=== PATIENT | male | born 1970 | race Caucasian/White ===

== ENCOUNTER → 2020-05-10 09:11 | Outpatient (BNVA) | payer OTHER, SELFPAY | PROVIDERS: PCP Physician Assistant; Visit Provider Nurse Practitioner Psychiatric/Mental Health | DX: F11.20 Opioid dependence, uncomplicated (principal); F10.20 Alcohol dependence, uncomplicated | CPT/HCPCS: 99213 ==

== ENCOUNTER → 2020-05-17 10:11 | Outpatient (BNVA) | payer OTHER, SELFPAY | PROVIDERS: PCP Physician Assistant; Visit Provider Nurse Practitioner Psychiatric/Mental Health | DX: F10.20 Alcohol dependence, uncomplicated (principal); F11.99 Opioid use, unspecified with unspecified opioid-induced disorder | CPT/HCPCS: 80305; 99213 ==

== ENCOUNTER 2020-05-18 10:49 | Emergency (ER) | payer OTHER, SELFPAY ==
--- NOTE | 2020-05-18 | ECG_ITS ---
Test Reason : CHEST WALL PAIN Blood Pressure : / mmHG Vent. Rate : 060 BPM Atrial Rate : 060 BPM P-R Int : 160 ms QRS Dur : 110 ms QT Int : 400 ms P-R-T Axes : 071 049 017 degrees QTc Int : 400 ms Normal sinus rhythm Minimal voltage criteria for LVH, may be normal variant Borderline ECG When compared with ECG of 11-OCT-2019 23:59, No significant change was found Referred By: Bhavya Contreras Electronically Signed By:FELICITY HANSON MD
[2020-05-18 10:59] VITALS: BP 221/123; PULSE 67; RESP 18; TEMP 36.7; O2SAT 97; BMI 27.8
[2020-05-18] MEDS: Omeprazole 40 MG CAPSULE.DR PO (12:01)
[2020-05-18] MEDS: Magnesium Hydrox/Alum Hydrox 30 ML ORAL.SUSP PO (12:01)
[2020-05-18] MEDS: Lidocaine HCl Viscous 2 % 15 ML SOLUTION MUCOUS MEM (12:01)
[2020-05-18] MEDS: 0.9 % Sodium Chloride 1,000 ML 999 ML IVCONT (12:02)
[2020-05-18] MEDS: ondansetron HCL 4 MG/2 ML VIAL IVPUSH (12:02)
[2020-05-18 12:08] LABS: MANUAL DIFF FLAG NO
[2020-05-18 12:09] LABS: Basophils Absolute Auto 0.1 X10*3/uL (0.0-0.2); Basophils Percent Auto 0.9 % (0-2); Eosinophils Absolute Auto 0.2 X10*3/uL (0.0-0.4); Eosinophils Percent Auto 3.4 % (0-4); Hematocrit 41.8 % (42-52); Hemoglobin 13.6 g/dl (14.0-18.0); Imm Gran Abs Auto 0.01 X10*3/uL (0.00-0.03); Imm Gran Pct Auto 0.2 % (0.0-0.4); Lymphocytes Absolute Auto 1.5 X10*3/uL (1.2-4.9); Lymphocytes Percent Auto 26.8 % (20-40); Mean Corpuscular HGB Conc 32.5 g/dl (31.0-36.0); Mean Corpuscular Hemoglobin 30.7 pg (27.0-33.0); Mean Corpuscular Volume 94.4 fL (80-98); Mean Platelet Volume 10.4 fL (9.4-12.4); Monocytes Absolute Auto 0.6 X10*3/uL (0.1-1.2); Monocytes Percent Auto 10.9 % (2-11); Neutrophils Absolute Auto 3.3 X10*3/uL (2.0-8.3); Neutrophils Percent Auto 57.8 % (45-73); Platelet Count 171 X10*3/uL (160-400); Red Blood Count 4.43 X10*6/uL (4.60-5.80); Red Cell Distribution Width 13.6 % (11.0-16.0); White Blood Count 5.7 X10*3/uL (4.8-10.8)
--- NOTE | 2020-05-18 12:09 | ED_ITS ---
HPI - Chest Pain General Chief Complaint: Chest Pain Stated Complaint: abd pain vomiting Time Seen by Provider: 05/18/20 11:05 Source: patient Mode of arrival: ambulatory Limitations: language barrier History of Present Illness HPI narrative: 49 y/o male with history of chronic ETOH abuse, heroin abuse on Suboxone, HTN presenting with daily vomiting, mild epigastric abdominal pain for the last 4-6 weeks. He reports drinking at least one 5th of alcohol every day. When he doesn't drink he is tremulous and sweaty and feels awful. He vomits in the morning, non-blood, non-bilious and then has his alcohol in order to go on with his day. He wants to be admitted for alcohol detox. he states alcohol is ruining his family and his life. He also reports chest heaviness and difficulty controlling his blood pressure. He did not take his BP meds today, unsure what he is on. Of note patient was seen here 1 month ago for abd pain - had negative CT scan and scrotal US. MD complaint: other (vomiting ) Onset (ago): week(s) (2) Onset: after eating Pain location: substernal Pain radiation: none Severity: mild Quality: heaviness Relieving factors: nothing Exacerbating factors: stress and other (alcohol withdrawal ) Associated symptoms: nausea, vomiting and diaphoresis Treatment prior to arrival: none Risk Factors Coronary artery disease risk factors: none Thoracic aortic dissection risk factors: none Related Data Home Medications Medication Instructions Recorded Confirmed albuterol sulfate 90 mcg/actuation 2 puff INHALATION Q6H PRN 05/05/20 05/17/20 aerosol inhaler amlodipine 2.5 mg tablet 2.5 mg PO DAILY 05/05/20 05/10/20 multivitamin 1 tab PO DAILY 05/05/20 05/10/20 nicotine 14 mg/24 hr daily 1 patch TRANSDERMAL Q24H 05/05/20 05/10/20 transdermal patch Previous Rx's Medication Instructions Recorded buprenorphine 8 mg-naloxone 2 mg 1 film SUBLINGUAL BID #14 ea 05/17/20 sublingual film ondansetron HCl [Zofran] 4 mg PO Q8H PRN #14 tab 05/18/20 pantoprazole [Protonix] 40 mg PO DAILY #30 tab 05/18/20 Allergies Allergy/AdvReac Type Severity Reaction Status Date / Time seafood Allergy Anaphylaxis Verified 05/17/20 10:42 Review of Systems Review of Systems: Constitutional: No Fever, No Chills ENT/Mouth: No sore throat, No Rhinorrhea, No Swallowing Difficulty Eyes: No Eye Pain, No Swelling, No Redness Cardiovascular: positive Chest Pain, no SOB, No Orthopnea Respiratory: No Cough, No Sputum, No Wheezing Gastrointestinal: positive Nausea, positive Vomiting, No Diarrhea, positive epigastric abdominal Pain, No Hematochezia, No Melena Genitourinary: No Dysuria, No Urinary Frequency, No Hematuria Musculoskeletal: No joint pain, No Myalgias Skin: No Skin Lesions, No rash Neuro: No Weakness, No Numbness, No Dizziness, No Headache Psych: No Anxiety/Panic, No Depression Heme/Lymph: No Bruising, No Lymphadenopathy Endocrine: No Polyuria, No Polydipsia All other 10 point ROS are negative. [facility] Past Medical History Attestation statement: The following information was validated with the patient. Medical History Depression Hypertension Social History Social History Alcohol intake: current Alcohol intake frequency: 3 or more drinks per day Alcohol type: beer and hard liquor Smoking Status: Current every day smoker Smoked in Last 30 Days: Yes Use of substances other than those prescribed or required for medical reasons: Yes Advance Directives: No Advance Directives Information Provided: No Physical Exam Vital Signs and I&O and Narrative: Vital Signs and I&O: Vital Signs Temp 98.1 F 05/18/20 10:59 Pulse 59 05/18/20 12:38 Resp 18 05/18/20 12:38 BP 138/82 05/18/20 12:38 Pulse Ox 98 05/18/20 12:38 Intake & Output 05/17/20 05/18/20 05/18/20 18:59 06:59 18:59 Intake Total 1000 / 1000 Balance 1000 / 1000 Weight 78.29 kg Intake: Intake, IV Amoun t 1000 / 1000 0.9 % Sodium C hloride 1,000 ml 1000 / 1000 @ 999 mls/hr I VCONT .Q1H1M [facility] Rx#:[id number] Body Mass Index 27.8 Course Course Course Narrative: patient would like to be admitted for alcohol detox. He admits to drinking this morning. He does not appear to be withdrawing at this time. We discussed inpatient vs outpatient detox. CARE team consulted. Labs show ETOH level 192 and mild transaminitis similar to prior, likely due to mild alcoholic hepatitis. Reevaluation(s) Reevaluation #1: BP initially elevated 221/120 - he did not take his antihypertesnives this morning. His home Norvasc was ordered as well as IV l abetalol, however on recheck BP drastically improved to 138/92. IV labetalol cancelled for now. Time: 12:49 Reevaluation #2: Seen by CARE Team for referral to outpatient detox centers - patient does not want to wait to hear back about spot availability. Importance of detox was expressed and patient understands. Instructed to come to the ER if he develops s/sxs of withdrawal at home. Stable for d/c. Time: 13:49 MDM - Chest Pain Medical Records Data Attestation: I reviewed the patient's medical records. Lab Data Attestation: I reviewed the patient's lab results. Result diagrams: 05/18/20 11:58 05/18/20 11:58 Labs: Lab Results 05/18/20 05/18/20 05/18/20 Range/Units 11:58 11:58 11:58 WBC 5.7 (4.8-10.8) X10*3/uL RBC 4.43 L (4.60-5.80) X10*6/uL Hgb 13.6 L (14.0-18.0) g/dl Hct 41.8 L (42-52) % MCV 94.4 (80-98) fL MCH 30.7 (27.0-33.0) pg MCHC 32.5 (31.0-36.0) g/dl RDW 13.6 (11.0-16.0) % Plt Count 171 (160-400) X10*3/uL MPV 10.4 (9.4-12.4) fL Immature Gran % (Auto) 0.2 (0.0-0.4) % Neut % (Auto) 57.8 (45-73) % Lymph % (Auto) 26.8 (20-40) % Ward % (Auto) 10.9 (2-11) % Eos % (Auto) 3.4 (0-4) % Baso % (Auto) 0.9 (0-2) % Lymph # (Auto) 1.5 (1.2-4.9) X10*3/uL Ward # (Auto) 0.6 (0.1-1.2) X10*3/uL Eos # (Auto) 0.2 (0.0-0.4) X10*3/uL Baso # (Auto) 0.1 (0.0-0.2) X10*3/uL Abs Immat Gran (auto) 0.01 (0.00-0.03) X10*3/uL Absolute Neuts (auto) 3.3 (2.0-8.3) X10*3/uL Absolute Nucleated RBC 0.000 (0.0-0.012) X10*3/uL Nucleated RBC % (auto) 0.0 (0.0-0.2) /100WBC Sodium 138 (135-145) mmol/L Potassium 4.3 (3.3-5.1) mmol/l Chloride 101 (96-108) mmol/L Carbon Dioxide 29 (22-29) mmol/L Anion Gap 12 (12-20) BUN 9 (9-16) mg/dL Creatinine 0.63 (0.5-1.4) mg/dL Estim Creat Clear Calc 141.1 Estimated GFR > 60 Random Glucose 108 (60-115) mg/dL Calcium 9.1 (8.4-10.2) mg/dL Total Bilirubin 0.5 (0.0-1.0) mg/dL Direct Bilirubin 0.3 (0.0-0.5) mg/dL AST 87 H (5-37) U/L ALT 93 H (0-40) U/L Alkaline Phosphatase 49 (39-117) U/L Troponin I High Sens (<3.5-35.0) ng/L Total Protein 7.0 (6.5-8.0) g/dL Albumin 4.4 (3.5-5.0) g/dL Lipase 20 (8-78) U/L Urine Opiates Screen Not Detected (Not Detect) Ur Barbiturates Screen Not Detected (Not Detect) Ur Phencyclidine Scrn Not Detected (Not Detect) Ur Amphetamines Screen Not Detected (Not Detect) U Benzodiazepines Scrn Not Detected (Not Detect) Urine Cocaine Screen Not Detected (Not Detect) U Marijuana (THC) Screen Not Detected (Not Detect) Ethyl Alcohol mg/dL 05/18/20 05/18/20 Range/Units 11:58 11:58 WBC (4.8-10.8) X10*3/uL RBC (4.60-5.80) X10*6/uL Hgb (14.0-18.0) g/dl Hct (42-52) % MCV (80-98) fL MCH (27.0-33.0) pg MCHC (31.0-36.0) g/dl RDW (11.0-16.0) % Plt Count (160-400) X10*3/uL MPV (9.4-12.4) fL Immature Gran % (Auto) (0.0-0.4) % Neut % (Auto) (45-73) % Lymph % (Auto) (20-40) % Ward % (Auto) (2-11) % Eos % (Auto) (0-4) % Baso % (Auto) (0-2) % Lymph # (Auto) (1.2-4.9) X10*3/uL Ward # (Auto) (0.1-1.2) X10*3/uL Eos # (Auto) (0.0-0.4) X10*3/uL Baso # (Auto) (0.0-0.2) X10*3/uL Abs Immat Gran (auto) (0.00-0.03) X10*3/uL Absolute Neuts (auto) (2.0-8.3) X10*3/uL Absolute Nucleated RBC (0.0-0.012) X10*3/uL Nucleated RBC % (auto) (0.0-0.2) /100WBC Sodium (135-145) mmol/L Potassium (3.3-5.1) mmol/l Chloride (96-108) mmol/L Carbon Dioxide (22-29) mmol/L Anion Gap (12-20) BUN (9-16) mg/dL Creatinine (0.5-1.4) mg/dL Estim Creat Clear Calc Estimated GFR Random Glucose (60-115) mg/dL Calcium (8.4-10.2) mg/dL Total Bilirubin (0.0-1.0) mg/dL Direct Bilirubin (0.0-0.5) mg/dL AST (5-37) U/L ALT (0-40) U/L Alkaline Phosphatase (39-117) U/L Troponin I High Sens 7.2 (<3.5-35.0) ng/L Total Protein (6.5-8.0) g/dL Albumin (3.5-5.0) g/dL Lipase (8-78) U/L Urine Opiates Screen (Not Detect) Ur Barbiturates Screen (Not Detect) Ur Phencyclidine Scrn (Not Detect) Ur Amphetamines Screen (Not Detect) U Benzodiazepines Scrn (Not Detect) Urine Cocaine Screen (Not Detect) U Marijuana (THC) Screen (Not Detect) Ethyl Alcohol 192 mg/dL ECG Data ECG #1: Attestation: I personally reviewed and interpreted this ECG as follows: ECG interpretation date: 05/18/20 Interpretation: normal sinus rhythm HR 60 bpm, normal VA interval, increased QRS voltage consistent with possible LVH Discharge Plan Discharge Clinical Impression: Alcohol use disorder, severe, dependence, Opioid use disorder, Transaminitis Gastritis Qualifiers: Gastritis type: alcoholic Chronicity: chronic Gastritis bleeding: without bleeding Qualified Code(s): K29.20 - Alcoholic gastritis without bleeding Patient Disposition: Home, Self-Care Instructions: Gastritis (ED), Alcohol Dependence (ED) Additional Instructions: Call the detox centers to get yourself a bed for alcohol detox. If you are experiencing withdrawal symptoms at home, including shakiness, vomiting, seizures, sweating come back to the ER or call 911. Prescriptions: New pantoprazole [Protonix] 40 mg tablet,delayed release (DR/EC) 40 mg PO DAILY Qty: 30 RF: 0 ondansetron HCl [Zofran] 4 mg tablet 4 mg PO Q8H PRN (Reason: nausea and vomiting) Qty: 14 RF: 0 Continued amlodipine 2.5 mg tablet 2.5 mg PO DAILY RF: 0 albuterol sulfate [ProAir HFA] 90 mcg/actuation HFA aerosol inhaler 2 puff inhalation Q6H PRNRF: 0 nicotine 14 mg/24 hr patch 24 hour 1 patch transdermal Q24H RF: 0 multivitamin Tablet 1 tab PO DAILY RF: 0 buprenorphine-naloxone [Suboxone] 8-2 mg film 1 film sublingual BID Qty: 14 RF: 0 Interventions: ED Discharge Assessment Last Done: 05/18/20 14:43 Discharge Date/Time: 05/18/20 14:15
[2020-05-18] MEDS: Nicotine 21 MG PATCH.TD24 TRANSDERMA (12:14)
[2020-05-18 12:31] VITALS: BP 138/83; PULSE 62
[2020-05-18 12:31] LABS: Ethanol 192 mg/dL
[2020-05-18] MEDS: amLODIPine Besylate 2.5 MG TABLET PO (12:31)
[2020-05-18 12:32] LABS: Alanine Aminotransferase 93 U/L (0-40); Albumin Level 4.4 g/dL (3.5-5.0); Alkaline Phosphatase 49 U/L (39-117); Anion Gap 12 (12-20); Aspartate Amino Transferase 87 U/L (5-37); Bilirubin Direct 0.3 mg/dL (0.0-0.5); Bilirubin Total 0.5 mg/dL (0.0-1.0); Blood Urea Nitrogen 9 mg/dL (9-16); Calcium 9.1 mg/dL (8.4-10.2); Carbon Dioxide 29 mmol/L (22-29); Chloride 101 mmol/L (96-108); Creatinine Clr Calc Pharmacy 141.1; Estimated Glomerular Filt Rate > 60; Glucose Random 108 mg/dL (60-115); Lipase 20 U/L (8-78); Potassium 4.3 mmol/l (3.3-5.1); Sodium 138 mmol/L (135-145)
[2020-05-18 12:35] VITALS: BP 138/83; PULSE 59
[2020-05-18 12:35] LABS: Troponin-I High Sensitivity 7.2 ng/L (<3.5-35.0)
[2020-05-18 12:38] VITALS: BP 138/82; PULSE 59; RESP 18; O2SAT 98
[2020-05-18 12:52] LABS: Amphetamine Screen Urine Not Detected (Not Detect); Barbiturates, Urine Not Detected (Not Detect); Benzodiazepines Screen Urine Not Detected (Not Detect); Cannabinoid Screen Urine Not Detected (Not Detect); Cocaine Screen Urine Not Detected (Not Detect); Opiate Screen Urine Not Detected (Not Detect); Phencyclidine Screen Urine Not Detected (Not Detect)
--- NOTE | 2020-05-18 14:02 | MHC.CARE ---
CARE Team consult RE: etoh abuse CARE Team and [facility] fire protection inspector met with the 49 year old [place] speaking male in bed 18 of the main ED to discuss alcohol use. Patient reports that he has made efforts to cut back on his drinking but they have been unsuccessful. Patient reports he is interested in detox however he was hoping that he could remain in the hospital for detox. Patient reports concerns related to COVID and states he feels safe here. This underwriter mortgage loan explained that [facility] [place] detox but that we could refer him to detox programs. Patient acknowledged but reports that he will not be able to get a bed until tomorrow. This underwriter mortgage loan acknowledged but informed patient that he could be placed on the wait list and could follow up with the facilities and they will call him when a bed becomes available. Patient consented to being placed on wait lists. Patient reports he is seeking medication to help with the vomiting he experiences in the morning. This underwriter mortgage loan discussed case with patient's ED provider. Patient's information and number faxed to [facility]. CARE Team available as needed.
--- NOTE | 2020-05-18 14:42 | PC.NURSE ---
PATIENT STARTED TO WALK AROUND ROOM SAYING THAT HE COULD NOT STAY AND NEEDED TO LEAVE IMMEDIATELY. PATIENT GIVEN D/C INSTRUCTIONS AND NEW RX.
== END 2020-05-18 14:15 | disposition home or self-care (01) ==
PROVIDERS: Physician Assistant; Emergency Provider Internal Medicine; PCP Nurse Practitioner Psychiatric/Mental Health
DX: K29.20 Alcoholic gastritis without bleeding (principal); F10.20 Alcohol dependence, uncomplicated; Y90.6 Blood alcohol level of 120-199 mg/100 ml; F11.90 Opioid use, unspecified, uncomplicated; Z71.41 Alcohol abuse counseling and surveillance of alcoholic; Z79.899 Other long term (current) drug therapy
CPT/HCPCS: 36415; 80048; 80076; 80307; 80320; 83690; 84484; 85025; 93005; 96361; 96374; 96375; 99285; J2405

== ENCOUNTER → 2020-05-24 09:14 | Outpatient (BNVA) | payer OTHER, SELFPAY | PROVIDERS: Visit Provider Nurse Practitioner Psychiatric/Mental Health | DX: F11.99 Opioid use, unspecified with unspecified opioid-induced disorder (principal); F10.20 Alcohol dependence, uncomplicated | CPT/HCPCS: 80305; 99214 ==

== ENCOUNTER → 2020-05-31 09:08 | Outpatient (BNVA) | payer OTHER, SELFPAY | PROVIDERS: Visit Provider Nurse Practitioner Psychiatric/Mental Health | DX: F11.99 Opioid use, unspecified with unspecified opioid-induced disorder (principal) | CPT/HCPCS: 80305; 99213 ==

== ENCOUNTER 2020-06-04 03:31 | Emergency (ER) | payer OTHER, SELFPAY ==
[2020-06-04 03:38] VITALS: PULSE 77; RESP 10; TEMP 36.5; O2SAT 97; BMI 23.3
--- NOTE | 2020-06-04 03:49 | CT_ITS ---
EXAMINATION: NONCONTRAST HEAD CT NONCONTRAST CERVICAL SPINE CT INDICATION INFORMATION: Trauma COMPARISON: 10/11/2019 TECHNIQUE: Separate noncontrast CT examinations of the head and cervical spine were performed. Coronal head CT images and coronal and sagittal cervical spine images were created at the technologist workstation. DLP: 1184 mGy-cm DOSE LOWERING TECHNIQUES: This CT examination was performed using dose optimization techniques as appropriate, variously including the following: - Automated exposure control - Adjustment of mA and/or kV according to patient size (this includes techniques or standardized protocols for targeted exams were dose is matched to indication/reason for exam; i.e. extremities or head) - Use of iterative reconstruction technique FINDINGS: Head: There is no evidence of acute intracranial hemorrhage or territorial infarction. No abnormal mass-effect or midline shift is seen. Guardado to white matter differentiation is well preserved. No extra-axial fluid collections are identified. The ventricles are normal in size. There is mild periventricular and patchy subcortical white matter hypoattenuation consistent with chronic small vessel ischemic disease. The osseous structures and soft tissues are normal. There is opacification of the right mastoid tip air cells. The visualized portions of the paranasal sinuses are well-aerated. Cervical spine: There is anatomic alignment of the vertebral bodies and posterior elements. Vertebral body heights are maintained. Intervertebral disc spaces are preserved. There are mild endplate osteophytes in the lower cervical spine. No evidence of acute fracture. No prevertebral soft tissue swelling. Visualized portions of the lung apices are unremarkable. The thyroid gland is unremarkable. CT/CT cervical spine wo con IMPRESSION: No acute intracranial findings. No acute findings identified in the cervical spine.
--- NOTE | 2020-06-04 03:52 | ECG_ITS ---
Test Reason : SEIZURE Blood Pressure : / mmHG Vent. Rate : 067 BPM Atrial Rate : 067 BPM P-R Int : 162 ms QRS Dur : 086 ms QT Int : 414 ms P-R-T Axes : 037 028 021 degrees QTc Int : 437 ms Normal sinus rhythm RSR' or QR pattern in V1 suggests right ventricular conduction delay Otherwise normal ECG When compared with ECG of 18-MAY-2020 11:33, No significant change was found Referred By: Mariam Duenas Electronically Signed By:FELICITY HANSON MD
--- NOTE | 2020-06-04 04:04 | ED_ITS ---
HPI - Seizure General Chief Complaint: Seizure Stated Complaint: SZ W/HEAD STRIKE,POST ICTAL,+ C COLLAR Time Seen by Provider: 06/04/20 03:49 History of Present Illness HPI Narrative: Patient has a history of alcohol abuse. No history of seizures in the past. History of hypertension. Denies any recreational drug use family noted patient had a tonic-clonic seizure. Followed by a fall. There is no prodrome. Patient denies drinking alcohol today. No fever no chills. No coughing or congestion or upper respiratory symptoms. No abdominal pain. No history of the same. Patient became postictal after approximately 1 minute of tonic-clonic seizure. Subsequently patient became more awake alert sent in by EMS for further evaluation. The seizure was generalized over the entire body. He was noted to be foaming at the mouth Seizure History: Yes (when he was younger) Place: Home Related Data Home Medications Medication Instructions Recorded Confirmed albuterol sulfate 90 mcg/actuation 2 puff INHALATION Q6H PRN 05/05/20 05/24/20 aerosol inhaler amlodipine 2.5 mg tablet 2.5 mg PO DAILY 05/05/20 05/24/20 multivitamin 1 tab PO DAILY 05/05/20 05/10/20 nicotine 14 mg/24 hr daily 1 patch TRANSDERMAL Q24H 05/05/20 05/24/20 transdermal patch Previous Rx's Medication Instructions Recorded ondansetron HCl [Zofran] 4 mg PO Q8H PRN #14 tab 05/18/20 pantoprazole [Protonix] 40 mg PO DAILY #30 tab 05/18/20 buprenorphine 8 mg-naloxone 2 mg 1 film SUBLINGUAL BID #14 ea 05/31/20 sublingual film lorazepam [Ativan] 1 mg PO TID PRN #10 tab 06/04/20 ondansetron 4 mg PO TID PRN 5 Days #10 tab 06/04/20 Allergies Allergy/AdvReac Type Severity Reaction Status Date / Time seafood Allergy Anaphylaxis Verified 05/31/20 09:26 Review of Systems Review of Systems: Constitutional: No Weight loss, No Fever, No Chills, No Night Sweats, No Fatigue, No Malaise ENT/Mouth: No Hearing loss, No Ear Pain, No Nasal Congestion, No Sinus Pain, No Hoarseness, No sore throat, No Rhinorrhea, No Swallowing Difficulty Eyes: No Eye Pain, No Swelling, No Redness, No Foreign Body, No Discharge, No Vision Changes Cardiovascular: No Chest Pain, No SOB, No Dyspnea on Exertion, No Orthopnea, No Edema, No Palpitations Respiratory: No Cough, No Sputum, No Wheezing, No Smoke Exposure, No Dyspnea Gastrointestinal: No Nausea, No Vomiting, No Diarrhea, No Constipation, No abdominal Pain, No Hematochezia, No Melena Genitourinary: no irregular bleeding, No Dysuria, No Urinary Frequency, No Hematuria, No Urinary Incontinence, No Urgency, No Flank Pain, No Urinary Flow Changes, No Hesitancy Musculoskeletal: No joint pain, No Myalgias, No Joint Swelling Skin: No Skin Lesions, No rash Neuro: No Weakness, No Numbness, No Paresthesias, No Loss of Consciousness, No Dizziness, No Headache Psych: No Anxiety/Panic, No Depression, No SI/HI/AH/VH, No Social Issues, Heme/Lymph: No Bruising, No Bleeding,No Lymphadenopathy Endocrine: No Polyuria, No Polydipsia, No Temperature Intolerance [facility] Past Medical History Medical History Depression Hypertension Social History Social History Alcohol intake: current Alcohol intake frequency: 3 or more drinks per day Alcohol type: beer Smoking Status: Current every day smoker Use of substances other than those prescribed or required for medical reasons: No Advance Directives: No Advance Directives Information Provided: Yes Physical Exam Vital Signs: Vital Signs: Vital Signs Temp Pulse Resp Pulse Ox 06/04/20 03:38 97.7 F 77 10 L 97 Body Mass Index 23.3 Appearance: Alert. Oriented X3. No acute distress. Eyes: Pupils equal, round and reactive to light. ENT: Pharynx normal. Neck: Normal inspection. C-spine immobilized secondary to distracting injuryNo lymph nodes noted. No crepitus CVS: Normal heart rate and rhythm. Pulses normal. Normal S1 and S2 Respiratory: No respiratory distress. Breath sounds normal. No Wheezing. No rales Abdomen: Soft and nontender. No rigidity. No distention. good BS x4 Skin: Skin warm and dry. Normal skin color. Normal skin turgor. Extremities: No lower extremity edema. Neurovascular intact to all extremities. No Lacerations. No Rash Neuro: Oriented X 3. No motor deficit. No sensory deficit. Moving all extermities. No slurred speech MDM - Seizure MDM Narrative Medical decision making narrative: Question of patient had a seizure episode. On arrival patient is no longer postictal. CT scan of the head was negative. CT scan of the C-spine was negative for any acute evidence of bleeding. Alcohol level is negative. Patient's electrolytes are fairly unremarkable. Discussed with patient the need to go to detox for his alcohol problem. Will give benzos to treat possible withdrawal. Will have patient go to detox. Patient needs to follow seizure precautions. Follow up with neurology on an outpatient basis. No driving no activities that put him in danger. Patient states understanding. Will discharge patient Differential Diagnosis Differential diagnosis: Likely generalized seizure and new onset seizure Lab Data Result diagrams: 06/04/20 03:59 06/04/20 03:59 Labs: Lab Results 06/04/20 06/04/20 06/04/20 Range/Units 03:59 03:59 03:59 WBC 6.4 (4.8-10.8) X10*3/uL RBC 4.74 (4.60-5.80) X10*6/uL Hgb 14.5 (14.0-18.0) g/dl Hct 44.1 (42-52) % MCV 93.0 (80-98) fL MCH 30.6 (27.0-33.0) pg MCHC 32.9 (31.0-36.0) g/dl RDW 12.9 (11.0-16.0) % Plt Count 274 D (160-400) X10*3/uL MPV 10.2 (9.4-12.4) fL Immature Gran % (Auto) 0.3 (0.0-0.4) % Neut % (Auto) 55.6 (45-73) % Lymph % (Auto) 32.3 (20-40) % Mckinley % (Auto) 6.5 (2-11) % Eos % (Auto) 4.2 H (0-4) % Baso % (Auto) 1.1 (0-2) % Lymph # (Auto) 2.1 (1.2-4.9) X10*3/uL Mckinley # (Auto) 0.4 (0.1-1.2) X10*3/uL Eos # (Auto) 0.3 (0.0-0.4) X10*3/uL Baso # (Auto) 0.1 (0.0-0.2) X10*3/uL Abs Immat Gran (auto) 0.02 (0.00-0.03) X10*3/uL Absolute Neuts (auto) 3.6 (2.0-8.3) X10*3/uL Absolute Nucleated RBC 0.000 (0.0-0.012) X10*3/uL Nucleated RBC % (auto) 0.0 (0.0-0.2) /100WBC Sodium 138 (135-145) mmol/L Potassium 4.1 (3.3-5.1) mmol/l Chloride 97 (96-108) mmol/L Carbon Dioxide 27 (22-29) mmol/L Anion Gap 18 (12-20) BUN 15 D (9-16) mg/dL Creatinine 0.73 (0.5-1.4) mg/dL Estim Creat Clear Calc 135.8 Estimated GFR > 60 POC Glucose (60-115) mg/dL Random Glucose 131 H (60-115) mg/dL Calcium 9.3 (8.4-10.2) mg/dL Magnesium 1.7 (1.6-2.6) mg/dL Ethyl Alcohol < 10 mg/dL 06/04/20 Range/Units 04:19 WBC (4.8-10.8) X10*3/uL RBC (4.60-5.80) X10*6/uL Hgb (14.0-18.0) g/dl Hct (42-52) % MCV (80-98) fL MCH (27.0-33.0) pg MCHC (31.0-36.0) g/dl RDW (11.0-16.0) % Plt Count (160-400) X10*3/uL MPV (9.4-12.4) fL Immature Gran % (Auto) (0.0-0.4) % Neut % (Auto) (45-73) % Lymph % (Auto) (20-40) % Mckinley % (Auto) (2-11) % Eos % (Auto) (0-4) % Baso % (Auto) (0-2) % Lymph # (Auto) (1.2-4.9) X10*3/uL Mckinley # (Auto) (0.1-1.2) X10*3/uL Eos # (Auto) (0.0-0.4) X10*3/uL Baso # (Auto) (0.0-0.2) X10*3/uL Abs Immat Gran (auto) (0.00-0.03) X10*3/uL Absolute Neuts (auto) (2.0-8.3) X10*3/uL Absolute Nucleated RBC (0.0-0.012) X10*3/uL Nucleated RBC % (auto) (0.0-0.2) /100WBC Sodium (135-145) mmol/L Potassium (3.3-5.1) mmol/l Chloride (96-108) mmol/L Carbon Dioxide (22-29) mmol/L Anion Gap (12-20) BUN (9-16) mg/dL Creatinine (0.5-1.4) mg/dL Estim Creat Clear Calc Estimated GFR POC Glucose 117 H (60-115) mg/dL Random Glucose (60-115) mg/dL Calcium (8.4-10.2) mg/dL Magnesium (1.6-2.6) mg/dL Ethyl Alcohol mg/dL ECG Data Attestation: I personally reviewed and interpreted this ECG as follows: ECG interpretation date: 06/04/20 ECG interpretation time: 04:21 Interpretation: sinus heart rate is 70 MA QRS QT within normal limits is no acute ST segment elevation noted. Discharge Plan Discharge Clinical Impression: Alcohol use disorder, severe, dependence, Epileptic seizure, Alcohol withdrawal seizure Patient Disposition: Home, Self-Care Instructions: Epilepsy (ED), Alcohol Withdrawal (ED) Additional Instructions: no driving. No swimming. No activities that would put you in danger if he have seizures at that time. Follow-up with neurology. Please take Ativan as needed for withdrawal symptoms. 1 mg every 6 hours as needed. Please go to de tox. Please closely follow-up with your Neurology. Prescriptions: New lorazepam [Ativan] 1 mg tablet 1 mg PO TID PRN (Reason: alcohol withdrawal) Qty: 10 RF: 0 ondansetron 4 mg tablet,disintegrating 4 mg PO TID PRN (Reason: nausea and vomiting) 5 Days Qty: 10 RF: 0 No Action pantoprazole [Protonix] 40 mg tablet,delayed release (DR/EC) 40 mg PO DAILY Qty: 30 RF: 0 ondansetron HCl [Zofran] 4 mg tablet 4 mg PO Q8H PRN (Reason: nausea and vomiting) Qty: 14 RF: 0 buprenorphine-naloxone [Suboxone] 8-2 mg film 1 film sublingual BID Qty: 14 RF: 0 amlodipine 2.5 mg tablet 2.5 mg PO DAILY RF: 0 albuterol sulfate [ProAir HFA] 90 mcg/actuation HFA aerosol inhaler 2 puff inhalation Q6H PRNRF: 0 nicotine 14 mg/24 hr patch 24 hour 1 patch transdermal Q24H RF: 0 multivitamin Tablet 1 tab PO DAILY RF: 0 Referrals: Chadwick Bond MD [Physician] - 2 days Print Language: Urdu
[2020-06-04 04:08] LABS: MANUAL DIFF FLAG NO
[2020-06-04 04:11] LABS: Basophils Absolute Auto 0.1 X10*3/uL (0.0-0.2); Basophils Percent Auto 1.1 % (0-2); Eosinophils Absolute Auto 0.3 X10*3/uL (0.0-0.4); Eosinophils Percent Auto 4.2 % (0-4); Hematocrit 44.1 % (42-52); Hemoglobin 14.5 g/dl (14.0-18.0); Imm Gran Abs Auto 0.02 X10*3/uL (0.00-0.03); Imm Gran Pct Auto 0.3 % (0.0-0.4); Lymphocytes Absolute Auto 2.1 X10*3/uL (1.2-4.9); Lymphocytes Percent Auto 32.3 % (20-40); Mean Corpuscular HGB Conc 32.9 g/dl (31.0-36.0); Mean Corpuscular Hemoglobin 30.6 pg (27.0-33.0); Mean Platelet Volume 10.2 fL (9.4-12.4); Monocytes Absolute Auto 0.4 X10*3/uL (0.1-1.2); Monocytes Percent Auto 6.5 % (2-11); Neutrophils Absolute Auto 3.6 X10*3/uL (2.0-8.3); Neutrophils Percent Auto 55.6 % (45-73); Platelet Count 274 X10*3/uL (160-400); Red Blood Count 4.74 X10*6/uL (4.60-5.80); Red Cell Distribution Width 12.9 % (11.0-16.0); White Blood Count 6.4 X10*3/uL (4.8-10.8)
[2020-06-04 04:23] LABS: Glucose, Whole Blood 117 mg/dL (60-115)
[2020-06-04 04:29] LABS: Ethanol < 10 mg/dL
[2020-06-04 04:32] LABS: Anion Gap 18 (12-20); Blood Urea Nitrogen 15 mg/dL (9-16); Carbon Dioxide 27 mmol/L (22-29); Chloride 97 mmol/L (96-108); Creatinine Clr Calc Pharmacy 135.8; Estimated Glomerular Filt Rate > 60; Glucose Random 131 mg/dL (60-115); Magnesium 1.7 mg/dL (1.6-2.6); Potassium 4.1 mmol/l (3.3-5.1); Sodium 138 mmol/L (135-145)
[2020-06-04 04:35] LABS: Calcium 9.3 mg/dL (8.4-10.2)
--- NOTE | 2020-06-04 04:36 | PC.NURSE ---
patient currently in CAT SCAN.
== END 2020-06-04 05:53 | disposition home or self-care (01) ==
PROVIDERS: Emergency Provider Emergency Medicine Emergency Medical Services
DX: R56.9 Unspecified convulsions (principal); F10.239 Alcohol dependence with withdrawal, unspecified; Y90.0 Blood alcohol level of less than 20 mg/100 ml; F17.200 Nicotine dependence, unspecified, uncomplicated; Z71.6 Tobacco abuse counseling; Z79.899 Other long term (current) drug therapy
CPT/HCPCS: 36415; 70450; 72125; 80048; 80320; 82947; 83735; 85025; 93005; 99284

== ENCOUNTER → 2020-06-07 09:13 | Outpatient (BNVA) | payer OTHER, SELFPAY | PROVIDERS: Visit Provider Nurse Practitioner Psychiatric/Mental Health | DX: F11.99 Opioid use, unspecified with unspecified opioid-induced disorder (principal); F10.20 Alcohol dependence, uncomplicated; F32.9 Major depressive disorder, single episode, unspecified; I10 Essential (primary) hypertension; F17.200 Nicotine dependence, unspecified, uncomplicated; Z91.013 Allergy to seafood | CPT/HCPCS: 80305; 99212 ==

== ENCOUNTER → 2020-06-14 08:50 | Outpatient (BNVA) | payer OTHER, SELFPAY | PROVIDERS: Visit Provider Nurse Practitioner Psychiatric/Mental Health | DX: F11.20 Opioid dependence, uncomplicated (principal); F10.20 Alcohol dependence, uncomplicated | CPT/HCPCS: 80305; 99212 ==

== ENCOUNTER → 2020-06-21 09:06 | Outpatient (BNVA) | payer OTHER, SELFPAY | PROVIDERS: Visit Provider Nurse Practitioner Psychiatric/Mental Health | DX: F11.20 Opioid dependence, uncomplicated (principal); F10.20 Alcohol dependence, uncomplicated | CPT/HCPCS: 80305; 99212 ==

== ENCOUNTER 2020-07-03 10:41 | Emergency (ER) | payer MEDICAID, SELFPAY ==
[2020-07-03 11:06] VITALS: BP 186/93; PULSE 65; RESP 16; TEMP 37.1; O2SAT 100; BMI 27.4
[2020-07-03 11:49] VITALS: BP 216/102; PULSE 64; RESP 16
--- NOTE | 2020-07-03 11:56 | ED.ABDPAIN ---
HPI - Abdominal Pain General Chief Complaint: Abdominal Pain Stated Complaint: STOMACH PAIN Time Seen by Provider: 07/03/20 11:56 Source: patient Mode of arrival: ambulatory Limitations: language barrier History of Present Illness HPI narrative: 49 y/o male with history of alcohol abuse and dependence, chronic abdominal pain, hx recent ETOH seizure in May, anxiety presents with left sided flank pain that radiates down to his left groin. He was seen here in April for similar complaints - had normal CT scan and testicular U/S. He reports some nausea and vomiting associated with the pain. He states he gets bad pain, tremor and anxiety if he does not drink alcohol daily. Last drink was this morning. Denies fever, chills, diarrhea, constipation, penile discharge, urinary symptoms. Related Data Home Medications Medication Instructions Recorded Confirmed amlodipine 2.5 mg tablet 2.5 mg PO DAILY 05/05/20 05/24/20 multivitamin 1 tab PO DAILY 05/05/20 05/10/20 nicotine 14 mg/24 hr daily 1 patch TRANSDERMAL Q24H 05/05/20 05/24/20 transdermal patch Previous Rx's Medication Instructions Recorded ondansetron HCl [Zofran] 4 mg PO Q8H PRN #14 tab 05/18/20 pantoprazole [Protonix] 40 mg PO DAILY #30 tab 05/18/20 lorazepam [Ativan] 1 mg PO TID PRN #10 tab 06/04/20 ondansetron 4 mg PO TID PRN 5 Days #10 tab 06/04/20 albuterol sulfate 90 mcg/actuation 2 puff INHALATION Q6H PRN #8.5 g 06/21/20 aerosol inhaler buprenorphine 8 mg-naloxone 2 mg 1 film SUBLINGUAL BID #14 ea 06/21/20 sublingual film Allergies Allergy/AdvReac Type Severity Reaction Status Date / Time seafood Allergy Anaphylaxis Verified 05/31/20 09:26 Review of Systems Review of Systems Constitutional: No Fever, No Chills ENT/Mouth: No sore throat, No Rhinorrhea, No Swallowing Difficulty Eyes: No Eye Pain, No Swelling, No Redness Cardiovascular: No Chest Pain, No SOB, No Orthopnea, No Edema Respiratory: No Cough, No Sputum, No Wheezing, No dyspnea Gastrointestinal: + Nausea, + Vomiting, No Diarrhea, + abdominal Pain Genitourinary: No Dysuria, No Urinary Frequency, No Hematuria Musculoskeletal: No joint pain, No Myalgias Skin: No Skin Lesions, No rash Neuro: No Weakness, No Numbness, No Dizziness, + Headache Psych: + Anxiety/Panic, No Depression Heme/Lymph: No Bruising, No Lymphadenopathy Endocrine: No Polyuria, No Polydipsia Physical Exam Vital Signs: Vital Signs: Last Vital Signs Temp 98.7 F 07/03/20 11:06 Pulse 64 07/03/20 11:49 Resp 16 07/03/20 11:49 BP 216/102 H 07/03/20 11:49 Pulse Ox 100 07/03/20 11:06 Body Mass Index 27.4 Appearance: Alert. Oriented X3. No acute distress. Eyes: Pupils equal, round and reactive to light. MIld ENT: Pharynx normal. Neck: Normal inspection. Neck supple. CVS: Normal heart rate and rhythm. Pulses normal. Respiratory: No respiratory distress. Breath sounds normal. Abdomen: Soft and nontender. +BS x4 Skin: Skin warm and dry. Normal skin color. Normal skin turgor. No rashes. Extremities: No lower extremity edema. Neuro: Oriented X 3. No motor deficit. No sensory deficit. Course Course Course Narrative: 49 y/o male with history of ETOH and opiate abuse presenting left lower abdominal pain that radiates into his groin. He has been seen here 2 months ago for the same - CT and U/S negative. He continues to have intermittent pain. CT scan again today was negative. Labs showing mild transaminitis which is chronic and mild hypomagnesemia. He appears well and is tolerating PO. No N/V/D. He continues to report pain, unclear etiology. Will refer to GI for further management and workup. will avoid opiates given his history. ETOH abuse discussed. He is stable for discharge. MDM - Abdominal Pain Lab Data Result diagrams: 07/03/20 12:19 07/03/20 12:19 Labs: Lab Results 07/03/20 07/03/20 07/03/20 Range/Units 12:19 12:19 12:19 WBC 5.6 (4.8-10.8) X10*3/uL RBC 4.36 L (4.60-5.80) X10*6/uL Hgb 13.4 L (14.0-18.0) g/dl Hct 40.5 L (42-52) % MCV 92.9 (80-98) fL MCH 30.7 (27.0-33.0) pg MCHC 33.1 (31.0-36.0) g/dl RDW 13.5 (11.0-16.0) % Plt Count 161 D (160-400) X10*3/uL MPV 10.1 (9.4-12.4) fL Immature Gran % (Auto) 0.2 (0.0-0.4) % Neut % (Auto) 66.7 (45-73) % Lymph % (Auto) 22.5 (20-40) % [place] % (Auto) 8.4 (2-11) % Eos % (Auto) 1.1 (0-4) % Baso % (Auto) 1.1 (0-2) % Lymph # (Auto) 1.3 (1.2-4.9) X10*3/uL [place] # (Auto) 0.5 (0.1-1.2) X10*3/uL Eos # (Auto) 0.1 (0.0-0.4) X10*3/uL Baso # (Auto) 0.1 (0.0-0.2) X10*3/uL Abs Immat Gran (auto) 0.01 (0.00-0.03) X10*3/uL Absolute Neuts (auto) 3.8 (2.0-8.3) X10*3/uL Absolute Nucleated RBC 0.000 (0.0-0.012) X10*3/uL Nucleated RBC % (auto) 0.0 (0.0-0.2) /100WBC Sodium 135 (135-145) mmol/L Potassium 4.4 (3.3-5.1) mmol/l Chloride 98 (96-108) mmol/L Carbon Dioxide 29 (22-29) mmol/L Anion Gap 12 (12-20) BUN 7 L D (9-16) mg/dL Creatinine 0.59 (0.5-1.4) mg/dL Estim Creat Clear Calc 149.7 Estimated GFR > 60 Random Glucose 97 (60-115) mg/dL Calcium 9.1 (8.4-10.2) mg/dL Magnesium 1.5 L (1.6-2.6) mg/dL Total Bilirubin 0.8 (0.0-1.0) mg/dL Direct Bilirubin 0.4 (0.0-0.5) mg/dL AST 66 H (5-37) U/L ALT 61 H (0-40) U/L Alkaline Phosphatase 54 (39-117) U/L Total Protein 6.9 (6.5-8.0) g/dL Albumin 4.2 (3.5-5.0) g/dL Lipase 10 (8-78) U/L Urine Color Urine Appearance Urine pH (5.0-8.0) Ur Specific [place] (1.005-1.025) Urine Protein (NEG-TRACE) MG/DL Urine Glucose (UA) (NEG) MG/DL Urine Ketones (NEG) MG/DL Urine Blood (NEG) Urine Nitrite (NEG) Ur Leukocyte Esterase (NEG) Urine RBC (0) /HPF Urine WBC (0-4) /HPF Ur Squamous Epith Cells /LPF Urine Bacteria /LPF Urine Opiates Screen (Not Detect) Ur Barbiturates Screen (Not Detect) Ur Phencyclidine Scrn (Not Detect) Ur Amphetamines Screen (Not Detect) U Benzodiazepines Scrn (Not Detect) Urine Cocaine Screen (Not Detect) U Marijuana (THC) Screen (Not Detect) Ethyl Alcohol 19 mg/dL 07/03/20 07/03/20 Range/Units 13:51 13:51 WBC (4.8-10.8) X10*3/uL RBC (4.60-5.80) X10*6/uL Hgb (14.0-18.0) g/dl Hct (42-52) % MCV (80-98) fL MCH (27.0-33.0) pg MCHC (31.0-36.0) g/dl RDW (11.0-16.0) % Plt Count (160-400) X10*3/uL MPV (9.4-12.4) fL Immature Gran % (Auto) (0.0-0.4) % Neut % (Auto) (45-73) % Lymph % (Auto) (20-40) % [place] % (Auto) (2-11) % Eos % (Auto) (0-4) % Baso % (Auto) (0-2) % Lymph # (Auto) (1.2-4.9) X10*3/uL [place] # (Auto) (0.1-1.2) X10*3/uL Eos # (Auto) (0.0-0.4) X10*3/uL Baso # (Auto) (0.0-0.2) X10*3/uL Abs Immat Gran (auto) (0.00-0.03) X10*3/uL Absolute Neuts (auto) (2.0-8.3) X10*3/uL Absolute Nucleated RBC (0.0-0.012) X10*3/uL Nucleated RBC % (auto) (0.0-0.2) /100WBC Sodium (135-145) mmol/L Potassium (3.3-5.1) mmol/l Chloride (96-108) mmol/L Carbon Dioxide (22-29) mmol/L Anion Gap (12-20) BUN (9-16) mg/dL Creatinine (0.5-1.4) mg/dL Estim Creat Clear Calc Estimated GFR Random Glucose (60-115) mg/dL Calcium (8.4-10.2) mg/dL Magnesium (1.6-2.6) mg/dL Total Bilirubin (0.0-1.0) mg/dL Direct Bilirubin (0.0-0.5) mg/dL AST (5-37) U/L ALT (0-40) U/L Alkaline Phosphatase (39-117) U/L Total Protein (6.5-8.0) g/dL Albumin (3.5-5.0) g/dL Lipase (8-78) U/L Urine Color YELLOW Urine Appearance CLEAR Urine pH 8.0 (5.0-8.0) Ur Specific [place] 1.025 (1.005-1.025) Urine Protein 2+ H (NEG-TRACE) MG/DL Urine Glucose (UA) NEG (NEG) MG/DL Urine Ketones NEG (NEG) MG/DL Urine Blood NEG (NEG) Urine Nitrite NEG (NEG) Ur Leukocyte Esterase NEG (NEG) Urine RBC 0-2 (0) /HPF Urine WBC 0-2 (0-4) /HPF Ur Squamous Epith Cells NONE /LPF Urine Bacteria NONE /LPF Urine Opiates Screen POSITIVE H (Not Detect) Ur Barbiturates Screen Not Detected (Not Detect) Ur Phencyclidine Scrn Not Detected (Not Detect) Ur Amphetamines Screen Not Detected (Not Detect) U Benzodiazepines Scrn Not Detected (Not Detect) Urine Cocaine Screen Not Detected (Not Detect) U Marijuana (THC) Screen Not Detected (Not Detect) Ethyl Alcohol mg/dL Discharge Plan Discharge Clinical Impression: Abdominal pain in male, Asymptomatic proteinuria, Transaminitis Patient Disposition: Home, Self-Care Instructions: Chronic Abdominal Pain (ED) Additional Instructions: Your CT scan today was unremarkable. You labs show a chronic elevation in your liver enzymes, which is likely due to your alcohol dependence. This needs to be followed up and re-checked by your doctor. You also have protein in your urine that needs to be addressed and monitored as an outpatient. It is advised that you seek help to quit drinking. Recommend following up with GI doctor for further workup. Follow up with your doctor in 1 week. Come back to the ER if your pain worsens or if you develop any concerning symptoms. Prescriptions: Continued pantoprazole [Protonix] 40 mg tablet,delayed release (DR/EC) 40 mg PO DAILY Qty: 30 RF: 0 ondansetron HCl [Zofran] 4 mg tablet 4 mg PO Q8H PRN (Reason: nausea and vomiting) Qty: 14 RF: 0 lorazepam [Ativan] 1 mg tablet 1 mg PO TID PRN (Reason: alcohol withdrawal) Qty: 10 RF: 0 ondansetron 4 mg tablet,disintegrating 4 mg PO TID PRN (Reason: nausea and vomiting) 5 Days Qty: 10 RF: 0 buprenorphine-naloxone [Suboxone] 8-2 mg film 1 film sublingual BID Qty: 14 RF: 0 albuterol sulfate [ProAir HFA] 90 mcg/actuation HFA aerosol inhaler 2 puff inhalation Q6H PRN (Reason: shortness of breath or wheezing) Qty: 8.5 RF: 0 amlodipine 2.5 mg tablet 2.5 mg PO DAILY RF: 0 nicotine 14 mg/24 hr patch 24 hour 1 patch transdermal Q24H RF: 0 multivitamin Tablet 1 tab PO DAILY RF: 0 Referrals: Rebeka Wheatley MD [Physician] - 2 days Interventions: ED Discharge Assessment Last Done: 07/03/20 15:48 Discharge Date/Time: 07/03/20 15:49 PMFSH Past Medical History Attestation statement: The following information was validated with the patient. Medical History Depression Hypertension Social History Social History Alcohol intake: current Alcohol intake frequency: does not drink Alcohol type: beer Smoking Status: Never smoker Use of substances other than those prescribed or required for medical reasons: No Advance Directives: No Advance Directives Information Provided: Yes
[2020-07-03] MEDS: Ketorolac Tromethamine 30 MG/ML VIAL IVPUSH (12:20)
[2020-07-03] MEDS: ondansetron HCL 4 MG/2 ML VIAL IVPUSH (12:20)
[2020-07-03] MEDS: 0.9 % Sodium Chloride 1,000 ML 999 ML IVCONT (12:20)
[2020-07-03 12:25] LABS: Basophils Absolute Auto 0.1 X10*3/uL (0.0-0.2); Basophils Percent Auto 1.1 % (0-2); Eosinophils Absolute Auto 0.1 X10*3/uL (0.0-0.4); Eosinophils Percent Auto 1.1 % (0-4); Hematocrit 40.5 % (42-52); Hemoglobin 13.4 g/dl (14.0-18.0); Imm Gran Abs Auto 0.01 X10*3/uL (0.00-0.03); Imm Gran Pct Auto 0.2 % (0.0-0.4); Lymphocytes Absolute Auto 1.3 X10*3/uL (1.2-4.9); Lymphocytes Percent Auto 22.5 % (20-40); MANUAL DIFF FLAG NO; Mean Corpuscular HGB Conc 33.1 g/dl (31.0-36.0); Mean Corpuscular Hemoglobin 30.7 pg (27.0-33.0); Mean Corpuscular Volume 92.9 fL (80-98); Mean Platelet Volume 10.1 fL (9.4-12.4); Monocytes Absolute Auto 0.5 X10*3/uL (0.1-1.2); Monocytes Percent Auto 8.4 % (2-11); Neutrophils Absolute Auto 3.8 X10*3/uL (2.0-8.3); Neutrophils Percent Auto 66.7 % (45-73); Platelet Count 161 X10*3/uL (160-400); Red Blood Count 4.36 X10*6/uL (4.60-5.80); Red Cell Distribution Width 13.5 % (11.0-16.0); White Blood Count 5.6 X10*3/uL (4.8-10.8)
[2020-07-03 12:53] LABS: Ethanol 19 mg/dL
[2020-07-03 12:58] LABS: Alanine Aminotransferase 61 U/L (0-40); Albumin Level 4.2 g/dL (3.5-5.0); Alkaline Phosphatase 54 U/L (39-117); Anion Gap 12 (12-20); Aspartate Amino Transferase 66 U/L (5-37); Bilirubin Direct 0.4 mg/dL (0.0-0.5); Bilirubin Total 0.8 mg/dL (0.0-1.0); Blood Urea Nitrogen 7 mg/dL (9-16); Calcium 9.1 mg/dL (8.4-10.2); Carbon Dioxide 29 mmol/L (22-29); Chloride 98 mmol/L (96-108); Creatinine Clr Calc Pharmacy 149.7; Estimated Glomerular Filt Rate > 60; Glucose Random 97 mg/dL (60-115); Lipase 10 U/L (8-78); Magnesium 1.5 mg/dL (1.6-2.6); Potassium 4.4 mmol/l (3.3-5.1); Sodium 135 mmol/L (135-145); Total Protein 6.9 g/dL (6.5-8.0)
--- NOTE | 2020-07-03 13:10 | PC.NURSE ---
VS AT [id number] - [phone]. AWARE
--- NOTE | 2020-07-03 13:12 | CT_ITS ---
EXAMINATION: CT ABDOMEN AND PELVIS WITHOUT CONTRAST CLINICAL INFORMATION: Left flank pain, left groin pain, nausea and vomiting. COMPARISON: CT abdomen and pelvis without contrast 04/17/2020. TECHNIQUE: Multidetector volumetric imaging was performed from the superior aspect of the liver through the pubic symphysis. Sagittal and coronal reformatted images were obtained on the technologist's workstation. This CT examination was performed using dose optimization techniques as appropriate, variously including the following: *Automated exposure control *Adjustment of mA and/or kV according to patient size (this includes techniques or standardized protocols for targeted exams where dose is matched to indication/reason for exam; i.e. extremities or head) *Use of iterative reconstruction technique DLP: 507 mGy-cm FINDINGS: LUNG BASES: There is bibasilar dependent atelectasis. The heart size is normal. LIVER, GALLBLADDER, AND BILIARY TREE: The liver is normal in size, shape, and diffuse hypo-attenuation. No focal hepatic lesion or biliary ductal dilatation is present. The gallbladder is unremarkable with no evidence of radiopaque gallstones, gallbladder wall thickening, or obvious pericholecystic inflammatory changes. PANCREAS: Unremarkable. SPLEEN: Unremarkable. A small accessory spleen is seen at the hilum ADRENAL GLANDS: The adrenal glands unremarkable. KIDNEYS AND URETERS: The kidneys are normal in size, shape, and attenuation. No hydronephrosis, hydroureter, or calculi seen. No perinephric stranding. There is a 3.4 x 4.6 x 5.0 cm exophytic cyst midpole left kidney. BLADDER: Unremarkable. GASTROINTESTINAL TRACT: There is scattered stool and gas seen throughout the colon without distention. The small bowel loops are normal caliber. Appendix is normal caliber. No inflammatory process or free air or free fluid seen. ABDOMINAL WALL: No evidence of hernia. Small shotty lymph nodes seen in bilateral groin, nonspecific. LYMPH NODES: Normal. VASCULAR: Unremarkable. PELVIC VISCERA: The prostate gland is mildly enlarged. The periprostatic fat planes are preserved. No free fluid or free air seen. OSSEOUS STRUCTURES: There is bilateral bridging osteophytes along the SI joints from sacroiliitis. No fracture, lytic or sclerotic process seen. CT/CT abdomen pelvis wo con IMPRESSION: No acute intra-abdominal process seen. Especially there is no evidence of hernia or mass in the left groin There is bilateral bridging osteophytes along the anterior SI joints likely sacroiliitis.
[2020-07-03 14:07] LABS: Glucose Urine UA NEG (NEG); Leukocyte Esterase Urine NEG (NEG); Nitrite Urine NEG (NEG); Specific Gravity - Urine 1.025 (1.005-1.025); Urine Blood NEG (NEG); Urine Ketones NEG (NEG); Urine Protein 2+ MG/DL (NEG-TRACE)
[2020-07-03 14:08] LABS: Appearance Urine CLEAR; Color Urine YELLOW
[2020-07-03 14:19] LABS: RBC Urine 0-2 /HPF (0); WBC Urine 0-2 /HPF (0-4)
[2020-07-03 14:29] LABS: Amphetamine Screen Urine Not Detected (Not Detect); Barbiturates, Urine Not Detected (Not Detect); Benzodiazepines Screen Urine Not Detected (Not Detect); Cannabinoid Screen Urine Not Detected (Not Detect); Cocaine Screen Urine Not Detected (Not Detect); Opiate Screen Urine POSITIVE (Not Detect); Phencyclidine Screen Urine Not Detected (Not Detect)
[2020-07-03] MEDS: Magnesium Oxide 400 MG TABLET 800 MG PO (15:20)
== END 2020-07-03 15:49 | disposition home or self-care (01) ==
PROVIDERS: Physician Assistant; Emergency Provider Emergency Medicine Emergency Medical Services
DX: R10.9 Unspecified abdominal pain (principal); R80.9 Proteinuria, unspecified; R74.01 Elevation of levels of liver transaminase levels; F41.9 Anxiety disorder, unspecified; F10.10 Alcohol abuse, uncomplicated; Z79.899 Other long term (current) drug therapy; Y90.9 Presence of alcohol in blood, level not specified
CPT/HCPCS: 36415; 74176; 80048; 80076; 80307; 80320; 81001; 81003; 83690; 83735; 85025; 96361; 96374; 96375; 99284; J1885; J2405

== ENCOUNTER 2020-08-24 14:27 | Emergency (ER) | payer OTHER, SELFPAY | END 2020-08-24 18:01 | disposition left against medical advice (07) | PROVIDERS: Emergency Provider Emergency Medicine | DX: R10.9 Unspecified abdominal pain (principal); I10 Essential (primary) hypertension | CPT/HCPCS: 99281 ==

== ENCOUNTER 2020-10-08 12:26 | Inpatient (IN) | payer MEDICAID, SELFPAY ==
[2020-10-08] VITALS (11 sets, daily range): BP systolic 108–140; BP diastolic 69–87; PULSE 70–83; RESP 12–18; TEMP 37.1–37.8; O2SAT 83–98; BMI 32.4
--- NOTE | ~2020-10-08 | CT_ITS ---
EXAMINATION: CT CHEST WITHOUT CONTRAST CLINICAL INFORMATION: Hypoxia. COMPARISON: CTA chest 10/30/[address] chest 06/06/2019. TECHNIQUE: Multidetector volumetric CT imaging of the chest was done. Axial MIP volume rendering provided. Sagittal and coronal reformatted images were obtained. This CT examination was performed using dose optimization techniques as appropriate, variously including the following: *Automated exposure control. *Adjustment of mA and/or kV according to patient size (this includes techniques or standardized protocols for targeted exams where dose is matched to indication/reason for exam; i.e. extremities or head). *Use of iterative reconstruction technique. DLP: 222 mGy-cm FINDINGS: LUNGS: There is evidence of underlying COPD with some bullous formation. Scattered areas of atelectasis are seen along with some [id number]-type changes. More focal infiltrates are seen at the lung bases, right greater than left (see saved doyle images). When comparison is made to the prior studies, on the 06/06/2019 study, many more areas of involvement with similar changes were present, most marked in the lower lobes (see prior 4:334). On the study from 10/30/2018, the findings were not present. 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 No mediastinal or hilar lymphadenopathy is seen. The heart size is normal. PLEURA: There is no pleural effusion. No pleural mass or thickening. AXILLA: No lymphadenopathy. UPPER ABDOMEN: Marked hepatic steatosis is present OSSEOUS STRUCTURES: Unremarkable. CT/CT chest wo con IMPRESSION: 1. Some mild inflammatory changes are present with tree-in-bud formation. 2. Small areas of infiltrate present at the lung bases. However, appearances are significantly improved when comparison is made to the prior study. There is underlying COPD. 3. Incidental redemonstration of marked hepatic steatosis.
--- NOTE | 2020-10-08 17:20 | ED_ITS ---
HPI - URI/Sore Throat General Chief Complaint: Upper Respiratory Symptoms Stated Complaint: BODY ACHES Source: patient Mode of arrival: wheelchair Limitations: language barrier History of Present Illness HPI Narrative: 49-year-old male with past medical history of IV drug use, EtOH abuse, depression and hypertension presents with 4 days of upper respiratory symptoms, fevers, chills, shortness of breath, cough, runny nose and fatigue. Patient is falling asleep mid sentence, denies IV drug use however does have t rack saravia on his arms. He does not report any chest pain or pressure, palpitations, abdominal pain, abdominal distention, dysuria, hematuria, or withdrawal symptoms. MD elicited complaint: fever, cough, sore throat and nasal congestion Onset (ago): day(s) (4) Consistency: constant Severity: severe Description of mucous: clear and watery Able to tolerate fluids by mouth: Yes Exacerbating factors: exertion Relieving factors: nothing Associated symptoms: fever, chills, myalgias, headache, rhinorrhea, nasal congestion, sore throat and cough Related Data Home Medications Medication Instructions Recorded Confirmed amlodipine 2.5 mg tablet 2.5 mg PO DAILY 05/05/20 10/08/20 multivitamin 1 tab PO DAILY 05/05/20 10/08/20 acamprosate 333 mg PO BID 10/08/20 10/08/20 folic acid 1 tab PO DAILY 10/08/20 10/08/20 metoprolol succinate 1 tab PO DAILY 10/08/20 10/08/20 nicotine 1 patch TOPICAL DAILY 10/08/20 10/08/20 thiamine HCl (vitamin B1) 1 tab PO DAILY 10/08/20 10/08/20 Previous Rx's Medication Instructions Recorded pantoprazole [Protonix] 40 mg PO DAILY #30 tab 05/18/20 albuterol sulfate 90 mcg/actuation 2 puff INHALATION Q6H PRN #8.5 g 06/21/20 aerosol inhaler buprenorphine 8 mg-naloxone 2 mg 1 film SUBLINGUAL BID #14 ea 06/21/20 sublingual film Allergies Allergy/AdvReac Type Severity Reaction Status Date / Time seafood Allergy Anaphylaxis Verified 10/08/20 13:40 Review of Systems Review of Systems: Constitutional: positive Fever, positive Chills, positive fatigue, positive Malaise ENT/Mouth: No sore throat, no runny nose Eyes: No Discharge Cardiovascular: No Chest Pain, No SOB Respiratory: Positive Cough, No Sputum, No Wheezing, positive Smoke Exposure, No Dyspnea Gastrointestinal: Positive Nausea, No Vomiting, No Diarrhea Genitourinary: no irregular bleeding, No Dysuria, No Urinary Frequency, No Hematuria, No Urinary Incontinence, No Urgency, No Flank Pain, Musculoskeletal: positive Myalgia Skin: No rash Neuro: Positive Headache Yes all other systems are reviewed and are negative [facility] Past Medical History Attestation statement: The following information was validated with the patient. Source: old records reviewed Medical History Depression ETOH abuse Hypertension Social History Social History Alcohol intake: current Alcohol intake frequency: 3 or more drinks per day Alcohol type: beer Smoking Status: Current every day smoker Use of substances other than those prescribed or required for medical reasons: Yes Substance Use Type: IV Drugs Advance Directives: No Advance Directives Information Provided: No Physical Exam Vital Signs: Vital Signs: Last Vital Signs Temp 99.3 F 10/08/20 20:25 Pulse 76 10/08/20 23:14 Resp 18 10/08/20 23:14 BP 112/69 10/08/20 23:14 Pulse Ox 97 10/08/20 23:14 Body Mass Index 32.4 Appearance: Alert. Oriented X3. Moderate distress. Falls asleep Head: Normal external exam. Normocephalic. Atraumatic. No Valles signs noted. No raccoon eyes noted Eyes: PERRLA. EOMI. Conjunctiva and sclera normal. Eyelids normal. ENT: TM's Normal. Pharynx normal. Uvula midline. Moist mucous membranes. No trismus noted. No drooling noted. No muffled voice noted. Neck: Normal inspection. Neck supple. No adenopathy. Thyroid Normal. No meningeal signs. No neck mass noted. CVS: Normal heart rate and rhythm. Heart sound normal. No murmurs noted. Pulses equal to all extremities. Respiratory: No respiratory distress. Painless inspiration. Breath sounds normal. No wheezes/rales/rhonchi noted. Chest nontender. No accessory muscle usage noted or decreased air movement noted. Abdomen: Soft and nontender. Bowel sounds normal in all 4 quadrants. No distention noted. No organomegaly noted. No visible injury noted. Back: No CVA tenderness. Full range of motion noted. Skin: Skin warm and dry. Normal skin color. Normal skin turgor. No rashes/lesions/lacerations noted. Extremities: No lower extremity edema. Extremities exhibit normal range of motion. Extremities nontender. Neuro: cranial nerves 2-12 intact, no focal neural deficits, strength 5/5 to all extremities, No motor deficit. No sensory deficit. Reflexes normal. Course Course Course Narrative: 49-year-old male with past medical history of IV drug use, EtOH abuse, depression and hypertension presents with 4 days of upper respiratory symptoms, fevers, chills, shortness of breath, cough, runny nose and fatigue. He is sitting in a wheelchair, falling asleep mid sentence, hypoxic at 83% on room air. Patient is Kinyarwanda speaking but does understand Tajik, while I suspect drug use during the time of my initial assessment, patient states that he only drinks 2 beers today. Patient was moved to a room, placed on O2 which immediately improved his O2 sat to 96 -97 % on 2 L. At 7:[address] scan of the chest shows bilateral lower lobe infiltrates and tree-in-bud, will treat with azithromycin, ceftriaxone. Patient is COVID positive. Fluid resuscitation will be kept at a minimum as this is a viral infection with suspected IVDA with ETOH 152. 9:50 p.m. ambulatory pulse ox 88% room air. Discussion with hospitalist, plan is to admit for COVID-19 hypoxia, pneumonia viral, and ETOH withdrawal. MDM - URI/Sore Throat Differential Diagnosis Differential diagnosis: Likely upper respiratory infection, sinusitis, viral infection and influenza Medical Records Attestation: I reviewed the patient's medical records. Lab Data Attestation: I reviewed the patient's lab results. Result diagrams: 10/08/20 17:39 10/08/20 17:39 Labs: Lab Results 10/08/20 10/08/20 10/08/20 Range/Units 17:39 17:39 17:39 WBC 4.6 L (4.8-10.8) X10*3/uL RBC 4.90 (4.60-5.80) X10*6/uL Hgb 14.6 (14.0-18.0) g/dl Hct 44.7 (42-52) % MCV 91.2 (80-98) fL MCH 29.8 (27.0-33.0) pg MCHC 32.7 (31.0-36.0) g/dl RDW 13.5 (11.0-16.0) % Plt Count 163 (160-400) X10*3/uL MPV 10.3 (9.4-12.4) fL Immature Gran % (Auto) 0.4 (0.0-0.4) % Neut % (Auto) 46.2 (45-73) % Lymph % (Auto) 41.8 H (20-40) % [place] % (Auto) 10.1 (2-11) % Eos % (Auto) 1.1 (0-4) % Baso % (Auto) 0.4 (0-2) % Lymph # (Auto) 1.9 (1.2-4.9) X10*3/uL [place] # (Auto) 0.5 (0.1-1.2) X10*3/uL Eos # (Auto) 0.1 (0.0-0.4) X10*3/uL Baso # (Auto) 0.0 (0.0-0.2) X10*3/uL Abs Immat Gran (auto) 0.02 (0.00-0.03) X10*3/uL Absolute Neuts (auto) 2.1 (2.0-8.3) X10*3/uL Absolute Nucleated RBC 0.000 (0.0-0.012) X10*3/uL Nucleated RBC % (auto) 0.0 (0.0-0.2) /100WBC PT 11.4 (10.8-13.0) SEC INR 1.0 (0.9-1.1) APTT 31.4 (24.1-38.0) SEC D-Dimer 311 NG/ML Sodium 139 (135-145) mmol/L Potassium 4.0 (3.3-5.1) mmol/L Chloride 97 (96-108) mmol/L Carbon Dioxide 28 (22-29) mmol/L Anion Gap 18 (12-20) BUN 16 D (9-16) mg/dL Creatinine 0.70 (0.5-1.4) mg/dL Estim Creat Clear Calc 131.9 Estimated GFR > 60 Random Glucose 100 (60-115) mg/dL Lactic Acid (0.5-2.0) mmol/L Calcium 8.8 (8.4-10.2) mg/dL Total Bilirubin 0.4 (0.0-1.0) mg/dL Direct Bilirubin < 0.2 (0.0-0.5) mg/dL AST 68 H (5-37) U/L ALT 47 H (0-40) U/L Alkaline Phosphatase 67 D (39-117) U/L Troponin I High Sens (<3.5-35.0) ng/L Total Protein 7.6 (6.5-8.0) g/dL Albumin 4.5 (3.5-5.0) g/dL Lipase 25 (8-78) U/L Urine Color Urine Appearance Urine pH (5.0-8.0) Ur Specific Leonidas (1.005-1.025) Urine Protein (NEG-TRACE) MG/DL Urine Glucose (UA) (NEG) MG/DL Urine Ketones (NEG) MG/DL Urine Blood (NEG) Urine Nitrite (NEG) Ur Leukocyte Esterase (NEG) Urine RBC (0) /HPF Urine WBC (0-4) /HPF Ur Squamous Epith Cells /LPF Urine Bacteria /LPF Urine Opiates Screen (Not Detect) Ur Barbiturates Screen (Not Detect) Ur Phencyclidine Scrn (Not Detect) Ur Amphetamines Screen (Not Detect) U Benzodiazepines Scrn (Not Detect) Urine Cocaine Screen (Not Detect) U Marijuana (THC) Screen (Not Detect) Ethyl Alcohol mg/dL Coronavirus (PCR) COVID-19 (BRENDA) (Negative) COVID-19 Clin Com Influenza Type A (PCR) Influenza Type B (PCR) RSV RNA Qual (PCR) 10/08/20 10/08/20 10/08/20 Range/Units 17:39 17:39 17:39 WBC (4.8-10.8) X10*3/uL RBC (4.60-5.80) X10*6/uL Hgb (14.0-18.0) g/dl Hct (42-52) % MCV (80-98) fL MCH (27.0-33.0) pg MCHC (31.0-36.0) g/dl RDW (11.0-16.0) % Plt Count (160-400) X10*3/uL MPV (9.4-12.4) fL Immature Gran % (Auto) (0.0-0.4) % Neut % (Auto) (45-73) % Lymph % (Auto) (20-40) % [place] % (Auto) (2-11) % Eos % (Auto) (0-4) % Baso % (Auto) (0-2) % Lymph # (Auto) (1.2-4.9) X10*3/uL [place] # (Auto) (0.1-1.2) X10*3/uL Eos # (Auto) (0.0-0.4) X10*3/uL Baso # (Auto) (0.0-0.2) X10*3/uL Abs Immat Gran (auto) (0.00-0.03) X10*3/uL Absolute Neuts (auto) (2.0-8.3) X10*3/uL Absolute Nucleated RBC (0.0-0.012) X10*3/uL Nucleated RBC % (auto) (0.0-0.2) /100WBC PT (10.8-13.0) SEC INR (0.9-1.1) APTT (24.1-38.0) SEC D-Dimer NG/ML Sodium (135-145) mmol/L Potassium (3.3-5.1) mmol/L Chloride (96-108) mmol/L Carbon Dioxide (22-29) mmol/L Anion Gap (12-20) BUN (9-16) mg/dL Creatinine (0.5-1.4) mg/dL Estim Creat Clear Calc Estimated GFR Random Glucose (60-115) mg/dL Lactic Acid (0.5-2.0) mmol/L Calcium (8.4-10.2) mg/dL Total Bilirubin (0.0-1.0) mg/dL Direct Bilirubin (0.0-0.5) mg/dL AST (5-37) U/L ALT (0-40) U/L Alkaline Phosphatase (39-117) U/L Troponin I High Sens 5.7 (<3.5-35.0) ng/L Total Protein (6.5-8.0) g/dL Albumin (3.5-5.0) g/dL Lipase (8-78) U/L Urine Color Urine Appearance Urine pH (5.0-8.0) Ur Specific Leonidas (1.005-1.025) Urine Protein (NEG-TRACE) MG/DL Urine Glucose (UA) (NEG) MG/DL Urine Ketones (NEG) MG/DL Urine Blood (NEG) Urine Nitrite (NEG) Ur Leukocyte Esterase (NEG) Urine RBC (0) /HPF Urine WBC (0-4) /HPF Ur Squamous Epith Cells /LPF Urine Bacteria /LPF Urine Opiates Screen (Not Detect) Ur Barbiturates Screen (Not Detect) Ur Phencyclidine Scrn (Not Detect) Ur Amphetamines Screen (Not Detect) U Benzodiazepines Scrn (Not Detect) Urine Cocaine Screen (Not Detect) U Marijuana (THC) Screen (Not Detect) Ethyl Alcohol 152 mg/dL Coronavirus (PCR) Cancelled COVID-19 (BRENDA) (Negative) COVID-19 Clin Com Influenza Type A (PCR) Cancelled Influenza Type B (PCR) Cancelled RSV RNA Qual (PCR) Cancelled 10/08/20 10/08/20 10/08/20 Range/Units 17:39 19:03 19:03 WBC (4.8-10.8) X10*3/uL RBC (4.60-5.80) X10*6/uL Hgb (14.0-18.0) g/dl Hct (42-52) % MCV (80-98) fL MCH (27.0-33.0) pg MCHC (31.0-36.0) g/dl RDW (11.0-16.0) % Plt Count (160-400) X10*3/uL MPV (9.4-12.4) fL Immature Gran % (Auto) (0.0-0.4) % Neut % (Auto) (45-73) % Lymph % (Auto) (20-40) % [place] % (Auto) (2-11) % Eos % (Auto) (0-4) % Baso % (Auto) (0-2) % Lymph # (Auto) (1.2-4.9) X10*3/uL [place] # (Auto) (0.1-1.2) X10*3/uL Eos # (Auto) (0.0-0.4) X10*3/uL Baso # (Auto) (0.0-0.2) X10*3/uL Abs Immat Gran (auto) (0.00-0.03) X10*3/uL Absolute Neuts (auto) (2.0-8.3) X10*3/uL Absolute Nucleated RBC (0.0-0.012) X10*3/uL Nucleated RBC % (auto) (0.0-0.2) /100WBC PT (10.8-13.0) SEC INR (0.9-1.1) APTT (24.1-38.0) SEC D-Dimer NG/ML Sodium (135-145) mmol/L Potassium (3.3-5.1) mmol/L Chloride (96-108) mmol/L Carbon Dioxide (22-29) mmol/L Anion Gap (12-20) BUN (9-16) mg/dL Creatinine (0.5-1.4) mg/dL Estim Creat Clear Calc Estimated GFR Random Glucose (60-115) mg/dL Lactic Acid (0.5-2.0) mmol/L Calcium (8.4-10.2) mg/dL Total Bilirubin (0.0-1.0) mg/dL Direct Bilirubin (0.0-0.5) mg/dL AST (5-37) U/L ALT (0-40) U/L Alkaline Phosphatase (39-117) U/L Troponin I High Sens (<3.5-35.0) ng/L Total Protein (6.5-8.0) g/dL Albumin (3.5-5.0) g/dL Lipase (8-78) U/L Urine Color YELLOW Urine Appearance CLEAR Urine pH 6.0 (5.0-8.0) Ur Specific Leonidas >= 1.030 H (1.005-1.025) Urine Protein 2+ H (NEG-TRACE) MG/DL Urine Glucose (UA) NEG (NEG) MG/DL Urine Ketones NEG (NEG) MG/DL Urine Blood TRACE (NEG) Urine Nitrite NEG (NEG) Ur Leukocyte Esterase NEG (NEG) Urine RBC 1-4 (0) /HPF Urine WBC 0 (0-4) /HPF Ur Squamous Epith Cells NONE /LPF Urine Bacteria NONE /LPF Urine Opiates Screen Not Detected (Not Detect) Ur Barbiturates Screen Not Detected (Not Detect) Ur Phencyclidine Scrn Not Detected (Not Detect) Ur Amphetamines Screen Not Detected (Not Detect) U Benzodiazepines Scrn Not Detected (Not Detect) Urine Cocaine Screen Not Detected (Not Detect) U Marijuana (THC) Screen Not Detected (Not Detect) Ethyl Alcohol mg/dL Coronavirus (PCR) COVID-19 (BRENDA) Positive A (Negative) COVID-19 Clin Com See Note Influenza Type A (PCR) Influenza Type B (PCR) RSV RNA Qual (PCR) 10/08/20 10/08/20 Range/Units 19:19 20:45 WBC (4.8-10.8) X10*3/uL RBC (4.60-5.80) X10*6/uL Hgb (14.0-18.0) g/dl Hct (42-52) % MCV (80-98) fL MCH (27.0-33.0) pg MCHC (31.0-36.0) g/dl RDW (11.0-16.0) % Plt Count (160-400) X10*3/uL MPV (9.4-12.4) fL Immature Gran % (Auto) (0.0-0.4) % Neut % (Auto) (45-73) % Lymph % (Auto) (20-40) % [place] % (Auto) (2-11) % Eos % (Auto) (0-4) % Baso % (Auto) (0-2) % Lymph # (Auto) (1.2-4.9) X10*3/uL [place] # (Auto) (0.1-1.2) X10*3/uL Eos # (Auto) (0.0-0.4) X10*3/uL Baso # (Auto) (0.0-0.2) X10*3/uL Abs Immat Gran (auto) (0.00-0.03) X10*3/uL Absolute Neuts (auto) (2.0-8.3) X10*3/uL Absolute Nucleated RBC (0.0-0.012) X10*3/uL Nucleated RBC % (auto) (0.0-0.2) /100WBC PT (10.8-13.0) SEC INR (0.9-1.1) APTT (24.1-38.0) SEC D-Dimer NG/ML Sodium (135-145) mmol/L Potassium (3.3-5.1) mmol/L Chloride (96-108) mmol/L Carbon Dioxide (22-29) mmol/L Anion Gap (12-20) BUN (9-16) mg/dL Creatinine (0.5-1.4) mg/dL Estim Creat Clear Calc Estimated GFR Random Glucose (60-115) mg/dL Lactic Acid 1.7 (0.5-2.0) mmol/L Calcium (8.4-10.2) mg/dL Total Bilirubin (0.0-1.0) mg/dL Direct Bilirubin (0.0-0.5) mg/dL AST (5-37) U/L ALT (0-40) U/L Alkaline Phosphatase (39-117) U/L Troponin I High Sens 7.4 (<3.5-35.0) ng/L Total Protein (6.5-8.0) g/dL Albumin (3.5-5.0) g/dL Lipase (8-78) U/L Urine Color Urine Appearance Urine pH (5.0-8.0) Ur Specific Leonidas (1.005-1.025) Urine Protein (NEG-TRACE) MG/DL Urine Glucose (UA) (NEG) MG/DL Urine Ketones (NEG) MG/DL Urine Blood (NEG) Urine Nitrite (NEG) Ur Leukocyte Esterase (NEG) Urine RBC (0) /HPF Urine WBC (0-4) /HPF Ur Squamous Epith Cells /LPF Urine Bacteria /LPF Urine Opiates Screen (Not Detect) Ur Barbiturates Screen (Not Detect) Ur Phencyclidine Scrn (Not Detect) Ur Amphetamines Screen (Not Detect) U Benzodiazepines Scrn (Not Detect) Urine Cocaine Screen (Not Detect) U Marijuana (THC) Screen (Not Detect) Ethyl Alcohol mg/dL Coronavirus (PCR) COVID-19 (BRENDA) (Negative) COVID-19 Clin Com Influenza Type A (PCR) Influenza Type B (PCR) RSV RNA Qual (PCR) Imaging Data CT scan - chest: Attestation: I personally reviewed and interpreted this imaging study as follows: Radiologist's impression: EXAMINATION: CT CHEST WITHOUT CONTRAST CLINICAL INFORMATION: Hypoxia. COMPARISON: CTA chest 10/30/[address] chest 06/06/2019. TECHNIQUE: Multidetector volumetric CT imaging of the chest was done. Axial MIP volume rendering provided. Sagittal and coronal reformatted images were obtained. This CT examination was performed using dose optimization techniques as appropriate, variously including the following: *Automated exposure control. *Adjustment of mA and/or kV according to patient size (this includes techniques or standardized protocols for targeted exams where dose is matched to indication/reason for exam; i.e. extremities or head). *Use of iterative reconstruction technique. DLP: 222 mGy-cm FINDINGS: LUNGS: There is evidence of underlying COPD with some bullous formation. Scattered areas of atelectasis are seen along with some [id number]-type changes. More focal infiltrates are seen at the lung bases, right greater than left (see saved doyle images). When comparison is made to the prior studies, on the 06/06/2019 study, many more areas of involvement with similar changes were present, most marked in the lower lobes (see prior 4:334). On the study from 10/30/2018, the findings were not present. 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 No mediastinal or hilar lymphadenopathy is seen. The heart size is normal. PLEURA: There is no pleural effusion. No pleural mass or thickening. AXILLA: No lymphadenopathy. UPPER ABDOMEN: Marked hepatic steatosis is present OSSEOUS STRUCTURES: Unremarkable. CT/CT chest wo con IMPRESSION: 1. Some mild inflammatory changes are present with tree-in-bud formation. 2. Small areas of infiltrate present at the lung bases. However, appearances are significantly improved when comparison is made to the prior study. There is underlying COPD. 3. Incidental redemonstration of marked hepatic steatosis. ECG Data Attestation: I personally reviewed and interpreted this ECG as follows: ECG interpretation date: 10/08/20 ECG interpretation time: 18:48 Prior ECG tracings: available for review Interpretation: Vent. rate 77 BPM MO interval 156 ms QRS duration 86 ms QT/QTc 366/414 ms P-R-T axes 79 75 31 Normal sinus rhythm Possible Left atrial enlargement Borderline ECG When compared with ECG of 04-JUN-2020 04:10, T wave amplitude has decreased in Anterolateral leads Critical Care Time Critical Care Time Critical Care Time: Yes Total Critical Care Time: 45 Attestation: I have personally provided critical care time exclusive of time spent on separately billable procedures. Time includes review of laboratory data, radiology results, discussion with consultants, and monitoring for potential decompensation. Interventions were performed as documented. Discharge Plan Discharge Clinical Impression: Alcohol use disorder, severe, dependence, COVID-19, Hypoxia Patient Disposition: Admitted As Inpatient Interventions: Admission Worksheet (ED) Last Done: 10/08/20 23:39
--- NOTE | 2020-10-08 17:20 | ECG_ITS ---
Test Reason : SOB Blood Pressure : / mmHG Vent. Rate : 077 BPM Atrial Rate : 077 BPM P-R Int : 156 ms QRS Dur : 086 ms QT Int : 366 ms P-R-T Axes : 079 075 031 degrees QTc Int : 414 ms Normal sinus rhythm Possible Left atrial enlargement Borderline ECG When compared with ECG of 04-JUN-2020 04:10, No significant changes seen Referred By: Mary Anne Guerrero Electronically Signed By:PATT FUCHS
[2020-10-08 17:46] LABS: MANUAL DIFF FLAG NO
[2020-10-08 17:52] LABS: Basophils Percent Auto 0.4 % (0-2); Eosinophils Absolute Auto 0.1 X10*3/uL (0.0-0.4); Eosinophils Percent Auto 1.1 % (0-4); Hematocrit 44.7 % (42-52); Hemoglobin 14.6 g/dl (14.0-18.0); Imm Gran Abs Auto 0.02 X10*3/uL (0.00-0.03); Imm Gran Pct Auto 0.4 % (0.0-0.4); Lymphocytes Absolute Auto 1.9 X10*3/uL (1.2-4.9); Lymphocytes Percent Auto 41.8 % (20-40); Mean Corpuscular HGB Conc 32.7 g/dl (31.0-36.0); Mean Corpuscular Hemoglobin 29.8 pg (27.0-33.0); Mean Corpuscular Volume 91.2 fL (80-98); Mean Platelet Volume 10.3 fL (9.4-12.4); Monocytes Absolute Auto 0.5 X10*3/uL (0.1-1.2); Monocytes Percent Auto 10.1 % (2-11); Neutrophils Absolute Auto 2.1 X10*3/uL (2.0-8.3); Neutrophils Percent Auto 46.2 % (45-73); Platelet Count 163 X10*3/uL (160-400); Red Cell Distribution Width 13.5 % (11.0-16.0); White Blood Count 4.6 X10*3/uL (4.8-10.8)
[2020-10-08 17:59] LABS: Prothrombin Time 11.4 SEC (10.8-13.0)
[2020-10-08 18:02] LABS: Partial Thromboplastin Time 31.4 SEC (24.1-38.0)
[2020-10-08 18:15] LABS: Ethanol 152 mg/dL
[2020-10-08 18:17] LABS: IDNOW Serial# 9DD0AD1C
[2020-10-08 18:18] LABS: COVID-19 Test Positive (Negative)
--- NOTE | 2020-10-08 18:19 | PC.NURSE ---
pt arrives from waiting room, matias placed patient on pulse ox which was 89%. Pt then moved to room 3 at this time placed on machinist apprentice wood and 02. improved to 97%. pt temp at this time 100 orally. labbed and lined.
[2020-10-08 18:20] LABS: Alanine Aminotransferase 47 U/L (0-40); Albumin Level 4.5 g/dL (3.5-5.0); Alkaline Phosphatase 67 U/L (39-117); Anion Gap 18 (12-20); Aspartate Amino Transferase 68 U/L (5-37); Bilirubin Direct < 0.2 mg/dL (0.0-0.5); Bilirubin Total 0.4 mg/dL (0.0-1.0); Blood Urea Nitrogen 16 mg/dL (9-16); Calcium 8.8 mg/dL (8.4-10.2); Carbon Dioxide 28 mmol/L (22-29); Chloride 97 mmol/L (96-108); Creatinine Clr Calc Pharmacy 131.9; Estimated Glomerular Filt Rate > 60; Glucose Random 100 mg/dL (60-115); Lipase 25 U/L (8-78); Sodium 139 mmol/L (135-145); Total Protein 7.6 g/dL (6.5-8.0)
[2020-10-08] MEDS: Acetaminophen 325 MG TABLET 650 MG PO (18:38)
[2020-10-08 18:48] LABS: Troponin-I High Sensitivity 5.7 ng/L (<3.5-35.0)
[2020-10-08 19:16] LABS: Glucose Urine UA NEG (NEG); Leukocyte Esterase Urine NEG (NEG); Nitrite Urine NEG (NEG); Specific Gravity - Urine >= 1.030 (1.005-1.025); Urine Blood TRACE (NEG); Urine Ketones NEG (NEG); Urine Protein 2+ MG/DL (NEG-TRACE)
[2020-10-08 19:18] LABS: Appearance Urine CLEAR; Color Urine YELLOW
[2020-10-08 19:33] LABS: Amphetamine Screen Urine Not Detected (Not Detect); Barbiturates, Urine Not Detected (Not Detect); Benzodiazepines Screen Urine Not Detected (Not Detect); Cannabinoid Screen Urine Not Detected (Not Detect); Cocaine Screen Urine Not Detected (Not Detect); Opiate Screen Urine Not Detected (Not Detect); Phencyclidine Screen Urine Not Detected (Not Detect)
[2020-10-08] MEDS: cefTRIAXone sodium 1 GM in 0.9 % Sodium Chloride 50 ML IV (19:34)
[2020-10-08 19:35] LABS: WBC Urine 0 /HPF (0-4)
[2020-10-08 19:53] LABS: Lactic Acid 1.7 mmol/L (0.5-2.0)
[2020-10-08] MEDS: Azithromycin 500 MG in 0.9 % Sodium Chloride 250 ML 125 MG IV (20:35)
[2020-10-08 21:30] LABS: Troponin-I High Sensitivity 7.4 ng/L (<3.5-35.0)
--- NOTE | 2020-10-08 21:51 | PC.NURSE ---
pt remains sleeping at this time. 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 pt also states he is on suboxone in AM. Previous drug use hx with evidence of track saravia. pt remains on 2 l nc.
[2020-10-08] MEDS: dexAMETHasone sod phosphate 4 MG/ML VIAL 6 MG IVPUSH (22:08)
--- NOTE | 2020-10-08 22:20 | PC.NURSE ---
pt ambulation trial 88% on RA. 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
[2020-10-08 23:00] LABS: D Dimer 311 NG/ML
--- NOTE | 2020-10-08 23:08 | P.HPHOSP_ITS ---
History of Present Illness Date of Service: 10/08/20 Chief Complaint: Cough [age] old male With a past history hypertension, alcohol abuse, anxiety, depression, polysubstance abuse presented to the hospital with a chief complaint of fever chills, body aches, dry cough and shortness of breath past 3-4 days. As symptoms were not improving decided to come to the ER for further evaluation. Also mentions that he drinks alcohol. And used cocaine about 3 days ago. Denies any numbness tingling. Denies any chest pain palpitations lightheadedness or dizziness. Denies any GI or symptoms. Review of all other systems is negative except mentioned above ER course: Per ER team patient was desaturating to 83% on room air subsequently placed on 2 L supplemental oxygen via nasal cannula with improvement in oxygen to 96%. Patient was not in respiratory distress. CT scan showed bilateral pulmonary opacities. COVID-19 positive. Given antibiotics. Admitted to the hospital for further management. [facility] Medical History Depression ETOH abuse Hypertension Social History Household Members: Other Housing: Homeless Do you presently have visiting nurse or other home services: No Alcohol intake: current Alcohol intake frequency: 3 or more drinks per day Alcohol type: beer Smoking Status: Current every day smoker Tobacco Type: Cigarette Packs Per Day: 1 Cigarettes Per Day: 20.0 Smoked in Last 30 Days: Yes Patient Interested in Nicotine Replacement: Yes Use of substances other than those prescribed or required for medical reasons: No Substance Use Type: IV Drugs Currently Displaying Signs/Symptoms of Drug Intoxication Withdrawal: No Have you been hit, kicked, punched, or otherwise hurt by someone within the past year? If so, by whom?: No Do you feel safe in your current relationship?: No Current Relationship Is there a partner from a previous relationship who is making you feel unsafe now?: No Are you made to feel afraid or neglected: No Advance Directives: No Advance Directives Information Provided: No Do you have thoughts of harming others: None Do you have a plan to hurt others: No Plan Recently lost weight without trying: No service: No Current occupational status: unemployed Meds Allergies Allergy/AdvReac Type Severity Reaction Status Date / Time seafood Allergy Anaphylaxis Verified 10/08/20 13:40 Active Medications: Current Medications Generic Name Dose Route Start Last Admin Trade Name Freq PRN Reason Stop Dose Admin Acetaminophen 650 mg 10/08/20 22:33 Acetaminophen 325 Mg Tablet PO Q6H PRN Pain, Mild (Pain Scale 1-3) Albuterol Sulfate 2 puff 10/08/20 22:36 Albuterol Sulfate 90 Mcg 8 Gm Inhaler INHALE Q6H PRN shortness of breath or wheezing Amlodipine Besylate 2.5 mg 10/09/20 09:00 Amlodipine Besylate 2.5 Mg Tablet PO DAILY [facility] Protocol Azithromycin 500 mg 10/09/20 19:00 Azithromycin 500 Mg Tablet PO Q24H [facility] Dexamethasone 6 mg 10/09/20 09:00 Dexamethasone 6 Mg Tablet PO DAILY [facility] Enoxaparin Sodium 40 mg 10/08/20 22:00 Enoxaparin Sodium 40 Mg/0.4 Ml Syringe SUBCUT Q24H [facility] Folic Acid 1 mg 10/09/20 09:00 Folic Acid 1 Mg Tablet PO 10/12/20 08:59 DAILY [facility] Ceftriaxone Sodium 1 gm/ 50 mls @ 100 mls/hr 10/09/20 19:00 Sodium Chloride IV Q24H [facility] Lorazepam 1 mg 10/08/20 22:33 Lorazepam 1 Mg Tablet PO 10/12/20 22:32 Q4H PRN Breakthrough alcohol withdrawa Metoprolol Succinate 50 mg 10/09/20 09:00 Metoprolol Succinate Er 50 Mg Tab.Er.24h PO DAILY [facility] Protocol Multivitamins 1 tab 10/09/20 09:00 B-Complex With Vitamin C Tablet PO DAILY [facility] Multivitamins/Vitamin C 1 tab 10/09/20 09:00 Multivitamin Tablet PO DAILY [facility] Pantoprazole Sodium 40 mg 10/09/20 06:30 Pantoprazole Sodium 40 Mg/10 Ml Vial IVPUSH DAILY@0630 [facility] Pharmacy Consult 1 each 10/08/20 19:08 Consult Rx Perform Med Rec MISCELLANE ONCE PRN Consult order Senna 17.2 mg 10/08/20 22:33 Sennosides 8.6 Mg Tablet PO BEDTIME PRN Constipation Sodium Chloride 3 ml 10/09/20 00:00 0.9 % Sodium Chloride Flush 3 Ml Syringe IVFLUSH QSHIFT [facility] Thiamine HCl 100 mg 10/09/20 09:00 Thiamine Hcl 100 Mg Tablet PO 10/12/20 08:59 DAILY [facility] Zolpidem Tartrate 5 mg 10/08/20 22:33 Zolpidem Tartrate 5 Mg Tablet PO BEDTIME PRN Insomnia Home Medications Medication Instructions Recorded Confirmed Last Taken Type multivitamin 1 tab PO DAILY 05/05/20 10/08/20 Unknown History Physical Exam Vital Signs and Narrative: Vital Signs: Last Vital Signs Temp 99.3 F 10/08/20 20:25 Pulse 83 10/08/20 22:08 Resp 14 10/08/20 22:08 BP 112/69 10/08/20 22:08 Pulse Ox 88 L 10/08/20 22:19 Body Mass Index 32.4 Gen: Appears be in no acute distress HEENT: NCAT, Moist mucosa. Pulmonary: Course breath sounds, fair air entry CVS: Normal S1-S2 Abdomen: BS+, Soft, Nontender Extremities: Warm well perfused Neuro: Alert and awake. Results Labs CBC and Chem 7: 10/09/20 05:49 10/09/20 05:49 Labs: Laboratory Results - last 24 hr 10/08/20 10/08/20 10/08/20 17:39 17:39 17:39 MCV 91.2 MCH 29.8 MCHC 32.7 RDW 13.5 Plt Count 163 MPV 10.3 Immature Gran % (Auto) 0.4 Neut % (Auto) 46.2 Lymph % (Auto) 41.8 H [place] % (Auto) 10.1 Eos % (Auto) 1.1 Baso % (Auto) 0.4 Lymph # (Auto) 1.9 [place] # (Auto) 0.5 Eos # (Auto) 0.1 Baso # (Auto) 0.0 Abs Immat Gran (auto) 0.02 Absolute Neuts (auto) 2.1 Absolute Nucleated RBC 0.000 Nucleated RBC % (auto) 0.0 PT 11.4 INR 1.0 APTT 31.4 Anion Gap 18 Estim Creat Clear Calc 131.9 Estimated GFR > 60 Random Glucose 100 Lactic Acid Calcium 8.8 Total Bilirubin 0.4 Direct Bilirubin < 0.2 AST 68 H ALT 47 H Alkaline Phosphatase 67 D Troponin I High Sens Total Protein 7.6 Albumin 4.5 Lipase 25 Urine Color Urine Appearance Urine pH Ur Specific [place] Urine Protein Urine Glucose (UA) Urine Ketones Urine Blood Urine Nitrite Ur Leukocyte Esterase Urine RBC Urine WBC Ur Squamous Epith Cells Urine Bacteria Urine Opiates Screen Ur Barbiturates Screen Ur Phencyclidine Scrn Ur Amphetamines Screen U Benzodiazepines Scrn Urine Cocaine Screen U Marijuana (THC) Screen Ethyl Alcohol COVID-19 (BRENDA) COVID-19 [employer] 10/08/20 10/08/20 10/08/20 17:39 17:39 17:39 MCV MCH MCHC RDW Plt Count MPV Immature Gran % (Auto) Neut % (Auto) Lymph % (Auto) [place] % (Auto) Eos % (Auto) Baso % (Auto) Lymph # (Auto) [place] # (Auto) Eos # (Auto) Baso # (Auto) Abs Immat Gran (auto) Absolute Neuts (auto) Absolute Nucleated RBC Nucleated RBC % (auto) PT INR APTT Anion Gap Estim Creat Clear Calc Estimated GFR Random Glucose Lactic Acid Calcium Total Bilirubin Direct Bilirubin AST ALT Alkaline Phosphatase Troponin I High Sens 5.7 Total Protein Albumin Lipase Urine Color Urine Appearance Urine pH Ur Specific [place] Urine Protein Urine Glucose (UA) Urine Ketones Urine Blood Urine Nitrite Ur Leukocyte Esterase Urine RBC Urine WBC Ur Squamous Epith Cells Urine Bacteria Urine Opiates Screen Ur Barbiturates Screen Ur Phencyclidine Scrn Ur Amphetamines Screen U Benzodiazepines Scrn Urine Cocaine Screen U Marijuana (THC) Screen Ethyl Alcohol 152 COVID-19 (BRENDA) Positive A COVID-19 [employer] See Note 10/08/20 10/08/20 10/08/20 19:03 19:03 19:19 MCV MCH MCHC RDW Plt Count MPV Immature Gran % (Auto) Neut % (Auto) Lymph % (Auto) [place] % (Auto) Eos % (Auto) Baso % (Auto) Lymph # (Auto) [place] # (Auto) Eos # (Auto) Baso # (Auto) Abs Immat Gran (auto) Absolute Neuts (auto) Absolute Nucleated RBC Nucleated RBC % (auto) PT INR APTT Anion Gap Estim Creat Clear Calc Estimated GFR Random Glucose Lactic Acid 1.7 Calcium Total Bilirubin Direct Bilirubin AST ALT Alkaline Phosphatase Troponin I High Sens Total Protein Albumin Lipase Urine Color YELLOW Urine Appearance CLEAR Urine pH 6.0 Ur Specific [place] >= 1.030 H Urine Protein 2+ H Urine Glucose (UA) NEG Urine Ketones NEG Urine Blood TRACE Urine Nitrite NEG Ur Leukocyte Esterase NEG Urine RBC 1-4 Urine WBC 0 Ur Squamous Epith Cells NONE Urine Bacteria NONE Urine Opiates Screen Not Detected Ur Barbiturates Screen Not Detected Ur Phencyclidine Scrn Not Detected Ur Amphetamines Screen Not Detected U Benzodiazepines Scrn Not Detected Urine Cocaine Screen Not Detected U Marijuana (THC) Screen Not Detected Ethyl Alcohol COVID-19 (BRENDA) COVID-19 Clin Com 10/08/20 20:45 MCV MCH MCHC RDW Plt Count MPV Immature Gran % (Auto) Neut % (Auto) Lymph % (Auto) [place] % (Auto) Eos % (Auto) Baso % (Auto) Lymph # (Auto) [place] # (Auto) Eos # (Auto) Baso # (Auto) Abs Immat Gran (auto) Absolute Neuts (auto) Absolute Nucleated RBC Nucleated RBC % (auto) PT INR APTT Anion Gap Estim Creat Clear Calc Estimated GFR Random Glucose Lactic Acid Calcium Total Bilirubin Direct Bilirubin AST ALT Alkaline Phosphatase Troponin I High Sens 7.4 Total Protein Albumin Lipase Urine Color Urine Appearance Urine pH Ur Specific [place] Urine Protein Urine Glucose (UA) Urine Ketones Urine Blood Urine Nitrite Ur Leukocyte Esterase Urine RBC Urine WBC Ur Squamous Epith Cells Urine Bacteria Urine Opiates Screen Ur Barbiturates Screen Ur Phencyclidine Scrn Ur Amphetamines Screen U Benzodiazepines Scrn Urine Cocaine Screen U Marijuana (THC) Screen Ethyl Alcohol COVID-19 (BRENDA) COVID-19 Clin Com Imaging Radiologist's Impressions: Impressions Chest CT 10/08/20 17:20 IMPRESSION: 1. Some mild inflammatory changes are present with tree-in-bud formation. 2. Small areas of infiltrate present at the lung bases. However, appearances are significantly improved when comparison is made to the prior study. There is underlying COPD. 3. Incidental redemonstration of marked hepatic steatosis. Assessment and Plan (1) COVID-19: Problem details: He is not taking oxygen now He feels well and wishes to leave Status: Acute 49-year-old male with a past medical history of hypertension, anxiety, depression, alcohol abuse, substance abuse, presented to the hospital with a chief complaint of fever chills body aches, shortness of breath, dry cough noted to have COVID-19 pneumonia. Admitted to the hospital for further management Acute hypoxic respiratory failure: In the setting of COVID-19 pneumonia. Patient is currently not in distress. Continue supplemental oxygen via nasal cannula. COVID-19 pneumonia: Continue ceftriaxone, azithromycin, dexamethasone 6 mg daily. ID consult for further recommendations. Hypertension: Continue home medications Alcohol abuse: Monitor on CIWA protocol with Ativan. Thiamine, folate, multivitamins. Opiate dependence: Patient on Suboxone. Will defer to the a.m. team to confirm the Suboxone and resume accordingly. DVT prophylaxis: Lovenox Full code
[2020-10-08] MEDS: Enoxaparin Sodium 40 MG/0.4 ML SYRINGE SUBCUT (23:09)
--- NOTE | 2020-10-08 23:25 | PC.NURSE ---
called to give report. rn unavailable.
[2020-10-09] VITALS (8 sets, daily range): BP systolic 135–178; BP diastolic 85–110; PULSE 71–95; RESP 18–20; TEMP 36.3–36.9; O2SAT 92–98; BMI 32.4
[2020-10-09] MEDS: 0.9 % Sodium Chloride Flush 3 ML SYRINGE IVFLUSH ×3 (00:19→16:08)
[2020-10-09 06:16] LABS: MANUAL DIFF FLAG NO
[2020-10-09] MEDS: Pantoprazole Sodium 40 MG/10 ML VIAL IVPUSH (06:21)
[2020-10-09 06:23] LABS: Basophils Percent Auto 0.4 % (0-2); Eosinophils Percent Auto 0.6 % (0-4); Hematocrit 40.7 % (42-52); Hemoglobin 13.4 g/dl (14.0-18.0); Imm Gran Abs Auto 0.01 X10*3/uL (0.00-0.03); Imm Gran Pct Auto 0.2 % (0.0-0.4); Lymphocytes Absolute Auto 1.8 X10*3/uL (1.2-4.9); Lymphocytes Percent Auto 37.6 % (20-40); Mean Corpuscular HGB Conc 32.9 g/dl (31.0-36.0); Mean Corpuscular Volume 91.3 fL (80-98); Mean Platelet Volume 10.8 fL (9.4-12.4); Monocytes Absolute Auto 0.5 X10*3/uL (0.1-1.2); Monocytes Percent Auto 10.3 % (2-11); Neutrophils Absolute Auto 2.4 X10*3/uL (2.0-8.3); Neutrophils Percent Auto 50.9 % (45-73); Platelet Count 148 X10*3/uL (160-400); Red Blood Count 4.46 X10*6/uL (4.60-5.80); Red Cell Distribution Width 13.5 % (11.0-16.0); White Blood Count 4.7 X10*3/uL (4.8-10.8)
[2020-10-09 06:43] LABS: Anion Gap 12 (12-20); Blood Urea Nitrogen 14 mg/dL (9-16); Calcium 8.6 mg/dL (8.4-10.2); Carbon Dioxide 32 mmol/L (22-29); Chloride 100 mmol/L (96-108); Creatinine Clr Calc Pharmacy 151.4; Estimated Glomerular Filt Rate > 60; Glucose Random 100 mg/dL (60-115); Potassium 4.7 mmol/L (3.3-5.1); Sodium 139 mmol/L (135-145)
[2020-10-09] MEDS: LORazepam 1 MG TABLET PO ×3 (07:35→21:41)
[2020-10-09] MEDS: Multivitamin TABLET 1 TAB PO (08:24)
[2020-10-09] MEDS: Thiamine HCL 100 MG TABLET PO (08:24)
[2020-10-09] MEDS: dexAMETHasone 6 MG TABLET PO (08:24)
[2020-10-09] MEDS: amLODIPine Besylate 2.5 MG TABLET PO (08:24)
[2020-10-09] MEDS: Folic Acid 1 MG TABLET PO (08:25)
[2020-10-09] MEDS: Metoprolol Succinate ER 50 MG TAB.ER.24H PO (08:25)
--- NOTE | 2020-10-09 09:18 | P.PNIM_ITS ---
Subjective Subjective Date of Service: 10/09/20 Interval History: Seen in f/u covid w/ hypoxia. Better Review of Systems Gen: no fever Resp: no sob, no cough CV: no chest, no SHANNON, no leg edema GI: No n/v, no abd pain Neuro: No confusion Physical Exam Vital Signs: Vital Signs: Last Vital Signs Temp 98.2 F 10/09/20 07:09 Pulse 75 10/09/20 07:09 Resp 20 10/09/20 07:09 BP 170/95 H 10/09/20 07:09 Pulse Ox 95 10/09/20 07:09 Body Mass Index 32.4 General: AO X 3, no acute distress Resp: CTA bilateral CVS: S1,S2,RRR GI: +BS, NT, no distention Skin: No rash Neuro: motor grossly intact Psych: appropriate affect Objective Data Current Medications Generic Name Dose Route Start Last Admin Trade Name Freq PRN Reason Stop Dose Admin Acetaminophen 650 mg 10/08/20 22:33 Acetaminophen 325 Mg Tablet PO Q6H PRN Pain, Mild (Pain Scale 1-3) Albuterol Sulfate 2 puff 10/08/20 22:36 Albuterol Sulfate 90 Mcg 8 Gm Inhaler INHALE Q6H PRN shortness of breath or wheezing Amlodipine Besylate 2.5 mg 10/09/20 09:00 10/09/20 08:24 Amlodipine Besylate 2.5 Mg Tablet PO 2.5 mg DAILY [facility] Administration Protocol Azithromycin 500 mg 10/09/20 19:00 Azithromycin 500 Mg Tablet PO Q24H [facility] Dexamethasone 6 mg 10/09/20 09:00 10/09/20 08:24 Dexamethasone 6 Mg Tablet PO 6 mg DAILY [facility] Administration Enoxaparin Sodium 40 mg 10/08/20 22:00 10/08/20 23:09 Enoxaparin Sodium 40 Mg/0.4 Ml Syringe SUBCUT 40 mg Q24H [facility] Administration Folic Acid 1 mg 10/09/20 09:00 10/09/20 08:25 Folic Acid 1 Mg Tablet PO 10/12/20 08:59 1 mg DAILY [facility] Administration Ceftriaxone Sodium 1 gm/ 50 mls @ 100 mls/hr 10/09/20 19:00 Sodium Chloride IV Q24H [facility] Lorazepam 1 mg 10/08/20 22:33 10/09/20 07:35 Lorazepam 1 Mg Tablet PO 10/12/20 22:32 1 mg Q4H PRN Administration Breakthrough alcohol withdrawa Metoprolol Succinate 50 mg 10/09/20 09:00 10/09/20 08:25 Metoprolol Succinate Er 50 Mg Tab.Er.24h PO 50 mg DAILY [facility] Administration Protocol Multivitamins 1 tab 10/09/20 09:00 10/09/20 08:24 B-Complex With Vitamin C Tablet PO 1 tab DAILY [facility] Administration Multivitamins/Vitamin C 1 tab 10/09/20 09:00 10/09/20 08:24 Multivitamin Tablet PO 1 tab DAILY [facility] Administration Pantoprazole Sodium 40 mg 10/09/20 06:30 10/09/20 06:21 Pantoprazole Sodium 40 Mg/10 Ml Vial IVPUSH 40 mg DAILY@0630 [facility] Administration Pharmacy Consult 1 each 10/08/20 19:08 Consult Rx Perform Med Rec MISCELLANE ONCE PRN Consult order Senna 17.2 mg 10/08/20 22:33 Sennosides 8.6 Mg Tablet PO BEDTIME PRN Constipation Sodium Chloride 3 ml 10/09/20 00:00 10/09/20 07:35 0.9 % Sodium Chloride Flush 3 Ml Syringe IVFLUSH 3 ml QSHIFT [facility] Administration Thiamine HCl 100 mg 10/09/20 09:00 10/09/20 08:24 Thiamine Hcl 100 Mg Tablet PO 10/12/20 08:59 100 mg DAILY [facility] Administration Zolpidem Tartrate 5 mg 10/08/20 22:33 Zolpidem Tartrate 5 Mg Tablet PO BEDTIME PRN Insomnia Labs CBC & Chem 7: 10/09/20 05:49 10/09/20 05:49 Assessment and Plan (1) COVID-19: Status: Acute Assessment and Plan: 49-year-old male with hypertension, anxiety, depression, alcohol abuse, substance abuse, presented to the hospital with fever chills body aches, shortness of breath, dry cough noted to have COVID-19 pneumonia associated with hypoxia. Admitted for Oxygen support, Abx and cosideration for Remdesevir. Acute hypoxic respiratory failure d/t covid-19 COVID-19 pneumonia: on ceftriaxone, azithromycin--I don't think there is a clear indication? will discuss with ID -Dexamethasone 6 mg daily. -ID consult for further recommendations. Hypertension: Continue home medications Alcohol abuse: Monitor on CIWA protocol with Ativan. Thiamine, folate, multivitamins. Opiate dependence: Patient on Suboxone. Continue DVT prophylaxis: Lovenox Full code
[2020-10-09] MEDS: Buprenorphine/Naloxone 8/2 mg FILM 1 FILM SUBLINGUAL ×2 (11:30→20:38)
[2020-10-09] MEDS: Nicotine 14 MG PATCH.TD24 TRANSDERMA (11:30)
--- NOTE | 2020-10-09 15:27 | P.CNID_ITS ---
History of Present Illness Data of Consult Service Date: 10/09/20 Requesting physician: Sudhir Logan Primary Care Provider: Unknown Physician HPI Reason for consult: COVID He presents with shortness of breath for two to three days He was 88% on room air and then walking to bathroom off oxygen and doing well He has positive COVID Review of Systems Review of Systems: Yes all other systems are reviewed and are negative [facility] Past Medical History Medical History Depression ETOH abuse Hypertension Family History Family history: reviewed and not pertinent Social History Social History Household Members: Other Housing: Homeless Do you presently have visiting nurse or other home services: No Alcohol intake: current Alcohol intake frequency: 3 or more drinks per day Alcohol type: beer Smoking Status: Current every day smoker Tobacco Type: Cigarette Packs Per Day: 1 Cigarettes Per Day: 20.0 Smoked in Last 30 Days: Yes Patient Interested in Nicotine Replacement: Yes Use of substances other than those prescribed or required for medical reasons: No Substance Use Type: IV Drugs Currently Displaying Signs/Symptoms of Drug Intoxication Withdrawal: No Have you been hit, kicked, punched, or otherwise hurt by someone within the past year? If so, by whom?: No Do you feel safe in your current relationship?: No Current Relationship Is there a partner from a previous relationship who is making you feel unsafe now?: No Are you made to feel afraid or neglected: No Advance Directives: No Advance Directives Information Provided: No Do you have thoughts of harming others: None Do you have a plan to hurt others: No Plan Recently lost weight without trying: No service: No Current occupational status: unemployed Meds Allergies Allergy/AdvReac Type Severity Reaction Status Date / Time seafood Allergy Anaphylaxis Verified 10/08/20 13:40 Active Medications: Current Medications Generic Name Dose Route Start Last Admin Trade Name Freq PRN Reason Stop Dose Admin Acetaminophen 650 mg 10/08/20 22:33 Acetaminophen 325 Mg Tablet PO Q6H PRN Pain, Mild (Pain Scale 1-3) Albuterol Sulfate 2 puff 10/08/20 22:36 Albuterol Sulfate 90 Mcg 8 Gm Inhaler INHALE Q6H PRN shortness of breath or wheezing Amlodipine Besylate 2.5 mg 10/09/20 09:00 10/09/20 08:24 Amlodipine Besylate 2.5 Mg Tablet PO 2.5 mg DAILY [facility] Administration Protocol Buprenorphine/Naloxone 1 film 10/09/20 11:00 10/09/20 11:30 Buprenorphine/Naloxone 8/2 Mg Film SUBLINGUAL 1 film BID [facility] Administration Dexamethasone 6 mg 10/09/20 09:00 10/09/20 08:24 Dexamethasone 6 Mg Tablet PO 6 mg DAILY [facility] Administration Enoxaparin Sodium 40 mg 10/08/20 22:00 10/08/20 23:09 Enoxaparin Sodium 40 Mg/0.4 Ml Syringe SUBCUT 40 mg Q24H [facility] Administration Folic Acid 1 mg 10/10/20 09:00 Folic Acid 1 Mg Tablet PO DAILY [facility] Lorazepam 1 mg 10/08/20 22:33 10/09/20 07:35 Lorazepam 1 Mg Tablet PO 10/12/20 22:32 1 mg Q4H PRN Administration Breakthrough alcohol withdrawa Metoprolol Succinate 50 mg 10/09/20 09:00 10/09/20 08:25 Metoprolol Succinate Er 50 Mg Tab.Er.24h PO 50 mg DAILY [facility] Administration Protocol Multivitamins 1 tab 10/09/20 09:00 10/09/20 08:24 B-Complex With Vitamin C Tablet PO 1 tab DAILY [facility] Administration Multivitamins/Vitamin C 1 tab 10/09/20 09:00 10/09/20 08:24 Multivitamin Tablet PO 1 tab DAILY [facility] Administration Nicotine 14 mg 10/09/20 11:00 10/09/20 11:30 Nicotine 14 Mg Patch.Td24 TRANSDERMA 14 mg DAILY [facility] Administration Non-Formulary Medication 333 mg 10/09/20 11:00 Acamprosate PO BID [facility] Omeprazole 20 mg 10/10/20 06:30 Omeprazole 20 Mg Capsule. PO DAILY@0630 [facility] Pharmacy Consult 1 each 10/08/20 19:08 Consult Rx Perform Med Rec MISCELLANE ONCE PRN Consult order Senna 17.2 mg 10/08/20 22:33 Sennosides 8.6 Mg Tablet PO BEDTIME PRN Constipation Sodium Chloride 3 ml 10/09/20 00:00 10/09/20 07:35 0.9 % Sodium Chloride Flush 3 Ml Syringe IVFLUSH 3 ml QSHIFT [facility] Administration Thiamine HCl 100 mg 10/10/20 09:00 Thiamine Hcl 100 Mg Tablet PO DAILY [facility] Zolpidem Tartrate 5 mg 10/08/20 22:33 Zolpidem Tartrate 5 Mg Tablet PO BEDTIME PRN Insomnia Home Medications Medication Instructions Recorded Confirmed Last Taken Type amlodipine 2.5 mg tablet 2.5 mg PO DAILY 05/05/20 10/08/20 Unknown History multivitamin 1 tab PO DAILY 05/05/20 10/08/20 Unknown History acamprosate 333 mg PO BID 10/08/20 10/08/20 Unknown History folic acid 1 tab PO DAILY 10/08/20 10/08/20 Unknown History metoprolol succinate 1 tab PO DAILY 10/08/20 10/08/20 Unknown History nicotine 1 patch TOPICAL DAILY 10/08/20 10/08/20 Unknown History thiamine HCl (vitamin B1) 1 tab PO DAILY 10/08/20 10/08/20 Unknown History Physical Exam Vital Signs: Vital Signs: Last Vital Signs Temp 98 F 10/09/20 15:23 Pulse 93 10/09/20 15:23 Resp 18 10/09/20 15:23 BP 178/110 H 10/09/20 15:23 Pulse Ox 93 10/09/20 15:23 Body Mass Index 32.4 Const: General: cooperative Orientation/consciousness: patient oriented x3 HENMT: Head: Yes normal to inspection Mouth: Normal oral and palatal mucosa present Eyes: General: appearance normal, both eyes and all related structures Resp: Effort & Inspection: normal respiratory effort Cardio: Rate: regular rate Rhythm: regular rhythm GI: Palpation (GI): Soft to palpation and nontender : General: Yes no CVA tenderness Back/Spine/Pelvis: Back: no CVA tenderness Skin: General skin exam: no rashes or lesions noted Neuro: General: patient oriented x3 Extrem: General: Yes normal to inspection and Yes full ROM Results Labs CBC & Chem 7: 10/09/20 05:49 10/09/20 05:49 Labs: Short CBC 10/08/20 10/09/20 Range/Units 17:39 05:49 WBC 4.6 L 4.7 L (4.8-10.8) X10*3/uL Hgb 14.6 13.4 L (14.0-18.0) g/dl Hct 44.7 40.7 L (42-52) % Plt Count 163 148 L (160-400) X10*3/uL BMP 10/08/20 10/09/20 17:39 05:49 Sodium 139 139 Potassium 4.0 4.7 Chloride 97 100 Carbon Dioxide 28 32 H BUN 16 D 14 Creatinine 0.70 0.61 Calcium 8.8 8.6 Liver Function 10/08/20 Range/Units 17:39 Total Bilirubin 0.4 (0.0-1.0) mg/dL Direct Bilirubin < 0.2 (0.0-0.5) mg/dL AST 68 H (5-37) U/L ALT 47 H (0-40) U/L Alkaline Phosphatase 67 D (39-117) U/L Albumin 4.5 (3.5-5.0) g/dL Urine 10/08/20 Range/Units 19:03 Urine Color YELLOW Urine Appearance CLEAR Urine pH 6.0 (5.0-8.0) Ur Specific [place] >= 1.030 H (1.005-1.025) Urine Protein 2+ H (NEG-TRACE) MG/DL Urine Glucose (UA) NEG (NEG) MG/DL Assessment and Plan (1) Opioid use disorder: Problem details: Status: Acute (2) COVID-19: Problem details: He is not taking oxygen now He feels well and wishes to leave Status: Acute Stop antibiotics,no bacterial infection found Dexamethasone for 10d ,po on discharge No Remdesivir,no oxygen need at this time (3) Alcohol use disorder, severe, dependence: Status: Acute
[2020-10-09] MEDS: Enoxaparin Sodium 40 MG/0.4 ML SYRINGE SUBCUT (21:41)
[2020-10-09] MEDS: Zolpidem Tartrate 5 MG TABLET PO (22:20)
[2020-10-10] MEDS: 0.9 % Sodium Chloride Flush 3 ML SYRINGE IVFLUSH (00:58)
[2020-10-10 03:39] VITALS: BP 177/99; PULSE 85; RESP 18; TEMP 36.7; O2SAT 95
[2020-10-10] MEDS: Omeprazole 20 MG CAPSULE.DR PO (06:19)
[2020-10-10 07:47] VITALS: BP 145/108; PULSE 97; RESP 16; TEMP 36.8; O2SAT 95
--- NOTE | 2020-10-10 08:00 | MHC.CM.PN ---
Addendum entered by Tami Green 10/10/20 08:16: PCP [facility] Original Note: CM late charting. Pt is a Male 49 DX covid+[facility] Homeless long term. He is independent all functional mobility. DP STR vs COVID+ long term. Transport via BLS vs C shuttle. CM will follow.
[2020-10-10] MEDS: Metoprolol Succinate ER 50 MG TAB.ER.24H PO (08:11)
[2020-10-10] MEDS: LORazepam 1 MG TABLET PO (08:11)
[2020-10-10] MEDS: Multivitamin TABLET 1 TAB PO (08:11)
[2020-10-10] MEDS: dexAMETHasone 6 MG TABLET PO (08:12)
[2020-10-10] MEDS: Thiamine HCL 100 MG TABLET PO (08:12)
[2020-10-10] MEDS: Nicotine 14 MG PATCH.TD24 TRANSDERMA (08:12)
[2020-10-10] MEDS: Folic Acid 1 MG TABLET PO (08:12)
[2020-10-10] MEDS: Buprenorphine/Naloxone 8/2 mg FILM 1 FILM SUBLINGUAL (08:12)
[2020-10-10] MEDS: amLODIPine Besylate 2.5 MG TABLET PO (08:12)
--- NOTE | 2020-10-10 09:34 | P.DS_ITS ---
DS: Providers Provider Date of Service: 10/10/20 Date of admission: 10/08/20 22:33 Primary care physician: Unknown Physician Consults: 10/08/20 22:33 Consult to Infectious Diseases Routine Consulting Provider: Chelly Casper Reason for consultation: COVID pna DS: Diagnosis Discharge Diagnosis (1) Opioid use disorder: Status: Acute Problem details: (2) COVID-19: Status: Acute Problem details: He is not taking oxygen now He feels well and wishes to leave (3) Alcohol use disorder, severe, dependence: Status: Acute DS: Medications Discharge Medications Home Medications: Home Medications Medication Instructions Recorded Confirmed amlodipine 2.5 mg tablet 2.5 mg PO DAILY 05/05/20 10/08/20 multivitamin 1 tab PO DAILY 05/05/20 10/08/20 acamprosate 333 mg PO BID 10/08/20 10/08/20 folic acid 1 tab PO DAILY 10/08/20 10/08/20 metoprolol succinate 1 tab PO DAILY 10/08/20 10/08/20 nicotine 1 patch TOPICAL DAILY 10/08/20 10/08/20 thiamine HCl (vitamin B1) 1 tab PO DAILY 10/08/20 10/08/20 Previous Rx's Medication Instructions Recorded pantoprazole [Protonix] 40 mg PO DAILY #30 tab 05/18/20 albuterol sulfate 90 mcg/actuation 2 puff INHALATION Q6H PRN #8.5 g 06/21/20 aerosol inhaler buprenorphine 8 mg-naloxone 2 mg 1 film SUBLINGUAL BID #14 ea 06/21/20 sublingual film DS: Summary Hospital Course Hospital Course: HPI[age] old male With a past history hypertension, alcohol abuse, anxiety, depression, polysubstance abuse presented to the hospital with a chief complaint of fever chills, body aches, dry cough and shortness of breath past 3- 4 days. As symptoms were not improving decided to come to the ER for further evaluation. Also mentions that he drinks alcohol. And used cocaine about 3 days ago. Denies any numbness tingling. Denies any chest pain palpitations lightheadedness or dizziness. Denies any GI or symptoms. HOspital course: He was admitted for management of covid 19 with assocoated hypoxia of 88 and his treatement consisted of Dexamethasone and for remainder of hospitalization his oxgen saturation has been normal without oxygen. He has no fever. He was started on empiric antibiotics but at this time there is no indication so ID doesn't recommend this. He will be discharge home with Oral Dexamethasone for total of 10 days and advised to observe self isolation, social distancing for at least 10 from time of positive test. His exam is normal at this time. He feels very comfortable going home Time Spent with Patient Time attestation: Total time spent providing and/or coordinating discharge services: Discharge coordination time: Greater than 30 minutes Physical Exam Vital Signs: Vital Signs: Last Vital Signs Temp 98.3 F 10/10/20 07:47 Pulse 97 10/10/20 07:47 Resp 16 10/10/20 07:47 BP 145/108 H 10/10/20 07:47 Pulse Ox 95 10/10/20 07:47 Body Mass Index 32.4 Constitutional Awake and Alert, No apparent distress Neck Supple, No lymphadenopathy Cardiovascular RRR, No M/R/G, S1 S2, No S3 S4, No pedal edema Respiratory Lungs clear, No respiratory distress Gastrointestinal Non tender, Non-distended Skin No rash Neurological Alert & oriented x3 Psychological Appropriate affect DS: Data Data Completed and Pending Labs on day of discharge: Preliminary micro results at discharge 10/08/20 19:27 Blood Culture - Preliminary Blood - Venous No growth after 24 hours. 10/08/20 19:19 Blood Culture - Preliminary Blood - Venous No growth after 24 hours. Discharge Plan Discharge Anticipated Discharge Date/Time: 10/10/20 09:29 Patient Disposition: Home, Self-Care Referrals: Physician,Unknown [Primary Care Provider] - Discharge Medications: New dexamethasone [Decadron] 6 mg tablet 6 mg PO DAILY Qty: 8 RF: 0 Continued metoprolol succinate 50 mg tablet extended release 24 hr 1 tab PO DAILY RF: 0 thiamine HCl (vitamin B1) 100 mg tablet 1 tab PO DAILY RF: 0 nicotine 21 mg/24 hr patch 24 hour 1 patch topical DAILY RF: 0 folic acid 1 mg tablet 1 tab PO DAILY RF: 0 acamprosate 333 mg tablet,delayed release (DR/EC) 333 mg PO BID RF: 0 pantoprazole [Protonix] 40 mg tablet,delayed release (DR/EC) 40 mg PO DAILY Qty: 30 RF: 0 buprenorphine-naloxone [Suboxone] 8-2 mg film 1 film sublingual BID Qty: 14 RF: 0 albuterol sulfate [ProAir HFA] 90 mcg/actuation HFA aerosol inhaler 2 puff inhalation Q6H PRN (Reason: shortness of breath or wheezing) Qty: 8.5 RF: 0 amlodipine 2.5 mg tablet 2.5 mg PO DAILY RF: 0 multivitamin Tablet 1 tab PO DAILY RF: 0 Discharge Orders: Discharge Order (Routine); Ordered 10/10/20 Ordered By: Sudhir Logan Diet: advance to usual diet Activity on Discharge: As tolerated Stand Alone Forms: Patient Portal Discharge page Care Plan Goals: Full recovery from covid 19 Health Concerns: covid 19, opioid dependence and alcohol use Plan of Treatment: For covid take Dexametasone as directed and follow up with your Doctor in a week, avoid alcohol, and drugs Follow Self Isolation guidelines You can be with others after At least 10 days since symptoms first appeared and At least 24 hours with no fever without fever-reducing medication and Other symptoms of COVID-19 are improving Loss of taste and smell may persist for weeks or months after recovery and need not delay the end of isolation?
[2020-10-10 12:26] VITALS: BP 176/103; PULSE 87
--- NOTE | 2020-10-10 12:27 | PC.NURSE ---
BP OF 176/[address] PARRY. PT ALSO REFUSES TO GO THROUGH PROPER CHANNELS WITH THE HELP OF WILL FROM CASE MANAGEMENT, TO OBTAIN A PLACE IN [place] FOR QUARANTINE. PT WAS GIVEN DISCHARGE PAPER WORK.
--- NOTE | 2020-10-10 12:43 | MHC.CM.PN ---
CM met with patient to discuss discharge plan with a managing director atlas. Patient states he was going to go back to the homeless half-way in [facility], instructed patient cannot return there r/t +COVID. Patient agreeable to referral to [facility] for half-way who accepts +COVID. VINAYAK spoke with Jess at [facility] and made referral. Jess did call patient and spoke with him about the program which is a Motel in [place] and [facility] dept would provide transport. Jess states patient was willing to go but did not want to wait for transport. He told Jess he was going to [facility] to get his meds. Jess states she left 2 different phone numbers in case he changed his mind and they will send transport. VINAYAK called [facility] in [facility], spoke with nurse Bagley and reported patient is COVID+.
== END 2020-10-10 12:48 | disposition home or self-care (01) | DRG 137 ==
LOC: HO.ED 22:44 → HO.IMC 23:09
PROVIDERS: Nurse Practitioner Family; Admitting Provider Hospitalist; Emergency Provider Emergency Medicine; Visit Provider Internal Medicine
DX: U07.1 COVID-19 (principal); J96.01 Acute respiratory failure with hypoxia; J12.82 Pneumonia due to coronavirus disease 2019; F10.10 Alcohol abuse, uncomplicated; F17.210 Nicotine dependence, cigarettes, uncomplicated; Z71.6 Tobacco abuse counseling; I10 Essential (primary) hypertension; F11.20 Opioid dependence, uncomplicated; Z79.899 Other long term (current) drug therapy
CPT/HCPCS: 0241U; 36415; 71250; 80048; 80076; 80307; 80320; 81001; 83605; 83690; 84484; 85025; 85379; 85610; 85730; 87040; 87635; 93005; 96365; 96366; 96368; 96375; 99285; J0456; J0696; J1100; J1650; J8540

== ENCOUNTER 2021-01-30 10:10 | Emergency (ER) | payer MEDICAID, SELFPAY ==
[2021-01-30 10:23] VITALS: BP 215/115; PULSE 70; RESP 18; TEMP 36.6; O2SAT 96; BMI 29.0
--- NOTE | 2021-01-30 11:26 | ED.GENADULT ---
HPI - General Adult General Chief complaint: Headache Stated complaint: hbp, vomiting, chills Time Seen by Provider: 01/30/21 11:26 Source: patient Mode of arrival: ambulatory Limitations: language barrier History of Present Illness HPI narrative: Patient states his blood pressure is running high for a few weeks. Patient states that he comes today because his headache and sweating was worse. Onset (ago): week(s) Location: head Severity: mild Pain Consistency: intermittent Related Data Home Medications Medication Instructions Recorded Confirmed multivitamin 1 tab PO DAILY 05/05/20 10/08/20 Previous Rx's Medication Instructions Recorded buprenorphine 8 mg-naloxone 2 mg 1 film SUBLINGUAL BID #14 ea 06/21/20 sublingual film acamprosate 333 mg PO BID #60 tab 10/10/20 albuterol sulfate [ProAir HFA] 2 puff INHALATION Q6H PRN #1 kit 10/10/20 amlodipine [Norvasc] 5 mg PO DAILY #30 tab 10/10/20 dexamethasone [Decadron] 6 mg PO DAILY #8 tab 10/10/20 folic acid 1 tab PO DAILY #30 tab 10/10/20 metoprolol succinate 1 tab PO DAILY #30 tab 10/10/20 nicotine 1 patch TOPICAL DAILY #21 ea 10/10/20 pantoprazole [Protonix] 40 mg PO DAILY #30 tab 10/10/20 thiamine HCl (vitamin B1) 1 tab PO DAILY #30 tab 10/10/20 Allergies Allergy/AdvReac Type Severity Reaction Status Date / Time seafood Allergy Anaphylaxis Verified 10/08/20 13:40 Review of Systems Constitutional: Constitutional: Reports no additional constitutional complaints Eyes: Eyes: Reports no additional eye complaints ENT: Denies dizziness Cardiovascular: Cardiovascular: Reports no additional cardiovascular complaints Respiratory: Respiratory: Reports as per HPI Gastrointestinal: Gastrointestinal: Reports no additional gastrointestinal complaints Musculoskeletal: Musculoskeletal: Reports no additional musculoskeletal complaints Integumentary/Breasts: Skin/Breast: Denies rash Neurologic: Reports system reviewed and no additional complaints, except as documented, Denies dizziness and Denies Sensory deficit (Neuro) Psychiatric: Psychiatric: Denies anxiety PMFSH Past Medical History Medical History Depression ETOH abuse Hypertension Social History Social History Household Members: Other Housing: Homeless Do you presently have visiting nurse or other home services: No Alcohol intake: current Alcohol intake frequency: a few times a week Alcohol type: beer Patient Tobacco Use Status: Current someday Tobacco user Cigarette Packs Per Day: 1 Cigarettes Per Day: 20.0 Use of substances other than those prescribed or required for medical reasons: No Substance Use Type: IV Drugs Advance Directives: No Advance Directives Information Provided: No service: No Current occupational status: unemployed Physical Exam Vital Signs: Vital Signs: Last Vital Signs Temp 98 F 01/30/21 10:23 Pulse 60 01/30/21 12:55 Resp 13 01/30/21 12:55 BP 167/105 H 01/30/21 12:55 Pulse Ox 97 01/30/21 12:55 Body Mass Index 29.0 Const: General: healthy appearing Nutritional Appearance: average body habitus Orientation/consciousness: oriented to person and patient oriented x3 Limitations: no limitations HENMT: Head: Yes normal to inspection Ears: external ears normal General nose exam: Normal external nose present Mouth: Normal oral and palatal mucosa present and oropharynx normal Throat: Yes posterior oropharynx normal Eyes: General: appearance normal, both eyes and all related structures Neck: Other: supple Neck: Yes normal visual inspection Chest: Chest palpation & inspection: normal inspection of the chest Resp: Other: slight wheeze Cardio: Jugular venous distension: no JVD Rate: regular rate Rhythm: regular rhythm Heart sounds: S1 normal heart sound present and S2 normal heart sound present GI: Inspection: Yes normal to inspection Palpation (GI): Soft to palpation, nontender and No hepatosplenomegaly present Auscultation: normal bowel sounds : General: Yes no CVA tenderness Back/Spine/Pelvis: Back: no CVA tenderness Skin: General skin exam: no rashes or lesions noted Neuro: General: oriented to person and patient oriented x3 Cranial nerves: Yes CN's II-XII intact bilaterally Motor exam (neuro): 5/5 motor strength present throughout Sensory Exam: No Sensory deficit (Neuro) Extrem: General: Yes normal to inspection Psych: Appearance: grossly normal Course Reevaluation(s) Reevaluation #1: systolic blood pressure down to 160's, no evidence of end organ damage will have patient follow up with his doctor Time: 13:38 Medical Decision Making Lab Data Result diagrams: 01/30/21 11:42 01/30/21 12:25 Labs: Lab Results 01/30/21 01/30/21 01/30/21 Range/Units 11:42 11:42 12:25 WBC 5.2 (4.8-10.8) X10*3/uL RBC 4.72 (4.60-5.80) X10*6/uL Hgb 14.8 (14.0-18.0) g/dl Hct 44.1 (42-52) % MCV 93.4 (80-98) fL MCH 31.4 (27.0-33.0) pg MCHC 33.6 (31.0-36.0) g/dl RDW 12.6 (11.0-16.0) % Plt Count 150 L (160-400) X10*3/uL MPV 10.8 (9.4-12.4) fL Immature Gran % (Auto) 0.4 (0.0-0.4) % Neut % (Auto) 69.0 (45-73) % Lymph % (Auto) 18.7 L (20-40) % [place] % (Auto) 9.8 (2-11) % Eos % (Auto) 1.1 (0-4) % Baso % (Auto) 1.0 (0-2) % Lymph # (Auto) 1.0 L (1.2-4.9) X10*3/uL [place] # (Auto) 0.5 (0.1-1.2) X10*3/uL Eos # (Auto) 0.1 (0.0-0.4) X10*3/uL Baso # (Auto) 0.1 (0.0-0.2) X10*3/uL Abs Immat Gran (auto) 0.02 (0.00-0.03) X10*3/uL Absolute Neuts (auto) 3.6 (2.0-8.3) X10*3/uL Absolute Nucleated RBC 0.000 (0.0-0.012) X10*3/uL Nucleated RBC % (auto) 0.0 (0.0-0.2) /100WBC Sodium 138 (135-145) mmol/L Potassium 5.0 (3.3-5.1) mmol/L Chloride 97 (96-108) mmol/L Carbon Dioxide 29 (22-29) mmol/L Anion Gap 17 (12-20) BUN 8 L (9-16) mg/dL Creatinine 0.62 (0.5-1.4) mg/dL Estim Creat Clear Calc 144.6 Estimated GFR > 60 Random Glucose 93 (60-115) mg/dL Calcium 9.8 D (8.4-10.2) mg/dL Troponin I High Sens 6.4 (<3.5-35.0) ng/L ECG Data Attestation: I personally reviewed and interpreted this ECG as follows: Interpretation: sinus rate of 60, no st or twave changes Discharge Plan Discharge Clinical Impression: Hypertension Qualifiers: Hypertension type: essential hypertension Qualified Code(s): I10 - Essential (primary) hypertension Headache Qualifiers: Headache type: unspecified Headache chronicity pattern: unspecified pattern Intractability: not intractable Qualified Code(s): R51.9 - Headache, unspecified Patient Disposition: Home, Self-Care Instructions: Hypertension (ED) Prescriptions: No Action dexamethasone [Decadron] 6 mg tablet 6 mg PO DAILY Qty: 8 RF: 0 amlodipine [Norvasc] 5 mg tablet 5 mg PO DAILY Qty: 30 RF: 0 metoprolol succinate 50 mg tablet extended release 24 hr 1 tab PO DAILY Qty: 30 RF: 0 thiamine HCl (vitamin B1) 100 mg tablet 1 tab PO DAILY Qty: 30 RF: 0 pantoprazole [Protonix] 40 mg tablet,delayed release (DR/EC) 40 mg PO DAILY Qty: 30 RF: 0 nicotine 21 mg/24 hr patch 24 hour 1 patch topical DAILY Qty: 21 RF: 0 folic acid 1 mg tablet 1 tab PO DAILY Qty: 30 RF: 0 albuterol sulfate [ProAir HFA] 90 mcg/actuation HFA aerosol inhaler 2 puff inhalation Q6H PRN (Reason: shortness of breath or wheezing) Qty: 1 RF: 0 acamprosate 333 mg tablet,delayed release (DR/EC) 333 mg PO BID Qty: 60 RF: 0 buprenorphine-naloxone [Suboxone] 8-2 mg film 1 film sublingual BID Qty: 14 RF: 0 multivitamin Tablet 1 tab PO DAILY RF: 0 Referrals: [facility] [Primary Care Provider] - 5 days
--- NOTE | 2021-01-30 11:28 | ECG_ITS ---
Test Reason : HEADACHE Blood Pressure : / mmHG Vent. Rate : 063 BPM Atrial Rate : 063 BPM P-R Int : 162 ms QRS Dur : 094 ms QT Int : 434 ms P-R-T Axes : 043 011 003 degrees QTc Int : 444 ms Normal sinus rhythm Minimal voltage criteria for LVH, may be normal variant Borderline ECG When compared with ECG of 08-OCT-2020 18:48, Questionable change in QRS axis Inverted T waves have replaced nonspecific T wave abnormality in Inferior leads T wave amplitude has increased in Lateral leads Referred By: Kapil Phipps Electronically Signed By:Mauricio Wilson
[2021-01-30 11:41] VITALS: BP 156/108; PULSE 63; RESP 15; O2SAT 97
[2021-01-30 11:59] VITALS: BP 166/98; PULSE 62
[2021-01-30 11:59] LABS: MANUAL DIFF FLAG NO
[2021-01-30] MEDS: amLODIPine Besylate 10 MG TABLET PO (11:59)
[2021-01-30] MEDS: Metoprolol Succinate ER 50 MG TAB.ER.24H PO (11:59)
[2021-01-30 12:00] VITALS: BP 166/98; PULSE 63; RESP 14; O2SAT 97
[2021-01-30 12:05] LABS: Basophils Absolute Auto 0.1 X10*3/uL (0.0-0.2); Eosinophils Absolute Auto 0.1 X10*3/uL (0.0-0.4); Eosinophils Percent Auto 1.1 % (0-4); Hematocrit 44.1 % (42-52); Hemoglobin 14.8 g/dl (14.0-18.0); Imm Gran Abs Auto 0.02 X10*3/uL (0.00-0.03); Imm Gran Pct Auto 0.4 % (0.0-0.4); Lymphocytes Percent Auto 18.7 % (20-40); Mean Corpuscular HGB Conc 33.6 g/dl (31.0-36.0); Mean Corpuscular Hemoglobin 31.4 pg (27.0-33.0); Mean Corpuscular Volume 93.4 fL (80-98); Mean Platelet Volume 10.8 fL (9.4-12.4); Monocytes Absolute Auto 0.5 X10*3/uL (0.1-1.2); Monocytes Percent Auto 9.8 % (2-11); Neutrophils Absolute Auto 3.6 X10*3/uL (2.0-8.3); Platelet Count 150 X10*3/uL (160-400); Red Blood Count 4.72 X10*6/uL (4.60-5.80); Red Cell Distribution Width 12.6 % (11.0-16.0); White Blood Count 5.2 X10*3/uL (4.8-10.8)
[2021-01-30 12:28] LABS: Troponin-I High Sensitivity 6.4 ng/L (<3.5-35.0)
[2021-01-30 12:55] VITALS: BP 167/105; PULSE 60; RESP 13; O2SAT 97
[2021-01-30 13:05] LABS: Anion Gap 17 (12-20); Blood Urea Nitrogen 8 mg/dL (9-16); Calcium 9.8 mg/dL (8.4-10.2); Carbon Dioxide 29 mmol/L (22-29); Chloride 97 mmol/L (96-108); Creatinine Clr Calc Pharmacy 144.6; Estimated Glomerular Filt Rate > 60; Glucose Random 93 mg/dL (60-115); Sodium 138 mmol/L (135-145)
--- NOTE | 2021-01-30 13:46 | PC.NURSE ---
Pt states he feels better and headache is a 5/10
== END 2021-01-30 13:48 | disposition home or self-care (01) ==
PROVIDERS: Emergency Provider Emergency Medicine
DX: R51.9 Headache, unspecified (principal); I10 Essential (primary) hypertension
CPT/HCPCS: 36415; 80048; 84484; 85025; 93005; 99283; 99285

== ENCOUNTER 2021-07-15 10:36 | Emergency (ER) | payer MEDICAID, SELFPAY ==
[2021-07-15 11:32] VITALS: BP 143/80; PULSE 68; RESP 18; TEMP 36.7; O2SAT 98; BMI 29.0
--- NOTE | 2021-07-15 13:19 | ED_ITS ---
HPI - Skin/Abscess/Foreign Bdy General Chief complaint: Skin/Abscess/Foreign Body Stated complaint: foot pain Time Seen by Provider: 07/15/21 13:19 Source: patient Mode of arrival: ambulatory Limitations: no limitations History of Present Illness HPI narrative: Patient cut his thumb with a knife yesterday. This is the first time he is being seen. In addition he has a wart to his left 5th toe that is hurting him MD complaint: laceration Onset (ago): day(s) Location: L hand Severity: mild Related Data Home Medications Medication Instructions Recorded Confirmed multivitamin 1 tab PO DAILY 05/05/20 10/08/20 Previous Rx's Medication Instructions Recorded buprenorphine 8 mg-naloxone 2 mg 1 film SUBLINGUAL BID #14 ea 06/21/20 sublingual film (Suboxone) acamprosate 333 mg tablet,delayed 333 mg PO BID #60 tab 10/10/20 release albuterol sulfate 90 mcg/actuation 2 puff INHALATION Q6H PRN #1 kit 10/10/20 aerosol inhaler (ProAir HFA) amlodipine 5 mg tablet (Norvasc) 5 mg PO DAILY #30 tab 10/10/20 dexamethasone 6 mg tablet 6 mg PO DAILY #8 tab 10/10/20 (Decadron) folic acid 1 mg tablet 1 tab PO DAILY #30 tab 10/10/20 metoprolol succinate 50 mg 1 tab PO DAILY #30 tab 10/10/20 tablet,extended release 24 hr nicotine 21 mg/24 hr daily 1 patch TOPICAL DAILY #21 ea 10/10/20 transdermal patch pantoprazole 40 mg tablet,delayed 40 mg PO DAILY #30 tab 10/10/20 release (Protonix) thiamine HCl (vitamin B1) 100 mg 1 tab PO DAILY #30 tab 10/10/20 tablet cephalexin 500 mg capsule 500 mg PO Q6H #20 cap 07/15/21 salicylic acid 26 % topical liquid 1 appl TOPICAL DAILY #10 ml 07/15/21 Allergies Allergy/AdvReac Type Severity Reaction Status Date / Time seafood Allergy Anaphylaxis Verified 07/15/21 11:32 Review of Systems Constitutional: Constitutional: Reports no additional constitutional complaints Eyes: Eyes: Reports no additional eye complaints ENT: Denies dizziness Cardiovascular: Cardiovascular: Reports no additional cardiovascular complaints Respiratory: Respiratory: Reports as per HPI Gastrointestinal: Gastrointestinal: Reports no additional gastrointestinal complaints Musculoskeletal: Musculoskeletal: Reports no additional musculoskeletal complaints Integumentary/Breasts: Skin/Breast: Denies rash Neurologic: Reports system reviewed and no additional complaints, except as documented, Denies dizziness and Denies Sensory deficit (Neuro) Psychiatric: Psychiatric: Denies anxiety [facility] Past Medical History Medical History Depression ETOH abuse Hypertension Social History Social History Household Members: Other Housing: Homeless Do you presently have visiting nurse or other home services: No Alcohol intake: current Alcohol intake frequency: a few times a week Alcohol type: beer Patient Tobacco Use Status: Current someday Tobacco user Cigarette Packs Per Day: 1 Cigarettes Per Day: 20.0 Substance Use Type: IV Drugs Advance Directives: No Advance Directives Information Provided: No service: No Current occupational status: unemployed Physical Exam Vital Signs: Vital Signs: Last Vital Signs Temp 98.1 F 07/15/21 11:32 Pulse 68 07/15/21 11:32 Resp 18 07/15/21 11:32 BP 143/80 H 07/15/21 11:32 Pulse Ox 98 07/15/21 11:32 BMI result Body Mass Index 29.0 Const: General: healthy appearing Nutritional Appearance: average body habitus Orientation/consciousness: oriented to person and patient oriented x3 Limitations: no limitations HENMT: Head: Yes normal to inspection Ears: external ears normal General nose exam: Normal external nose present Mouth: Normal oral and palatal mucosa present and oropharynx normal Throat: Yes posterior oropharynx normal Eyes: General: appearance normal, both eyes and all related structures Neck: Other: supple Neck: Yes normal visual inspection Chest: Chest palpation & inspection: normal inspection of the chest Resp: Auscultation: clear to auscultation bilaterally Cardio: Jugular venous distension: no JVD Rate: regular rate Rhythm: regular rhythm Heart sounds: S1 normal heart sound present and S2 normal heart sound present GI: Inspection: Yes normal to inspection Palpation (GI): Soft to palpation, nontender and No hepatosplenomegaly present Auscultation: normal bowel sounds : General: Yes no CVA tenderness Back/Spine/Pelvis: Back: no CVA tenderness Skin: Other: left thumb dorsal surface with 3 cm laceration that appears old. Left 5th toes with a wart, no erythema or induration. Neuro: General: oriented to person and patient oriented x3 Cranial nerves: Yes CN's II-XII intact bilaterally Motor exam (neuro): 5/5 motor strength present throughout Sensory Exam: No Sensory deficit (Neuro) Extrem: General: Yes normal to inspection Psych: Appearance: grossly normal Course Reevaluation(s) Reevaluation #1: wound on them too old for suturing, will start po abx and give tetanous. Will give patient salicylic acid to wart for removal. Time: 13:25 Discharge Plan Discharge Clinical Impression: Wart viral Qualifiers: Viral wart type: plantar Qualified Code(s): B07.0 - Plantar wart Wound disruption Qualifiers: Encounter type: initial encounter Qualified Code(s): T81.30XA - Disruption of wound, unspecified, initial encounter Patient Disposition: Home, Self-Care Instructions: Common Wart (ED) Prescriptions: New cephalexin 500 mg capsule 500 mg PO Q6H Qty: 20 RF: 0 salicylic acid 26 % liquid 1 appl topical DAILY Qty: 10 RF: 0 No Action dexamethasone [Decadron] 6 mg tablet 6 mg PO DAILY Qty: 8 RF: 0 amlodipine [Norvasc] 5 mg tablet 5 mg PO DAILY Qty: 30 RF: 0 metoprolol succinate 50 mg tablet extended release 24 hr 1 tab PO DAILY Qty: 30 RF: 0 thiamine HCl (vitamin B1) 100 mg tablet 1 tab PO DAILY Qty: 30 RF: 0 pantoprazole [Protonix] 40 mg tablet,delayed release (DR/EC) 40 mg PO DAILY Qty: 30 RF: 0 nicotine 21 mg/24 hr patch 24 hour 1 patch topical DAILY Qty: 21 RF: 0 folic acid 1 mg tablet 1 tab PO DAILY Qty: 30 RF: 0 albuterol sulfate [ProAir HFA] 90 mcg/actuation HFA aerosol inhaler 2 puff inhalation Q6H PRN (Reason: shortness of breath or wheezing) Qty: 1 RF: 0 acamprosate 333 mg tablet,delayed release (DR/EC) 333 mg PO BID Qty: 60 RF: 0 buprenorphine-naloxone [Suboxone] 8-2 mg film 1 film sublingual BID Qty: 14 RF: 0 multivitamin Tablet 1 tab PO DAILY RF: 0
[2021-07-15] MEDS: Diphth,Pertus(ACell),Tet Adult 0.5 ML SYRINGE IM (13:47)
[2021-07-15] MEDS: cephALEXin 500 MG CAPSULE PO (13:47)
== END 2021-07-15 14:10 | disposition home or self-care (01) ==
PROVIDERS: Emergency Provider Emergency Medicine
DX: B07.0 Plantar wart (principal); T81.30XA Disruption of wound, unspecified, initial encounter; I10 Essential (primary) hypertension; F11.99 Opioid use, unspecified with unspecified opioid-induced disorder; F10.20 Alcohol dependence, uncomplicated; F17.200 Nicotine dependence, unspecified, uncomplicated
CPT/HCPCS: 90471; 90715; 99284

== ENCOUNTER 2021-07-29 17:53 | Emergency (ER) | payer MEDICAID, SELFPAY | END 2021-07-29 23:58 | disposition left against medical advice (07) | LOC: HO.ED 23:58 | PROVIDERS: Emergency Provider Emergency Medicine | DX: R07.9 Chest pain, unspecified (principal) ==

== ENCOUNTER 2021-10-18 08:32 | Inpatient (IN) | payer MEDICAID, SELFPAY ==
[2021-10-18] VITALS (10 sets, daily range): BP systolic 140–198; BP diastolic 76–118; PULSE 47–73; RESP 9–20; TEMP 36.7–37.6; O2SAT 87–99; BMI 27.3
--- NOTE | ~2021-10-18 | CT_ITS ---
EXAMINATION: CT ABDOMEN AND PELVIS WITHOUT CONTRAST CLINICAL INFORMATION: Left-sided abdominal pain COMPARISON: Previous CT of the abdomen and pelvis most recent June 2020 TECHNIQUE: Multidetector volumetric imaging was performed from the superior aspect of the liver through the pubic symphysis. Sagittal and coronal reformatted images were obtained on the technologist's workstation. This CT examination was performed using dose optimization techniques as appropriate, variously including the following: *Automated exposure control *Adjustment of mA and/or kV according to patient size (this includes techniques or standardized protocols for targeted exams where dose is matched to indication/reason for exam; i.e. extremities or head) *Use of iterative reconstruction technique DLP: 4-7 mGy-cm FINDINGS: LUNG BASES: The visualized lung bases are unremarkable. LIVER, GALLBLADDER, AND BILIARY TREE: The liver is low in attenuation suggestive of fatty infiltration. No focal hepatic lesion or biliary ductal dilatation is present. The gallbladder is unremarkable with no evidence of radiopaque gallstones, gallbladder wall thickening, or obvious pericholecystic inflammatory changes. PANCREAS: Unremarkable. SPLEEN: Unremarkable. ADRENAL GLANDS: Unremarkable. KIDNEYS AND URETERS: The kidneys are normal in size, shape, and attenuation. No hydronephrosis, hydroureter, or calculi seen. There is a 4 x 5 cm low-attenuation lesion in the left kidney that is stable and probably represents a cyst. No imaging follow-up needed. BLADDER: Unremarkable. GASTROINTESTINAL TRACT: The small and large bowel are unremarkable. The appendix is unremarkable. ABDOMINAL WALL: No significant hernia is appreciated. LYMPH NODES: Normal. VASCULAR: Unremarkable. PELVIC VISCERA: Unremarkable. OSSEOUS STRUCTURES: Unremarkable. CT/CT abdomen pelvis wo con IMPRESSION: Fatty liver otherwise unremarkable exam. Fleischner guidelines were followed.
[2021-10-18 08:46] LABS: Glucose, Whole Blood 86 mg/dL (60-115)
--- NOTE | 2021-10-18 09:16 | ED_ITS ---
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 Left abdominal pain started a month ago as intermittent colicky pain that radiates to the left lower back area, pain is severe 7/10, associated with vomiting, but no fever chills, normal bowel movement with no blood or diarrhea, no dysuria, no hematuria no urinary frequency. Never had this pain in the past. Never had surgical history. Related Data Home Medications Medication Instructions Recorded Confirmed multivitamin 1 tab PO DAILY 05/05/20 10/08/20 amlodipine 2.5 mg tablet 1 tab PO DAILY 10/18/21 losartan 100 1 tab PO DAILY 10/18/21 mg-hydrochlorothiazide 12.5 mg tablet Previous Rx's Medication Instructions Recorded buprenorphine 8 mg-naloxone 2 mg 1 film SUBLINGUAL BID #14 ea 06/21/20 sublingual film (Suboxone) acamprosate 333 mg tablet,delayed 333 mg PO BID #60 tab 10/10/20 release albuterol sulfate 90 mcg/actuation 2 puff INHALATION Q6H PRN #1 kit 10/10/20 aerosol inhaler (ProAir HFA) folic acid 1 mg tablet 1 tab PO DAILY #30 tab 10/10/20 metoprolol succinate 50 mg 1 tab PO DAILY #30 tab 10/10/20 tablet,extended release 24 hr thiamine HCl (vitamin B1) 100 mg 1 tab PO DAILY #30 tab 10/10/20 tablet Allergies Allergy/AdvReac Type Severity Reaction Status Date / Time seafood Allergy Anaphylaxis Verified 07/15/21 11:32 Review of Systems Review of Systems All other systems are reviewed and are negative Constitutional: Reports as per HPI and Reports no additional constitutional complaints Eyes: Reports as per HPI and Reports no additional eye complaints Reports system reviewed and no additional complaints, except as documented Cardiovascular: Reports as per HPI and Reports no additional cardiovascular complaints Respiratory: Reports as per HPI and Reports no additional respiratory complaints Gastrointestinal: Reports as per HPI and Reports no additional gastrointestinal complaints Genitourinary: Reports no additional female genitourinary complaints Musculoskeletal: Reports no additional musculoskeletal complaints Skin/Breast: Reports system reviewed and no additional complaints, except as docu Psychiatric: Reports no additional psychiatric complaints Endocrine: Reports no additional endocrine complaints Hematologic/Lymphatic: Reports no additional hematologic/lymphatic complaints Allergic/Immunologic: Reports no additional allergic/immunologic complaints Reports system reviewed and no additional complaints, except as documented and Reports Abnormal speech present [facility] Past Medical History Medical History Depression ETOH abuse Hypertension Social History Social History Household Members: Other Housing: Homeless Do you presently have visiting nurse or other home services: No Alcohol intake: never Patient Tobacco Use Status: Current everyday Tobacco user Cigarette Packs Per Day: 1 Cigarettes Per Day: 20.0 Use of substances other than those prescribed or required for medical reasons: No Substance Use Type: IV Drugs Advance Directives: No Advance Directives Information Provided: No service: No Current occupational status: unemployed Physical Exam ED Vital Signs: Vital Signs - 24 hr 10/18/21 08:41 10/18/21 08:45 10/18/21 11:40 Temperature 98.4 F 98.4 F Pulse Rate 73 68 70 Respiratory Rate 18 16 18 Blood Pressure 175/99 H 175/99 H 184/91 H Pulse Oximetry 87 L 89 L 95 10/18/21 12:00 10/18/21 14:46 Temperature 98.2 F 98.0 F Pulse Rate 66 52 Respiratory Rate 12 15 Blood Pressure 167/81 H 147/83 H Pulse Oximetry 95 97 BMI result Body Mass Index 27.3 Vital signs have been reviewed as appeared to be correct. Blood pressure normal. Heart rate normal. Respiration rate normal. Temperature normal. Oxygen saturation normal. Appearance: Alert. Oriented X3. No acute distress. Head: Normal external exam. Normocephalic. Atraumatic. No Valles signs noted. No raccoon eyes noted Eyes: PERRLA. EOMI. Conjunctiva and sclera normal. Eyelids normal. ENT: TM's Normal. Pharynx normal. Uvula midline. Moist mucous membranes. No tr ismus noted. No drooling noted. No muffled voice noted. Neck: Normal inspection. Neck supple. FROM. No adenopathy. Thyroid Normal. No meningeal signs. No neck mass noted. CVS: Normal heart rate and rhythm. Heart sound normal. No murmurs noted. Pulses normal throughout. Respiratory: No respiratory distress. Painless inspiration. Breath sounds normal. No wheezes/rales/rhonchi noted. Chest nontender. No accessory muscle usage noted or decreased air movement noted. Abdomen: Soft and nontender. Bowel sounds normal in all 4 quadrants. No distention noted. No organomegaly noted. No visible injury noted. Back: Left CVA tenderness. Full range of motion noted. Skin: Skin warm and dry. Normal skin color. Normal skin turgor. No rashes/lesions/lacerations noted. Extremities: No lower extremity edema. Extremities exhibit normal range of motion. Extremities nontender. Neuro: Oriented X 3. Cranial nerve exam: II-XII are grossly intact No motor deficit. No sensory deficit. Reflexes normal. Course Course Course Narrative: Assessment and plan. 50-year-old male came in for left flank pain. Pain now is under better control with morphine, labs revealed acute renal insufficiency with hyperkalemia EKG changes concerns, patient received IV hydration and repeat labs still revealing acute renal insufficiency with hyperkalemia, patient had a CT of the abdomen and pelvis which showed no obstructive uropathy. Treat the patient with calcium gluconate/sodium bicarb/insulin with glucos e/Kayexalate. Admit the patient for further nephrology evaluation. MDM - Abdominal Pain Medical Records Attestation: I reviewed the patient's medical records. Lab Data Attestation: I reviewed the patient's lab results. Result diagrams: 10/18/21 09:23 10/18/21 13:46 Labs: Lab Results 10/18/21 10/18/21 10/18/21 Range/Units 08:43 09:23 09:42 WBC 7.2 (4.8-10.8) X10*3/uL RBC 4.25 L (4.60-5.80) X10*6/uL Hgb 13.0 L (14.0-18.0) g/dl Hct 39.8 L (42.0-52.0) % MCV 93.6 (80.0-98.0) fL MCH 30.6 (27.0-33.0) pg MCHC 32.7 (31.0-36.0) g/dl RDW 14.3 (11.0-16.0) % Plt Count 203 (160-400) X10*3/uL MPV 10.4 (9.4-12.4) fL Immature Gran % (Auto) 0.3 (0.0-0.4) % Neut % (Auto) 71.8 (45-73) % Lymph % (Auto) 13.7 L (20-40) % [place]rie % (Auto) 11.3 H (2-11) % Eos % (Auto) 2.1 (0-4) % Baso % (Auto) 0.8 (0-2) % Lymph # (Auto) 1.0 L (1.2-4.9) X10*3/uL [place]rie # (Auto) 0.8 (0.1-1.2) X10*3/uL Eos # (Auto) 0.2 (0.0-0.4) X10*3/uL Baso # (Auto) 0.1 (0.0-0.2) X10*3/uL Abs Immat Gran (auto) 0.02 (0.00-0.03) X10*3/uL Absolute Neuts (auto) 5.1 (2.0-8.3) x10*3/uL Absolute Nucleated RBC 0.000 (0.0-0.012) X10*3/uL Nucleated RBC % (auto) 0.0 (0.0-0.2) /100WBC Sodium (135-145) mmol/L Potassium (3.3-5.1) mmol/L Chloride (96-108) mmol/L Carbon Dioxide (22-29) mmol/L Anion Gap (12-20) BUN (9-16) mg/dL Creatinine (0.5-1.4) mg/dL Estim Creat Clear Calc Estimated GFR POC Glucose 86 (60-115) mg/dL Random Glucose (60-115) mg/dL Calcium (8.4-10.2) mg/dL Total Bilirubin (0.0-1.0) mg/dL Direct Bilirubin (0.0-0.5) mg/dL AST (5-37) U/L ALT (0-40) U/L Alkaline Phosphatase (39-117) U/L Total Protein (6.5-8.0) g/dL Albumin (3.5-5.0) g/dL Lipase (8-78) U/L Urine Color YELLOW Urine Appearance HAZY Urine pH 6.0 (5.0-8.0) Ur Specific [place] 1.020 (1.005-1.025) Urine Protein 3+ H (NEG-TRACE) MG/DL Urine Glucose (UA) NEG (NEG) MG/DL Urine Ketones 5 (NEG) MG/DL Urine Blood TRACE (NEG) Urine Nitrite NEG (NEG) Ur Leukocyte Esterase NEG (NEG) Urine RBC 1-4 (0) /HPF Urine WBC 1-4 (0-4) /HPF Ur Squamous Epith Cells 2+ /LPF Urine Bacteria 1+ /LPF Urine Mucus 1+ /LPF 10/18/21 10/18/21 Range/Units 10:15 13:46 WBC (4.8-10.8) X10*3/uL RBC (4.60-5.80) X10*6/uL Hgb (14.0-18.0) g/dl Hct (42.0-52.0) % MCV (80.0-98.0) fL MCH (27.0-33.0) pg MCHC (31.0-36.0) g/dl RDW (11.0-16.0) % Plt Count (160-400) X10*3/uL MPV (9.4-12.4) fL Immature Gran % (Auto) (0.0-0.4) % Neut % (Auto) (45-73) % Lymph % (Auto) (20-40) % [place]rie % (Auto) (2-11) % Eos % (Auto) (0-4) % Baso % (Auto) (0-2) % Lymph # (Auto) (1.2-4.9) X10*3/uL [place] # (Auto) (0.1-1.2) X10*3/uL Eos # (Auto) (0.0-0.4) X10*3/uL Baso # (Auto) (0.0-0.2) X10*3/uL Abs Immat Gran (auto) (0.00-0.03) X10*3/uL Absolute Neuts (auto) (2.0-8.3) x10*3/uL Absolute Nucleated RBC (0.0-0.012) X10*3/uL Nucleated RBC % (auto) (0.0-0.2) /100WBC Sodium 140 139 (135-145) mmol/L Potassium 5.4 H 6.1 H* (3.3-5.1) mmol/L Chloride 100 102 (96-108) mmol/L Carbon Dioxide 30 H 31 H (22-29) mmol/L Anion Gap 15 12 (12-20) BUN 29 H 30 H (9-16) mg/dL Creatinine 2.65 H 2.81 H (0.5-1.4) mg/dL Estim Creat Clear Calc 31.5 29.7 Estimated GFR 26 24 POC Glucose (60-115) mg/dL Random Glucose 97 103 (60-115) mg/dL Calcium 9.2 D 8.5 D (8.4-10.2) mg/dL Total Bilirubin 0.9 (0.0-1.0) mg/dL Direct Bilirubin 0.3 (0.0-0.5) mg/dL AST 48 H (5-37) U/L ALT 32 (0-40) U/L Alkaline Phosphatase 59 (39-117) U/L Total Protein 6.8 (6.5-8.0) g/dL Albumin 4.1 (3.5-5.0) g/dL Lipase 29 (8-78) U/L Urine Color Urine Appearance Urine pH (5.0-8.0) Ur Specific [place] (1.005-1.025) Urine Protein (NEG-TRACE) MG/DL Urine Glucose (UA) (NEG) MG/DL Urine Ketones (NEG) MG/DL Urine Blood (NEG) Urine Nitrite (NEG) Ur Leukocyte Esterase (NEG) Urine RBC (0) /HPF Urine WBC (0-4) /HPF Ur Squamous Epith Cells /LPF Urine Bacteria /LPF Urine Mucus /LPF Imaging Data CT abdomen and pelvis: Attestation: I personally reviewed and interpreted this imaging study as follows: Radiologist's impression: Fatty liver otherwise unremarkable exam. Fleischner guidelines were followed. ECG Data Attestation: I personally reviewed and interpreted this ECG as follows: Interpretation: Sinus bradycardia at 54 beats per minutes, normal intervals, concern of peak T- wave, a change from previous EKG. Critical Care Time Critical Care Time Critical Care Time: Yes Total Critical Care Time: 50 Attestation: I spent 50 minutes providing critical care service to the patient, this including time spent at the bedside to evaluate the patient, reassess the patient, monitoring vital signs, review labs, and radiographic studies, coun seling the patient/family, discussing the case with consultants, disposition the patient. Discharge Plan Discharge Clinical Impression: Acute renal failure, Acute hyperkalemia, Acute electrocardiogram changes Patient Disposition: Admitted As Inpatient
[2021-10-18 09:27] LABS: MANUAL DIFF FLAG NO
[2021-10-18 09:30] LABS: Basophils Absolute Auto 0.1 X10*3/uL (0.0-0.2); Basophils Percent Auto 0.8 % (0-2); Eosinophils Absolute Auto 0.2 X10*3/uL (0.0-0.4); Eosinophils Percent Auto 2.1 % (0-4); Hematocrit 39.8 % (42.0-52.0); Imm Gran Abs Auto 0.02 X10*3/uL (0.00-0.03); Imm Gran Pct Auto 0.3 % (0.0-0.4); Lymphocytes Percent Auto 13.7 % (20-40); Mean Corpuscular HGB Conc 32.7 g/dl (31.0-36.0); Mean Corpuscular Hemoglobin 30.6 pg (27.0-33.0); Mean Corpuscular Volume 93.6 fL (80.0-98.0); Mean Platelet Volume 10.4 fL (9.4-12.4); Monocytes Absolute Auto 0.8 X10*3/uL (0.1-1.2); Monocytes Percent Auto 11.3 % (2-11); Neutrophils Absolute Auto 5.1 x10*3/uL (2.0-8.3); Neutrophils Percent Auto 71.8 % (45-73); Platelet Count 203 X10*3/uL (160-400); Red Blood Count 4.25 X10*6/uL (4.60-5.80); Red Cell Distribution Width 14.3 % (11.0-16.0); White Blood Count 7.2 X10*3/uL (4.8-10.8)
[2021-10-18] MEDS: ondansetron HCL 4 MG/2 ML VIAL IVPUSH (09:49)
[2021-10-18] MEDS: 0.9 % Sodium Chloride 1,000 ML 999 ML IV ×2 (09:49→12:03)
[2021-10-18] MEDS: Morphine Sulfate 2 MG/ML CARTRIDGE 1 MG IVPUSH (09:50)
[2021-10-18] MEDS: Ketorolac Tromethamine 15 MG/ML VIAL IVPUSH (09:55)
[2021-10-18 10:17] LABS: Appearance Urine HAZY; Color Urine YELLOW; Glucose Urine UA NEG (NEG); Leukocyte Esterase Urine NEG (NEG); Nitrite Urine NEG (NEG); UACC Culture Trigger NO; Urine Blood TRACE (NEG); Urine Ketones 5 MG/DL (NEG); Urine Protein 3+ MG/DL (NEG-TRACE)
[2021-10-18 10:39] LABS: Alanine Aminotransferase 32 U/L (0-40); Albumin Level 4.1 g/dL (3.5-5.0); Alkaline Phosphatase 59 U/L (39-117); Anion Gap 15 (12-20); Aspartate Amino Transferase 48 U/L (5-37); Bilirubin Direct 0.3 mg/dL (0.0-0.5); Bilirubin Total 0.9 mg/dL (0.0-1.0); Blood Urea Nitrogen 29 mg/dL (9-16); Calcium 9.2 mg/dL (8.4-10.2); Carbon Dioxide 30 mmol/L (22-29); Chloride 100 mmol/L (96-108); Creatinine Clr Calc Pharmacy 31.5; Estimated Glomerular Filt Rate 26; Glucose Random 97 mg/dL (60-115); Lipase 29 U/L (8-78); Potassium 5.4 mmol/L (3.3-5.1); Sodium 140 mmol/L (135-145); Total Protein 6.8 g/dL (6.5-8.0)
--- NOTE | 2021-10-18 10:41 | ECG_ITS ---
Test Reason : ABDOMEN AND BACK PAIN Blood Pressure : / mmHG Vent. Rate : 054 BPM Atrial Rate : 054 BPM P-R Int : 160 ms QRS Dur : 084 ms QT Int : 422 ms P-R-T Axes : 044 027 035 degrees QTc Int : 400 ms Sinus bradycardia Otherwise normal ECG When compared with ECG of 30-JAN-2021 12:37, Nonspecific T wave abnormality has replaced inverted T waves in Inferior leads T wave amplitude has increased in Anterolateral leads Referred By: Anai Barajas Electronically Signed By:ANASTASIA SEVILLA MD
[2021-10-18 10:48] LABS: Bacteria Urine 1+ /LPF; Mucus Urine 1+ /LPF; Squamous Epithelial Cell Urine 2+ /LPF
[2021-10-18] MEDS: Sodium Polystyrene Sulfon/Sorb 15 GM/60 ML ORAL.SUSP 30 GM PO (12:03)
[2021-10-18 14:24] LABS: Anion Gap 12 (12-20); Blood Urea Nitrogen 30 mg/dL (9-16); Calcium 8.5 mg/dL (8.4-10.2); Carbon Dioxide 31 mmol/L (22-29); Chloride 102 mmol/L (96-108); Creatinine Clr Calc Pharmacy 29.7; Estimated Glomerular Filt Rate 24; Glucose Random 103 mg/dL (60-115); Potassium 6.1 mmol/L (3.3-5.1); Sodium 139 mmol/L (135-145)
--- NOTE | 2021-10-18 15:49 | PHA.MEDREC ---
Pharmacy Consult ? Medication Reconciliation Pharmacy has completed the medication reconciliation.
--- NOTE | 2021-10-18 16:15 | PC.NURSE ---
pT RESTING QUIETLY. NO COMPLAINTS AT THIS TIME. ABD SOFT NON TENDER. MOIST MM. SB ON MONITOR. Aware of plan of care.
[2021-10-18] MEDS: Insulin Regular, Human 100 UNIT/ML 3 ML VIAL 8 UNIT IVPUSH (16:19)
[2021-10-18] MEDS: Sodium Bicarbonate 8.4% 50 MEQ/50 ML SYRINGE IVPUSH (16:20)
[2021-10-18] MEDS: Calcium Gluconate/NaCl,Iso-Osm 2 GM/100 ML PLAST..BAG IV (16:25)
--- NOTE | 2021-10-18 16:37 | PC.NURSE ---
just after pushing potassium shift meds pt developed left sided CP and sao2 dropped to 84% on room air. CP resolved w/o intervention. skin remained PWD, denies SOB. no diaphoresis. remained SB on monitor, repeak ekg obtained. 2l NC applied. Pt denies CP at this time. MD Elias aware.
--- NOTE | 2021-10-18 17:05 | PM.IMHP ---
History of Present Illness Date of Service: 10/18/21 Attending physician on admission: Dannielle Elias Chief Complaint: Flank pain left side, hyperkalemia, ROSELINE. 50-year-old male with history of opioid use disorder, alcohol abuse, history of asthma and hypertension: He came to the hospital because having left flank pain for 1 week on and off-he said he was not taking any medication and was managing some how but today pain got worse and decided to come to the hospital. Patient also had nausea and vomiting x3 today. Denies any fall any trauma to the abdomen or any use of recreational drugs. Denies any history of renal stones. Patient has left flank pain, radiates to back, 04/19, denies any fevers, had some chills as per patient. He also had episode of chest tightness as per the staff when try to give him loklema resolved shows quickly Denies any new complaint of shortness of breath or fever Denies any cough Denies any weakness or numbness. Lab imaging reviewed, EKG reviewed Patient has BUN 30, creatinine 2.8 , potassium was initially 5.4 and then 6.1. EKG shows peaked T-waves CT abdomen unrevealing Troponin, repeat BMP, urine toxicology added Patient received 2 L IV normal saline, Kayexalate, calcium gluconate, glucose, insulin: Patient case was discussed by ED physician with Nephrology and recommended to admit patient for ROSELINE and hyperkalemia. Review of Systems Review of Systems: As above. Yes all other systems are reviewed and are negative [facility] Medical History Depression ETOH abuse Hypertension Pertinent family history: Family history of asthma and hypertension, denies any history of nephrolithiasis Social History Household Members: Other Housing: Homeless Do you presently have visiting nurse or other home services: No Alcohol intake: never Patient Tobacco Use Status: Current everyday Tobacco user Cigarette Packs Per Day: 1 Cigarettes Per Day: 20.0 Use of substances other than those prescribed or required for medical reasons: No Substance Use Type: IV Drugs Advance Directives: No Advance Directives Information Provided: No service: No Current occupational status: unemployed Meds Allergies Allergy/AdvReac Type Severity Reaction Status Date / Time seafood Allergy Anaphylaxis Verified 07/15/21 11:32 Active Medications: Current Medications Albuterol Sulfate (Albuterol Sulfate 90 Mcg 8 Gm Inhaler) 2 puff INHALE Q6H PRN PRN Reason: shortness of breath or wheezing Amlodipine Besylate (Amlodipine Besylate 2.5 Mg Tablet) 2.5 mg PO DAILY [facility]; Protocol Buprenorphine/Naloxone (Buprenorphine/Naloxone 8/2 Mg Film) 1 film SUBLINGUAL BID [facility] Enoxaparin Sodium (Enoxaparin Sodium 30 Mg/0.3 Ml Syringe) 30 mg SUBCUT Q24H [facility] Folic Acid (Folic Acid 1 Mg Tablet) 1 mg PO DAILY [facility] Sodium Chloride (Ns) 1,000 mls @ 100 mls/hr IVCONT .Q10H [facility] Medication (No Benzodiazepines) 1 each MISCELLANE DAILY [facility] Metoprolol Succinate (Metoprolol Succinate Er 50 Mg Tab.Er.24h) 50 mg PO DAILY [facility]; Protocol Multivitamins/Vitamin C (Multivitamin Tablet) 1 tab PO DAILY [facility] Omeprazole (Omeprazole 20 Mg Capsule.Dr) 20 mg PO DAILY@0630 [facility] Pharmacy Consult (Consult Rx Etoh Phenob Dosing) 1 each MISCELLANE ONCE PRN; Protocol PRN Reason: Consult order Phenobarbital (Phenobarbital 15 Mg Tablet) 45 mg PO BID [facility] Stop: 10/20/21 21:01 Phenobarbital (Phenobarbital 30 Mg Tablet) 30 mg PO BID [facility] Stop: 10/22/21 21:01 Phenobarbital (Phenobarbital 15 Mg Tablet) 15 mg PO DAILY [facility] Stop: 10/24/21 09:01 Phenobarbital Sodium (Phenobarbital Sodium 130 Mg/Ml Vial) 119 mg IM 0000,2100 [facility] Stop: 10/19/21 00:01 Sodium Chloride (0.9 % Sodium Chloride Flush 3 Ml Syringe) 3 ml IVFLUSH QSHIFT [facility] Thiamine HCl (Thiamine Hcl 100 Mg Tablet) 100 mg PO DAILY [facility] Home Medications Medication Instructions Recorded Confirmed Last Taken Type multivitamin 1 tab PO DAILY 05/05/20 10/18/21 Unknown History amlodipine 2.5 mg tablet 1 tab PO DAILY 10/18/21 10/18/21 Unknown History losartan 100 1 tab PO DAILY 10/18/21 10/18/21 Unknown History mg-hydrochlorothiazide 12.5 mg tablet Physical Exam Vital Signs and Narrative: Vital Signs: Last Vital Signs Temp 98.1 F 10/18/21 16:13 Pulse 47 L 10/18/21 16:13 Resp 18 10/18/21 16:13 BP 192/96 H 10/18/21 16:13 Pulse Ox 97 10/18/21 16:13 BMI result Body Mass Index 27.3 Physical exam: Appearance: Alert.? Oriented X3.? Seems generally weak. Eyes: Pupils equal, round and reactive to light.? Sclera nonicteric.? ENT: Pharynx normal.? Moist mucous membranes. cvs: rrr, [id number] . res: clear to auscultation ,no rhonchii or wheezing abd: no rebound or guarding , left flank pain seems to be improving, bs present. No CVA tenderness ext pulses present , no cyanosis. neuro: axo3 , nonfocal. Results Labs CBC and Chem 7: 10/18/21 09:23 10/18/21 13:46 Labs: Laboratory Results - last 24 hr 10/18/21 10/18/21 10/18/21 08:43 09:23 09:42 MCV 93.6 MCH 30.6 MCHC 32.7 RDW 14.3 Plt Count 203 MPV 10.4 Immature Gran % (Auto) 0.3 Neut % (Auto) 71.8 Lymph % (Auto) 13.7 L Ada % (Auto) 11.3 H Eos % (Auto) 2.1 Baso % (Auto) 0.8 Lymph # (Auto) 1.0 L [place] # (Auto) 0.8 Eos # (Auto) 0.2 Baso # (Auto) 0.1 Abs Immat Gran (auto) 0.02 Absolute Neuts (auto) 5.1 Absolute Nucleated RBC 0.000 Nucleated RBC % (auto) 0.0 Anion Gap Estim Creat Clear Calc Estimated GFR POC Glucose 86 Random Glucose Calcium Total Bilirubin Direct Bilirubin AST ALT Alkaline Phosphatase Total Protein Albumin Lipase Urine Color YELLOW Urine Appearance HAZY Urine pH 6.0 Ur Specific [place] 1.020 Urine Protein 3+ H Urine Glucose (UA) NEG Urine Ketones 5 Urine Blood TRACE Urine Nitrite NEG Ur Leukocyte Esterase NEG Urine RBC 1-4 Urine WBC 1-4 Ur Squamous Epith Cells 2+ Urine Bacteria 1+ Urine Mucus 1+ 10/18/21 10/18/21 10:15 13:46 MCV MCH MCHC RDW Plt Count MPV Immature Gran % (Auto) Neut % (Auto) Lymph % (Auto) Ada % (Auto) Eos % (Auto) Baso % (Auto) Lymph # (Auto) Ada # (Auto) Eos # (Auto) Baso # (Auto) Abs Immat Gran (auto) Absolute Neuts (auto) Absolute Nucleated RBC Nucleated RBC % (auto) Anion Gap 15 12 Estim Creat Clear Calc 31.5 29.7 Estimated GFR 26 24 POC Glucose Random Glucose 97 103 Calcium 9.2 D 8.5 D Total Bilirubin 0.9 Direct Bilirubin 0.3 AST 48 H ALT 32 Alkaline Phosphatase 59 Total Protein 6.8 Albumin 4.1 Lipase 29 Urine Color Urine Appearance Urine pH Ur Specific [place] Urine Protein Urine Glucose (UA) Urine Ketones Urine Blood Urine Nitrite Ur Leukocyte Esterase Urine RBC Urine WBC Ur Squamous Epith Cells Urine Bacteria Urine Mucus Imaging Radiologist's Impressions: Impressions Abdomen/Pelvis CT 10/18/21 09:32 IMPRESSION: Fatty liver otherwise unremarkable exam. Fleischner guidelines were followed. Assessment and Plan (1) Acute renal failure: Status: Acute (2) Acute hyperkalemia: Status: Acute (3) Acute electrocardiogram changes: Status: Acute Plan 50-year-old male came to the hospital because of ROSELINE, hyperkalemia, left flank pain. 1. ROSELINE/flank pain: CT abdomen negative Received 2 L of fluid already, also received cocktail for hyperkalemia, Kayexalate, loklema Please check BMP stat. Urine electrolytes Urine toxicology UA shows 3+ proteinuria Added CPK EKGs approved now-reviewed all, has peaked T-waves. Discussed with Nephrology: Recommended to start IV fluid, monitor renal function electrolytes. Avoid nephrotoxic substances. Bright, Nephrology evaluation, avoid nephrotoxic medications. Hold hydrochlorothiazide/losartan If consistently hyperkalemic may need to call nephrology back. 2. History of alcohol use: Patient drinks hard liquor and beers every day Will put to patient on CIWA scale, thiamine, folic acid Patient is high risk to go to will draw also will add phenobarb protocol 3. Opioid use Disorder: Continue Suboxone. 4. Hypertension: Uncontrolled Given dose of amlodipine Started his blood pressure medications. 5. Chest tightness: Seems atypical EKG? No ST changes except peaked T-waves which possibly related to hyperkalemia Monitor on telemetry Troponin ordered, may need repeat EKG and cardiac evaluation if have chest pain again. 6. Asthma: Seems stable continue home medication DVT prophylaxis: SubQ Lovenox . Above management discussed with patient in detail length he agrees with above management and understands the plan. Assessment and plan time spent 70 minute, patient is full code. Considering multiple medical issues: ROSELINE, hyperkalemia, EKG changes, patient may benefit from 2 midnight stays Quality Stroke Does the patient have a stroke diagnosis?: No VTE Prior VTE?: No VTE Risk Level:: Medical - moderate - high VTE Device Contraindication: N/A - Device Ordered VTE Drug Contraindication: N/A - Med Ordered
[2021-10-18 17:26] LABS: Anion Gap 14 (12-20); Blood Urea Nitrogen 32 mg/dL (9-16); Calcium 8.8 mg/dL (8.4-10.2); Carbon Dioxide 33 mmol/L (22-29); Chloride 100 mmol/L (96-108); Creatinine Clr Calc Pharmacy 27.3; Estimated Glomerular Filt Rate 22; Glucose Random 159 mg/dL (60-115); Potassium 4.6 mmol/L (3.3-5.1); Sodium 142 mmol/L (135-145)
[2021-10-18 17:29] LABS: Troponin-I High Sensitivity 13.6 ng/L (<3.5-35.0)
[2021-10-18] MEDS: PHENobarbitaL sodium 130 MG/ML VIAL 159 MG IM (17:41)
[2021-10-18] MEDS: Sodium Zirconium Cyclosilicate 10 GM POWD.PACK PO (17:42)
[2021-10-18] MEDS: amLODIPine Besylate 5 MG TABLET PO (19:13)
[2021-10-18] MEDS: 0.9 % Sodium Chloride 1,000 ML 100 ML IVCONT (19:13)
[2021-10-18] MEDS: Enoxaparin Sodium 30 MG/0.3 ML SYRINGE SUBCUT (19:15)
--- NOTE | 2021-10-18 19:26 | PC.NURSE ---
Pt refusing wheeler at this time. States he will alway urinate in urinal for measurements.
--- NOTE | 2021-10-18 19:28 | PC.NURSE ---
Rn to Rn with rene on IMC.
[2021-10-18 20:30] LABS: Osmolality Urine 335 mosm/kg (373-1093)
[2021-10-18 20:34] LABS: Amphetamine Screen Urine Not Detected (Not Detect); Barbiturates, Urine Not Detected (Not Detect); Benzodiazepines Screen Urine Not Detected (Not Detect); Cannabinoid Screen Urine Not Detected (Not Detect); Cocaine Screen Urine POSITIVE (Not Detect); Fentanyl, urine POSITIVE (Not Detect); Opiate Screen Urine POSITIVE (Not Detect); Phencyclidine Screen Urine Not Detected (Not Detect)
[2021-10-18 20:40] LABS: Potassium Urine Random 70.4 mmol/L
[2021-10-18] MEDS: PHENobarbitaL sodium 130 MG/ML VIAL 119 MG IM (21:02)
[2021-10-18] MEDS: Buprenorphine/Naloxone 8/2 mg FILM 1 FILM SUBLINGUAL (21:03)
[2021-10-18] MEDS: 0.9 % Sodium Chloride Flush 3 ML SYRINGE IVFLUSH (21:03)
[2021-10-19] MEDS: PHENobarbitaL sodium 130 MG/ML VIAL 119 MG IM (02:01)
[2021-10-19] MEDS: 0.9 % Sodium Chloride 1,000 ML 100 ML IVCONT ×2 (02:01→13:41)
[2021-10-19 02:23] VITALS: BMI 27.3
[2021-10-19 03:24] VITALS: BP 149/85; PULSE 53; RESP 16; TEMP 37.7; O2SAT 97
[2021-10-19] MEDS: Omeprazole 20 MG CAPSULE.DR PO (05:40)
[2021-10-19 07:29] VITALS: BP 157/92; PULSE 58; RESP 20; TEMP 37.1; O2SAT 95
--- NOTE | 2021-10-19 07:44 | P.PNIM_ITS ---
Subjective Subjective Date of Service: 10/19/21 Interval History: roseline , hyperkalemia ,cocaine use Review of Systems Patient says the flank pain is seems to be improving, denies any chest pain or abdominal pain or fever chills or cough or phlegm. He says that he used cocaine. Physical Exam Vital Signs: Vital Signs: Last Vital Signs Temp 98.8 F 10/19/21 07:29 Pulse 58 10/19/21 07:29 Resp 20 10/19/21 07:29 BP 157/92 H 10/19/21 07:29 Pulse Ox 95 10/19/21 07:29 BMI result Body Mass Index 27.3 Appearance: Alert.? Oriented X3.? Seems generally weak. Eyes: Pupils equal, round and reactive to light.? Sclera nonicteric.? ENT: Pharynx normal.? Moist mucous membranes. cvs: rrr, [id number] . res: clear to auscultation ,no rhonchii or wheezing abd: no rebound or guarding , left flank pain seems to be improving, bs present. No CVA tenderness ext pulses present , no cyanosis. neuro: axo3 , nonfocal. Objective Data Active Medications Albuterol Sulfate (Albuterol Sulfate 90 Mcg 8 Gm Inhaler) 2 puff INHALE Q6H PRN PRN Reason: shortness of breath or wheezing Amlodipine Besylate (Amlodipine Besylate 5 Mg Tablet) 5 mg PO DAILY [facility]; Protocol Buprenorphine/Naloxone (Buprenorphine/Naloxone 8/2 Mg Film) 1 film SUBLINGUAL BID [facility] Last Admin: 10/18/21 21:03 Dose: 1 film Documented by: HONORIO Enoxaparin Sodium (Enoxaparin Sodium 30 Mg/0.3 Ml Syringe) 30 mg SUBCUT Q24H SC H Last Admin: 10/18/21 19:15 Dose: 30 mg Documented by: SANJU Folic Acid (Folic Acid 1 Mg Tablet) 1 mg PO DAILY [facility] Sodium Chloride (Ns) 1,000 mls @ 100 mls/hr IVCONT .Q10H [facility] Last Admin: 10/19/21 02:01 Dose: 100 mls/hr Documented by: HONORIO Medication (No Benzodiazepines) 1 each MISCELLANE DAILY [facility] Metoprolol Succinate (Metoprolol Succinate Er 50 Mg Tab.Er.24h) 50 mg PO DAILY [facility]; Protocol Multivitamins/Vitamin C (Multivitamin Tablet) 1 tab PO DAILY [facility] Omeprazole (Omeprazole 20 Mg Capsule.Dr) 20 mg PO DAILY@0630 [facility] Last Admin: 10/19/21 05:40 Dose: 20 mg Documented by: HONORIO Pharmacy Consult (Consult Rx Etoh Phenob Dosing) 1 each MISCELLANE ONCE PRN; Protocol PRN Reason: Consult order Phenobarbital (Phenobarbital 15 Mg Tablet) 45 mg PO BID [facility] Stop: 10/20/21 21:01 Phenobarbital (Phenobarbital 30 Mg Tablet) 30 mg PO BID [facility] Stop: 10/22/21 21:01 Phenobarbital (Phenobarbital 15 Mg Tablet) 15 mg PO DAILY [facility] Stop: 10/24/21 09:01 Sodium Chloride (0.9 % Sodium Chloride Flush 3 Ml Syringe) 3 ml IVFLUSH QSHIFT [facility] Last Admin: 10/18/21 21:03 Dose: 3 ml Documented by: HONORIO Thiamine HCl (Thiamine Hcl 100 Mg Tablet) 100 mg PO DAILY [facility] Labs CBC & Chem 7: 10/18/21 09:23 10/19/21 11:04 Labs: Laboratory Results - last 24 hr 10/18/21 10/18/21 10/18/21 08:43 09:23 09:42 MCV 93.6 MCH 30.6 MCHC 32.7 RDW 14.3 Plt Count 203 MPV 10.4 Immature Gran % (Auto) 0.3 Neut % (Auto) 71.8 Lymph % (Auto) 13.7 L Mchenry % (Auto) 11.3 H Eos % (Auto) 2.1 Baso % (Auto) 0.8 Lymph # (Auto) 1.0 L Mchenry # (Auto) 0.8 Eos # (Auto) 0.2 Baso # (Auto) 0.1 Abs Immat Gran (auto) 0.02 Absolute Neuts (auto) 5.1 Absolute Nucleated RBC 0.000 Nucleated RBC % (auto) 0.0 Anion Gap Estim Creat Clear Calc Estimated GFR POC Glucose 86 Random Glucose Calcium Total Bilirubin Direct Bilirubin AST ALT Alkaline Phosphatase Total Creatine Kinase Total Protein Albumin Lipase Urine Color YELLOW Urine Appearance HAZY Urine pH 6.0 Ur Specific [place] 1.020 Urine Protein 3+ H Urine Glucose (UA) NEG Urine Ketones 5 Urine Blood TRACE Urine Nitrite NEG Ur Leukocyte Esterase NEG Urine RBC 1-4 Urine WBC 1-4 Ur Squamous Epith Cells 2+ Urine Bacteria 1+ Urine Mucus 1+ Urine Osmolality Ur Random Sodium Ur Random Potassium Ur Random Chloride Urine Opiates Screen Urine Fentanyl Screen Ur Barbiturates Screen Ur Phencyclidine Scrn Ur Amphetamines Screen U Benzodiazepines Scrn Urine Cocaine Screen U Marijuana (THC) Screen 10/18/21 10/18/21 10/18/21 10:15 13:46 16:50 MCV MCH MCHC RDW Plt Count MPV Immature Gran % (Auto) Neut % (Auto) Lymph % (Auto) Mchenry % (Auto) Eos % (Auto) Baso % (Auto) Lymph # (Auto) Mchenry # (Auto) Eos # (Auto) Baso # (Auto) Abs Immat Gran (auto) Absolute Neuts (auto) Absolute Nucleated RBC Nucleated RBC % (auto) Anion Gap 15 12 14 Estim Creat Clear Calc 31.5 29.7 27.3 Estimated GFR 26 24 22 POC Glucose Random Glucose 97 103 159 H D Calcium 9.2 D 8.5 D 8.8 Total Bilirubin 0.9 Direct Bilirubin 0.3 AST 48 H ALT 32 Alkaline Phosphatase 59 Total Creatine Kinase 204 H Total Protein 6.8 Albumin 4.1 Lipase 29 Urine Color Urine Appearance Urine pH Ur Specific [place] Urine Protein Urine Glucose (UA) Urine Ketones Urine Blood Urine Nitrite Ur Leukocyte Esterase Urine RBC Urine WBC Ur Squamous Epith Cells Urine Bacteria Urine Mucus Urine Osmolality Ur Random Sodium Ur Random Potassium Ur Random Chloride Urine Opiates Screen Urine Fentanyl Screen Ur Barbiturates Screen Ur Phencyclidine Scrn Ur Amphetamines Screen U Benzodiazepines Scrn Urine Cocaine Screen U Marijuana (THC) Screen 10/18/21 10/18/21 10/18/21 19:54 19:54 19:54 MCV MCH MCHC RDW Plt Count MPV Immature Gran % (Auto) Neut % (Auto) Lymph % (Auto) Mchen[place] % (Auto) Eos % (Auto) Baso % (Auto) Lymph # (Auto) Mchen[place] # (Auto) Eos # (Auto) Baso # (Auto) Abs Immat Gran (auto) Absolute Neuts (auto) Absolute Nucleated RBC Nucleated RBC % (auto) Anion Gap Estim Creat Clear Calc Estimated GFR POC Glucose Random Glucose Calcium Total Bilirubin Direct Bilirubin AST ALT Alkaline Phosphatase Total Creatine Kinase Total Protein Albumin Lipase Urine Color Urine Appearance Urine pH Ur Specific [place] Urine Protein Urine Glucose (UA) Urine Ketones Urine Blood Urine Nitrite Ur Leukocyte Esterase Urine RBC Urine WBC Ur Squamous Epith Cells Urine Bacteria Urine Mucus Urine Osmolality 335 L Ur Random Sodium 52.0 Ur Random Potassium 70.4 Ur Random Chloride 56.0 Urine Opiates Screen POSITIVE H Urine Fentanyl Screen POSITIVE H Ur Barbiturates Screen Not Detected Ur Phencyclidine Scrn Not Detected Ur Amphetamines Screen Not Detected U Benzodiazepines Scrn Not Detected Urine Cocaine Screen POSITIVE H U Marijuana (THC) Screen Not Detected Assessment and Plan (1) Acute renal failure: Status: Acute (2) Acute hyperkalemia: Status: Acute (3) Acute electrocardiogram changes: Status: Acute Plan 50-year-old male came to the hospital because of ROSELINE, hyperkalemia, left flank pain. 1. ROSELINE/flank pain: CT abdomen negative U tox positive for cocaine Also had proteinuria initial UA . Discussed with Nephrology:? Recommended to start IV fluid, monitor renal function electrolytes.? Avoid nephrotoxic substances. Novoa, avoid nephrotoxic medications.? Hold hydrochlorothiazide/losartan Nephro following 2. History of alcohol use: Patient drinks hard liquor and beers every day Will put to patient on CIWA scale, thiamine, folic acid Patient is high risk to go to will draw also will add phenobarb protocol 3. Opioid use Disorder: Continue Suboxone. 4. Hypertension:? Uncontrolled Given dose of amlodipine, metoprololdose adjusted. Started his blood pressure medications. 5. Chest tightness:? Seems atypical Troponin negative, EKG did not show ST changes. Monitor 6. Asthma:? Seems stable continue home medication DVT prophylaxis:? SubQ Lovenox . Patient needed inpatient hospital stay: Due to ROSELINE-is IV hydration , further nephrology workup for ROSELINE. Quality Stroke Does the patient have a stroke diagnosis?: No VTE Prior VTE?: No VTE Risk Level:: Medical - moderate - high VTE Device Contraindication: N/A - Device Ordered VTE Drug Contraindication: N/A - Med Ordered
[2021-10-19 08:00] VITALS: PULSE 73
[2021-10-19] MEDS: Folic Acid 1 MG TABLET PO (09:07)
[2021-10-19] MEDS: Thiamine HCL 100 MG TABLET PO (09:08)
[2021-10-19] MEDS: amLODIPine Besylate 5 MG TABLET PO (09:08)
[2021-10-19] MEDS: Metoprolol Succinate ER 50 MG TAB.ER.24H PO (09:08)
[2021-10-19] MEDS: Buprenorphine/Naloxone 8/2 mg FILM 1 FILM SUBLINGUAL ×2 (09:08→20:44)
[2021-10-19] MEDS: PHENobarbitaL 15 MG TABLET 45 MG PO ×2 (09:08→20:44)
[2021-10-19] MEDS: Multivitamin TABLET 1 TAB PO (09:08)
[2021-10-19 11:26] LABS: Prothrombin Time 11.2 SEC (9.9-13.0)
[2021-10-19 11:33] VITALS: BP 172/92; PULSE 58; RESP 20; TEMP 36.9; O2SAT 96
[2021-10-19 11:33] LABS: Anion Gap 13 (12-20); Blood Urea Nitrogen 34 mg/dL (9-16); Carbon Dioxide 31 mmol/L (22-29); Chloride 99 mmol/L (96-108); Creatinine Clr Calc Pharmacy 36.2; Estimated Glomerular Filt Rate 28; Potassium 4.1 mmol/L (3.3-5.1); Sodium 139 mmol/L (135-145)
[2021-10-19 15:15] VITALS: BP 162/97; PULSE 55; RESP 18; TEMP 37.1; O2SAT 98
[2021-10-19 20:28] VITALS: PULSE 68; RESP 20; TEMP 37.2; O2SAT 96
[2021-10-19] MEDS: Enoxaparin Sodium 30 MG/0.3 ML SYRINGE SUBCUT (20:44)
[2021-10-20] VITALS (8 sets, daily range): BP systolic 166–208; BP diastolic 91–100; PULSE 55–75; RESP 18–20; TEMP 36.9–37.6; O2SAT 95–98
--- NOTE | 2021-10-20 | ECG_ITS ---
Test Reason : cp Blood Pressure : / mmHG Vent. Rate : 062 BPM Atrial Rate : 062 BPM P-R Int : 158 ms QRS Dur : 086 ms QT Int : 432 ms P-R-T Axes : 064 017 011 degrees QTc Int : 438 ms Normal sinus rhythm Normal ECG When compared with ECG of 18-OCT-2021 10:56, T wave amplitude has decreased in Lateral leads Referred By: Samara Elias Electronically Signed By:PATT FUCHS
[2021-10-20] MEDS: 0.9 % Sodium Chloride 1,000 ML 100 ML IVCONT (01:15)
[2021-10-20] MEDS: Omeprazole 20 MG CAPSULE.DR PO (05:39)
[2021-10-20] MEDS: hydrALAZINE HCl 20 MG/ML VIAL 10 MG IVPUSH ×2 (05:39→20:52)
[2021-10-20 07:12] LABS: Anion Gap 13 (12-20); Blood Urea Nitrogen 30 mg/dL (9-16); Calcium 8.2 mg/dL (8.4-10.2); Carbon Dioxide 27 mmol/L (22-29); Chloride 101 mmol/L (96-108); Creatinine Clr Calc Pharmacy 65.8; Estimated Glomerular Filt Rate 55; Glucose Random 102 mg/dL (60-115); Potassium 4.4 mmol/L (3.3-5.1); Sodium 137 mmol/L (135-145)
--- NOTE | 2021-10-20 07:46 | P.PNIM_ITS ---
Subjective Subjective Date of Service: 10/20/21 Interval History: roseline , uncontrolled htn Review of Systems seems lightheaded,tramulous . Denies any chest pain or shortness of breath or fever chills or cough or phlegm Physical Exam Vital Signs: Vital Signs: Last Vital Signs Temp 98.4 F 10/20/21 07:30 Pulse 75 10/20/21 07:30 Resp 20 10/20/21 07:30 BP 199/97 H 10/20/21 07:30 Pulse Ox 95 10/20/21 07:30 BMI result Body Mass Index 27.3 Appearance: Alert.? Oriented X3.? Seems generally weak. Eyes: Pupils equal, round and reactive to light.? Sclera nonicteric.? ENT: Pharynx normal.? Moist mucous membranes. cvs: rrr, [id number] . res: clear to auscultation ,no rhonchii or wheezing abd: no rebound or guarding , left flank slowly improving, bs present. No CVA tenderness ext pulses present , no cyanosis. neuro: axo3 , nonfocal, tramulous , anxious Objective Data Active Medications Albuterol Sulfate (Albuterol Sulfate 90 Mcg 8 Gm Inhaler) 2 puff INHALE Q6H PRN PRN Reason: shortness of breath or wheezing Amlodipine Besylate (Amlodipine Besylate 5 Mg Tablet) 5 mg PO DAILY [facility]; Protocol Last Admin: 10/19/21 09:08 Dose: 5 mg Documented by: SHARIFA Buprenorphine/Naloxone (Buprenorphine/Naloxone 8/2 Mg Film) 1 film SUBLINGUAL BID [facility] Last Admin: 10/19/21 20:44 Dose: 1 film Documented by: HONORIO Enoxaparin Sodium (Enoxaparin Sodium 30 Mg/0.3 Ml Syringe) 30 mg SUBCUT Q24H [facility] Last Admin: 10/19/21 20:44 Dose: 30 mg Documented by: HONORIO Folic Acid (Folic Acid 1 Mg Tablet) 1 mg PO DAILY [facility] Last Admin: 10/19/21 09:07 Dose: 1 mg Documented by: SHARIFA Medication (No Benzodiazepines) 1 each MISCELLANE DAILY [facility] Metoprolol Succinate (Metoprolol Succinate Er 100 Mg Tab.Er.24h) 100 mg PO DAILY [facility]; Protocol Multivitamins/Vitamin C (Multivitamin Tablet) 1 tab PO DAILY [facility] Last Admin: 10/19/21 09:08 Dose: 1 tab Documented by: SHARIFA Omeprazole (Omeprazole 20 Mg Capsule.) 20 mg PO DAILY@0630 [facility] Last Admin: 10/20/21 05:39 Dose: 20 mg Documented by: HONORIO Pharmacy Consult (Consult Rx Etoh Phenob Dosing) 1 each MISCELLANE ONCE PRN; Protocol PRN Reason: Consult order Phenobarbital (Phenobarbital 15 Mg Tablet) 45 mg PO BID [facility] Stop: 10/20/21 21:01 Last Admin: 10/19/21 20:44 Dose: 45 mg Documented by: HONORIO Phenobarbital (Phenobarbital 30 Mg Tablet) 30 mg PO BID [facility] Stop: 10/22/21 21:01 Phenobarbital (Phenobarbital 15 Mg Tablet) 15 mg PO DAILY [facility] Stop: 10/24/21 09:01 Sodium Chloride (0.9 % Sodium Chloride Flush 3 Ml Syringe) 3 ml IVFLUSH QSHIFT [facility] Last Admin: 10/19/21 23:44 Dose: Not Given Documented by: HONORIO Non-Admin Reason: IV Running Thiamine HCl (Thiamine Hcl 100 Mg Tablet) 100 mg PO DAILY [facility] Last Admin: 10/19/21 09:08 Dose: 100 mg Documented by: SHARIFA Labs CBC & Chem 7: 10/18/21 09:23 10/20/21 06:41 Labs: Laboratory Results - last 24 hr 10/19/21 10/19/21 10/20/21 11:04 11:05 06:41 PT 11.2 INR 1.0 Anion Gap 13 13 Estim Creat Clear Calc 36.2 65.8 Estimated GFR 28 55 Random Glucose 102 D Calcium 8.2 L D Assessment and Plan (1) Alcohol withdrawal: Status: Acute (2) Uncontrolled hypertension: Status: Acute Plan 50-year-old male came to the hospital because of ROSELINE, hyperkalemia, left flank pain. 1. ROSELINE/flank pain: CT abdomen negative U tox positive for cocaine Also had proteinuria initial UA . Roseline improving,monitor renal function electrolytes.? Avoid nephrotoxic substances . avoid nephrotoxic medications.? Hold hydrochlorothiazide/losartan Nephro following 2. History of alcohol use: Patient drinks hard liquor and beers every day seems has alochol withdrawal -tremulous and anxious. Will put to patient on CIWA scale, thiamine, folic acid continue phenobarb protocol. 3. Opioid use Disorder: Continue Suboxone. 4. Hypertension:? Uncontrolled adjusted amlodipine, metoprolol ,iv hydralazine prn Started his blood pressure medications. 5. Chest tightness:? Seems atypical Troponin negative, EKG did not show ST changes. repeat ekg to see -resolution of hyperkalemia changes. Monitor 6. Asthma:? Seems stable continue home medication DVT prophylaxis:? SubQ Lovenox . Patient needed inpatient hospital stay:? alcohol withdrawal,uncontrolled htn , roseline( improving). Quality Stroke Does the patient have a stroke diagnosis?: No VTE Prior VTE?: No VTE Risk Level:: Medical - moderate - high VTE Device Contraindication: N/A - Device Ordered VTE Drug Contraindication: N/A - Med Ordered
[2021-10-20] MEDS: 0.9 % Sodium Chloride Flush 3 ML SYRINGE IVFLUSH ×3 (08:36→20:50)
[2021-10-20] MEDS: Buprenorphine/Naloxone 8/2 mg FILM 1 FILM SUBLINGUAL ×2 (08:37→20:47)
[2021-10-20] MEDS: Metoprolol Succinate ER 100 MG TAB.ER.24H PO (08:37)
[2021-10-20] MEDS: Thiamine HCL 100 MG TABLET PO (08:37)
[2021-10-20] MEDS: Multivitamin TABLET 1 TAB PO (08:37)
[2021-10-20] MEDS: PHENobarbitaL 15 MG TABLET 45 MG PO ×2 (08:37→20:47)
[2021-10-20] MEDS: Folic Acid 1 MG TABLET PO (08:37)
[2021-10-20] MEDS: amLODIPine Besylate 10 MG TABLET PO (08:40)
--- NOTE | 2021-10-20 09:48 | MHC.CM.PN ---
Patient resides in homeless detention, no equipment, no prior services. Rides bus or walks to where needs to go. Plan is to return to homeless detention [place]. CM to follow.
--- NOTE | 2021-10-20 12:07 | PC.NURSE ---
BP Md aware of BP of , suggest to give med and follow up, BP recheck to be done
--- NOTE | 2021-10-20 17:29 | PM.PNNEP ---
Subjective Subjective Date of Service: 10/20/21 Interval history: seen and examined, events noted feeling much better AKIresolving w decr SCr Physical Exam Vital Signs: Vital Signs: Last Vital Signs Temp 99.0 F 10/20/21 14:59 Pulse 55 10/20/21 14:59 Resp 20 10/20/21 14:59 BP 166/91 H 10/20/21 14:59 Pulse Ox 98 10/20/21 14:59 BMI result Body Mass Index 27.3 Objective Data Labs CBC & Chem 7: 10/18/21 09:23 10/20/21 06:41 Labs: Laboratory Results - last 24 hr 10/20/21 06:41 Sodium 137 Potassium 4.4 Chloride 101 Carbon Dioxide 27 Anion Gap 13 BUN 30 H Creatinine 1.37 Estim Creat Clear Calc 65.8 Estimated GFR 55 Random Glucose 102 D Calcium 8.2 L D Procedures Date of Service Date of Service: 10/20/21 Assessment & Plan Assessment and plan (1) Alcohol withdrawal: Status: Acute (2) Uncontrolled hypertension: Status: Acute Plan 50-year-old male came to the hospital because of ROSELINE, hyperkalemia, left flank pain. 1. ROSELINE: reoslving c/w renalperfusion problemthat hascorrecrted; cocaine itself can cause reversible vasc vasoonstriction 2. Polysubs abuse REC: cont IVF;avoid NToxins will follantoine cummings team Time Spent With Patient Time: Total time spent is greater than 50% in coordination of care (as documented) at patient's floor/unit and/or counseling patient: Progress Note: Quality Stroke Does the patient have a stroke diagnosis?: No
[2021-10-20] MEDS: Enoxaparin Sodium 30 MG/0.3 ML SYRINGE SUBCUT (20:47)
[2021-10-21 03:19] VITALS: BP 180/90; PULSE 78; RESP 18; TEMP 36.5; O2SAT 94
[2021-10-21] MEDS: hydrALAZINE HCl 20 MG/ML VIAL 10 MG IVPUSH (03:35)
[2021-10-21 04:35] LABS: HBS Num1 94.59 mIU/mL (0-7.99); HBc Num1 0.11 S/CO (0.00-0.79); Hepatitis B Core Antibody Nonreactive (Nonreactive); ~HepC Num1 9.71 S/CO (0.00-0.79); ~Hepatitis B Surface Antibody REACTIVE (Nonreactive); ~Hepatitis C Antibody Reactive (Nonreactive)
[2021-10-21 04:41] LABS: HBsAGNum1 0.54 S/CO (0.00-0.99); Hepatitis B Surface Antigen Negative (Negative)
[2021-10-21] MEDS: Omeprazole 20 MG CAPSULE.DR PO (06:12)
[2021-10-21 06:55] LABS: Anion Gap 11 (12-20); Blood Urea Nitrogen 20 mg/dL (9-16); Calcium 8.6 mg/dL (8.4-10.2); Carbon Dioxide 31 mmol/L (22-29); Chloride 101 mmol/L (96-108); Creatinine Clr Calc Pharmacy 104.9; Estimated Glomerular Filt Rate > 60; Glucose Random 100 mg/dL (60-115); Potassium 4.1 mmol/L (3.3-5.1); Sodium 139 mmol/L (135-145)
--- NOTE | 2021-10-21 07:46 | HO.PM.IMPN ---
Subjective Subjective Date of Service: 10/21/21 Interval History: Alcohol withdrawal, hypertension uncontrolled. Physical Exam Vital Signs: Vital Signs: Last Vital Signs Temp 97.7 F 10/21/21 03:19 Pulse 78 10/21/21 03:19 Resp 18 10/21/21 03:19 BP 180/90 H 10/21/21 03:19 Pulse Ox 94 10/21/21 03:19 BMI result Body Mass Index 27.3 Objective Data Active Medications Albuterol Sulfate (Albuterol Sulfate 90 Mcg 8 Gm Inhaler) 2 puff INHALE Q6H PRN PRN Reason: shortness of breath or wheezing Amlodipine Besylate (Amlodipine Besylate 10 Mg Tablet) 10 mg PO DAILY [facility]; Protocol Last Admin: 10/20/21 08:40 Dose: 10 mg Documented by: SHARIFA Buprenorphine/Naloxone (Buprenorphine/Naloxone 8/2 Mg Film) 1 film SUBLINGUAL BID [facility] Last Admin: 10/20/21 20:47 Dose: 1 film Documented by: ESTIVEN Enoxaparin Sodium (Enoxaparin Sodium 30 Mg/0.3 Ml Syringe) 30 mg SUBCUT Q24H [facility] Last Admin: 10/20/21 20:47 Dose: 30 mg Documented by: ESTIVEN Folic Acid (Folic Acid 1 Mg Tablet) 1 mg PO DAILY [facility] Last Admin: 10/20/21 08:37 Dose: 1 mg Documented by: SHARIFA Hydralazine HCl (Hydralazine Hcl 20 Mg/Ml Vial) 10 mg IVPUSH Q6H PRN; Protocol PRN Reason: htn Last Admin: 10/21/21 03:35 Dose: 10 mg Documented by: ESTIVEN Hydralazine HCl (Hydralazine Hcl 25 Mg Tablet) 25 mg PO TID [facility]; Protocol Medication (No Benzodiazepines) 1 each MISCELLANE DAILY [facility] Metoprolol Succinate (Metoprolol Succinate Er 50 Mg Tab.Er.24h) 50 mg PO DAILY [facility]; Protocol Multivitamins/Vitamin C (Multivitamin Tablet) 1 tab PO DAILY [facility] Last Admin: 10/20/21 08:37 Dose: 1 tab Documented by: SHARIFA Omeprazole (Omeprazole 20 Mg Capsule.Dr) 20 mg PO DAILY@0630 [facility] Last Admin: 10/21/21 06:12 Dose: 20 mg Documented by: ESTIVEN Pharmacy Consult (Consult Rx Etoh Phenob Dosing) 1 each MISCELLANE ONCE [facility]; Protocol PRN Reason: Consult order Phenobarbital (Phenobarbital 30 Mg Tablet) 30 mg PO BID [facility] Stop: 10/22/21 21:01 Phenobarbital (Phenobarbital 15 Mg Tablet) 15 mg PO DAILY [facility] Stop: 10/24/21 09:01 Sodium Chloride (0.9 % Sodium Chloride Flush 3 Ml Syringe) 3 ml IVFLUSH QSHIFT [facility] Last Admin: 10/20/21 20:50 Dose: 3 ml Documented by: ESTIVEN Thiamine HCl (Thiamine Hcl 100 Mg Tablet) 100 mg PO DAILY [facility] Last Admin: 10/20/21 08:37 Dose: 100 mg Documented by: SHARIFA Labs CBC & Chem 7: 10/18/21 09:23 10/21/21 06:27 Labs: Laboratory Results - last 24 hr 10/19/21 10/21/21 11:04 06:27 Anion Gap 11 L Estim Creat Clear Calc 104.9 Estimated GFR > 60 Random Glucose 100 Calcium 8.6 Hep Bs Antigen Negative Hep Bs Antibody REACTIVE Hep B Core Total Ab Nonreactive Hepatitis C Ab (EIA) Reactive H Assessment and Plan (1) Alcohol withdrawal: Status: Acute (2) Uncontrolled hypertension: Status: Acute Plan 50-year-old male came to the hospital because of ROSELINE, hyperkalemia, left flank pain. 1. ROSELINE/flank pain: CT abdomen negative U tox positive for cocaine Also had proteinuria initial UA . Roseline improving,monitor renal function electrolytes.? Avoid nephrotoxic substances. avoid nephrotoxic medications.? Hold hydrochlorothiazide/losartan Nephro following 2. History of alcohol use: Patient drinks hard liquor and beers every day seems has alochol withdrawal -tremulous and anxious. Will put to patient on CIWA scale, thiamine, folic acid continue phenobarb protocol. 3. Opioid use Disorder: Continue Suboxone. 4. Hypertension:? Uncontrolled adjusted amlodipine, metoprolol ,iv hydralazine prn Started his blood pressure medications. 5. Chest tightness:? Seems atypical Troponin negative, EKG did not show ST changes. repeat ekg to see -resolution of hyperkalemia changes. Monitor 6. Asthma:? Seems stable continue home medication DVT prophylaxis:? SubQ Lovenox . Patient needed inpatient hospital stay:? alcohol withdrawal,uncontrolled htn , roseline( improving). Quality Stroke Does the patient have a stroke diagnosis?: No VTE Prior VTE?: No VTE Risk Level:: Medical - moderate - high VTE Device Contraindication: N/A - Device Ordered VTE Drug Contraindication: N/A - Med Ordered
[2021-10-21 07:49] VITALS: BP 190/95; PULSE 73; RESP 20; TEMP 37.1; O2SAT 97
[2021-10-21] MEDS: Thiamine HCL 100 MG TABLET PO (09:02)
[2021-10-21] MEDS: Multivitamin TABLET 1 TAB PO (09:02)
[2021-10-21] MEDS: amLODIPine Besylate 10 MG TABLET PO (09:02)
[2021-10-21] MEDS: PHENobarbitaL 30 MG TABLET PO (09:02)
[2021-10-21] MEDS: Buprenorphine/Naloxone 8/2 mg FILM 1 FILM SUBLINGUAL (09:03)
[2021-10-21] MEDS: Folic Acid 1 MG TABLET PO (09:03)
[2021-10-21] MEDS: 0.9 % Sodium Chloride Flush 3 ML SYRINGE IVFLUSH (09:03)
[2021-10-21] MEDS: hydrALAZINE HCl 25 MG TABLET PO (09:03)
[2021-10-21] MEDS: Metoprolol Succinate ER 50 MG TAB.ER.24H PO (09:03)
--- NOTE | 2021-10-21 10:10 | CONS_ITS ---
DATE OF SERVICE: 10/19/2021 REASON FOR CONSULTATION: I was asked to see patient to assist in evaluation and management of patient's acute kidney injury as reflected by BUN and creatinine of 30 and 2.8 yesterday along with hyperkalemia, potassium of 6.1. We have a serum creatinine of 0.62 back in January 2021. HISTORY OF PRESENT ILLNESS: In summary, patient is a 50-year-old gentleman with polysubstance abuse including opioids, alcohol, and cocaine on backdrop of history of hypertension and asthma. He presented to the emergency room with complaining of left-sided flank pain and the ER was very impressed by far most likely was a kidney stone, given dose of Toradol and got a CAT scan. The CT scan did not show evidence of a kidney stone. Patient was given some IV fluids overnight and his renal function has not improved. The patient is a poor historian, but denies taking any NSAIDs. He tells me his abdominal pain has resolved. He got some Lokelma overnight and his potassium is coming down this morning. He denies any gross hematuria, dysuria, or problems urinating. He denies any history of kidney problems. He denies any myalgias, arthralgias, rash, or skin photosensitivity. No gross blood in the urine. He denies doing any cocaine. PAST MEDICAL HISTORY: Listed including hypertension, alcohol abuse, and depression. MEDICATIONS: His medications on admission are listed including multivitamin, Norvasc, and a combination of losartan HCTZ. His current medications are noted in the MAR include IV fluids overnight. ALLERGIES: HE HAS NO KNOWN DRUG ALLERGIES. SOCIAL HISTORY: He does have a history of polysubstance abuse as mentioned. PHYSICAL EXAMINATION: VITAL SIGNS: His blood pressure is 150/90 with a heart rate in the 60s. He is afebrile. HEENT: Head is atraumatic and normocephalic. NECK: Supple. Mucous membranes are moist. There is no JVD. LUNGS: Clear. CARDIAC: Regular rate and rhythm without rub. ABDOMEN: Soft, nontender with good bowel sounds. No CVA tenderness. EXTREMITIES: Show no edema. LABORATORY DATA: Labs from this morning are pending. Labs from 5 p.m. last night: Sodium 142, potassium 4.6, chloride 100, bicarb 33, BUN 32, creatinine 3.06. From yesterday at 1 p.m., his BUN and creatinine 30 and 2.8, potassium 6.1, as mentioned previously. Calcium 8.5. CPK of 204, hemoglobin 13, hematocrit 39.8, white blood cell count of 7.2, platelet count 203. Urine studies showed 3+ protein by dipstick, otherwise unremarkable. Urine sodium was 52. No urine creatinine or urine protein was done on the urine. His tox screen was positive for opioids, fentanyl, and cocaine. He had a CAT scan done without contrast, which showed the kidneys to be normal in size. No hydro, masses, or stones or was what appeared to be a cyst in the left kidney. IMPRESSION: 50-YEAR-OLD POLYSUBSTANCE ABUSING PATIENT, ADMITTED WITH ABDOMINAL AND LEFT-SIDED FLANK PAIN AND ACUTE KIDNEY INJURY. 1. Acute kidney injury. Remains unclear with the cause of his acute kidney injury is. Cocaine can be associated with acute kidney injury due to severe vasoconstriction of the vasculature as well as case reports of vasculitis in the kidneys due to levamisole, which can be mixed with the cocaine. Other possible cause of acute kidney injury need to be considered such as an acute interstitial nephritis as well as an acute glomerulonephritis. Obstruction has been ruled out by the CAT scan not showing hydro. 2. Abdominal and flank pain. This seems to have resolved. 3. Polysubstance abuse. 4. Hyperkalemia. We will need to repeat his potassium, make sure there is no rebound hyperkalemia after getting the treatment last night. SUGGESTIONS: At this time include he needs repeat labs this morning along with urine studies and in particular urine protein and creatinine ratio because a dipstick showed a lot of protein. We will do additional serologies including an ANCA given his cocaine history. Additional serologies will be ordered. If his acute kidney injury does not respond to IV fluids, then he may need a kidney biopsy in the next day or 2 to sort out the cause of his acute kidney injury. We will follow the patient closely with the team. MD ADOLFO Grimaldo/MERCEDES / [id number]
[2021-10-21 11:24] VITALS: BP 162/88; PULSE 66; RESP 20; TEMP 36.8; O2SAT 98
--- NOTE | 2021-10-21 12:38 | PM.DS ---
DS: Providers Provider Date of Service: 10/21/21 Date of admission: 10/18/21 16:22 Primary care physician: [facility] Consults: 10/18/21 16:28 Consult to Nephrology Routine Consulting Provider: Tyrone Cuba Reason for consultation: roseline,hyperkalemia , ekg rony Has provider been notified: No 10/21/21 12:33 Consult to Care Team Routine Comment: Reason for consultation: alchol and cacaine use DS: Diagnosis Discharge Diagnosis (1) Alcohol withdrawal: Status: Acute (2) Uncontrolled hypertension: Status: Acute DS: Summary Hospital Course Hospital Course: 50-year-old male with history of opioid use disorder, alcohol abuse, history of asthma and hypertension:? He came to the hospital because having left flank pain for 1 week on and off-he said he was not taking any medication and was managing some how but today pain got worse and decided to come to the hospital. Patient also had nausea and vomiting x3 today. Denies any fall any trauma to the abdomen or any use of recreational drugs. Denies any history of renal stones. Patient has left flank pain, radiates to back, 04/19, denies any fevers, had some chills as per patient. He also had episode of chest tightness as per the staff when try to give him loklema resolved shows quickly Denies any new complaint of shortness of breath? or fever Denies any cough Denies any weakness or numbness. Lab imaging reviewed, EKG reviewed Patient has BUN 30, creatinine 2.8 , potassium was initially 5.4 and then 6.1. EKG shows peaked T-waves CT abdomen unrevealing Troponin, repeat BMP, urine toxicology added Patient received 2 L IV normal saline, Kayexalate, calcium gluconate, glucose, insulin:? Patient case was discussed by ED physician with Nephrology and recommended to admit patient for ROSELINE and hyperkalemia. Hospital course: Patient admitted for alcohol withdrawal, ROSELINE, cocaine use: Patient was started on phenobarb protocol, IV hydration-seems to be improved. Hypertension:Patient blood pressure was running in the higher side 160range: improving, discussed with nephrology:Will start his losartan back and continue amlodipine and metoprolol. Follow-up outpatient with Nephrology and PCP. Above management discussed with the patient in detail length he understand and in agreement with the above plan, time spent 50 minutes and 50% time spent on counseling. Significant findings: As above. Procedures performed: None. Treatment and response: As above. Complications: None. Time Spent with Patient Time attestation: Total time spent providing and/or coordinating discharge services: Discharge coordination time: Greater than 30 minutes Quality: Stroke Does the patient have a stroke diagnosis?: No Physical Exam Vital Signs: Vital Signs: Last Vital Signs Temp 98.3 F 10/21/21 11:24 Pulse 66 10/21/21 11:24 Resp 20 10/21/21 11:24 BP 162/88 H 10/21/21 11:24 Pulse Ox 98 10/21/21 11:24 BMI result Body Mass Index 27.3 ? Appearance: Alert.? Oriented X3.? Seems generally weak. Eyes: Pupils equal, round and reactive to light.? Sclera nonicteric.? ENT: Pharynx normal.? Moist mucous membranes. cvs: rrr, [id number] . res: clear to auscultation ,no rhonchii or wheezing abd: no rebound or guarding , left flank slowly improving, bs present. No CVA tenderness ext pulses present , no cyanosis. neuro: axo3 , nonfocal DS: Data Data Completed and Pending Labs on day of discharge: Laboratory Results - last 24 hr 10/19/21 10/21/21 11:04 06:27 Sodium 139 Potassium 4.1 Chloride 101 Carbon Dioxide 31 H Anion Gap 11 L BUN 20 H Creatinine 0.86 Estim Creat Clear Calc 104.9 Estimated GFR > 60 Random Glucose 100 Calcium 8.6 Hep Bs Antigen Negative Hep Bs Antibody REACTIVE Hep B Core Total Ab Nonreactive Hepatitis C Ab (EIA) Reactive H Additional Comments Additional comments: ?CT/CT abdomen pelvis wo con IMPRESSION: Fatty liver otherwise unremarkable exam. Fleischner guidelines were followed. Discharge Plan Discharge Patient Disposition: Home, Self-Care Discharge Diagnosis: alcohol withdrawal Referrals: [facility] [Primary Care Provider[facility] - 1 Week Discharge Medications: New losartan 100 mg tablet 100 mg PO DAILY Qty: 30 0RF Continued metoprolol succinate 50 mg tablet extended release 24 hr 1 tab PO DAILY Qty: 30 0RF albuterol sulfate [ProAir HFA] 90 mcg/actuation HFA aerosol inhaler 2 puff inhalation Q6H PRN (Reason: shortness of breath or wheezing) Qty: 1 0RF acamprosate 333 mg tablet,delayed release (DR/EC) 333 mg PO BID Qty: 60 0RF amlodipine 2.5 mg tablet 1 tab PO DAILY 0RF buprenorphine-naloxone [Suboxone] 8-2 mg film 1 film sublingual BID Qty: 14 0RF multivitamin Tablet 1 tab PO DAILY 0RF Discontinued losartan-hydrochlorothiazide 100-12.5 mg tablet 1 tab PO DAILY 0RF Discharge Orders: Discharge Order (Routine); Ordered 10/21/21 Ordered By: Samara Elias Diet: advance to usual diet, low fat, low cholesterol and low salt diet Activity on Discharge: As tolerated Stand Alone Forms: Patient Portal Discharge page Other Ambulatory Orders: Basic Metabolic Panel (Routine) Timeframe: 1 Week Facility: [facility] - Location: Laboratory Ordered By: Samara Elias Care Plan Goals: Patient admitted for alcohol withdrawal, ROSELINE, cocaine use: Patient was started on phenobarb protocol, IV hydration-seems to be improved. Hypertension: Patient blood pressure was running in the higher side 160range: discussed with nephrology:Will start his losartan back and continue amlodipine and metoprolol. Follow-up outpatient with Nephrology and PCP. Health Concerns: As above. Plan of Treatment: As above. Assessment: As above.
--- NOTE | 2021-10-21 12:38 | PM.PNNEP ---
Subjective Subjective Date of Service: 10/21/21 Interval history: Events noted. All recent data reviewed. D/W Hospitalist Physical Exam Vital Signs: Vital Signs: Last Vital Signs Temp 98.3 F 10/21/21 11:24 Pulse 66 10/21/21 11:24 Resp 20 10/21/21 11:24 BP 162/88 H 10/21/21 11:24 Pulse Ox 98 10/21/21 11:24 BMI result Body Mass Index 27.3 Const: General: no acute distress Orientation/consciousness: patient oriented x3 Eyes: EOM: EOMs intact bilaterally Neck: Neck: Yes supple Resp: Auscultation: diminished lung sounds Cardio: Rate: regular rate GI: Palpation (GI): Soft to palpation Neuro: General: patient oriented x3 and moves all extremities Objective Data Labs CBC & Chem 7: 10/18/21 09:23 10/21/21 06:27 Labs: Laboratory Results - last 24 hr 10/19/21 10/21/21 11:04 06:27 Sodium 139 Potassium 4.1 Chloride 101 Carbon Dioxide 31 H Anion Gap 11 L BUN 20 H Creatinine 0.86 Estim Creat Clear Calc 104.9 Estimated GFR > 60 Random Glucose 100 Calcium 8.6 Hep Bs Antigen Negative Hep Bs Antibody REACTIVE Hep B Core Total Ab Nonreactive Hepatitis C Ab (EIA) Reactive H Procedures Date of Service Date of Service: 10/21/21 Assessment & Plan Assessment and plan (1) Uncontrolled hypertension: Status: Acute Assessment and Plan: 50-year-old male came to the hospital because of ROSELINE, hyperkalemia, left flank pain. ROSELINE resolved Hypertension Should avoid cocaine Could resume losartan home dose Shall arrange office F/U if D/John Time Spent With Patient Time: Total time spent is greater than 50% in coordination of care (as documented) at patient's floor/unit and/or counseling patient: Progress Note: Quality Stroke Does the patient have a stroke diagnosis?: No
[2021-10-21 12:41] LABS: Myeloperoxidase Antibody <1.0 AI; Proteinase 3 PR3 Antibodies <1.0 AI
--- NOTE | 2021-10-21 13:00 | MHC.CM.PN ---
Patient has been medically cleared for dc to home, self care.
--- NOTE | 2021-10-21 13:18 | MHC.RECOVRN ---
Pt to be seen by Tower Control OperatorAlexis.
--- NOTE | 2021-10-21 13:33 | MHC.RECOVSUP ---
met with pt. pt. 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 also is has a therapist at [facility] was able to give pt. information and resources.
[2021-10-21 13:46] LABS: Complement C3 60 mg/dL (82-185)
[2021-10-22 11:01] LABS: Anti Nuclear Antibody Screen NEGATIVE (NEGATIVE)
--- NOTE | 2021-12-18 12:38 | MHC.CM.PN ---
revisited with pt who reports that he lives alone will have transportaion home when dcd his pcp is ronaldo best and he will arrange his own ride home he was interested in doing another hcp as she says he has one
== END 2021-10-21 13:44 | disposition home or self-care (01) | DRG 425 ==
LOC: HO.ED 14:57 → HO.EDOVER 16:34 → HO.IMC 16:55
PROVIDERS: Internal Medicine Nephrology; Admitting Provider Internal Medicine; Emergency Provider Emergency Medicine; Visit Provider Internal Medicine
DX: E87.5 Hyperkalemia (principal); N17.9 Acute kidney failure, unspecified; F10.139 Alcohol abuse with withdrawal, unspecified; F11.20 Opioid dependence, uncomplicated; F17.210 Nicotine dependence, cigarettes, uncomplicated; J45.909 Unspecified asthma, uncomplicated; I10 Essential (primary) hypertension; Z91.14 Patient's other noncompliance with medication regimen; Z71.6 Tobacco abuse counseling; Z91.013 Allergy to seafood; Z79.899 Other long term (current) drug therapy
CPT/HCPCS: 36415; 74176; 80048; 80051; 80076; 80307; 81001; 82436; 82550; 82565; 82947; 83690; 83935; 84133; 84300; 84484; 84520; 85025; 85610; 86021; 86038; 86039; 86160; 86704; 86706; 86803; 87340; 93005; 99285; J0610; J1650; J1885; J2270; J2405; J2560

== ENCOUNTER 2021-12-16 09:43 | Inpatient (IN) | payer MEDICAID, SELFPAY ==
--- NOTE | 2021-12-16 | ECG_ITS ---
Test Reason : chest pain Blood Pressure : / mmHG Vent. Rate : 089 BPM Atrial Rate : 089 BPM P-R Int : 158 ms QRS Dur : 084 ms QT Int : 360 ms P-R-T Axes : 078 034 040 degrees QTc Int : 438 ms Normal sinus rhythm Normal ECG When compared with ECG of 20-OCT-2021 12:17, No significant change was found Referred By: Generic ED Physician Electronically Signed By:ANASTASIA SEVILLA MD
--- NOTE | ~2021-12-16 | NM_ITS ---
Lexiscan Myocardial perfusion study Indication: Chest pain, assess for coronary disease and ischemia Technique: The patient was brought in for a Lexiscan perfusion study on 12/19/2021 and was injected 0.4 mg of Lexiscan intravenously. Within a minute of this injection 22 mCi of sestamibi was given intravenously. Images were obtained using the SPECT gamma camera interlaced with the gating device. Images were obtained in supine position. Resting perfusion study was performed on 12/18/2021. Patient was administered 22 mCi of sestamibi intravenously at rest. Images were then obtained in supine position. Total DLP 84mGy-cm. Images were processed with the software and compared side to side in short axis, horizontal long axis and vertical long axis views. Findings: Raw acquisition was reviewed. The stress perfusion study showed slightly reduced tracer uptake in the mid to distal inferior septum. There is improvement with CT attenuation correction suggestive of attenuation artifact. The gated study shows low normal LV systolic function with calculated LVEF of 52%. LV cavity is normal in size. The gated study shows normal wall thickening and contraction of segments. Resting study shows no significant perfusion abnormality. Gating at rest reveals normal wall motion with ejection fraction at 56%. The findings are consistent with no definite reversible or fixed perfusion abnormality. NM/NM guillermo perf SPECT rest & str Impression: 1. Myocardial perfusion imaging study shows likely normal myocardial perfusion. 2. Gated LVEF is 52% during stress and 56% during rest. 3. Transient ischemic dilatation not present. EKG component of the test reported separately.
--- NOTE | ~2021-12-16 | XR_ITS ---
EXAMINATION: XR CHEST CLINICAL INFORMATION: Chest pain, hypoxia COMPARISON: Chest radiographs 10/11/2019, 06/06/2019 TECHNIQUE: Portable upright AP view of the chest was obtained. FINDINGS: There is questionable groundglass opacity right infrahilar region. There is no lobar or segmental airspace consolidation or effusion. The heart is normal in size. The vascularity is normal. There is no pneumothorax or pleural reaction. The hilar and mediastinal contours are normal. No visible acute bony abnormality. Again, there is mild dextrocurvature thoracic spine and degenerative arthropathy right shoulder. XR/XR chest 1V IMPRESSION: Subtle groundglass opacities suspected right infrahilar region. No effusion.
[2021-12-16 09:51] VITALS: BP 179/99; BP 190/112; PULSE 88; PULSE 96; RESP 18; TEMP 37.2; O2SAT 87; O2SAT 94; BMI 33.0
[2021-12-16 10:10] LABS: MANUAL DIFF FLAG NO
[2021-12-16 10:18] LABS: Basophils Percent Auto 0.5 % (0-2); Eosinophils Absolute Auto 0.2 X10*3/uL (0.0-0.4); Eosinophils Percent Auto 2.1 % (0-4); Hematocrit 34.9 % (42.0-52.0); Hemoglobin 11.3 g/dl (14.0-18.0); Imm Gran Abs Auto 0.03 X10*3/uL (0.00-0.03); Imm Gran Pct Auto 0.4 % (0.0-0.4); Lymphocytes Percent Auto 12.2 % (20-40); Mean Corpuscular HGB Conc 32.4 g/dl (31.0-36.0); Mean Corpuscular Volume 95.6 fL (80.0-98.0); Mean Platelet Volume 10.1 fL (9.4-12.4); Monocytes Absolute Auto 1.1 X10*3/uL (0.1-1.2); Monocytes Percent Auto 13.6 % (2-11); Neutrophils Absolute Auto 5.5 x10*3/uL (2.0-8.3); Neutrophils Percent Auto 71.2 % (45-73); Platelet Count 198 X10*3/uL (160-400); Red Blood Count 3.65 X10*6/uL (4.60-5.80); White Blood Count 7.8 X10*3/uL (4.8-10.8)
--- NOTE | 2021-12-16 10:20 | ED_ITS ---
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 Patient tells me he drinks alcohol daily. Describes quantity as alot . Drinks beer and hard liquor. Last drink yesterday afternoon. Has been using cocaine and heroin. Patient denies IV drug use. His last use of cocaine and heroin were yesterday. He is on Suboxone and took his dose this morning. He tells me for the last 2 days he has also had a cough. He denies any shortness of breath, diarrhea, fever. Patient received 324 mg of aspirin prior arrival and 2 sublingual nitroglycerin with no change in his symptoms. He tells me he has not been taking care of himself the last few days. He has not been eating or drinking much. Hasn't been taking his medication. Related Data Home Medications Medication Instructions Recorded Confirmed amlodipine 2.5 mg tablet 1 tab PO DAILY 10/18/21 12/16/21 losartan 100 1 tab PO DAILY 12/16/21 12/16/21 mg-hydrochlorothiazide 12.5 mg tablet Previous Rx's Medication Instructions Recorded buprenorphine 8 mg-naloxone 2 mg 1 film SUBLINGUAL BID #14 ea 06/21/20 sublingual film (Suboxone) albuterol sulfate 90 mcg/actuation 2 puff INHALATION Q6H PRN #1 kit 10/10/20 aerosol inhaler (ProAir HFA) metoprolol succinate 50 mg 1 tab PO DAILY #30 tab 10/10/20 tablet,extended release 24 hr Allergies Allergy/AdvReac Type Severity Reaction Status Date / Time seafood Allergy Anaphylaxis Verified 07/15/21 11:32 Review of Systems Review of Systems: Yes all other systems are reviewed and are negative Constitutional: Constitutional: Reports no additional constitutional complaints, Denies body ache(s), Reports chills, Denies fever(s), Reports headache(s) and Denies weakness Eyes: Eyes: Reports no additional eye complaints and Denies change in vision ENT: Reports system reviewed and no additional complaints, except as documented, Denies dizziness, Reports headache(s), Denies nasal congestion, Denies nasal discharge and Denies neck pain Cardiovascular: Cardiovascular: Reports no additional cardiovascular complaints, Reports chest pain, Denies leg edema and Denies dyspnea Respiratory: Respiratory: Reports no additional respiratory complaints, Reports cough and Denies dyspnea Gastrointestinal: Gastrointestinal: Reports no additional gastrointestinal complaints, Reports abdominal pain (upper ), Denies diarrhea, Reports nausea and Reports vomiting Genitourinary: Genitourinary: Denies urinary incontinence Musculoskeletal: Musculoskeletal: Reports no additional musculoskeletal complaints, Denies back pain, Denies arthralgias, Denies joint swelling, Denies neck pain, Denies numbness and Denies tingling Integumentary/Breasts: Skin/Breast: Reports system reviewed and no additional complaints, except as docu and Denies rash Neurologic: Reports system reviewed and no additional complaints, except as documented, Denies Abnormal speech present, Denies dizziness, Reports headache(s), Denies numbness, Denies tingling and Denies weakness PMFSH Past Medical History Attestation statement: The following information was validated with the patient. Source: old records reviewed and nursing notes reviewed Medical History Depression ETOH abuse Hypertension Social History Social History Household Members: Significant Other Housing: Homeless Do you presently have visiting nurse or other home services: No Alcohol intake: never Patient Tobacco Use Status: Current everyday Tobacco user Tobacco use type: Cigarette Cigarette Packs Per Day: 1 Cigarettes Per Day: 20.0 Substance Use Type: IV Drugs Advance Directives: No Advance Directives Information Provided: No service: No Current occupational status: unemployed Physical Exam Vital Signs: Vital Signs: Last Vital Signs Temp 99 F 12/16/21 12:43 Pulse 75 12/16/21 15:43 Resp 10 L 12/16/21 15:43 BP 186/107 H 12/16/21 15:43 Pulse Ox 98 12/16/21 15:43 BMI result Body Mass Index 33.0 Const: Other: diaphoretic, ill appearing General: alert Orientation/consciousness: patient oriented x3 Limitations: no limitations HEENT: Head: Yes normal to inspection Ears: hearing grossly normal bilaterally General nose exam: Normal external nose present Face and sinus: Yes normal facial exam Mouth: Normal oral and palatal mucosa present Throat: Yes posterior oropharynx normal, Yes tonsils normal and Yes uvula midline Eyes: General: appearance normal, both eyes and all related structures Pupils: Equal, round and reactive pupils present Neck: Neck: Yes normal visual inspection, Yes full ROM, Yes no lymphadenopathy and Yes no meningeal signs Chest: Chest palpation & inspection: normal inspection of the chest Resp: Effort & Inspection: normal respiratory effort Auscultation: clear to auscultation bilaterally Cardio: Rate: regular rate Rhythm: regular rhythm Peripheral pulses: Peripheral pulses 2+ throughout GI: Inspection: Yes normal to inspection Palpation (GI): Soft to palpation and nontender Auscultation: normal bowel sounds Back/Spine/Pelvis: Thoracic/Lumbar Spine: thoracic and lumbar spine normal to inspection Skin: General skin exam: no rashes or lesions noted Neuro: General: patient oriented x3, moves all extremities, no meningeal signs, no focal motor deficits and normal sensation to monofilament Cranial nerves: Yes Equal, round and reactive pupils present Cognition (Neuro): normal cognition Speech: No Abnormal speech present Gait exam (Neuro): Normal gait present Motor exam (neuro): 5/5 motor strength present throughout Extrem: General: Yes normal to inspection, Yes no pedal edema and Yes no calf tenderness Course Course Course Narrative: 51-year-old male with a history of substance abuse, alcohol abuse, high blood pressure here with reports of chest pain, upper abdominal pain, nausea, vomiting, headache, diaphoresis, back pain, cough. On arrival the patient is alert and oriented. He is diaphoretic. He is hypertensive and tachycardic. His lungs are clear. His oxygen saturation is 87% on room air. He has some mild tachypnea. His abdomen is soft nontender. Neurological exam is nonfocal. Will need labs including blood cultures and lactic acid, EKG, chest x-ray, COVID screen, flu screen, UA. At this time infection is considered. Antibiotics ordered. Will give fluids, antiemetics, Ativan. Reevaluation(s) Reevaluation #1: Chest x-ray is concerning for right upper lobe pneumonia. Consider aspiration in this patient who drinks alcohol daily. Patient also had a recent admission to the hospital so consider Hcap. Antibiotics ordered. Tachycardia, hypertension, diaphoresis have improved with a low-dose Ativan. Symptoms are likely secondary to alcohol withdrawal. His troponin was elevated but the patient tells me his chest pain has been resolved and his EKG shows no ischemic changes. Plan to trend troponin. If unchanged will discuss with medicine for admission. Time: 12:08 Reevaluation #2: Repeat troponin unchanged. Spoke to Dr. Hernandez who will admit the patient. Time: 13:30 Reevaluation #3: Spoke to Nona BULLARD from medicine. She asked me to speak to cardiology prior to admission d/t complaints of chest pain with elevated troponin. I did speak to Dr Pickering. Atypical for ACS. I also do no believe this is ACS. May be secondary to recent cocaine use, blood pressure related MDM - Chest Pain MDM Narrative Medical decision making narrative: pe, pna, acs, alcohol withdrawal Medical Records Data Attestation: I reviewed the patient's medical records. Lab Data Attestation: I reviewed the patient's lab results. Result diagrams: 12/16/21 10:05 12/16/21 10:05 Labs: Lab Results 12/16/21 12/16/21 12/16/21 Range/Units 10:05 10:05 10:05 WBC 7.8 (4.8-10.8) X10*3/uL RBC 3.65 L (4.60-5.80) X10*6/uL Hgb 11.3 L (14.0-18.0) g/dl Hct 34.9 L (42.0-52.0) % MCV 95.6 (80.0-98.0) fL MCH 31.0 (27.0-33.0) pg MCHC 32.4 (31.0-36.0) g/dl RDW 16.0 (11.0-16.0) % Plt Count 198 (160-400) X10*3/uL MPV 10.1 (9.4-12.4) fL Immature Gran % (Auto) 0.4 (0.0-0.4) % Neut % (Auto) 71.2 (45-73) % Lymph % (Auto) 12.2 L (20-40) % [place] % (Auto) 13.6 H (2-11) % Eos % (Auto) 2.1 (0-4) % Baso % (Auto) 0.5 (0-2) % Lymph # (Auto) 1.0 L (1.2-4.9) X10*3/uL [place] # (Auto) 1.1 (0.1-1.2) X10*3/uL Eos # (Auto) 0.2 (0.0-0.4) X10*3/uL Baso # (Auto) 0.0 (0.0-0.2) X10*3/uL Abs Immat Gran (auto) 0.03 (0.00-0.03) X10*3/uL Absolute Neuts (auto) 5.5 (2.0-8.3) x10*3/uL Absolute Nucleated RBC 0.000 (0.0-0.012) X10*3/uL Nucleated RBC % (auto) 0.0 (0.0-0.2) /100WBC PT (9.9-13.0) SEC INR (0.9-1.1) Sodium 137 (135-145) mmol/L Potassium 4.6 (3.3-5.1) mmol/L Chloride 94 L (96-108) mmol/L Carbon Dioxide 31 H (22-29) mmol/L Anion Gap 17 (12-20) BUN 22 H (9-16) mg/dL Creatinine 0.89 (0.5-1.4) mg/dL Estim Creat Clear Calc 92.0 Estimated GFR > 60 Random Glucose 92 (60-115) mg/dL Lactic Acid (0.5-2.0) mmol/L Calcium 9.4 D (8.4-10.2) mg/dL Magnesium (1.6-2.6) mg/dL Total Bilirubin 0.6 (0.0-1.0) mg/dL Direct Bilirubin (0.0-0.5) mg/dL AST 100 H (5-37) U/L ALT 94 H (0-40) U/L Alkaline Phosphatase 66 (39-117) U/L Total Creatine Kinase (38-174) U/L Troponin I High Sens 189.6 H* D (<3.5-35.0) ng/L B-Natriuretic Peptide (<100) pg/mL Total Protein 7.3 (6.5-8.0) g/dL Albumin 4.4 (3.5-5.0) g/dL Lipase (8-78) U/L Ethyl Alcohol mg/dL COVID-19 (BRENDA) (Negative) COVID-19 Clin Com Influenza Type A (TARA) (Negative) Influenza Type B (TARA) (Negative) Influenza A & B Note 12/16/21 12/16/21 12/16/21 Range/Units 10:05 10:51 10:51 WBC (4.8-10.8) X10*3/uL RBC (4.60-5.80) X10*6/uL Hgb (14.0-18.0) g/dl Hct (42.0-52.0) % MCV (80.0-98.0) fL MCH (27.0-33.0) pg MCHC (31.0-36.0) g/dl RDW (11.0-16.0) % Plt Count (160-400) X10*3/uL MPV (9.4-12.4) fL Immature Gran % (Auto) (0.0-0.4) % Neut % (Auto) (45-73) % Lymph % (Auto) (20-40) % [place] % (Auto) (2-11) % Eos % (Auto) (0-4) % Baso % (Auto) (0-2) % Lymph # (Auto) (1.2-4.9) X10*3/uL [place] # (Auto) (0.1-1.2) X10*3/uL Eos # (Auto) (0.0-0.4) X10*3/uL Baso # (Auto) (0.0-0.2) X10*3/uL Abs Immat Gran (auto) (0.00-0.03) X10*3/uL Absolute Neuts (auto) (2.0-8.3) x10*3/uL Absolute Nucleated RBC (0.0-0.012) X10*3/uL Nucleated RBC % (auto) (0.0-0.2) /100WBC PT 11.9 (9.9-13.0) SEC INR 1.0 (0.9-1.1) Sodium (135-145) mmol/L Potassium (3.3-5.1) mmol/L Chloride (96-108) mmol/L Carbon Dioxide (22-29) mmol/L Anion Gap (12-20) BUN (9-16) mg/dL Creatinine (0.5-1.4) mg/dL Estim Creat Clear Calc Estimated GFR Random Glucose (60-115) mg/dL Lactic Acid (0.5-2.0) mmol/L Calcium (8.4-10.2) mg/dL Magnesium 1.6 (1.6-2.6) mg/dL Total Bilirubin 0.6 (0.0-1.0) mg/dL Direct Bilirubin 0.2 (0.0-0.5) mg/dL AST 103 H (5-37) U/L ALT 94 H (0-40) U/L Alkaline Phosphatase 65 (39-117) U/L Total Creatine Kinase 144 (38-174) U/L Troponin I High Sens (<3.5-35.0) ng/L B-Natriuretic Peptide (<100) pg/mL Total Protein 7.5 (6.5-8.0) g/dL Albumin 4.4 (3.5-5.0) g/dL Lipase 45 (8-78) U/L Ethyl Alcohol mg/dL COVID-19 (BRENDA) Negative (Negative) COVID-19 Clin Com See Note Influenza Type A (TARA) (Negative) Influenza Type B (TARA) (Negative) Influenza A & B Note 12/16/21 12/16/21 12/16/21 Range/Units 10:51 10:51 10:51 WBC (4.8-10.8) X10*3/uL RBC (4.60-5.80) X10*6/uL Hgb (14.0-18.0) g/dl Hct (42.0-52.0) % MCV (80.0-98.0) fL MCH (27.0-33.0) pg MCHC (31.0-36.0) g/dl RDW (11.0-16.0) % Plt Count (160-400) X10*3/uL MPV (9.4-12.4) fL Immature Gran % (Auto) (0.0-0.4) % Neut % (Auto) (45-73) % Lymph % (Auto) (20-40) % [place] % (Auto) (2-11) % Eos % (Auto) (0-4) % Baso % (Auto) (0-2) % Lymph # (Auto) (1.2-4.9) X10*3/uL [place] # (Auto) (0.1-1.2) X10*3/uL Eos # (Auto) (0.0-0.4) X10*3/uL Baso # (Auto) (0.0-0.2) X10*3/uL Abs Immat Gran (auto) (0.00-0.03) X10*3/uL Absolute Neuts (auto) (2.0-8.3) x10*3/uL Absolute Nucleated RBC (0.0-0.012) X10*3/uL Nucleated RBC % (auto) (0.0-0.2) /100WBC PT (9.9-13.0) SEC INR (0.9-1.1) Sodium (135-145) mmol/L Potassium (3.3-5.1) mmol/L Chloride (96-108) mmol/L Carbon Dioxide (22-29) mmol/L Anion Gap (12-20) BUN (9-16) mg/dL Creatinine (0.5-1.4) mg/dL Estim Creat Clear Calc Estimated GFR Random Glucose (60-115) mg/dL Lactic Acid 1.5 (0.5-2.0) mmol/L Calcium (8.4-10.2) mg/dL Magnesium (1.6-2.6) mg/dL Total Bilirubin (0.0-1.0) mg/dL Direct Bilirubin (0.0-0.5) mg/dL AST (5-37) U/L ALT (0-40) U/L Alkaline Phosphatase (39-117) U/L Total Creatine Kinase (38-174) U/L Troponin I High Sens (<3.5-35.0) ng/L B-Natriuretic Peptide 319 H (<100) pg/mL Total Protein (6.5-8.0) g/dL Albumin (3.5-5.0) g/dL Lipase (8-78) U/L Ethyl Alcohol < 10 mg/dL COVID-19 (BRENDA) (Negative) COVID-19 Clin Com Influenza Type A (TARA) (Negative) Influenza Type B (TARA) (Negative) Influenza A & B Note 12/16/21 12/16/21 Range/Units 10:51 12:52 WBC (4.8-10.8) X10*3/uL RBC (4.60-5.80) X10*6/uL Hgb (14.0-18.0) g/dl Hct (42.0-52.0) % MCV (80.0-98.0) fL MCH (27.0-33.0) pg MCHC (31.0-36.0) g/dl RDW (11.0-16.0) % Plt Count (160-400) X10*3/uL MPV (9.4-12.4) fL Immature Gran % (Auto) (0.0-0.4) % Neut % (Auto) (45-73) % Lymph % (Auto) (20-40) % [place] % (Auto) (2-11) % Eos % (Auto) (0-4) % Baso % (Auto) (0-2) % Lymph # (Auto) (1.2-4.9) X10*3/uL [place] # (Auto) (0.1-1.2) X10*3/uL Eos # (Auto) (0.0-0.4) X10*3/uL Baso # (Auto) (0.0-0.2) X10*3/uL Abs Immat Gran (auto) (0.00-0.03) X10*3/uL Absolute Neuts (auto) (2.0-8.3) x10*3/uL Absolute Nucleated RBC (0.0-0.012) X10*3/uL Nucleated RBC % (auto) (0.0-0.2) /100WBC PT (9.9-13.0) SEC INR (0.9-1.1) Sodium (135-145) mmol/L Potassium (3.3-5.1) mmol/L Chloride (96-108) mmol/L Carbon Dioxide (22-29) mmol/L Anion Gap (12-20) BUN (9-16) mg/dL Creatinine (0.5-1.4) mg/dL Estim Creat Clear Calc Estimated GFR Random Glucose (60-115) mg/dL Lactic Acid (0.5-2.0) mmol/L Calcium (8.4-10.2) mg/dL Magnesium (1.6-2.6) mg/dL Total Bilirubin (0.0-1.0) mg/dL Direct Bilirubin (0.0-0.5) mg/dL AST (5-37) U/L ALT (0-40) U/L Alkaline Phosphatase (39-117) U/L Total Creatine Kinase (38-174) U/L Troponin I High Sens 178.8 H* (<3.5-35.0) ng/L B-Natriuretic Peptide (<100) pg/mL Total Protein (6.5-8.0) g/dL Albumin (3.5-5.0) g/dL Lipase (8-78) U/L Ethyl Alcohol mg/dL COVID-19 (BRENDA) (Negative) COVID-19 Clin Com Influenza Type A (TARA) Negative (Negative) Influenza Type B (TARA) Negative (Negative) Influenza A & B Note See Note Imaging Data Chest x-ray: Attestation: I personally reviewed and interpreted this imaging study as follows: Radiologist's impression: FINDINGS: There is questionable groundglass opacity right infrahilar region. There is no lobar or segmental airspace consolidation or effusion. The heart is normal in size. The vascularity is normal. There is no pneumothorax or pleural reaction. The hilar and mediastinal contours are normal. No visible acute bony abnormality. Again, there is mild dextrocurvature thoracic spine and degenerative arthropathy right shoulder. XR/XR chest 1V IMPRESSION: Subtle groundglass opacities suspected right infrahilar region. No effusion. ? ECG Data ECG #1: Attestation: I personally reviewed and interpreted this ECG as follows: ECG interpretation date: 12/16/21 ECG interpretation time: 09:50 Interpretation: Normal sinus rhythm with a rate 89, normal DE, normal QRS, normal QT Discharge Plan Discharge Clinical Impression: Alcohol withdrawal, Pneumonia, Hypoxia Patient Disposition: Admitted As Inpatient
[2021-12-16 10:25] LABS: COVID-19 Test Negative (Negative); IDNOW Serial# 16C4AD1C
[2021-12-16 10:26] LABS: Alanine Aminotransferase 94 U/L (0-40); Albumin Level 4.4 g/dL (3.5-5.0); Alkaline Phosphatase 66 U/L (39-117); Anion Gap 17 (12-20); Aspartate Amino Transferase 100 U/L (5-37); Bilirubin Total 0.6 mg/dL (0.0-1.0); Blood Urea Nitrogen 22 mg/dL (9-16); Calcium 9.4 mg/dL (8.4-10.2); Carbon Dioxide 31 mmol/L (22-29); Chloride 94 mmol/L (96-108); Estimated Glomerular Filt Rate > 60; Glucose Random 92 mg/dL (60-115); Potassium 4.6 mmol/L (3.3-5.1); Sodium 137 mmol/L (135-145); Total Protein 7.3 g/dL (6.5-8.0)
[2021-12-16 10:32] LABS: Troponin-I High Sensitivity 189.6 ng/L (<3.5-35.0)
[2021-12-16] MEDS: cefTRIAXone sodium 1 GM in 0.9 % Sodium Chloride 50 ML IV (11:07)
[2021-12-16] MEDS: LORazepam 2 MG/ML VIAL IVPUSH (11:07)
[2021-12-16] MEDS: ondansetron HCL 4 MG/2 ML VIAL IVPUSH (11:07)
[2021-12-16 11:08] VITALS: BP 188/104; PULSE 78; RESP 12; O2SAT 100
[2021-12-16 11:13] LABS: Ethanol < 10 mg/dL; Lactic Acid 1.5 mmol/L (0.5-2.0)
[2021-12-16] MEDS: 0.9 % Sodium Chloride 1,000 ML 999 ML IV (11:15)
[2021-12-16 11:16] LABS: Prothrombin Time 11.9 SEC (9.9-13.0)
[2021-12-16 11:20] LABS: Alanine Aminotransferase 94 U/L (0-40); Albumin Level 4.4 g/dL (3.5-5.0); Alkaline Phosphatase 65 U/L (39-117); Aspartate Amino Transferase 103 U/L (5-37); Bilirubin Direct 0.2 mg/dL (0.0-0.5); Bilirubin Total 0.6 mg/dL (0.0-1.0); Lipase 45 U/L (8-78); Magnesium 1.6 mg/dL (1.6-2.6); Total Protein 7.5 g/dL (6.5-8.0)
[2021-12-16 11:21] LABS: B Type Natriuretic Peptide 319 pg/mL (<100)
[2021-12-16 11:22] LABS: IDNOW Serial# 9DB6401D; Influenza A Negative (Negative); Influenza B2 Negative (Negative)
--- NOTE | 2021-12-16 12:25 | PHA.MEDREC ---
Pharmacy Consult ? Medication Reconciliation Pharmacy has completed the medication reconciliation. Patient would not wake up to discuss medications. Contact [facility] pharmacy and confirm medications. Urvashi Todd, ZoilaD
[2021-12-16 12:43] VITALS: BP 178/103; PULSE 83; RESP 13; TEMP 37.2; O2SAT 96
[2021-12-16] MEDS: Piperacillin Sodium/Tazobactam 4.5 GM in 0.9 % Sodium Chloride 100 ML IV (12:45)
[2021-12-16 13:27] LABS: Troponin-I High Sensitivity 178.8 ng/L (<3.5-35.0)
[2021-12-16 14:34] VITALS: BP 184/117; PULSE 89; RESP 12; O2SAT 98
--- NOTE | 2021-12-16 14:58 | PM.IMHP ---
History of Present Illness Date of Service: 12/16/21 <Nona Adair NP - Last Filed: 12/16/21 16:51> Attending physician on admission: Saman Hernandez <Nona Adair NP - Last Filed: 12/16/21 16:51> Chief Complaint: chest pain <Nona Adair NP - Last Filed: 12/16/21 16:51> 51-year-old man presenting to the ER with chest pain. It was hard to assess him as he was very groggy after having a dose of Ativan for withdrawal symptoms. Apparently he had presented with chest burning with epigastric pain, nausea, vomiting, diaphoresis and low back pain. He is a heavy drinker drinking every day according to the record. His last drink was yesterday afternoon. He also uses cocaine and heroin which was positive on the tox screen, he is on Suboxone and had taken a dose this morning. His troponin was noted to be elevated at 189.6 and 178.8, this was discussed with papier mache' molder who did not think that this was indicative of ACS, EKG did not show any significant ischemic changes. His blood pressure was noted to be significantly elevated with highest reading of 190/112. In the ER he was given IV fluids, Rocephin and Zosyn for healthcare associated pneumonias he was recently discharged from [facility] in October. He was also started on phenobarbital for alcohol withdrawal symptoms. He will be admitted for further management and treatment of chest pain and alcohol withdrawal. <Nona Adair NP - Last Filed: 12/16/21 16:51> Review of Systems Review of Systems: Denies any recent fever chills or decrease in appetite respiratory denies any shortness of breath coverage production cardiovascular is adjustment of any PND or edema gastrointestinal denies any dysphagia abdominal pain nausea vomiting or diarrhea genitourinary denies any dysuria frequency or hematuria musculoskeletal denies any joint pain or swelling neuropsych denies any weakness or seizures all other systems reviewed are negative <Nona Adair NP - Last Filed: 12/16/21 16:51> [facility] Medical History: Medical History Depression ETOH abuse Hypertension <Nona Adair NP - Last Filed: 12/16/21 16:51> Pertinent family history: unknown due to lethargy <Nona Adair NP - Last Filed: 12/16/21 16:51> Social History: Social History Household Members: None Housing: House Do you presently have visiting nurse or other home services: No Alcohol intake: never Patient Tobacco Use Status: Current everyday Tobacco user Tobacco use type: Cigarette Cigarette Packs Per Day: 1 Cigarettes Per Day: 20.0 Smoked in Last 30 Days: Yes Patient Interested in Nicotine Replacement: No Patient Given Instructions on How to Stop Smoking: Yes Date Education Initiated: 12/16/21 Use of substances other than those prescribed or required for medical reasons: No Substance Use Type: IV Drugs Currently Displaying Signs/Symptoms of Drug Intoxication Withdrawal: No Have you been hit, kicked, punched, or otherwise hurt by someone within the past year? If so, by whom?: No Do you feel safe in your current relationship?: No Current Relationship Is there a partner from a previous relationship who is making you feel unsafe now?: No Are you made to feel afraid or neglected: No Advance Directives: No Advance Directives Information Provided: No Do you have thoughts of harming others: None Do you have a plan to hurt others: No Plan Recently lost weight without trying: Unsure Nutrition Risks: No Nutritional Risk service: No Current occupational status: unemployed <Nona Adair NP - Last Filed: 12/16/21 16:51> Meds Allergies/Adverse reactions: Allergies Allergy/AdvReac Type Severity Reaction Status Date / Time seafood Allergy Anaphylaxis Verified 07/15/21 11:32 <Nona Adair NP - Last Filed: 12/16/21 16:51> Active Medications: Current Medications Pharmacy Consult (Consult Rx Perform Med Rec) 1 each MISCELLANE ONCE PRN PRN Reason: Consult order Pharmacy Consult (Consult Rx Etoh Phenob Po Dose) 1 each MISCELLANE ONCE PRN; Protocol PRN Reason: Consult order Phenobarbital 200 mg/ (Phenobarbital 15 mg) 215 mg PO ONCE ONE; Protocol Stop: 12/16/21 15:01 Phenobarbital 100 mg/ (Phenobarbital 60 mg) 160 mg PO Q3H AMARI; Protocol Stop: 12/16/21 21:01 Phenobarbital (Phenobarbital 15 Mg Tablet) 45 mg PO BID [facility]I; Protocol Stop: 12/18/21 21:01 Phenobarbital (Phenobarbital 15 Mg Tablet) 15 mg PO BID [facility]; Protocol Stop: 12/20/21 21:01 Phenobarbital (Phenobarbital 15 Mg Tablet) 15 mg PO DAILY [facility]; Protocol Stop: 12/22/21 09:01 <Nona Adair NP - Last Filed: 12/16/21 16:51> Home medications: Home Medications Medication Instructions Recorded Confirmed Last Taken Type amlodipine 2.5 mg tablet 1 tab PO DAILY 10/18/21 12/16/21 Unknown History losartan 100 1 tab PO DAILY 12/16/21 12/16/21 Unknown History mg-hydrochlorothiazide 12.5 mg tablet <Nona Adair NP - Last Filed: 12/16/21 16:51> Physical Exam Vital Signs and Narrative: Vital Signs: Last Vital Signs Temp 99 F 12/16/21 12:43 Pulse 89 12/16/21 14:34 Resp 12 12/16/21 14:34 BP 184/117 H 12/16/21 14:34 Pulse Ox 98 12/16/21 14:34 BMI result Body Mass Index 33.0 <Nona Adair NP - Last Filed: 12/16/21 16:51> Appearing in no acute distress head is normocephalic atraumatic eyes pupils are PERRLA sclera is anicteric mouth throat mucous membranes are intact and moist neck is supple no lymphadenopathy, no JVD noted lung sounds are clear to auscultation heart regular rate rhythm, clear S1, S2 positive bowel sounds, abdomen is soft, nontender neuro patient is alert x3, no focal deficits <Nona Adair NP - Last Filed: 12/16/21 16:51> Results Labs CBC and Chem 7: : 12/17/21 07:09 12/17/21 10:14 <Nona Adair NP - Last Filed: 12/16/21 16:51> Labs: Laboratory Results - last 24 hr 12/16/21 12/16/21 12/16/21 10:05 10:05 10:05 MCV 95.6 MCH 31.0 MCHC 32.4 RDW 16.0 Plt Count 198 MPV 10.1 Immature Gran % (Auto) 0.4 Neut % (Auto) 71.2 Lymph % (Auto) 12.2 L [place] % (Auto) 13.6 H Eos % (Auto) 2.1 Baso % (Auto) 0.5 Lymph # (Auto) 1.0 L [place] # (Auto) 1.1 Eos # (Auto) 0.2 Baso # (Auto) 0.0 Abs Immat Gran (auto) 0.03 Absolute Neuts (auto) 5.5 Absolute Nucleated RBC 0.000 Nucleated RBC % (auto) 0.0 PT INR Anion Gap 17 Estim Creat Clear Calc 92.0 Estimated GFR > 60 Random Glucose 92 Lactic Acid Calcium 9.4 D Magnesium Total Bilirubin 0.6 Direct Bilirubin AST 100 H ALT 94 H Alkaline Phosphatase 66 Total Creatine Kinase Troponin I High Sens 189.6 H* D B-Natriuretic Peptide Total Protein 7.3 Albumin 4.4 Lipase Ethyl Alcohol COVID-19 (BRENDA) COVID-19 Clin Com Influenza Type A (TARA) Influenza Type B (TARA) Influenza A & B Note 12/16/21 12/16/21 12/16/21 10:05 10:51 10:51 MCV MCH MCHC RDW Plt Count MPV Immature Gran % (Auto) Neut % (Auto) Lymph % (Auto) [place] % (Auto) Eos % (Auto) Baso % (Auto) Lymph # (Auto) [place] # (Auto) Eos # (Auto) Baso # (Auto) Abs Immat Gran (auto) Absolute Neuts (auto) Absolute Nucleated RBC Nucleated RBC % (auto) PT 11.9 INR 1.0 Anion Gap Estim Creat Clear Calc Estimated GFR Random Glucose Lactic Acid Calcium Magnesium 1.6 Total Bilirubin 0.6 Direct Bilirubin 0.2 AST 103 H ALT 94 H Alkaline Phosphatase 65 Total Creatine Kinase 144 Troponin I High Sens B-Natriuretic Peptide Total Protein 7.5 Albumin 4.4 Lipase 45 Ethyl Alcohol COVID-19 (BRENDA) Negative COVID-19 Clin Com See Note Influenza Type A (TARA) Influenza Type B (TARA) Influenza A & B Note 12/16/21 12/16/21 12/16/21 10:51 10:51 10:51 MCV MCH MCHC RDW Plt Count MPV Immature Gran % (Auto) Neut % (Auto) Lymph % (Auto) [place] % (Auto) Eos % (Auto) Baso % (Auto) Lymph # (Auto) [place] # (Auto) Eos # (Auto) Baso # (Auto) Abs Immat Gran (auto) Absolute Neuts (auto) Absolute Nucleated RBC Nucleated RBC % (auto) PT INR Anion Gap Estim Creat Clear Calc Estimated GFR Random Glucose Lactic Acid 1.5 Calcium Magnesium Total Bilirubin Direct Bilirubin AST ALT Alkaline Phosphatase Total Creatine Kinase Troponin I High Sens B-Natriuretic Peptide 319 H Total Protein Albumin Lipase Ethyl Alcohol < 10 COVID-19 (BRENDA) COVID-19 Clin Com Influenza Type A (TARA) Influenza Type B (TARA) Influenza A & B Note 12/16/21 12/16/21 10:51 12:52 MCV MCH MCHC RDW Plt Count MPV Immature Gran % (Auto) Neut % (Auto) Lymph % (Auto) [place] % (Auto) Eos % (Auto) Baso % (Auto) Lymph # (Auto) [place] # (Auto) Eos # (Auto) Baso # (Auto) Abs Immat Gran (auto) Absolute Neuts (auto) Absolute Nucleated RBC Nucleated RBC % (auto) PT INR Anion Gap Estim Creat Clear Calc Estimated GFR Random Glucose Lactic Acid Calcium Magnesium Total Bilirubin Direct Bilirubin AST ALT Alkaline Phosphatase Total Creatine Kinase Troponin I High Sens 178.8 H* B-Natriuretic Peptide Total Protein Albumin Lipase Ethyl Alcohol COVID-19 (BRENDA) COVID-19 Clin Com Influenza Type A (TARA) Negative Influenza Type B (TARA) Negative Influenza A & B Note See Note <Nona Adair NP - Last Filed: 12/16/21 16:51> Imaging Radiologist's Impressions: Impressions Chest X-Ray 12/16/21 10:47 IMPRESSION: Subtle groundglass opacities suspected right infrahilar region. No effusion. <Nona Adair NP - Last Filed: 12/16/21 16:51> Assessment and Plan (1) Pneumonia: Status: Acute <Nona Adair NP - Last Filed: 12/16/21 16:51> Plan 51 year old man admitted with chest pain and elevated troponins as well as early alcohol withdrawal Chest pain Elevated troponins, flat, cardiology where possibly secondary to hypertension versus cocaine No ischemic changes on EKG Recheck troponin morning Cardiology consultation Monitor on telemetry Healthcare associated pneumonia versus aspiration. Recent admission in October Treat with vanco and Zosyn Supplemental oxygen as needed Follow cultures Alcohol withdrawal. Drowsy after Ativan Started on phenobarbital Multivitamin, folic acid and thiamine Hypertension Worsened with withdrawal symptoms Continue losartan, hydrochlorothiazide, metoprolol and amlodipine Opiate abuse Continue Suboxone Clonidine and morphine p.r.n. Asthma No exacerbation Continue albuterol as needed Normocytic anemia Likely has some form of liver disease No bleeding Trend CBC Transaminitis. Chronic alcohol use Trend DVT prophylaxis with heparin Attending Dr. Hernandez Full code Patient likely requires 2 midnights in the hospital For treatment of healthcare associated pneumonia necessitating IV antibiotics, alcohol withdrawal symptoms requiring phenobarbital and close monitoring <Nona Adair NP - Last Filed: 12/16/21 16:51> Quality Stroke Does the patient have a stroke diagnosis?: No <Nona Adair NP - Last Filed: 12/16/21 16:51> VTE Prior VTE?: No <Nona Adair NP - Last Filed: 12/16/21 16:51> VTE Risk Level:: Medical - moderate - high <Nona Adair NP - Last Filed: 12/16/21 16:51> VTE Device Contraindication: Treatment Not Indicated <Nona Adair NP - Last Filed: 12/16/21 16:51> VTE Drug Contraindication: N/A - Med Ordered <Nona Adair NP - Last Filed: 12/16/21 16:51>
--- NOTE | 2021-12-16 15:23 | PC.NURSE ---
pt sleeping, 97% on 2lpm via nc
[2021-12-16] MEDS: PHENobarbitaL 200 MG, PHENobarbitaL 15 MG 215 MG PO (15:41)
[2021-12-16 15:43] VITALS: BP 186/107; PULSE 75; RESP 10; O2SAT 98
--- NOTE | 2021-12-16 17:32 | PHA.PROG ---
Admission Date/Time: December 16, 2021 16:16 Indication: Respiratory Weight in k.024 kg Adjusted body weight in Kg: Spearman body weight in K.6 Obesity Dosing Indication % IBW: 50% Serum Creatinine - Last 168 Hours 12/16/21 10:05 Creatinine 0.89 Estimated CrCl and GFR - Last 168 Hours 12/16/21 10:05 Estim Creat Clear Calc 92.0 Estimated GFR > 60 Vancomycin Loading Dose: 1500mg x 1 Current Vancomycin Dosing Regimen: 750mg Q12H Vancomycin Monitoring using AUC goal of 400 - 600 range with trough as surrogate marker: 429mg/L Date and Time for next Vancomycin Level to be drawn: 12/17/21 @1600 Pharmacist Comments on Vancomycin Plan: Using obese model, will continue to monitor renal function Vancomycin dosing will take advantage of [employer] as a clinical decision support tool that uses Bayesian modeling to calculate individual patient's pharmacokinetic parameters and forecast the patient's drug concentration time course with the target goal AUC 24 range of 400 - 600 mg/L/hr.
[2021-12-16] MEDS: PHENobarbitaL 100 MG, PHENobarbitaL 60 MG 160 MG PO ×2 (18:09→22:14)
[2021-12-16] MEDS: predniSONE 20 MG TABLET 40 MG PO (18:09)
[2021-12-16] MEDS: Enoxaparin Sodium 40 MG/0.4 ML SYRINGE SUBCUT (18:10)
[2021-12-16] MEDS: vancomycin HCL 1,500 MG in 0.9 % Sodium Chloride 500 ML 333.33 MG IV (18:10)
[2021-12-16 21:59] VITALS: BP 156/74; PULSE 77; RESP 18; TEMP 36.3; O2SAT 97
[2021-12-16] MEDS: Ampicillin Sodium/Sulbactam Na 1.5 GM in 0.9 % Sodium Chloride 100 ML IV (22:00)
[2021-12-16 22:04] VITALS: BMI 32.5
[2021-12-16] MEDS: Buprenorphine/Naloxone 8/2 mg FILM 1 FILM SUBLINGUAL (22:14)
[2021-12-16] MEDS: cloNIDine HCL 0.1 MG TABLET PO (22:15)
[2021-12-16] MEDS: 0.9 % Sodium Chloride Flush 3 ML SYRINGE IVFLUSH (22:15)
[2021-12-17] VITALS (8 sets, daily range): BP systolic 170–188; BP diastolic 81–105; PULSE 64–90; RESP 16–20; TEMP 36.4–37.4; O2SAT 92–100; BMI 32.8
[2021-12-17] MEDS: Ampicillin Sodium/Sulbactam Na 1.5 GM in 0.9 % Sodium Chloride 100 ML IV ×4 (01:00→18:20)
[2021-12-17 01:48] LABS: Appearance Urine CLEAR; Color Urine YELLOW; Glucose Urine UA NEG (NEG); Leukocyte Esterase Urine NEG (NEG); Nitrite Urine NEG (NEG); Specific Gravity - Urine >= 1.030 (1.005-1.025); UACC Culture Trigger NO; Urine Blood TRACE (NEG); Urine Ketones 15 MG/DL (NEG); Urine Protein 2+ MG/DL (NEG-TRACE)
[2021-12-17 01:56] LABS: Bacteria Urine 1+ /LPF; Squamous Epithelial Cell Urine 1+ /LPF
[2021-12-17 02:07] LABS: Amphetamine Screen Urine Not Detected (Not Detect); Barbiturates, Urine POSITIVE (Not Detect); Benzodiazepines Screen Urine Not Detected (Not Detect); Cannabinoid Screen Urine Not Detected (Not Detect); Cocaine Screen Urine POSITIVE (Not Detect); Fentanyl, urine POSITIVE (Not Detect); Opiate Screen Urine POSITIVE (Not Detect); Phencyclidine Screen Urine Not Detected (Not Detect)
[2021-12-17] MEDS: vancomycin HCL 750 MG in 0.9 % Sodium Chloride 250 ML 265 MG IV (05:05)
--- NOTE | 2021-12-17 05:09 | PC.NURSE ---
UA and tox screen collected at 0130. Sent down to lab who received urine, but also documented receiving all labs for 12/17 (BMP, CBC, Trop, Vanco trough) at 0130. Lab notified and unreceived all labs. All previously scheduled labs still ordered for today. Pt chart still shows pending results for BMP, CBC, etc. for 0130, but no actual labs were drawn at this time.
[2021-12-17 07:35] LABS: Basophils Percent Auto 0.3 % (0-2); Hematocrit 39.4 % (42.0-52.0); Imm Gran Abs Auto 0.01 X10*3/uL (0.00-0.03); Imm Gran Pct Auto 0.2 % (0.0-0.4); Lymphocytes Absolute Auto 0.9 X10*3/uL (1.2-4.9); Lymphocytes Percent Auto 14.3 % (20-40); Mean Corpuscular Hemoglobin 30.7 pg (27.0-33.0); Mean Corpuscular Volume 93.1 fL (80.0-98.0); Mean Platelet Volume 10.1 fL (9.4-12.4); Monocytes Absolute Auto 0.4 X10*3/uL (0.1-1.2); Monocytes Percent Auto 6.7 % (2-11); Neutrophils Absolute Auto 4.8 x10*3/uL (2.0-8.3); Neutrophils Percent Auto 78.5 % (45-73); Platelet Count 193 X10*3/uL (160-400); Red Blood Count 4.23 X10*6/uL (4.60-5.80); Red Cell Distribution Width 14.7 % (11.0-16.0); White Blood Count 6.1 X10*3/uL (4.8-10.8)
[2021-12-17 07:45] LABS: MANUAL DIFF FLAG NO
[2021-12-17 07:58] LABS: Troponin-I High Sensitivity 61.8 ng/L (<3.5-35.0)
[2021-12-17] MEDS: 0.9 % Sodium Chloride Flush 3 ML SYRINGE IVFLUSH ×3 (09:16→21:38)
[2021-12-17] MEDS: Multivitamin TABLET 1 TAB PO (09:17)
[2021-12-17] MEDS: Buprenorphine/Naloxone 8/2 mg FILM 1 FILM SUBLINGUAL ×2 (09:17→21:37)
[2021-12-17] MEDS: Folic Acid 1 MG TABLET PO (09:18)
[2021-12-17] MEDS: predniSONE 20 MG TABLET 40 MG PO (09:18)
[2021-12-17] MEDS: amLODIPine Besylate 2.5 MG TABLET PO ×2 (09:18→13:48)
[2021-12-17] MEDS: Losartan Potassium 50 MG TABLET 100 MG PO (09:18)
[2021-12-17] MEDS: PHENobarbitaL 15 MG TABLET 45 MG PO ×2 (09:18→21:38)
[2021-12-17] MEDS: Thiamine HCL 100 MG TABLET PO (09:19)
[2021-12-17] MEDS: Metoprolol Succinate ER 50 MG TAB.ER.24H PO (09:19)
[2021-12-17] MEDS: cloNIDine HCL 0.1 MG TABLET PO ×3 (09:19→21:37)
[2021-12-17] MEDS: hydroCHLOROthiazide 12.5 MG TABLET PO (09:19)
[2021-12-17] MEDS: Acetaminophen 325 MG TABLET 650 MG PO (09:23)
[2021-12-17 10:37] LABS: Anion Gap 11 (12-20); Blood Urea Nitrogen 19 mg/dL (9-16); Calcium 8.9 mg/dL (8.4-10.2); Carbon Dioxide 33 mmol/L (22-29); Chloride 94 mmol/L (96-108); Creatinine Clr Calc Pharmacy 110.2; Estimated Glomerular Filt Rate > 60; Glucose Random 158 mg/dL (60-115); Potassium 4.3 mmol/L (3.3-5.1); Sodium 134 mmol/L (135-145)
[2021-12-17 10:38] LABS: Alanine Aminotransferase 65 U/L (0-40); Albumin Level 3.8 g/dL (3.5-5.0); Alkaline Phosphatase 62 U/L (39-117); Aspartate Amino Transferase 53 U/L (5-37); Bilirubin Direct 0.4 mg/dL (0.0-0.5); Bilirubin Total 0.9 mg/dL (0.0-1.0); Magnesium 1.8 mg/dL (1.6-2.6); Total Protein 6.6 g/dL (6.5-8.0)
--- NOTE | 2021-12-17 10:58 | P.CONCA_ITS ---
History of Present Illness History of Present Illness Date of Service: 12/17/21 Requesting physician: Nona Adair Consult reason: troponin elevation Chief complaint: elevated troponin, alcohol withdrawal Narrative: I was consulted to see Kalin in cardiology consultation due to abnormal troponin on admission. Troponins have down trended. Patient reported history of chest pain but currently is sedated and groggy and does not provide any history. When I woke him up and asked him if he was having chest pain, he said he was not having any chest pain currently. His blood pressure remains elevated. Unfortunately has polysubstance abuse disorder with heavy alcohol use in is currently getting CIWA protocol and sedation. Appears drowsy but arousable. Unfortunately he has U tox is also positive for cocaine and heroin. He is on Suboxone program. He has prior history of acute kidney injury and hyperkalemia. Currently getting amlodipine 2.5, hydrochlorothiazide 12.5 and losartan 100 mg. Appropriately not getting any beta-blockers. Not able to obtain any history from him unfortunately. Three obtained from the chart Review of Systems Review of Systems: Yes Unobtainable due to mental status PMFSH Past Medical History Medical History Depression ETOH abuse Hypertension Social History Social History Household Members: None Housing: House Do you presently have visiting nurse or other home services: No Alcohol intake: never Patient Tobacco Use Status: Current everyday Tobacco user Tobacco use type: Cigarette Cigarette Packs Per Day: 1 Cigarettes Per Day: 20.0 Smoked in Last 30 Days: Yes Patient Interested in Nicotine Replacement: No Patient Given Instructions on How to Stop Smoking: Yes Date Education Initiated: 12/16/21 Use of substances other than those prescribed or required for medical reasons: No Substance Use Type: IV Drugs Currently Displaying Signs/Symptoms of Drug Intoxication Withdrawal: No Have you been hit, kicked, punched, or otherwise hurt by someone within the past year? If so, by whom?: No Do you feel safe in your current relationship?: No Current Relationship Is there a partner from a previous relationship who is making you feel unsafe now?: No Are you made to feel afraid or neglected: No Advance Directives: No Advance Directives Information Provided: No Do you have thoughts of harming others: None Do you have a plan to hurt others: No Plan Recently lost weight without trying: Unsure Nutrition Risks: No Nutritional Risk service: No Current occupational status: unemployed Meds Allergies Allergy/AdvReac Type Severity Reaction Status Date / Time seafood Allergy Anaphylaxis Verified 07/15/21 11:32 Active Medications: Current Medications Acetaminophen (Acetaminophen 325 Mg Tablet) 650 mg PO Q6H PRN PRN Reason: Pain, Mild (Pain Scale 1-3) Last Admin: 12/17/21 09:23 Dose: 650 mg Documented by: Albuterol Sulfate (Albuterol Sulfate 90 Mcg 8 Gm Inhaler) 2 puff INHALE Q6H PRN PRN Reason: shortness of breath or wheezing Amlodipine Besylate (Amlodipine Besylate 2.5 Mg Tablet) 2.5 mg PO DAILY [facility]; Protocol Last Admin: 12/17/21 09:18 Dose: 2.5 mg Documented by: Buprenorphine/Naloxone (Buprenorphine/Naloxone 8/2 Mg Film) 1 film SUBLINGUAL BID [facility] Last Admin: 12/17/21 09:17 Dose: 1 film Documented by: Clonidine HCl (Clonidine Hcl 0.1 Mg Tablet) 0.1 mg PO TID [facility]; Protocol Last Admin: 12/17/21 09:19 Dose: 0.1 mg Documented by: Enoxaparin Sodium (Enoxaparin Sodium 40 Mg/0.4 Ml Syringe) 40 mg SUBCUT Q24H [facility] Last Admin: 12/16/21 18:10 Dose: 40 mg Documented by: Folic Acid (Folic Acid 1 Mg Tablet) 1 mg PO DAILY [facility] Last Admin: 12/17/21 09:18 Dose: 1 mg Documented by: Hydrochlorothiazide (Hydrochlorothiazide 12.5 Mg Tablet) 12.5 mg PO DAILY [facility] Last Admin: 12/17/21 09:19 Dose: 12.5 mg Documented by: Ampicillin Sodium/Sulbactam (Sodium 1.5 gm/ Sodium Chloride) 100 mls @ 200 mls/hr IV Q6H [facility] Last Infusion: 12/17/21 06:40 Dose: Infused Documented by: Losartan Potassium (Losartan Potassium 50 Mg Tablet) 100 mg PO DAILY [facility] Last Admin: 12/17/21 09:18 Dose: 100 mg Documented by: Metoprolol Succinate (Metoprolol Succinate Er 50 Mg Tab.Er.24h) 50 mg PO DAILY [facility]; Protocol Last Admin: 12/17/21 09:19 Dose: 50 mg Documented by: Multivitamins/Vitamin C (Multivitamin Tablet) 1 tab PO DAILY [facility] Last Admin: 12/17/21 09:17 Dose: 1 tab Documented by: Ondansetron HCl (Ondansetron Hcl 4 Mg/2 Ml Vial) 4 mg IVPUSH Q8H PRN PRN Reason: Nausea and Vomiting Pharmacy Consult (Consult Rx Perform Med Rec) 1 each MISCELLANE ONCE PRN PRN Reason: Consult order Pharmacy Consult (Consult Rx Etoh Phenob Po Dose) 1 each MISCELLANE ONCE PRN; Protocol PRN Reason: Consult order Pharmacy Consult (Consult Rx Vancomycin Dosing) 1 each MISCELLANE DAILY PRN PRN Reason: Consult order Phenobarbital (Phenobarbital 15 Mg Tablet) 45 mg PO BID [facility]; Protocol Stop: 12/18/21 21:01 Last Admin: 12/17/21 09:18 Dose: 45 mg Documented by: Phenobarbital (Phenobarbital 15 Mg Tablet) 15 mg PO BID [facility]; Protocol Stop: 12/20/21 21:01 Phenobarbital (Phenobarbital 15 Mg Tablet) 15 mg PO DAILY [facility]; Protocol Stop: 12/22/21 09:01 Prednisone (Prednisone 20 Mg Tablet) 40 mg PO DAILY [facility] Last Admin: 12/17/21 09:18 Dose: 40 mg Documented by: Sodium Chloride (0.9 % Sodium Chloride Flush 3 Ml Syringe) 3 ml IVFLUSH QSHIFT [facility] Last Admin: 12/17/21 09:16 Dose: 3 ml Documented by: Thiamine HCl (Thiamine Hcl 100 Mg Tablet) 100 mg PO DAILY [facility] Last Admin: 12/17/21 09:19 Dose: 100 mg Documented by: Home Medications Medication Instructions Recorded Confirmed Last Taken Type amlodipine 2.5 mg tablet 1 tab PO DAILY 10/18/21 12/16/21 Unknown History losartan 100 1 tab PO DAILY 12/16/21 12/16/21 Unknown History mg-hydrochlorothiazide 12.5 mg tablet Physical Exam Vital Signs: Vital Signs: Last Vital Signs Temp 98.0 F 12/17/21 07:48 Pulse 79 12/17/21 07:48 Resp 18 12/17/21 07:48 BP 180/81 H 12/17/21 07:48 Pulse Ox 98 12/17/21 07:48 BMI result Body Mass Index 32.8 Const: General: no acute distress and lethargic (But arousable) Nutritional Appearance: average body habitus Orientation/consciousness: lethargic (But arousable) HEENT: Head: Yes normocephalic and Yes atraumatic Neck: Neck: Yes trachea midline, Yes supple and Yes no JVD Resp: Effort & Inspection: decreased respiratory effort Auscultation: wheezes and bronchovesicular breath sounds Cardio: Jugular venous distension: no JVD Palpation: normal PMI Rate: regular rate Rhythm: regular rhythm Heart sounds: S1 normal heart sound present, S2 normal heart sound present, no click, no gallops, no murmurs and no rubs GI: Auscultation: normal bowel sounds Skin: General skin exam: no rashes or lesions noted Neuro: General: no focal motor deficits Extrem: General: Yes no clubbing, cyanosis or edema Objective Labs and Meds Result diagrams: 12/17/21 07:09 12/17/21 10:14 Lab results: Laboratory Results - last 24 hr 12/16/21 12/16/21 12/16/21 10:51 10:51 10:51 WBC RBC Hgb Hct MCV MCH MCHC RDW Plt Count MPV Immature Gran % (Auto) Neut % (Auto) Lymph % (Auto) [place] % (Auto) Eos % (Auto) Baso % (Auto) Lymph # (Auto) [place] # (Auto) Eos # (Auto) Baso # (Auto) Abs Immat Gran (auto) Absolute Neuts (auto) Absolute Nucleated RBC Nucleated RBC % (auto) PT 11.9 INR 1.0 Sodium Potassium Chloride Carbon Dioxide Anion Gap BUN Creatinine Estim Creat Clear Calc Estimated GFR Random Glucose Lactic Acid 1.5 Calcium Magnesium 1.6 Total Bilirubin 0.6 Direct Bilirubin 0.2 AST 103 H ALT 94 H Alkaline Phosphatase 65 Total Creatine Kinase 144 Troponin I High Sens B-Natriuretic Peptide Total Protein 7.5 Albumin 4.4 Lipase 45 Urine Color Urine Appearance Urine pH Ur Specific [place] Urine Protein Urine Glucose (UA) Urine Ketones Urine Blood Urine Nitrite Ur Leukocyte Esterase Urine RBC Urine WBC Ur Squamous Epith Cells Urine Bacteria Urine Opiates Screen Urine Fentanyl Screen Ur Barbiturates Screen Ur Phencyclidine Scrn Ur Amphetamines Screen U Benzodiazepines Scrn Urine Cocaine Screen U Marijuana (THC) Screen Ethyl Alcohol Influenza Type A (TARA) Influenza Type B (TARA) Influenza A & B Note 12/16/21 12/16/2112/16/22 10:51 10:51 10:51 WBC RBC Hgb Hct MCV MCH MCHC RDW Plt Count MPV Immature Gran % (Auto) Neut % (Auto) Lymph % (Auto) [place] % (Auto) Eos % (Auto) Baso % (Auto) Lymph # (Auto) [place] # (Auto) Eos # (Auto) Baso # (Auto) Abs Immat Gran (auto) Absolute Neuts (auto) Absolute Nucleated RBC Nucleated RBC % (auto) PT INR Sodium Potassium Chloride Carbon Dioxide Anion Gap BUN Creatinine Estim Creat Clear Calc Estimated GFR Random Glucose Lactic Acid Calcium Magnesium Total Bilirubin Direct Bilirubin AST ALT Alkaline Phosphatase Total Creatine Kinase Troponin I High Sens B-Natriuretic Peptide 319 H Total Protein Albumin Lipase Urine Color Urine Appearance Urine pH Ur Specific [place] Urine Protein Urine Glucose (UA) Urine Ketones Urine Blood Urine Nitrite Ur Leukocyte Esterase Urine RBC Urine WBC Ur Squamous Epith Cells Urine Bacteria Urine Opiates Screen Urine Fentanyl Screen Ur Barbiturates Screen Ur Phencyclidine Scrn Ur Amphetamines Screen U Benzodiazepines Scrn Urine Cocaine Screen U Marijuana (THC) Screen Ethyl Alcohol < 10 Influenza Type A (TARA) Negative Influenza Type B (TARA) Negative Influenza A & B Note See Note 12/16/21 12/17/21 12/17/21 12:52 01:30 01:30 WBC RBC Hgb Hct MCV MCH MCHC RDW Plt Count MPV Immature Gran % (Auto) Neut % (Auto) Lymph % (Auto) [place] % (Auto) Eos % (Auto) Baso % (Auto) Lymph # (Auto) [place] # (Auto) Eos # (Auto) Baso # (Auto) Abs Immat Gran (auto) Absolute Neuts (auto) Absolute Nucleated RBC Nucleated RBC % (auto) PT INR Sodium Potassium Chloride Carbon Dioxide Anion Gap BUN Creatinine Estim Creat Clear Calc Estimated GFR Random Glucose Lactic Acid Calcium Magnesium Total Bilirubin Direct Bilirubin AST ALT Alkaline Phosphatase Total Creatine Kinase Troponin I High Sens 178.8 H* B-Natriuretic Peptide Total Protein Albumin Lipase Urine Color YELLOW Urine Appearance CLEAR Urine pH 6.0 Ur Specific [place] >= 1.030 H Urine Protein 2+ H Urine Glucose (UA) NEG Urine Ketones 15 Urine Blood TRACE Urine Nitrite NEG Ur Leukocyte Esterase NEG Urine RBC 1-4 Urine WBC 1-4 Ur Squamous Epith Cells 1+ Urine Bacteria 1+ Urine Opiates Screen POSITIVE H Urine Fentanyl Screen POSITIVE H Ur Barbiturates Screen POSITIVE H Ur Phencyclidine Scrn Not Detected Ur Amphetamines Screen Not Detected U Benzodiazepines Scrn Not Detected Urine Cocaine Screen POSITIVE H U Marijuana (THC) Screen Not Detected Ethyl Alcohol Influenza Type A (TARA) Influenza Type B (TARA) Influenza A & B Note 12/17/21 12/17/21 12/17/21 07:09 07:09 10:14 WBC 6.1 RBC 4.23 L Hgb 13.0 L Hct 39.4 L MCV 93.1 MCH 30.7 MCHC 33.0 RDW 14.7 Plt Count 193 MPV 10.1 Immature Gran % (Auto) 0.2 Neut % (Auto) 78.5 H Lymph % (Auto) 14.3 L [place] % (Auto) 6.7 Eos % (Auto) 0.0 Baso % (Auto) 0.3 Lymph # (Auto) 0.9 L [place] # (Auto) 0.4 Eos # (Auto) 0.0 Baso # (Auto) 0.0 Abs Immat Gran (auto) 0.01 Absolute Neuts (auto) 4.8 Absolute Nucleated RBC 0.000 Nucleated RBC % (auto) 0.0 PT INR Sodium Potassium Chloride Carbon Dioxide Anion Gap BUN Creatinine Estim Creat Clear Calc Estimated GFR Random Glucose Lactic Acid Calcium Magnesium 1.8 Total Bilirubin 0.9 Direct Bilirubin 0.4 AST 53 H ALT 65 H Alkaline Phosphatase 62 Total Creatine Kinase Troponin I High Sens 61.8 H D B-Natriuretic Peptide Total Protein 6.6 Albumin 3.8 Lipase Urine Color Urine Appearance Urine pH Ur Specific [place] Urine Protein Urine Glucose (UA) Urine Ketones Urine Blood Urine Nitrite Ur Leukocyte Esterase Urine RBC Urine WBC Ur Squamous Epith Cells Urine Bacteria Urine Opiates Screen Urine Fentanyl Screen Ur Barbiturates Screen Ur Phencyclidine Scrn Ur Amphetamines Screen U Benzodiazepines Scrn Urine Cocaine Screen U Marijuana (THC) Screen Ethyl Alcohol Influenza Type A (TARA) Influenza Type B (TARA) Influenza A & B Note 12/17/21 10:14 WBC RBC Hgb Hct MCV MCH MCHC RDW Plt Count MPV Immature Gran % (Auto) Neut % (Auto) Lymph % (Auto) [place] % (Auto) Eos % (Auto) Baso % (Auto) Lymph # (Auto) [place] # (Auto) Eos # (Auto) Baso # (Auto) Abs Immat Gran (auto) Absolute Neuts (auto) Absolute Nucleated RBC Nucleated RBC % (auto) PT INR Sodium 134 L Potassium 4.3 Chloride 94 L Carbon Dioxide 33 H Anion Gap 11 L BUN 19 H Creatinine 0.74 Estim Creat Clear Calc 110.2 Estimated GFR > 60 Random Glucose 158 H D Lactic Acid Calcium 8.9 Magnesium Total Bilirubin Direct Bilirubin AST ALT Alkaline Phosphatase Total Creatine Kinase Troponin I High Sens B-Natriuretic Peptide Total Protein Albumin Lipase Urine Color Urine Appearance Urine pH Ur Specific [place] Urine Protein Urine Glucose (UA) Urine Ketones Urine Blood Urine Nitrite Ur Leukocyte Esterase Urine RBC Urine WBC Ur Squamous Epith Cells Urine Bacteria Urine Opiates Screen Urine Fentanyl Screen Ur Barbiturates Screen Ur Phencyclidine Scrn Ur Amphetamines Screen U Benzodiazepines Scrn Urine Cocaine Screen U Marijuana (THC) Screen Ethyl Alcohol Influenza Type A (TARA) Influenza Type B (TARA) Influenza A & B Note EKG shows no ischemic changes Imaging Radiologist's impression: Impressions Chest X-Ray 12/16/21 10:47 IMPRESSION: Subtle groundglass opacities suspected right infrahilar region. No effusion. Assessment and Plan (1) Elevated troponin: Status: Acute Elevated troponin on presentation with down trending troponin suggestive myocardial injury. This appears to be most likely related to acute hypertension. His chest pain could also be explained by his acute hypertension. Also could be related to NSTEMI related to cocaine use. This is unclear from his history. Patient not able to provide much history. I would suggest to get an echocardiogram. If there are no significant regional wall motion abnormality in LV function is normal, would treat him medically with a aggressive blood pressure control. I do not think there is role for IV heparin at this point time. Low-dose aspirin and statin therapy should be considered. Could not have much discussion with him regarding his risk factor modification especially complete abstinence from cocaine use which can cause myocardial necrosis and myocardial infarction. This probably needs to be addressed with him once he is more awake and communicated. Will follow with you if echocardiogram is abnormal. (2) Uncontrolled hypertension: Status: Acute Uncontrolled hypertension, not sure if this is a chronic problem. Up titrate amlodipine to 5 mg daily in rapidly uptitrated as needed. Can use IV hydralazine p.r.n. for blood pressure control. Avoid using beta-sheila given his continued use of cocaine. Continue losartan. Can also uptitrate hydrochlorothiazide. Better blood pressure control needs to be pursued. Will follow with you if need be. Procedures Date of Service Date of Service: 12/17/21
--- NOTE | 2021-12-17 11:54 | MHC.CM.PN ---
with jose met with pt who was very difficult to waqke up we did get thbat he has a ride home has joanne greenfield x 2 and has an md at [facility] [place] pt will hbe seen [facility] care team
--- NOTE | 2021-12-17 12:35 | HO.PM.IMPN ---
Subjective Subjective Date of Service: 12/17/21 Review of Systems Follow up chest pain, ETOH sleepy but feeling better no chest pain today Physical Exam Vital Signs: Vital Signs: Last Vital Signs Temp 98.0 F 12/17/21 11:33 Pulse 68 12/17/21 11:33 Resp 20 12/17/21 11:33 BP 185/105 H 12/17/21 11:33 Pulse Ox 97 12/17/21 11:33 BMI result Body Mass Index 32.8 Appearing in no acute distress lung sounds are clear to auscultation heart regular rate rhythm, clear S1, S2 positive bowel sounds, abdomen is soft, nontender neuro patient is alert x3, no focal deficits Objective Data Active Medications Acetaminophen (Acetaminophen 325 Mg Tablet) 650 mg PO Q6H PRN PRN Reason: Pain, Mild (Pain Scale 1-3) Last Admin: 12/17/21 09:23 Dose: 650 mg Documented by: ANDRES Albuterol Sulfate (Albuterol Sulfate 90 Mcg 8 Gm Inhaler) 2 puff INHALE Q6H PRN PRN Reason: shortness of breath or wheezing Amlodipine Besylate (Amlodipine Besylate 2.5 Mg Tablet) 2.5 mg PO DAILY [facility]; Protocol Last Admin: 12/17/21 09:18 Dose: 2.5 mg Documented by: ANDRES Buprenorphine/Naloxone (Buprenorphine/Naloxone 8/2 Mg Film) 1 film SUBLINGUAL BID [facility] Last Admin: 12/17/21 09:17 Dose: 1 film Documented by: ANDRES Clonidine HCl (Clonidine Hcl 0.1 Mg Tablet) 0.1 mg PO TID [facility]; Protocol Last Admin: 12/17/21 09:19 Dose: 0.1 mg Documented by: ANDRES Enoxaparin Sodium (Enoxaparin Sodium 40 Mg/0.4 Ml Syringe) 40 mg SUBCUT Q24H [facility] Last Admin: 12/16/21 18:10 Dose: 40 mg Documented by: DANIELLE-NINFA Folic Acid (Folic Acid 1 Mg Tablet) 1 mg PO DAILY [facility] Last Admin: 12/17/21 09:18 Dose: 1 mg Documented by: ANDRES Hydrochlorothiazide (Hydrochlorothiazide 12.5 Mg Tablet) 12.5 mg PO DAILY [facility] Last Admin: 12/17/21 09:19 Dose: 12.5 mg Documented by: ANDRES Ampicillin Sodium/Sulbactam (Sodium 1.5 gm/ Sodium Chloride) 100 mls @ 200 mls/hr IV Q6H [facility] Last Infusion: 12/17/21 06:40 Dose: 0 mls/hr Documented by: ABEBA Losartan Potassium (Losartan Potassium 50 Mg Tablet) 100 mg PO DAILY [facility] Last Admin: 12/17/21 09:18 Dose: 100 mg Documented by: ANDRES Metoprolol Succinate (Metoprolol Succinate Er 50 Mg Tab.Er.24h) 50 mg PO DAILY [facility]; Protocol Last Admin: 12/17/21 09:19 Dose: 50 mg Documented by: ANDRES Multivitamins/Vitamin C (Multivitamin Tablet) 1 tab PO DAILY [facility] Last Admin: 12/17/21 09:17 Dose: 1 tab Documented by: ANDERS Ondansetron HCl (Ondansetron Hcl 4 Mg/2 Ml Vial) 4 mg IVPUSH Q8H PRN PRN Reason: Nausea and Vomiting Pharmacy Consult (Consult Rx Perform Med Rec) 1 each MISCELLANE ONCE PRN PRN Reason: Consult order Pharmacy Consult (Consult Rx Etoh Phenob Po Dose) 1 each MISCELLANE ONCE PRN; Protocol PRN Reason: Consult order Pharmacy Consult (Consult Rx Vancomycin Dosing) 1 each MISCELLANE DAILY PRN PRN Reason: Consult order Phenobarbital (Phenobarbital 15 Mg Tablet) 45 mg PO BID [facility]; Protocol Stop: 12/18/21 21:01 Last Admin: 12/17/21 09:18 Dose: 45 mg Documented by: ANDRES Phenobarbital (Phenobarbital 15 Mg Tablet) 15 mg PO BID [facility]; Protocol Stop: 12/20/21 21:01 Phenobarbital (Phenobarbital 15 Mg Tablet) 15 mg PO DAILY [facility]; Protocol Stop: 12/22/21 09:01 Prednisone (Prednisone 20 Mg Tablet) 40 mg PO DAILY [facility] Last Admin: 12/17/21 09:18 Dose: 40 mg Documented by: ANDRES Sodium Chloride (0.9 % Sodium Chloride Flush 3 Ml Syringe) 3 ml IVFLUSH QSHIFT [facility] Last Admin: 12/17/21 09:16 Dose: 3 ml Documented by: ANDRES Thiamine HCl (Thiamine Hcl 100 Mg Tablet) 100 mg PO DAILY [facility] Last Admin: 12/17/21 09:19 Dose: 100 mg Documented by: ANDRES Labs CBC & Chem 7: 12/17/21 07:09 12/17/21 10:14 Labs: Laboratory Results - last 24 hr 12/16/21 12/17/21 12/17/21 12:52 01:30 01:30 MCV MCH MCHC RDW Plt Count MPV Immature Gran % (Auto) Neut % (Auto) Lymph % (Auto) [place] % (Auto) Eos % (Auto) Baso % (Auto) Lymph # (Auto) [place] # (Auto) Eos # (Auto) Baso # (Auto) Abs Immat Gran (auto) Absolute Neuts (auto) Absolute Nucleated RBC Nucleated RBC % (auto) Anion Gap Estim Creat Clear Calc Estimated GFR Random Glucose Calcium Magnesium Total Bilirubin Direct Bilirubin AST ALT Alkaline Phosphatase Troponin I High Sens 178.8 H* Total Protein Albumin Urine Color YELLOW Urine Appearance CLEAR Urine pH 6.0 Ur Specific [place] >= 1.030 H Urine Protein 2+ H Urine Glucose (UA) NEG Urine Ketones 15 Urine Blood TRACE Urine Nitrite NEG Ur Leukocyte Esterase NEG Urine RBC 1-4 Urine WBC 1-4 Ur Squamous Epith Cells 1+ Urine Bacteria 1+ Urine Opiates Screen POSITIVE H Urine Fentanyl Screen POSITIVE H Ur Barbiturates Screen POSITIVE H Ur Phencyclidine Scrn Not Detected Ur Amphetamines Screen Not Detected U Benzodiazepines Scrn Not Detected Urine Cocaine Screen POSITIVE H U Marijuana (THC) Screen Not Detected 12/17/21 12/17/21 12/17/21 07:09 07:09 10:14 MCV 93.1 MCH 30.7 MCHC 33.0 RDW 14.7 Plt Count 193 MPV 10.1 Immature Gran % (Auto) 0.2 Neut % (Auto) 78.5 H Lymph % (Auto) 14.3 L [place] % (Auto) 6.7 Eos % (Auto) 0.0 Baso % (Auto) 0.3 Lymph # (Auto) 0.9 L [place] # (Auto) 0.4 Eos # (Auto) 0.0 Baso # (Auto) 0.0 Abs Immat Gran (auto) 0.01 Absolute Neuts (auto) 4.8 Absolute Nucleated RBC 0.000 Nucleated RBC % (auto) 0.0 Anion Gap Estim Creat Clear Calc Estimated GFR Random Glucose Calcium Magnesium 1.8 Total Bilirubin 0.9 Direct Bilirubin 0.4 AST 53 H ALT 65 H Alkaline Phosphatase 62 Troponin I High Sens 61.8 H D Total Protein 6.6 Albumin 3.8 Urine Color Urine Appearance Urine pH Ur Specific [place] Urine Protein Urine Glucose (UA) Urine Ketones Urine Blood Urine Nitrite Ur Leukocyte Esterase Urine RBC Urine WBC Ur Squamous Epith Cells Urine Bacteria Urine Opiates Screen Urine Fentanyl Screen Ur Barbiturates Screen Ur Phencyclidine Scrn Ur Amphetamines Screen U Benzodiazepines Scrn Urine Cocaine Screen U Marijuana (THC) Screen 12/17/21 10:14 MCV MCH MCHC RDW Plt Count MPV Immature Gran % (Auto) Neut % (Auto) Lymph % (Auto) [place] % (Auto) Eos % (Auto) Baso % (Auto) Lymph # (Auto) [place] # (Auto) Eos # (Auto) Baso # (Auto) Abs Immat Gran (auto) Absolute Neuts (auto) Absolute Nucleated RBC Nucleated RBC % (auto) Anion Gap 11 L Estim Creat Clear Calc 110.2 Estimated GFR > 60 Random Glucose 158 H D Calcium 8.9 Magnesium Total Bilirubin Direct Bilirubin AST ALT Alkaline Phosphatase Troponin I High Sens Total Protein Albumin Urine Color Urine Appearance Urine pH Ur Specific [place] Urine Protein Urine Glucose (UA) Urine Ketones Urine Blood Urine Nitrite Ur Leukocyte Esterase Urine RBC Urine WBC Ur Squamous Epith Cells Urine Bacteria Urine Opiates Screen Urine Fentanyl Screen Ur Barbiturates Screen Ur Phencyclidine Scrn Ur Amphetamines Screen U Benzodiazepines Scrn Urine Cocaine Screen U Marijuana (THC) Screen Assessment and Plan (1) Elevated troponin: Status: Acute Plan 51 year old man admitted with chest pain and elevated troponins as well as early alcohol withdrawal Chest pain, likely secondary to HTN and cocaine also Elevated troponins No ischemic changes on EKG Recheck troponin 61.8 Cardiology following rec echo and better BP control, no heparin Monitor on telemetry Aspiration pneumonia.? Unasyn Supplemental oxygen as needed Follow cultures Alcohol withdrawal.? Drowsy after Ativan Started on phenobarbital Multivitamin, folic acid and thiamine Hypertension Worsened with withdrawal symptoms Continue losartan, hydrochlorothiazide, metoprolol and increase amlodipine Opiate abuse Continue Suboxone Clonidine and morphine p.r.n. Asthma No exacerbation Continue albuterol as needed Normocytic anemia Likely has some form of liver disease No bleeding Trend CBC Transaminitis.? Chronic alcohol use Trend DVT prophylaxis with heparin Attending Dr. Lane Full code Patient likely requires 2 midnights in the hospital For treatment of healthcare associated pneumonia necessitating IV antibiotics, alcohol withdrawal symptoms requiring phenobarbital and close monitoring Quality Stroke Does the patient have a stroke diagnosis?: No VTE Prior VTE?: No VTE Risk Level:: Medical - moderate - high VTE Device Contraindication: Treatment Not Indicated VTE Drug Contraindication: N/A - Med Ordered
[2021-12-17 17:24] LABS: Vancomycin Trough 4.6 mcg/mL (10.0-20.0)
[2021-12-17] MEDS: Enoxaparin Sodium 40 MG/0.4 ML SYRINGE SUBCUT (18:21)
[2021-12-17] MEDS: Nicotine 14 MG PATCH.TD24 TRANSDERMA (18:53)
[2021-12-18] MEDS: Ampicillin Sodium/Sulbactam Na 1.5 GM in 0.9 % Sodium Chloride 100 ML IV (00:26)
[2021-12-18 04:00] VITALS: BP 178/102; PULSE 61; RESP 18; TEMP 36.9; O2SAT 96
[2021-12-18] MEDS: amLODIPine Besylate 5 MG TABLET PO (05:09)
[2021-12-18 06:46] LABS: Hematocrit 38.5 % (42.0-52.0); Hemoglobin 13.3 g/dl (14.0-18.0); Mean Corpuscular HGB Conc 34.5 g/dl (31.0-36.0); Mean Corpuscular Hemoglobin 31.3 pg (27.0-33.0); Mean Corpuscular Volume 90.6 fL (80.0-98.0); Mean Platelet Volume 10.4 fL (9.4-12.4); Platelet Count 210 X10*3/uL (160-400); Red Blood Count 4.25 X10*6/uL (4.60-5.80); Red Cell Distribution Width 14.5 % (11.0-16.0); White Blood Count 6.4 X10*3/uL (4.8-10.8)
--- NOTE | 2021-12-18 07:00 | CA_ITS ---
Transthoracic Echocardiogram Patient (Last, First, Middle): Kalin Adair, Gender: Male Date of : 1970 Age: 51 Procedure Date: 12/18/2021 Procedure Type: Transthoracic Echocardiogram [place] [facility] [place]: 157.48 cm Weight: 81.19 kg BSA: 1.82 m2 Heart Rate: bpm BP: 184 / 75 mmHg Operations Administrative Assistant: Referring MD: Tyrese Burgess Intake Coordinator: Loi Pickering MD Symptoms: elevated troponin Study Quality: Good ECG Rhythm: Sinus Conclusions: - 1. Normal LV systolic function with mild LVH with normal filling pattern with possible wall motion abnormality of the basal inferior inferoseptal wall 2. Mildly dilated left atrium 3. Normal cardiac valvular Doppler 4. Normal RV systolic pressure 5. No pericardial effusion Findings Left Ventricle Normal left ventricular cavity size. There is mildly increased left ventricular wall thickness. The left ventricular systolic function is normal. The visually estimated ejection fraction is between 55-60%. Spectral Doppler is indicative of a normal filling pattern. Wall Motion Rest Echo Findings The basal inferior and basal inferoseptal segments are hypokinetic. All other scored wall segments showed normal motion. Right Ventricle Normal right ventricular cavity size and systolic function. Atria The left atrium is mildly dilated. There is no evidence of interatrial shunt. The right atrium is normal in size. Aortic Valve Normal aortic valve structure and function. There is no aortic valve stenosis. There is no aortic valve regurgitation. Mitral Valve Normal mitral valve structure and function. There is trace mitral valve regurgitation. There is no mitral valve stenosis. Pulmonic Valve The pulmonic valve is likely normal. Tricuspid Valve Likely normal tricuspid valve structure and function. There is trace tricuspid valve regurgitation. The right ventricular systolic pressure is normal. The right ventricular systolic pressure is 13 mmHg. Normal right atrial pressure. There is no evidence of pulmonary hypertension. Great Vessels All visible segments of the aorta are normal in size. The pulmonary artery was not well visualized. Venous The inferior vena cava is normal in size and collapses greater than 50% with inspiration. Pericardium/Pleural There is no evidence of pericardial effusion. Measurements 2D Linear Measurements IVSd: 1.32 0.6-0.9/0.6-1.0 cm LVIDd: 4.89 3.9-5.3/4.2-5.9 cm LVIDd Index: 2.69 2.4-3.2/2.2-3.1 cm/m2 LVIDs: 3.25 2.0-3.6 cm LVPWd: 1.34 0.7-1.1 cm Ao Root: 3.30 2.1-3.5 cm LA Diam: 4.20 2.7-3.8/3.0-4.0 cm LAIDs Index: 2.31 1.5-2.3 cm/m2 LV Mass: 360.62 67-162/88-224 g LV Mass Index: 198.15 43-95/49-115 g/m2 LVOT Diam: 2.40 3.0+(-)1.3 cm 2D Systolic Function EF 4C: 64.90 >55% EF 2C: 40.80 >55% Mitral Valve MV Pk E: 0.59 MV PK A: 0.56 MV Decel Time: 176.00 E/A: 1.10 E'Lateral: 4.79 E'Medial: 10.30 E/E' Med: 5.70 E/E' Lat: 12.30 PHT: 52.00 MVA PHT: 4.23 Decel [place]: 3.34 Aortic Valve AoV Pk Mario: 1.19 AoV Mn Mario: 0.73 AoV VTI: 0.26 AoV Pk Grad: 6.00 Aov Mn Grad: 3.00 LALY Cont.VTI: 3.13 LVOT LVOT Pk Mario: 0.91 LVOT Mn Mario: 0.56 LVOT VTI: 0.18 LVOT Pk Grad: 3.00 LVOT Mn Grad: 2.00 LVOT Diam: 2.40 LVOT Area: 4.52 Diastolic Function MV Pk E: 0.59 MV Pk A: 0.56 E/A: 1.10 E'Medial: 10.30 E/E' Med: 5.70 E' Laterial: 4.79 E/E' Lat: 12.30 Tricuspid Valve TR Pk Mario: 1.60 TR Pk Grad: 10.00 RA Press: 3.00 RVSP: 13.00 Great Vessels Aorta Ao Root-2D: 3.30 2.0-3.7 cm Ao Asc: 3.30 2.1-3.4 cm Pulmonary Valve PV Pk Mario: 0.71 Peak PV Grad: 2.00 Updated in Other Vendor System with Status of Final Loi Pickering MD electronically signed on 12/18/2021 9:22:10 AM with status of Final
[2021-12-18 07:03] VITALS: BP 158/90; PULSE 69; RESP 18; TEMP 36.3; O2SAT 98
[2021-12-18 07:05] LABS: Anion Gap 13 (12-20); Blood Urea Nitrogen 15 mg/dL (9-16); Calcium 9.7 mg/dL (8.4-10.2); Carbon Dioxide 30 mmol/L (22-29); Chloride 92 mmol/L (96-108); Creatinine Clr Calc Pharmacy 114.9; Estimated Glomerular Filt Rate > 60; Glucose Random 216 mg/dL (60-115); Magnesium 1.6 mg/dL (1.6-2.6); Potassium 3.8 mmol/L (3.3-5.1); Sodium 131 mmol/L (135-145)
[2021-12-18] MEDS: Metoprolol Succinate ER 50 MG TAB.ER.24H PO (09:34)
[2021-12-18] MEDS: predniSONE 20 MG TABLET 40 MG PO (09:35)
[2021-12-18] MEDS: PHENobarbitaL 15 MG TABLET 45 MG PO ×2 (09:36→20:42)
[2021-12-18] MEDS: Losartan Potassium 50 MG TABLET 100 MG PO (09:36)
[2021-12-18] MEDS: Folic Acid 1 MG TABLET PO (09:36)
[2021-12-18] MEDS: Nicotine 14 MG PATCH.TD24 TRANSDERMA (09:36)
[2021-12-18] MEDS: Multivitamin TABLET 1 TAB PO (09:37)
[2021-12-18] MEDS: Buprenorphine/Naloxone 8/2 mg FILM 1 FILM SUBLINGUAL ×2 (09:37→20:42)
[2021-12-18] MEDS: 0.9 % Sodium Chloride Flush 3 ML SYRINGE IVFLUSH ×3 (09:37→20:42)
[2021-12-18] MEDS: hydroCHLOROthiazide 12.5 MG TABLET PO (09:37)
[2021-12-18] MEDS: cloNIDine HCL 0.1 MG TABLET PO ×3 (09:37→20:42)
[2021-12-18] MEDS: Thiamine HCL 100 MG TABLET PO (09:37)
[2021-12-18 11:00] VITALS: BP 134/88; PULSE 63; RESP 18; TEMP 36.9; O2SAT 97
--- NOTE | 2021-12-18 11:34 | CA_ITS ---
Acquisition Time: 2021-12-19 09:35:25 Total Exercise Time: 00:02:00 Test Indications: CP Medications: SEE CHART Protocol: LEXISCAN Max HR: 102 BPM 60% of Pred: 170 BPM Max BP: 112/058 mmHG Max Work Load: 1.0 METS Pharmacological stress test with Lexiscan injection, while sitting and kicking his legs, without anginal symptoms, without arrythmia, with normotensive resposne to injection, with nondiagnostic EKG for ischemia. Nuclear images pending. Test reviewed with Dr Pickering. Referred By: Loi Pickering Overread By: WILL YOON
--- NOTE | 2021-12-18 11:36 | P.PNCA_ITS ---
Subjective Subjective Date of Service: 12/18/21 Principal diagnosis: abnormal troponin Interval history: patient present with chest pain in yesterday was mostly sedated. This morning awake and not complain of any chest pain. Blood pressure today is better contr olled. His echocardiogram shows possible wall motion in the RCA territory. Review of Systems Review of Systems Yes all other systems are reviewed and are negative Physical Exam Vital Signs: Last Vital Signs Temp 98.4 F 12/18/21 11:00 Pulse 63 12/18/21 11:00 Resp 18 12/18/21 11:00 BP 134/88 12/18/21 11:00 Pulse Ox 97 12/18/21 11:00 BMI result Body Mass Index 32.8 Const General: cooperative, comfortable, no acute distress, alert and awake Nutritional Appearance: overweight Orientation/consciousness: patient oriented x3 Neck Neck: Yes trachea midline, Yes supple and Yes no JVD Resp Effort & Inspection: normal respiratory effort Auscultation: clear to auscultation bilaterally Cardio Jugular venous distension: no JVD Palpation: normal PMI Rate: regular rate Rhythm: regular rhythm Heart sounds: S1 normal heart sound present, S2 normal heart sound present, no click, no gallops and no murmurs GI Auscultation: normal bowel sounds Skin General skin exam: no rashes or lesions noted Neuro General: patient oriented x3 and no focal motor deficits Extrem General: Yes no clubbing, cyanosis or edema Objective Labs and Meds Result diagrams: 12/18/21 06:18 12/18/21 06:18 Lab results: Laboratory Results - last 24 hr 12/17/21 12/18/21 12/18/21 16:52 06:18 06:18 WBC 6.4 RBC 4.25 L Hgb 13.3 L Hct 38.5 L MCV 90.6 MCH 31.3 MCHC 34.5 RDW 14.5 Plt Count 210 MPV 10.4 Absolute Nucleated RBC 0.000 Nucleated RBC % (auto) 0.0 Sodium Cancelled Potassium Cancelled Chloride Cancelled Carbon Dioxide Cancelled Anion Gap Cancelled BUN Cancelled Creatinine Cancelled Estim Creat Clear Calc Cancelled Estimated GFR Cancelled Random Glucose Cancelled Calcium Cancelled Magnesium Vancomycin Trough 4.6 L 12/18/21 06:18 WBC RBC Hgb Hct MCV MCH MCHC RDW Plt Count MPV Absolute Nucleated RBC Nucleated RBC % (auto) Sodium 131 L Potassium 3.8 Chloride 92 L Carbon Dioxide 30 H Anion Gap 13 BUN 15 Creatinine 0.71 Estim Creat Clear Calc 114.9 Estimated GFR > 60 Random Glucose 216 H D Calcium 9.7 D Magnesium 1.6 Vancomycin Trough Progress Note: A&P Assessment and plan (1) Elevated troponin: Status: Acute Assessment and Plan: Elevated troponin with down trending troponins since admission with presentation with chest pain. Most likely related to cocaine use and possibly hypertensive crisis. Echocardiogram shows some possible regional wall motion abnormality of the basal inferior inferoseptal wall in the RCA territory. Underlying significant coronary artery disease needs to be ruled out. Will suggest inpatient myocardial perfusion imaging to further assess for myocardial ischemia. Recommend low-dose aspirin therapy as well as statin therapy. Strongly recommend patient to avoid cocaine use. He nodded his approval (2) Uncontrolled hypertension: Status: Acute Assessment and Plan: uncontrolled hypertension again probably due to cocaine use. Currently blood pressure is better optimized on current therapy. Continue the same. Will follow with you after stress testing. Time Spent With Patient Time: Total time spent is greater than 50% in coordination of care (as documented) at patient's floor/unit and/or counseling patient: Progress Note: Quality Stroke Does the patient have a stroke diagnosis?: No Procedures Date of Service Date of Service: 12/18/21
--- NOTE | 2021-12-18 11:40 | P.PNIM_ITS ---
Subjective Subjective Date of Service: 12/18/21 Interval History: cc: chest pain interval history:overall improved Cardiovascular Cardiovascular: Reports no additional cardiovascular complaints Respiratory Respiratory: Reports no additional respiratory complaints Physical Exam Vital Signs: Vital Signs: Last Vital Signs Temp 98.4 F 12/18/21 11:00 Pulse 63 12/18/21 11:00 Resp 18 12/18/21 11:00 BP 134/88 12/18/21 11:00 Pulse Ox 97 12/18/21 11:00 BMI result Body Mass Index 32.8 General: AO X 3, no acute distress Resp: CTA bilateral, no accessory muscles used CVS: S1,S2,RRR GI: soft, non tender, non distended Neuro: motor grossly intact, alert Psych: appropriate affect, appropriate insight Objective Data Active Medications Acetaminophen (Acetaminophen 325 Mg Tablet) 650 mg PO Q6H PRN PRN Reason: Pain, Mild (Pain Scale 1-3) Last Admin: 12/17/21 09:23 Dose: 650 mg Documented by: ANDRES Albuterol Sulfate (Albuterol Sulfate 90 Mcg 8 Gm Inhaler) 2 puff INHALE Q6H PRN PRN Reason: shortness of breath or wheezing Amlodipine Besylate (Amlodipine Besylate 5 Mg Tablet) 5 mg PO DAILY [facility]; Protocol Last Admin: 12/18/21 05:09 Dose: 5 mg Documented by: DELANEY Comments: given earlier than scheduled d/t elevated per overnight hospitalist Buprenorphine/Naloxone (Buprenorphine/Naloxone 8/2 Mg Film) 1 film SUBLINGUAL BID [facility] Last Admin: 12/18/21 09:37 Dose: 1 film Documented by: GIO Clonidine HCl (Clonidine Hcl 0.1 Mg Tablet) 0.1 mg PO TID [facility]; Protocol Last Admin: 12/18/21 09:37 Dose: 0.1 mg Documented by: GIO Enoxaparin Sodium (Enoxaparin Sodium 40 Mg/0.4 Ml Syringe) 40 mg SUBCUT Q24H [facility] Last Admin: 12/17/21 18:21 Dose: 40 mg Documented by: ANDRES Folic Acid (Folic Acid 1 Mg Tablet) 1 mg PO DAILY [facility] Last Admin: 12/18/21 09:36 Dose: 1 mg Documented by: GIO Hydrochlorothiazide (Hydrochlorothiazide 12.5 Mg Tablet) 12.5 mg PO DAILY [facility] Last Admin: 12/18/21 09:37 Dose: 12.5 mg Documented by: GIO Losartan Potassium (Losartan Potassium 50 Mg Tablet) 100 mg PO DAILY [facility] Last Admin: 12/18/21 09:36 Dose: 100 mg Documented by: GIO Metoprolol Succinate (Metoprolol Succinate Er 50 Mg Tab.Er.24h) 50 mg PO DAILY [facility]; Protocol Last Admin: 12/18/21 09:34 Dose: 50 mg Documented by: GIO Multivitamins/Vitamin C (Multivitamin Tablet) 1 tab PO DAILY [facility] Last Admin: 12/18/21 09:37 Dose: 1 tab Documented by: GIO Nicotine (Nicotine 14 Mg Patch.Td24) 14 mg TRANSDERMA DAILY [facility] Last Admin: 12/18/21 09:36 Dose: 14 mg Documented by: GIO Ondansetron HCl (Ondansetron Hcl 4 Mg/2 Ml Vial) 4 mg IVPUSH Q8H PRN PRN Reason: Nausea and Vomiting Pharmacy Consult (Consult Rx Perform Med Rec) 1 each MISCELLANE ONCE PRN PRN Reason: Consult order Pharmacy Consult (Consult Rx Etoh Phenob Po Dose) 1 each MISCELLANE ONCE PRN; Protocol PRN Reason: Consult order Pharmacy Consult (Consult Rx Vancomycin Dosing) 1 each MISCELLANE DAILY PRN PRN Reason: Consult order Phenobarbital (Phenobarbital 15 Mg Tablet) 45 mg PO BID [facility]; Protocol Stop: 12/18/21 21:01 Last Admin: 12/18/21 09:36 Dose: 45 mg Documented by: GIO Phenobarbital (Phenobarbital 15 Mg Tablet) 15 mg PO BID [facility]; Protocol Stop: 12/20/21 21:01 Phenobarbital (Phenobarbital 15 Mg Tablet) 15 mg PO DAILY [facility]; Protocol Stop: 12/22/21 09:01 Prednisone (Prednisone 20 Mg Tablet) 40 mg PO DAILY [facility] Last Admin: 12/18/21 09:35 Dose: 40 mg Documented by: GIO Sodium Chloride (0.9 % Sodium Chloride Flush 3 Ml Syringe) [facility] Admin: 12/18/21 09:37 Dose: 3 ml Documented by: GIO Thiamine HCl (Thiamine Hcl 100 Mg Tablet) 100 mg PO DAILY [facility] Last Admin: 12/18/21 09:37 Dose: 100 mg Documented by: GIO Labs CBC & Chem 7: 12/18/21 06:18 12/18/21 06:18 Labs: Laboratory Results - last 24 hr 12/17/21 12/18/21 12/18/21 16:52 06:18 06:18 MCV 90.6 MCH 31.3 MCHC 34.5 RDW 14.5 Plt Count 210 MPV 10.4 Absolute Nucleated RBC 0.000 Nucleated RBC % (auto) 0.0 Anion Gap Cancelled Estim Creat Clear Calc Cancelled Estimated GFR Cancelled Random Glucose Cancelled Calcium Cancelled Magnesium Vancomycin Trough 4.6 L 12/18/21 06:18 MCV MCH MCHC RDW Plt Count MPV Absolute Nucleated RBC Nucleated RBC % (auto) Anion Gap 13 Estim Creat Clear Calc 114.9 Estimated GFR > 60 Random Glucose 216 H D Calcium 9.7 D Magnesium 1.6 Vancomycin Trough Microbiology Microbiology Results: Microbiology 12/16/21 11:13 Blood Culture - Preliminary Blood - Venous No growth after 24 hours. 12/16/21 11:13 Blood Culture - Preliminary Blood - Venous No growth after 24 hours. Assessment and Plan (1) Elevated troponin: Status: Acute Plan 51 year old man admitted with chest pain and elevated troponins as well as early alcohol withdrawal Chest pain, likely secondary to HTN and cocaine also Elevated troponins No ischemic changes on EKG echo- possible basal inferior inferoseptal wma plan for MIBI Aspiration pneumonitis doubt bactereial infection, cultures negative, will monitor off abx Alcohol dependence with withdrawal phenobarbital Multivitamin, folic acid and thiamine Hypertension Worsened with withdrawal symptoms Continue clonidine, losartan, hydrochlorothiazide, metoprolol and increase amlodipine Opiate dependence Continue Suboxone Clonidine and morphine p.r.n. Asthma mild intermittent No exacerbation Continue albuterol as needed fatty liver ETOH and HCV stop ETOH, outpatient gi follow up DVT prophylaxis with lovenox Full code reason for continued hospitalization:plan for inpatient mibi due to high risk for coronary disease Quality Stroke Does the patient have a stroke diagnosis?: No VTE Prior VTE?: No VTE Risk Level:: Medical - moderate - high VTE Device Contraindication: Treatment Not Indicated VTE Drug Contraindication: N/A - Med Ordered
[2021-12-18 15:27] VITALS: BP 165/91; PULSE 65; RESP 18; TEMP 37.1; O2SAT 97
[2021-12-18] MEDS: Enoxaparin Sodium 40 MG/0.4 ML SYRINGE SUBCUT (16:17)
[2021-12-18 19:19] VITALS: BP 145/88; PULSE 60; RESP 18; TEMP 36.7; O2SAT 93
[2021-12-18 23:55] VITALS: BP 128/80; PULSE 59; RESP 17; TEMP 37.1; O2SAT 98
[2021-12-19 03:29] VITALS: BP 156/95; PULSE 51; RESP 17; TEMP 36.6; O2SAT 97
[2021-12-19 06:26] LABS: Hematocrit 40.7 % (42.0-52.0); Hemoglobin 13.7 g/dl (14.0-18.0); Mean Corpuscular HGB Conc 33.7 g/dl (31.0-36.0); Mean Corpuscular Volume 92.1 fL (80.0-98.0); Mean Platelet Volume 10.4 fL (9.4-12.4); Platelet Count 221 X10*3/uL (160-400); Red Blood Count 4.42 X10*6/uL (4.60-5.80); Red Cell Distribution Width 14.6 % (11.0-16.0); White Blood Count 7.8 X10*3/uL (4.8-10.8)
[2021-12-19 06:38] LABS: Anion Gap 15 (12-20); Blood Urea Nitrogen 16 mg/dL (9-16); Carbon Dioxide 29 mmol/L (22-29); Chloride 93 mmol/L (96-108); Creatinine Clr Calc Pharmacy 118.2; Estimated Glomerular Filt Rate > 60; Glucose Fasting 113 mg/dL (60-99); Potassium 3.8 mmol/L (3.3-5.1); Sodium 133 mmol/L (135-145)
[2021-12-19 08:00] VITALS: BP 142/87; PULSE 59; RESP 20; TEMP 36.7; O2SAT 95
[2021-12-19] MEDS: Thiamine HCL 100 MG TABLET PO (08:40)
[2021-12-19] MEDS: amLODIPine Besylate 5 MG TABLET PO (08:40)
[2021-12-19] MEDS: Losartan Potassium 50 MG TABLET 100 MG PO (08:40)
[2021-12-19] MEDS: predniSONE 20 MG TABLET 40 MG PO (08:40)
[2021-12-19] MEDS: Multivitamin TABLET 1 TAB PO (08:40)
[2021-12-19] MEDS: Folic Acid 1 MG TABLET PO (08:40)
[2021-12-19] MEDS: cloNIDine HCL 0.1 MG TABLET PO (08:40)
[2021-12-19] MEDS: Buprenorphine/Naloxone 8/2 mg FILM 1 FILM SUBLINGUAL (08:40)
[2021-12-19] MEDS: 0.9 % Sodium Chloride Flush 3 ML SYRINGE IVFLUSH (08:41)
[2021-12-19] MEDS: PHENobarbitaL 15 MG TABLET PO (08:41)
[2021-12-19] MEDS: hydroCHLOROthiazide 12.5 MG TABLET PO (08:41)
--- NOTE | 2021-12-19 12:48 | PM.PNCARD ---
Subjective Subjective Date of Service: 12/19/21 <LADONNA Costello - Last Filed: 12/19/21 13:03> 12/19/21 <Loi Pickering MD - Last Filed: 12/19/21 16:54> Principal diagnosis: abnormal troponin, HTN <LADONNA Costello - Last Filed: 12/19/21 13:03> Interval history: Cardiology follow up for elevated troponin, HTN. Seen at 1000 in stress lab. Today he reports feeling well. No chest discomfort, sob, palpitation. Nuclear stress test being completed. <LADONNA Costello - Last Filed: 12/19/21 13:03> Review of Systems Review of Systems as above <LADONNA Costello Last Filed: 12/19/21 13:03> Yes all other systems are reviewed and are negative <LADONNA Costello - Last Filed: 12/19/21 13:03> Physical Exam Vital Signs: Last Vital Signs Temp 98.1 F 12/19/21 08:00 Pulse 59 12/19/21 08:00 Resp 20 12/19/21 08:00 BP 142/87 H 12/19/21 08:00 Pulse Ox 95 12/19/21 08:00 BMI result Body Mass Index 32.8 <LADONNA Costello Last Filed: 12/19/21 13:03> Const General: cooperative, healthy appearing, no acute distress, alert and awake <LADONNA Costello - Last Filed: 12/19/21 13:03> Orientation/consciousness: patient oriented x3 <LADONNA Costello - Last Filed: 12/19/21 13:03> Neck Neck: Yes normal visual inspection and Yes no JVD <LADONNA Costello Last Filed: 12/19/21 13:03> Resp Effort & Inspection: normal respiratory effort, able to speak in complete sentences and not labored <LADONNA Costello - Last Filed: 12/19/21 13:03> Auscultation: clear to auscultation bilaterally, no crackles, no rales, no rhonchi and no wheezes <LADONNA Costello Last Filed: 12/19/21 13:03> Cardio Rate: regular rate <[facility] ANDREEAC - Last Filed: 12/19/21 13:03> Rhythm: regular rhythm <[facility] LADONNA - Last Filed: 12/19/21 13:03> Heart sounds: S1 normal heart sound present and S2 normal heart sound present <[facility] LADONNA - Last Filed: 12/19/21 13:03> Peripheral pulses: Peripheral pulses 2+ throughout <[facility] ANDREEAC - Last Filed: 12/19/21 13:03> GI Inspection: Yes normal to inspection <Rut MainMAHSALan - Last Filed: 12/19/21 13:03> Neuro General: patient oriented x3 <[facility] LADONNA - Last Filed: 12/19/21 13:03> Extrem General: Yes normal to inspection and No edema <Rut MainMAHSALan - Last Filed: 12/19/21 13:03> Objective Labs and Meds Result diagrams: : 12/19/21 05:53 12/19/21 05:53 <[facility] LADONNA - Last Filed: 12/19/21 13:03> Lab results: Laboratory Results - last 24 hr 12/19/21 12/19/21 05:53 05:53 WBC 7.8 RBC 4.42 L Hgb 13.7 L Hct 40.7 L MCV 92.1 MCH 31.0 MCHC 33.7 RDW 14.6 Plt Count 221 MPV 10.4 Absolute Nucleated RBC 0.000 Nucleated RBC % (auto) 0.0 Sodium 133 L Potassium 3.8 Chloride 93 L Carbon Dioxide 29 Anion Gap 15 BUN 16 Creatinine 0.69 Estim Creat Clear Calc 118.2 Estimated GFR > 60 Fasting Glucose 113 H Calcium 10.0 <Rut MainLADONNA - Last Filed: 12/19/21 13:03> Imaging Radiologist's impression: Impressions Myocardial Perfusion Scan Nuc Med 12/19/21 11:15 Impression: 1. Myocardial perfusion imaging study shows likely normal myocardial perfusion. 2. Gated LVEF is 52% during stress and 56% during rest. 3. Transient ischemic dilatation not present. EKG component of the test reported separately. <LADONNA Costello - Last Filed: 12/19/21 13:03> Progress Note: A&P Assessment and plan (1) NSTEMI (non-ST elevated myocardial infarction): Status: Acute <LADONNA Costello - Last Filed: 12/19/21 13:03> Assessment and Plan: Admit with chest burning, epigastric pain, nausea, vomiting. BP elevated 190/112. Troponins elevated up to 189.6 initially then trended down. Tox screen + for opiates, cocaine. EKG without acute ST/ T abnormalities. Echo showed normal EF, mild LVH, possible basal inferior and inferoseptal WMA. Nuclear stress test completed today shows likely normal myocardial perfusion imaging. Pt has secondary type NSTEMI related to uncontrolled HTN, cocaine/ substance use. He was treated with BP control. Home Amlodipine dose was increased. He was continued on his usual Losartan/ HCTZ, Metoprolol. BP currently better controlled with systolic range 128-156 in last day. Needs for complete cessation of cocaine, illicit substances discussed and will need to be reinforced. He needs strict home med complaince. He can be discharged from a cardiology perspective and follow up with his PCP as outpt. <LADONNA Costello - Last Filed: 12/19/21 13:03> Admit with chest burning, epigastric pain, nausea, vomiting. BP elevated 190/112. Troponins elevated up to 189.6 initially then trended down. Tox screen + for opiates, cocaine. EKG without acute ST/ T abnormalities. Echo showed normal EF, mild LVH, possible basal inferior and inferoseptal WMA. Nuclear stress test completed today shows likely normal myocardial perfusion imaging. Pt has secondary type NSTEMI related to uncontrolled HTN, cocaine/ substance use. He was treated with BP control. Home Amlodipine dose was increased. He was continued on his usual Losartan/ HCTZ, Metoprolol. BP currently better controlled with systolic range 128-156 in last day. Needs for complete cessation of cocaine, illicit substances discussed and will need to be reinforced. He needs strict home med complaince. He can be discharged from a cardiology perspective and follow up with his PCP as outpt. Patient seen and examined. Case discussed with [facility]. Patient with no significant chest pain. Underwent myocardial perfusion imaging without any significant myocardial ischemia. Most likely cause of his NSTEMI is uncontrolled hypertension and/or cocaine use. Strongly recommend him to avoid using cocaine. Continue aggressive blood pressure control. Currently on amlodipine and losartan/hydrochlorothiazide. Can be followed as outpatient with his PCP. Patient is motivated to avoid drug abuse. Patient can be discharged home today <Loi Pickering MD - Last Filed: 12/19/21 16:54> (2) Elevated troponin: Status: Acute <LADONNA Costello - Last Filed: 12/19/21 13:03> (3) Uncontrolled hypertension: Status: Acute <LADONNA Costello - Last Filed: 12/19/21 13:03> (4) Opioid use disorder: Status: Acute <LADONNA Costello - Last Filed: 12/19/21 13:03> (5) Alcohol use disorder, severe, dependence: Status: Acute <LADONNA Costello - Last Filed: 12/19/21 13:03> Time Spent With Patient Time: Total time spent is greater than 50% in coordination of care (as documented) at patient's floor/unit and/or counseling patient: 24 <LADONNA Costello Last Filed: 12/19/21 13:03> Progress Note: Quality Stroke Does the patient have a stroke diagnosis?: No <LADONNA Costello - Last Filed: 12/19/21 13:03> Procedures Date of Service Date of Service: 12/19/21 <LADONNA Costello - Last Filed: 12/19/21 13:03>
--- NOTE | 2021-12-19 13:01 | P.DS_ITS ---
DS: Providers Provider Date of Service: 12/19/21 Date of admission: 12/16/21 16:16 Primary care physician: Areli Willis Consults: 12/16/21 16:18 Consult to Cardiology Routine Consulting Provider: Loi Pickering Reason for consultation: elevated troponin, chest pain Has provider been notified: No DS: Diagnosis Discharge Diagnosis (1) Elevated troponin: Status: Acute DS: Summary Hospital Course Hospital Course: from initial hpi: 51-year-old man presenting to the ER with chest pain.? It was hard to assess him as he was very groggy after having a dose of Ativan for withdrawal symptoms.? Apparently he had presented with chest burning with epigastric pain, nausea, vomiting, diaphoresis and low back pain.? He is a heavy drinker drinking every day according to the record.? His last drink was yesterday afternoon.? He also uses cocaine and heroin which was positive on the tox screen, he is on Suboxone and had taken a dose this morning.? His troponin was noted to be elevated at 189.6 and 178.8, this was discussed with tents assembler who did not think that this was indicative of ACS, EKG did not show any significant ischemic changes.? His blood pressure was noted to be significantly elevated with highest reading of 190/112.? In the ER he was given IV fluids, Rocephin and Zosyn for healthcare associated pneumonias he was recently discharged from [facility] in October.? He was also started on phenobarbital for alcohol withdrawal symptoms.? He will be admitted for further management and treatment of chest pain and alcohol withdrawal. hospital course: Patient was admitted with chest pain. Id elevated troponins consistent with NSTEMI. [place] to be secondary to uncontrolled hypertension and cocaine use. He underwent echocardiogram which showed possible basal inferior inferior septal wall motion abnormality, nuclear stress test was unremarkable. He will continue aspirin statin, abstinence from cocaine recommended. Patient had some aspiration pneumonitis on presentation, there is no obvious signs of bacterial infection, antibiotics were discontinued patient remained afebrile, cultures were negative. Patient has alcohol dependence with withdrawal, he was treated with phenobarbital and symptoms resolved. Patient had uncontrolled hypertension worsened by his withdrawal symptoms. He will continue on losartan, hydrochlorothiazide, metoprolol, amlodipine. For his opiate dependence he was continued on Suboxone. For his mild intermittent asthma he was given prednisone for acute decompensation. This has resolved. Patient has known fatty liver disease due to alcohol and hepatitis-C, he is encouraged to discontinue alcohol and to follow up with GI for HCV treatment. Time Spent with Patient Time attestation: Total time spent providing and/or coordinating discharge services: Discharge coordination time: Greater than 30 minutes Quality: Safe Use of Opioids Does Pt have an Active Cancer Diagnosis on the Problem List?: No Quality: Stroke Does the patient have a stroke diagnosis?: No Physical Exam Vital Signs: Vital Signs: Last Vital Signs Temp 98.1 F 12/19/21 08:00 Pulse 59 12/19/21 08:00 Resp 20 12/19/21 08:00 BP 142/87 H 12/19/21 08:00 Pulse Ox 95 12/19/21 08:00 BMI result Body Mass Index 32.8 General: AO X 3, no acute distress Resp: CTA bilateral, no accessory muscles used CVS: S1,S2,RRR GI: soft, non tender, non distended Neuro: motor grossly intact, alert Psych: appropriate affect, appropriate insight DS: Data Data Completed and Pending Completed studies during hospitalization [Text1]: Procedures Detoxification Services for Substance Abuse Treatment (10/18/21) Labs on day of discharge: Laboratory Results - last 24 hr 12/19/21 12/19/21 05:53 05:53 WBC 7.8 RBC 4.42 L Hgb 13.7 L Hct 40.7 L MCV 92.1 MCH 31.0 MCHC 33.7 RDW 14.6 Plt Count 221 MPV 10.4 Absolute Nucleated RBC 0.000 Nucleated RBC % (auto) 0.0 Sodium 133 L Potassium 3.8 Chloride 93 L Carbon Dioxide 29 Anion Gap 15 BUN 16 Creatinine 0.69 Estim Creat Clear Calc 118.2 Estimated GFR > 60 Fasting Glucose 113 H Calcium 10.0 Preliminary micro results at discharge 12/16/21 11:13 Blood Culture - Preliminary Blood - Venous No growth after 48 hours. 12/16/21 11:13 Blood Culture - Preliminary Blood - Venous No growth after 48 hours. Discharge Plan Discharge Patient Disposition: Home, Self-Care Discharge Diagnosis: htn, nstemi Referrals: Areli Willis [Primary Care Provider] - 1 Week Physician,Unknown J [Physician] - Discharge Medications: New aspirin 81 mg tablet,delayed release (DR/EC) 81 mg PO DAILY Qty: 30 0RF atorvastatin [Lipitor] 40 mg tablet 40 mg PO BEDTIME Qty: 30 0RF Continued metoprolol succinate 50 mg tablet extended release 24 hr 1 tab PO DAILY Qty: 30 0RF albuterol sulfate [ProAir HFA] 90 mcg/actuation HFA aerosol inhaler 2 puff inhalation Q6H PRN (Reason: shortness of breath or wheezing) Qty: 1 0RF amlodipine 2.5 mg tablet 1 tab PO DAILY 0RF losartan-hydrochlorothiazide 100-12.5 mg tablet 1 tab PO DAILY 0RF buprenorphine-naloxone [Suboxone] 8-2 mg film 1 film sublingual BID Qty: 14 0RF Discharge Orders: Discharge Order (Routine); Ordered 12/19/21 Ordered By: Rolando Burgess Diet: advance to usual diet Activity on Discharge: As tolerated Stand Alone Forms: Patient Portal Discharge page Care Plan Goals: recovery Health Concerns: polysubstance abuse, htn, etoh Plan of Treatment: no alcohol, no drugs, take meds as prescribed Assessment: see above
--- NOTE | 2021-12-19 13:12 | MHC.CM.PN ---
PT WILL DC HOME TODAY WITH NO SERVICES. PT TO ARRANGE TRANSPORT PCP: NETTIE CASTELLANOS
== END 2021-12-19 14:29 | disposition home or self-care (01) | DRG 816 ==
LOC: HO.ED 16:27 → HO.EDOVER 16:40 → HO.IMC 19:28
PROVIDERS: Nurse Practitioner Family; Admitting Provider Nurse Practitioner Acute Care; Emergency Provider Emergency Medicine; PCP Nurse Practitioner; Visit Provider Internal Medicine
DX: T40.5X1A Poisoning by cocaine, accidental (unintentional), initial encounter (principal); J69.0 Pneumonitis due to inhalation of food and vomit; I21.A1 Myocardial infarction type 2; K76.9 Liver disease, unspecified; F11.20 Opioid dependence, uncomplicated; K70.0 Alcoholic fatty liver; B19.20 Unspecified viral hepatitis C without hepatic coma; Z20.822 Contact with and (suspected) exposure to COVID-19; J45.20 Mild intermittent asthma, uncomplicated; I10 Essential (primary) hypertension; F17.210 Nicotine dependence, cigarettes, uncomplicated; Z71.6 Tobacco abuse counseling; Z79.82 Long term (current) use of aspirin; Z79.899 Other long term (current) drug therapy
CPT/HCPCS: 36415; 71045; 78452; 80048; 80053; 80076; 80202; 80307; 81001; 82077; 82550; 83605; 83690; 83735; 83880; 84484; 85025; 85027; 85610; 87040; 87502; 87635; 93005; 93017; 93306; 96361; 96365; 96375; 99285; A9500; J0280; J0295; J0696; J1650; J2060; J2405; J2543; J2785; J3370

== ENCOUNTER 2022-01-23 12:38 | Emergency (ER) | payer MEDICAID, SELFPAY ==
--- NOTE | ~2022-01-23 | CT_ITS ---
EXAMINATION: CT HEAD WITHOUT CONTRAST CLINICAL INFORMATION: Fall. Abrasion to the forehead. COMPARISON: Head CT 06/04/2020. TECHNIQUE: Contiguous axial imaging was performed from the skull base to vertex without intravenous administration of contrast. This CT examination was performed using dose optimization techniques as appropriate, variously including the following: *Automated exposure control *Adjustment of mA and/or kV according to patient size (this includes techniques or standardized protocols for targeted exams where dose is matched to indication/reason for exam; i.e. extremities or head) *Use of iterative reconstruction technique DLP: 727 mGy-cm. FINDINGS: A small subgaleal hematoma is seen about the right frontal scalp. There is no calvarial fracture. There is no intracranial hemorrhage, extra-axial collection, mass effect, or infarction. The ventricles are normal in size without hydrocephalus. There is mild to moderate mucosal thickening in the right inferior frontal sinus. Additional scattered paranasal sinus mucosal thickening is also noted. CT/CT head/brain wo con IMPRESSION: Small subgaleal hematoma in the right frontal scalp. No calvarial fracture. No intracranial hemorrhage.
[2022-01-23 12:47] VITALS: BP 105/54; PULSE 97; O2SAT 100
--- NOTE | 2022-01-23 12:50 | ED_ITS ---
HPI - General Adult General Chief complaint: Overdose Stated complaint: OVERDOSE,NARCAN GIVEN Time Seen by Provider: 01/23/22 12:50 Source: patient and EMS Mode of arrival: EMS Limitations: no limitations History of Present Illness HPI narrative: Patient is a 51 year old male presenting to the emergency department today after an unintentional overdose. Patient states that his friend gave him heroin and he accidentally overdosed on it. EMS gave the patient 8mg of Narcan prior to arrival. Patient denies any dizziness, lightheadedness, abdominal pain, nausea, vomiting, fever, chills, blurry vision, double vision, loss of vision, chest pain, difficulty breathing, shortness of breath, back pain, night sweats, pain with urination, increased urinary frequency, increased urinary urgency, blood in his urine or stool, syncope or a near syncopal episode, recent trauma or falls, bowel incontinence, bladder incontinence, bowel retention, bladder retention, or any other complaints at this time. Onset (ago): minute(s) Severity: mild Severity scale (1-10): 1 Relieving factors: none Exacerbating factors: none Associated symptoms: denies other symptoms Treatments prior to arrival: none Related Data Home Medications Medication Instructions Recorded Confirmed amlodipine 2.5 mg tablet 1 tab PO DAILY 10/18/21 12/16/21 losartan 100 1 tab PO DAILY 12/16/21 12/16/21 mg-hydrochlorothiazide 12.5 mg tablet Previous Rx's Medication Instructions Recorded buprenorphine 8 mg-naloxone 2 mg 1 film sublingual BID #14 ea 06/21/20 sublingual film (Suboxone) albuterol sulfate 90 mcg/actuation 2 puff inhalation Q6H PRN 10/10/20 aerosol inhaler (ProAir HFA) shortness of breath or wheezing #1 kit metoprolol succinate 50 mg 1 tab PO DAILY #30 tabs 10/10/20 tablet,extended release 24 hr aspirin 81 mg tablet,delayed 81 mg PO DAILY #30 tabs 12/19/21 release atorvastatin 40 mg tablet (Lipitor) 40 mg PO BEDTIME #30 tabs 12/19/21 Allergies Allergy/AdvReac Type Severity Reaction Status Date / Time seafood Allergy Anaphylaxis Verified 07/15/21 11:32 Review of Systems Constitutional: Constitutional: Reports no additional constitutional complaints, Denies chills, Denies fever(s) and Denies night sweats Eyes: Eyes: Reports no additional eye complaints, Denies blurry vision, Denies change in vision, Denies diplopia, Denies eye discharge, Denies loss of vision and Denies eye pain ENT: Denies dizziness Cardiovascular: Cardiovascular: Reports no additional cardiovascular complaints, Denies chest pain, Denies lightheadedness, Denies Loss of Consciousness and Denies dyspnea Respiratory: Respiratory: Reports no additional respiratory complaints and Denies dyspnea Gastrointestinal: Gastrointestinal: Reports no additional gastrointestinal complaints, Denies abdominal pain, Denies melena, Denies hematochezia, Denies change in bowel habits and Denies change in stool character Genitourinary: Genitourinary: Reports no additional male genitourinary complaints, Denies hematuria, Denies oliguria, Denies difficulty urinating, Denies dysuria, Denies urinary frequency, Denies urinary hesitancy, Denies urinary incontinence and Denies urinary urgency Musculoskeletal: Musculoskeletal: Reports no additional musculoskeletal com plaints, Denies numbness and Denies tingling Neurologic: Denies dizziness, Denies loss of vision, Denies numbness and Denies tingling Psychiatric: Psychiatric: Reports no additional psychiatric complaints Endocrine: Endocrine: Reports no additional endocrine complaints Hematologic/Lymphatic: Hematologic/Lymphatic: Reports no additional hematologic/lymphatic complaints Allergic/Immunologic: Allergic/Immunologic: Reports no additional allergic/immunologic complaints [facility] Past Medical History Attestation statement: The following information was validated with the patient. Source: old records reviewed Medical History Depression ETOH abuse HCV (hepatitis C virus) Hypertension Social History Social History Household Members: None Housing: House Do you presently have visiting nurse or other home services: No Alcohol intake: former Patient Tobacco Use Status: Former Tobacco user Tobacco use type: Cigarette Cigarette Packs Per Day: 1 Cigarettes Per Day: 20.0 Use of substances other than those prescribed or required for medical reasons: Yes Substance Use Type: Heroin and IV Drugs Advance Directives: No Advance Directives Information Provided: No service: No Current occupational status: unemployed Physical Exam ED Vital Signs: Vital Signs - 24 hr 01/23/22 13:00 01/23/22 13:46 01/23/22 17:05 Temperature 98.3 F 97.7 F Pulse Rate 84 84 82 Respiratory Rate 8 L 14 12 Blood Pressure 148/87 H 148/87 H 101/59 L Pulse Oximetry 89 L 93 95 Oxygen Delivery Method Room Air Nasal Cannula Room Air Oxygen Flow Rate 3 BMI result Body Mass Index 25.8 Const General: cooperative, no acute distress, alert and awake Nutritional Appearance: well nourished Orientation/consciousness: patient oriented x3 Limitations: no limitations HENMT Other: small bruise to the right forehead Ears: hearing grossly normal bilaterally and external ears normal General nose exam: Normal external nose present, no nasal discharge noted and no epistaxis Face and sinus: Yes normal facial exam, No abrasion and No laceration Mouth: Normal oral and palatal mucosa present, no drooling and no muffled voice Eyes General: appearance normal, both eyes and all related structures Periorbital: periorbital findings normal Eyelids: Yes eyelids normal Conjunctivae: conjunctivae normal Pupils: Equal, round and reactive pupils present EOM: EOMs intact bilaterally Neck Neck: Yes normal visual inspection, Yes full ROM and Yes no lymphadenopathy Chest Chest palpation & inspection: normal inspection of the chest Resp Effort & Inspection: normal respiratory effort and able to speak in complete sentences Auscultation: clear to auscultation bilaterally Cardio Rate: regular rate Rhythm: regular rhythm GI Inspection: Yes normal to inspection Neuro General: patient oriented x3 and moves all extremities Cranial nerves: Yes Equal, round and reactive pupils present Cognition (Neuro): normal cognition Motor exam (neuro): 5/5 motor strength present throughout Sensory Exam: Normal double simultaneous stimulation for sensation Coordination: [id number] test normal Extrem General: Yes normal to inspection, Yes full ROM and Yes capillary refill normal Psych Appearance: grossly normal Mental Status: mental status grossly normal Affect: normal affect Attitude: cooperative Thought process: Normal thought process present Thought content: Normal thought content present Insight: Good insight present (Psych) Medical Decision Making MDM Narrative Medical decision making narrative: Patient is a 51 year old male presenting to the emergency department today after an accidental overdose. Patient's physical exam showed very mild bruising on the right side of the forehead but was otherwise unremarkable. Patient's blood work was unremarkable. Patient's EKG was unremarkable. Patient's head CT showed no acute process. I explained my physical exam findings as well as all test results to the patient. I answered all questions asked by the patient. Patient received an additional 2mg of Narcan while in the department due to in creased sleepiness. Patient refused any detox treatment but did state he will take narcan home with him. I stressed the importance of the patient taking his medication as prescribed. I stressed the importance of the patient following up with his primary care provider. I stressed the importance of the patient returning to the emergency department immediately if his symptoms were to worsen or if he were to develop any dizziness, shortness of breath, difficulty breathing, chest pain, blurry vision, loss of vision, nausea, vomiting, abdominal pain, fever, chills, back pain, or any other complaints. Patient verbalized agreement and understanding with this treatment plan and discharge. Differential Diagnosis Differential Diagnosis: Heroin OD, opiate abuse, opiate use Medical Records Medical records reviewed: Yes I reviewed the patient's medical records. Lab Data Lab results reviewed: Yes I reviewed the patient's lab results. Result diagrams: 01/23/22 13:39 01/23/22 13:39 Labs: Lab Results 01/23/22 01/23/22 01/23/22 Range/Units 13:39 13:39 13:39 WBC 10.4 (4.8-10.8) X10*3/uL RBC 3.59 L (4.60-5.80) X10*6/uL Hgb 11.0 L (14.0-18.0) g/dl Hct 34.0 L (42.0-52.0) % MCV 94.7 (80.0-98.0) fL MCH 30.6 (27.0-33.0) pg MCHC 32.4 (31.0-36.0) g/dl RDW 13.0 (11.0-16.0) % Plt Count 170 (160-400) X10*3/uL MPV 10.4 (9.4-12.4) fL Immature Gran % (Auto) 0.5 H (0.0-0.4) % Neut % (Auto) 79.2 H (45-73) % Lymph % (Auto) 10.9 L (20-40) % Nolan % (Auto) 8.1 (2-11) % Eos % (Auto) 1.0 (0-4) % Baso % (Auto) 0.3 (0-2) % Lymph # (Auto) 1.1 L (1.2-4.9) X10*3/uL Nolan # (Auto) 0.8 (0.1-1.2) X10*3/uL Eos # (Auto) 0.1 (0.0-0.4) X10*3/uL Baso # (Auto) 0.0 (0.0-0.2) X10*3/uL Abs Immat Gran (auto) 0.05 H (0.00-0.03) X10*3/uL Absolute Neuts (auto) 8.3 (2.0-8.3) x10*3/uL Absolute Nucleated RBC 0.000 (0.0-0.012) X10*3/uL Nucleated RBC % (auto) 0.0 (0.0-0.2) /100WBC Sodium 137 (135-145) mmol/L Potassium 4.2 (3.3-5.1) mmol/L Chloride 99 (96-108) mmol/L Carbon Dioxide 33 H (22-29) mmol/L Anion Gap 9 L (12-20) BUN 17 H (9-16) mg/dL Creatinine 0.76 (0.5-1.4) mg/dL Estim Creat Clear Calc 104.9 Estimated GFR > 60 Random Glucose 103 D (60-115) mg/dL Lactic Acid 0.9 (0.5-2.0) mmol/L Calcium 9.8 (8.4-10.2) mg/dL Total Bilirubin 0.4 (0.0-1.0) mg/dL AST 50 H (5-37) U/L ALT 31 (0-40) U/L Alkaline Phosphatase 79 D (39-117) U/L Troponin I High Sens (<3.5-35.0) ng/L Total Protein 6.7 (6.5-8.0) g/dL Albumin 4.2 (3.5-5.0) g/dL Urine Color Urine Appearance Urine pH (5.0-8.0) Ur Specific Walker (1.005-1.025) Urine Protein (NEG-TRACE) MG/DL Urine Glucose (UA) (NEG) MG/DL Urine Ketones (NEG) MG/DL Urine Blood (NEG) Urine Nitrite (NEG) Ur Leukocyte Esterase (NEG) Urine RBC (0) /HPF Urine WBC (0-4) /HPF Ur Squamous Epith Cells /LPF Urine Bacteria /LPF Urine Mucus /LPF Urine Opiates Screen (Not Detect) Urine Fentanyl Screen (Not Detect) Ur Barbiturates Screen (Not Detect) Ur Phencyclidine Scrn (Not Detect) Ur Amphetamines Screen (Not Detect) U Benzodiazepines Scrn (Not Detect) Urine Cocaine Screen (Not Detect) U Marijuana (THC) Screen (Not Detect) 01/23/22 01/23/22 01/23/22 Range/Units 13:39 14:02 14:02 WBC (4.8-10.8) X10*3/uL RBC (4.60-5.80) X10*6/uL Hgb (14.0-18.0) g/dl Hct (42.0-52.0) % MCV (80.0-98.0) fL MCH (27.0-33.0) pg MCHC (31.0-36.0) g/dl RDW (11.0-16.0) % Plt Count (160-400) X10*3/uL MPV (9.4-12.4) fL Immature Gran % (Auto) (0.0-0.4) % Neut % (Auto) (45-73) % Lymph % (Auto) (20-40) % Nolan % (Auto) (2-11) % Eos % (Auto) (0-4) % Baso % (Auto) (0-2) % Lymph # (Auto) (1.2-4.9) X10*3/uL Nolan # (Auto) (0.1-1.2) X10*3/uL Eos # (Auto) (0.0-0.4) X10*3/uL Baso # (Auto) (0.0-0.2) X10*3/uL Abs Immat Gran (auto) (0.00-0.03) X10*3/uL Absolute Neuts (auto) (2.0-8.3) x10*3/uL Absolute Nucleated RBC (0.0-0.012) X10*3/uL Nucleated RBC % (auto) (0.0-0.2) /100WBC Sodium (135-145) mmol/L Potassium (3.3-5.1) mmol/L Chloride (96-108) mmol/L Carbon Dioxide (22-29) mmol/L Anion Gap (12-20) BUN (9-16) mg/dL Creatinine (0.5-1.4) mg/dL Estim Creat Clear Calc Estimated GFR Random Glucose (60-115) mg/dL Lactic Acid (0.5-2.0) mmol/L Calcium (8.4-10.2) mg/dL Total Bilirubin (0.0-1.0) mg/dL AST (5-37) U/L ALT (0-40) U/L Alkaline Phosphatase (39-117) U/L Troponin I High Sens 9.1 D (<3.5-35.0) ng/L Total Protein (6.5-8.0) g/dL Albumin (3.5-5.0) g/dL Urine Color YELLOW Urine Appearance HAZY Urine pH 7.0 (5.0-8.0) Ur Specific Walker 1.020 (1.005-1.025) Urine Protein 2+ H (NEG-TRACE) MG/DL Urine Glucose (UA) NEG (NEG) MG/DL Urine Ketones NEG (NEG) MG/DL Urine Blood NEG (NEG) Urine Nitrite NEG (NEG) Ur Leukocyte Esterase NEG (NEG) Urine RBC 0 (0) /HPF Urine WBC 0 (0-4) /HPF Ur Squamous Epith Cells NONE /LPF Urine Bacteria NONE /LPF Urine Mucus 2+ /LPF Urine Opiates Screen POSITIVE H (Not Detect) Urine Fentanyl Screen POSITIVE H (Not Detect) Ur Barbiturates Screen Not Detected (Not Detect) Ur Phencyclidine Scrn Not Detected (Not Detect) Ur Amphetamines Screen Not Detected (Not Detect) U Benzodiazepines Scrn Not Detected (Not Detect) Urine Cocaine Screen POSITIVE H (Not Detect) U Marijuana (THC) Screen Not Detected (Not Detect) Imaging Data CT scan - head: Attestation: I personally reviewed and interpreted this imaging study as follows: My impression: No acute intracranial process. Radiologist's impression: EXAMINATION: CT HEAD WITHOUT CONTRAST CLINICAL INFORMATION: Fall. Abrasion to the forehead. COMPARISON: Head CT 06/04/2020. TECHNIQUE: Contiguous axial imaging was performed from the skull base to vertex without intravenous administration of contrast. This CT examination was performed using dose optimization techniques as appropriate, variously including the following: *Automated exposure control *Adjustment of mA and/or kV according to patient size (this includes techniques or standardized protocols for targeted exams where dose is matched to indication/reason for exam; i.e. extremities or head) *Use of iterative reconstruction technique DLP: 727 mGy-cm. FINDINGS: A small subgaleal hematoma is seen about the right frontal scalp. There is no calvarial fracture. There is no intracranial hemorrhage, extra-axial collection, mass effect, or infarction. The ventricles are normal in size without hydrocephalus. There is mild to moderate mucosal thickening in the right inferior frontal sinus. Additional scattered paranasal sinus mucosal thickening is also noted. CT/CT head/brain wo con IMPRESSION: Small subgaleal hematoma in the right frontal scalp. No calvarial fracture. No intracranial hemorrhage. Dictated By: POONAM WHITE MD Signed By: Electronically signed by POONAM WHITE MD 01/23/22 5840 ECG Data Attestation: I personally reviewed and interpreted this ECG as follows: Prior ECG tracings: available for review Interpretation: Vent. Rate: 068 BPM ? ? Atrial Rate: 068 BPM P-R Int: 172 ms? QRS Dur: 094 ms QT Int: 378 ms ? ? ? P-R-T Axes: 072 039 046 degrees QTc Int: 401 ms ? Normal sinus rhythm Normal ECG When compared with ECG of 16-DEC-2021 09:50, No significant change was found DD/ 1310 Discharge Plan Discharge Clinical Impression: Opioid use disorder Patient Disposition: Home, Self-Care Instructions: Narcotic Use Disorder (ED) Additional Instructions: Follow up with your primary care provider. Return to the emergency department immediately if your symptoms worsen or if you develop any dizziness, shortness of breath, difficulty breathing, chest pain, blurry vision, loss of vision, na usea, vomiting, abdominal pain, fever, chills, back pain, or any other complaints. Prescriptions: No Action metoprolol succinate 50 mg tablet extended release 24 hr 1 tab PO DAILY Qty: 30 0RF albuterol sulfate [ProAir HFA] 90 mcg/actuation HFA aerosol inhaler 2 puff inhalation Q6H PRN (Reason: shortness of breath or wheezing) Qty: 1 0RF amlodipine 2.5 mg tablet 1 tab PO DAILY losartan-hydrochlorothiazide 100-12.5 mg tablet 1 tab PO DAILY aspirin 81 mg tablet,delayed release (DR/EC) 81 mg PO DAILY Qty: 30 0RF atorvastatin [Lipitor] 40 mg tablet 40 mg PO BEDTIME Qty: 30 0RF buprenorphine-naloxone [Suboxone] 8-2 mg film 1 film sublingual BID Qty: 14 0RF Referrals: [place],[facility] [Primary Care Provider] - Print Language: Kittitian
--- NOTE | 2022-01-23 12:53 | ECG_ITS ---
Test Reason : OVERDOSE Blood Pressure : / mmHG Vent. Rate : 068 BPM Atrial Rate : 068 BPM P-R Int : 172 ms QRS Dur : 094 ms QT Int : 378 ms P-R-T Axes : 072 039 046 degrees QTc Int : 401 ms Normal sinus rhythm Normal ECG When compared with ECG of 16-DEC-2021 09:50, No significant change was found Referred By: Jenni Ellis Electronically Signed By:Mauricio Wilson
--- NOTE | 2022-01-23 12:58 | PC.NURSE ---
BELONGINGS INVENTORIED AND LOCKED IN DECON BY [employer]
[2022-01-23 13:00] VITALS: BP 148/87; PULSE 84; RESP 8; TEMP 36.8; O2SAT 89; BMI 25.8
[2022-01-23] MEDS: Naloxone HCl 2 MG/2 ML SYRINGE IVPUSH (13:44)
[2022-01-23 13:46] VITALS: BP 148/87; PULSE 84; RESP 14; O2SAT 93
[2022-01-23 13:46] LABS: MANUAL DIFF FLAG NO
[2022-01-23 13:56] LABS: Basophils Percent Auto 0.3 % (0-2); Eosinophils Absolute Auto 0.1 X10*3/uL (0.0-0.4); Imm Gran Abs Auto 0.05 X10*3/uL (0.00-0.03); Imm Gran Pct Auto 0.5 % (0.0-0.4); Lymphocytes Absolute Auto 1.1 X10*3/uL (1.2-4.9); Lymphocytes Percent Auto 10.9 % (20-40); Mean Corpuscular HGB Conc 32.4 g/dl (31.0-36.0); Mean Corpuscular Hemoglobin 30.6 pg (27.0-33.0); Mean Corpuscular Volume 94.7 fL (80.0-98.0); Mean Platelet Volume 10.4 fL (9.4-12.4); Monocytes Absolute Auto 0.8 X10*3/uL (0.1-1.2); Monocytes Percent Auto 8.1 % (2-11); Neutrophils Absolute Auto 8.3 x10*3/uL (2.0-8.3); Neutrophils Percent Auto 79.2 % (45-73); Platelet Count 170 X10*3/uL (160-400); Red Blood Count 3.59 X10*6/uL (4.60-5.80); White Blood Count 10.4 X10*3/uL (4.8-10.8)
[2022-01-23 14:04] LABS: Lactic Acid 0.9 mmol/L (0.5-2.0)
[2022-01-23 14:10] LABS: Appearance Urine HAZY; Color Urine YELLOW; Glucose Urine UA NEG (NEG); Leukocyte Esterase Urine NEG (NEG); Nitrite Urine NEG (NEG); UACC Culture Trigger NO; Urine Blood NEG (NEG); Urine Ketones NEG (NEG); Urine Protein 2+ MG/DL (NEG-TRACE)
[2022-01-23 14:11] LABS: Alanine Aminotransferase 31 U/L (0-40); Albumin Level 4.2 g/dL (3.5-5.0); Alkaline Phosphatase 79 U/L (39-117); Anion Gap 9 (12-20); Aspartate Amino Transferase 50 U/L (5-37); Bilirubin Total 0.4 mg/dL (0.0-1.0); Blood Urea Nitrogen 17 mg/dL (9-16); Calcium 9.8 mg/dL (8.4-10.2); Carbon Dioxide 33 mmol/L (22-29); Chloride 99 mmol/L (96-108); Creatinine Clr Calc Pharmacy 104.9; Estimated Glomerular Filt Rate > 60; Glucose Random 103 mg/dL (60-115); Potassium 4.2 mmol/L (3.3-5.1); Sodium 137 mmol/L (135-145); Total Protein 6.7 g/dL (6.5-8.0)
[2022-01-23 14:16] LABS: Troponin-I High Sensitivity 9.1 ng/L (<3.5-35.0)
[2022-01-23 14:24] LABS: Amphetamine Screen Urine Not Detected (Not Detect); Barbiturates, Urine Not Detected (Not Detect); Benzodiazepines Screen Urine Not Detected (Not Detect); Cannabinoid Screen Urine Not Detected (Not Detect); Cocaine Screen Urine POSITIVE (Not Detect); Fentanyl, urine POSITIVE (Not Detect); Mucus Urine 2+ /LPF; Opiate Screen Urine POSITIVE (Not Detect); Phencyclidine Screen Urine Not Detected (Not Detect); RBC Urine 0 /HPF (0); WBC Urine 0 /HPF (0-4)
--- NOTE | 2022-01-23 15:13 | PC.NURSE ---
RR WNL. Pt easily roused. Remains on supp o2.
--- NOTE | 2022-01-23 15:28 | MHC.RECOVRN ---
Attempted to meet with pt to complete SUDE. Pt not able to stay awake for conversation. CARE Team aware.
[2022-01-23] MEDS: Acetaminophen 325 MG TABLET 650 MG PO (16:18)
[2022-01-23 17:05] VITALS: BP 101/59; PULSE 82; RESP 12; TEMP 36.5; O2SAT 95
--- NOTE | 2022-01-23 17:40 | MHC.RECOVSUP ---
? Reason for consult:Recovery Support o Current location:[facility] o Identified substance use concern:Heroine - Overdose - Support ? Intervention: o MAT started or to be started o Community resources provided o ? Plan: o Patient to follow up with [facility] after discharge ? Additional information:Patient refuses detox, referred to [facility], patient on MAT (suboxone), Patient being discharged with Narcan.
[2022-01-23] MEDS: Naloxone HCl Nasal TAKE HOME 4 MG SPRAY NOSTRILALT (18:44)
== END 2022-01-23 18:46 | disposition home or self-care (01) ==
PROVIDERS: Physician Assistant Medical; Emergency Provider Emergency Medicine Emergency Medical Services
DX: T40.1X1A Poisoning by heroin, accidental (unintentional), initial encounter (principal); F11.10 Opioid abuse, uncomplicated; I10 Essential (primary) hypertension; F10.20 Alcohol dependence, uncomplicated; F32.A Depression, unspecified; S00.83XA Contusion of other part of head, initial encounter; X58.XXXA Exposure to other specified factors, initial encounter; Y93.9 Activity, unspecified; Y92.9 Unspecified place or not applicable; Y99.9 Unspecified external cause status; Z79.899 Other long term (current) drug therapy
CPT/HCPCS: 36415; 70450; 80053; 80307; 81001; 83605; 84484; 85025; 93005; 96374; 96375; 99285

== ENCOUNTER 2022-04-21 10:26 | Emergency (ER) | payer MEDICAID, SELFPAY ==
[2022-04-21 10:57] VITALS: BP 177/87; PULSE 66; RESP 16; TEMP 36.3; O2SAT 97; BMI 25.8
[2022-04-21 11:32] LABS: Appearance Urine Clear; Color Urine Yellow; Glucose Urine UA Negative (Negative); Leukocyte Esterase Urine Moderate (2+) (Negative); Nitrite Urine Negative (Negative); PH 7.5 (5.0-9.0); Specific Gravity - Urine 1.015 (1.005-1.025); Urine Blood Negative (Negative); Urine Ketones Negative (Negative); Urine Protein 30 (1+) mg/dL (Neg-Trace)
[2022-04-21 11:39] LABS: Bacteria Urine None Seen (None Seen); Hyaline Casts Urine 0-2 /LPF (0-2); RBC Urine 0-2 /HPF (0-2); Squamous Epithelial Cell Urine 0-2 /HPF (0-2); WBC Urine >50 /HPF (0-5)
[2022-04-21 11:45] LABS: UACC Culture Trigger YES
--- NOTE | 2022-04-21 12:43 | ED_ITS ---
HPI - Male Genitourinary General Chief complaint: Urogenital-Male Stated complaint: std check Time Seen by Provider: 04/21/22 12:41 Source: patient Mode of arrival: ambulatory Limitations: language barrier ([place]-speaking certified medical coding specialist utilized) History of Present Illness HPI Narrative: Patient presents emergency department for evaluation of 4 days of burning upon urination and cough coming from the urethra. He does report a new sexual partner approximately 5 days ago. He is requesting testing for sexually transmitted infections, with like prophylaxis treatment lab results are pending. Denies any lesions, wounds, rashes to the genitalia. Denies any fevers, chills, nausea, vomiting, abdominal pain, back pain, flank pain. Related Data Home Medications Medication Instructions Recorded Confirmed amlodipine 2.5 mg tablet 1 tab PO DAILY 10/18/21 12/16/21 losartan 100 1 tab PO DAILY 12/16/21 12/16/21 mg-hydrochlorothiazide 12.5 mg tablet Previous Rx's Medication Instructions Recorded buprenorphine 8 mg-naloxone 2 mg 1 film sublingual BID #14 ea 06/21/20 sublingual film (Suboxone) albuterol sulfate 90 mcg/actuation 2 puff inhalation Q6H PRN 10/10/20 aerosol inhaler (ProAir HFA) shortness of breath or wheezing #1 kit metoprolol succinate 50 mg 1 tab PO DAILY #30 tabs 10/10/20 tablet,extended release 24 hr aspirin 81 mg tablet,delayed 81 mg PO DAILY #30 tabs 12/19/21 release atorvastatin 40 mg tablet (Lipitor) 40 mg PO BEDTIME #30 tabs 12/19/21 cefpodoxime 200 mg tablet 200 mg PO Q12H #14 tabs 04/21/22 doxycycline hyclate 100 mg tablet 100 mg PO BID 7 days #14 tabs 04/21/22 Allergies Allergy/AdvReac Type Severity Reaction Status Date / Time seafood Allergy Anaphylaxis Verified 07/15/21 11:32 Review of Systems Review of Systems: Constitutional: No weight loss, fever, chills, weakness or fatigue. Skin: No rash or itching. Cardiovascular: No chest pain, chest pressure or chest discomfort. No palpitations Respiratory: No shortness of breath, cough or sputum production. Gastrointestinal: No anorexia, nausea, vomiting or diarrhea. No abdominal pain Genitourinary: Positive burning micturition. No urinary frequency or incontinence. Musculoskeletal: No muscle pain, back pain, joint pain or stiffness. Psychiatric: No depression or anxiety. Yes all other systems are reviewed and are negative PMFSH Past Medical History Attestation statement: The following information was validated with the patient. Source: old records reviewed Medical History Depression ETOH abuse HCV (hepatitis C virus) Hypertension Social History Social History Household Members: None Housing: House Do you presently have visiting nurse or other home services: No Alcohol intake: former Patient Tobacco Use Status: Former Tobacco user Tobacco use type: Cigarette Cigarette Packs Per Day: 1 Cigarettes Per Day: 20.0 Substance Use Type: Heroin and IV Drugs Advance Directives: No Advance Directives Information Provided: No service: No Current occupational status: unemployed Physical Exam Vital Signs: Vital Signs: Last Vital Signs Temp 97.4 F 04/21/22 10:57 Pulse 66 04/21/22 10:57 Resp 16 04/21/22 10:57 BP 177/87 H 04/21/22 10:57 Pulse Ox 97 04/21/22 10:57 O2 Del Method 04/21/22 10:57 BMI result Body Mass Index 25.8 Appearance: Alert.?Oriented to person, place and time. No acute distress.?Normal affect. Eyes: Pupils equal, round and reactive to light.? ENT: Pharynx normal.?? Neck: Normal inspection.? Neck supple.?? CVS: Heart sounds normal. Normal heart rate and rhythm.? Pulses normal.?? Respiratory: No respiratory distress.? Lung sounds clear to auscultation bilaterally?? Abdomen: Soft and non-tender. Normoactive bowel sounds. Genitourinary: Declined genitourinary exam? Skin: Skin warm and dry.? Normal skin color.? Extremities: No lower extremity edema.? Neuro: Moves all extremities spontaneously. Sensation intact bilaterally. Ambulates with normal steady gait. Course Course Course Narrative: Patient is a 51-year-old male who presents emergency department for evaluation of dysuria and purulent penile discharge. Urinalysis appears consistent with urinary tract infection moderate leukocyte esterase, greater than 50 WBC, discussed with patient may be consistent with urinary tract infection, verses consistent with sexually transmitted infection. Chlamydia and gonorrhea testing are pending at the time of discharge, advised to receive a telephone call with the next 2 days if results are positive. Provided with ceftriaxone while in the emergency department, patient discharged home with prescription for doxycycline and cefpodoxime. Advised follow-up with primary care provider. Review worsening signs symptoms return back to the emergency department for. All questions were answered, patient was discharged home in stable condition. [facility] - Male Genitourinary Medical Records Attestation: I reviewed the patient's medical records. Lab Data Attestation: I reviewed the patient's lab results. Labs: Lab Results 04/21/22 04/21/22 Range/Units 11:05 11:13 Urine Color Yellow Urine Appearance Clear Urine pH 7.5 (5.0-9.0) Ur Specific [place] 1.015 (1.005-1.025) Urine Protein 30 (1+) H (Neg-Trace) mg/dL Urine Glucose (UA) Negative (Negative) mg/dL Urine Ketones Negative (Negative) mg/dL Urine Blood Negative (Negative) Urine Nitrite Negative (Negative) Ur Leukocyte Esterase Moderate (2+) H (Negative) Urine RBC 0-2 (0-2) /HPF Urine WBC >50 H (0-5) /HPF Ur Squamous Epith Cells 0-2 (0-2) /HPF Urine Bacteria None Seen (None Seen) Hyaline Casts 0-2 (0-2) /LPF Chlam trachomat DNA PCR NOT DETECTED (Not Detect.) N.gonorrhoeae DNA (PCR) DETECTED A (Not Detect.) Discharge Plan Discharge Clinical Impression: Urinary tract infection Patient Disposition: Home, Self-Care Instructions: Urinary Tract Infection in Men (ED) Additional Instructions: Your urine shows that you have a urinary tract infection. For this you have been given antibiotic to take twice daily for 1 week We have also sent testing for chlamydia and gonorrhea, these results will not be available for at least 2 days. However, as we discussed you have received partial treatment for gonorrhea and chlamydia while in the emergency department, an injection of ceftriaxone, and you will need to take doxycycline twice daily for 1 week. Contact your primary care provider to arrange for follow-up, and you may return to the emergency department any new or worsening symptoms or concerns Prescriptions: New cefpodoxime 200 mg tablet 200 mg PO Q12H Qty: 14 0RF Rx Instructions: must administer with a meal/food doxycycline hyclate 100 mg tablet 100 mg PO BID 7 Days Qty: 14 0RF No Action metoprolol succinate 50 mg tablet extended release 24 hr 1 tab PO DAILY Qty: 30 0RF albuterol sulfate [ProAir HFA] 90 mcg/actuation HFA aerosol inhaler 2 puff inhalation Q6H PRN (Reason: shortness of breath or wheezing) Qty: 1 0RF amlodipine 2.5 mg tablet 1 tab PO DAILY losartan-hydrochlorothiazide 100-12.5 mg tablet 1 tab PO DAILY aspirin 81 mg tablet,delayed release (DR/EC) 81 mg PO DAILY Qty: 30 0RF atorvastatin [Lipitor] 40 mg tablet 40 mg PO BEDTIME Qty: 30 0RF buprenorphine-naloxone [Suboxone] 8-2 mg film 1 film sublingual BID Qty: 14 0RF Print Language: [place]ese
[2022-04-21 12:59] LABS: CT PCR NOT DETECTED (Not Detect.); NG PCR DETECTED (Not Detect.)
[2022-04-21] MEDS: cefTRIAXone sodium 500 MG, Lidocaine HCl 1 % MPF 1 ML IM (13:11)
== END 2022-04-21 13:00 | disposition home or self-care (01) ==
PROVIDERS: Emergency Provider Emergency Medicine
DX: N39.0 Urinary tract infection, site not specified (principal); R30.0 Dysuria; Z20.2 Contact with and (suspected) exposure to infections with a predominantly sexual mode of transmission; I10 Essential (primary) hypertension; B19.20 Unspecified viral hepatitis C without hepatic coma; F11.20 Opioid dependence, uncomplicated; Z87.891 Personal history of nicotine dependence; Z79.82 Long term (current) use of aspirin; Z79.899 Other long term (current) drug therapy; Z79.02 Long term (current) use of antithrombotics/antiplatelets
CPT/HCPCS: 81001; 87086; 87491; 87591; 96372; 99282; 99284; J0696

== ENCOUNTER 2022-05-03 19:02 | Emergency (ER) | payer MEDICAID, SELFPAY ==
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
[2022-05-03 19:26] VITALS: BP 100/64; PULSE 68; O2SAT 95; BMI 26.6
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
[2022-05-03 20:10] LABS: Glucose, Whole Blood 83 mg/dL (60-115)
[2022-05-03] MEDS: iohexoL 350 MG/ML 100 ML INFUS..BTL IV (20:30)
[2022-05-03] MEDS: Naloxone HCl 0.4 MG/ML VIAL IVPUSH (20:44)
[2022-05-03] MEDS: Naloxone HCl Nasal 4 MG SPRAY NOSTRILALT (20:44)
[2022-05-03 20:57] VITALS: BP 163/85; PULSE 78; RESP 16; TEMP 37; O2SAT 94
[2022-05-03 20:58] LABS: MANUAL DIFF FLAG NO
--- NOTE | 2022-05-03 20:59 | PC.NURSE ---
PATIENT WAS CHANGE INTO HOSPITAL ATTIRE BY THIS PCT .
[2022-05-03 21:00] LABS: Basophils Percent Auto 0.5 % (0-2); Eosinophils Absolute Auto 0.2 X10*3/uL (0.0-0.4); Eosinophils Percent Auto 2.9 % (0-4); Hematocrit 30.6 % (42.0-52.0); Hemoglobin 9.8 g/dl (14.0-18.0); Imm Gran Abs Auto 0.01 X10*3/uL (0.00-0.03); Imm Gran Pct Auto 0.1 % (0.0-0.4); Lymphocytes Absolute Auto 2.4 X10*3/uL (1.2-4.9); Lymphocytes Percent Auto 29.9 % (20-40); Mean Corpuscular Hemoglobin 29.7 pg (27.0-33.0); Mean Corpuscular Volume 92.7 fL (80.0-98.0); Mean Platelet Volume 9.8 fL (9.4-12.4); Monocytes Absolute Auto 0.5 X10*3/uL (0.1-1.2); Monocytes Percent Auto 6.3 % (2-11); Neutrophils Absolute Auto 4.8 x10*3/uL (2.0-8.3); Neutrophils Percent Auto 60.3 % (45-73); Platelet Count 228 X10*3/uL (160-400); Red Cell Distribution Width 14.6 % (11.0-16.0)
[2022-05-03 21:13] LABS: INTERNATIONAL NORM RATIO 0.9 (0.9-1.1); Prothrombin Time 10.8 SEC (10.0-13.1)
[2022-05-03 21:13] LABS: Appearance Urine Clear; Color Urine Yellow; Glucose Urine UA Negative (Negative); Leukocyte Esterase Urine Negative (Negative); Nitrite Urine Negative (Negative); PH 7.5 (5.0-9.0); Specific Gravity - Urine 1.025 (1.005-1.025); Urine Blood Negative (Negative); Urine Ketones Negative (Negative); Urine Protein Negative (Neg-Trace)
[2022-05-03 21:20] LABS: Alanine Aminotransferase 17 U/L (0-40); Albumin Level 4.2 g/dL (3.5-5.0); Alkaline Phosphatase 72 U/L (39-117); Anion Gap 16 (12-20); Aspartate Amino Transferase 24 U/L (5-37); Bilirubin Total < 0.2 mg/dL (0.0-1.0); Blood Urea Nitrogen 21 mg/dL (9-16); Calcium 9.5 mg/dL (8.4-10.2); Carbon Dioxide 32 mmol/L (22-29); Chloride 99 mmol/L (96-108); Creatinine Clr Calc Pharmacy 91.9; Estimated Glomerular Filt Rate > 60; Ethanol 325 mg/dL; Glucose Random 81 mg/dL (60-115); Potassium 4.2 mmol/L (3.3-5.1); Sodium 143 mmol/L (135-145); Total Protein 6.9 g/dL (6.5-8.0)
[2022-05-03 21:23] LABS: COVID-19 Test Negative (Negative)
[2022-05-03 21:27] LABS: Amphetamine Screen Urine Not Detected (Not Detect); Barbiturates, Urine Not Detected (Not Detect); Benzodiazepines Screen Urine Not Detected (Not Detect); Cannabinoid Screen Urine Not Detected (Not Detect); Cocaine Screen Urine POSITIVE (Not Detect); Fentanyl, urine POSITIVE (Not Detect); Opiate Screen Urine POSITIVE (Not Detect); Phencyclidine Screen Urine Not Detected (Not Detect)
[2022-05-03 22:00] VITALS: BP 92/48; PULSE 68; RESP 15; TEMP 36.8; O2SAT 98
[2022-05-03 23:47] VITALS: BP 97/56; PULSE 55; RESP 12; O2SAT 92
[2022-05-04 00:38] LABS: MANUAL DIFF FLAG NO
[2022-05-04 00:39] LABS: Basophils Percent Auto 0.4 % (0-2); Eosinophils Absolute Auto 0.2 X10*3/uL (0.0-0.4); Eosinophils Percent Auto 1.6 % (0-4); Hematocrit 30.8 % (42.0-52.0); Imm Gran Abs Auto 0.02 X10*3/uL (0.00-0.03); Imm Gran Pct Auto 0.2 % (0.0-0.4); Lymphocytes Absolute Auto 2.1 X10*3/uL (1.2-4.9); Lymphocytes Percent Auto 22.1 % (20-40); Mean Corpuscular HGB Conc 32.5 g/dl (31.0-36.0); Mean Corpuscular Hemoglobin 30.1 pg (27.0-33.0); Mean Corpuscular Volume 92.8 fL (80.0-98.0); Mean Platelet Volume 9.3 fL (9.4-12.4); Monocytes Absolute Auto 0.4 X10*3/uL (0.1-1.2); Monocytes Percent Auto 3.7 % (2-11); Neutrophils Absolute Auto 6.8 x10*3/uL (2.0-8.3); Platelet Count 207 X10*3/uL (160-400); Red Blood Count 3.32 X10*6/uL (4.60-5.80); Red Cell Distribution Width 14.7 % (11.0-16.0); White Blood Count 9.4 X10*3/uL (4.8-10.8)
[2022-05-04 02:26] VITALS: BP 99/59; PULSE 58; RESP 16; O2SAT 94
[2022-05-04 04:16] VITALS: BP 131/79; PULSE 71; RESP 18; O2SAT 95
[2022-05-04 06:03] VITALS: BP 128/76; PULSE 72; RESP 18; O2SAT 95
[2022-05-04 07:49] VITALS: BP 122/68; PULSE 63; RESP 14; O2SAT 85
--- NOTE | 2022-05-04 07:51 | PC.NURSE ---
pt sleepy but easily arousable, respirations about 14, sating at 85% on room air, pt put on 2l via nasal cannual and now sating at 95%, denies pain at this time
[2022-05-04 11:13] LABS: Glucose, Whole Blood 133 mg/dL (60-115)
[2022-05-04 11:45] VITALS: O2SAT 100
--- NOTE | 2022-05-04 11:45 | PC.NURSE ---
pt more awake, eating and maintain oxygen on room air at 100%
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
== END 2022-05-04 12:25 | disposition home or self-care (01) ==
PROVIDERS: Physician Assistant; Emergency Provider Student in an Organized Health Care Education/Training Program
DX: F10.220 Alcohol dependence with intoxication, uncomplicated (principal); Y90.8 Blood alcohol level of 240 mg/100 ml or more; F19.10 Other psychoactive substance abuse, uncomplicated; S06.0X0A Concussion without loss of consciousness, initial encounter; V28.0XXA Motorcycle driver injured in noncollision transport accident in nontraffic accident, initial encounter; D64.9 Anemia, unspecified; Z20.822 Contact with and (suspected) exposure to COVID-19; Y93.89 Activity, other specified; Y92.414 Local residential or business street as the place of occurrence of the external cause; Y99.9 Unspecified external cause status
CPT/HCPCS: 36415; 70450; 71260; 72125; 74160; 80053; 80307; 81003; 82077; 82550; 82947; 83735; 85025; 85610; 87635; 96374; 99284; Q9967

== ENCOUNTER 2022-08-27 22:20 | Emergency (ER) | payer MEDICAID, SELFPAY ==
[2022-08-27 22:25] VITALS: BP 140/94; PULSE 69; RESP 18; TEMP 36.3; O2SAT 97; BMI 24.2
--- NOTE | 2022-08-27 22:40 | ED.GENADULT ---
HPI - General Adult General Chief complaint: General Medical Stated complaint: sti check Time Seen by Provider: 08/27/22 22:40 Source: patient Mode of arrival: ambulatory History of Present Illness HPI narrative: 51-year-old male with a past medical history of depression, ETOH abuse, hepatitis-C, hypertension, presenting to the ED complaining dysuria and brownish penile discharge times 3-4 days. Reports suspected contact with gonorrhea. patient is sexually active with 1 partner. Denies fever, chills, abdominal pain, flank pain, testicular pain, lesions /bumps or ulcerations. Onset (ago): day(s) Related Data Home Medications Medication Instructions Recorded Confirmed amlodipine 2.5 mg tablet 1 tab PO DAILY 10/18/21 12/16/21 losartan 100 1 tab PO DAILY 12/16/21 12/16/21 mg-hydrochlorothiazide 12.5 mg tablet Previous Rx's Medication Instructions Recorded buprenorphine 8 mg-naloxone 2 mg 1 film sublingual BID #14 ea 06/21/20 sublingual film (Suboxone) albuterol sulfate 90 mcg/actuation 2 puff inhalation Q6H PRN 10/10/20 aerosol inhaler (ProAir HFA) shortness of breath or wheezing #1 kit metoprolol succinate 50 mg 1 tab PO DAILY #30 tabs 10/10/20 tablet,extended release 24 hr aspirin 81 mg tablet,delayed 81 mg PO DAILY #30 tabs 12/19/21 release atorvastatin 40 mg tablet (Lipitor) 40 mg PO BEDTIME #30 tabs 12/19/21 cefpodoxime 200 mg tablet 200 mg PO Q12H #14 tabs 04/21/22 doxycycline hyclate 100 mg tablet 100 mg PO BID 7 days #14 tabs 04/21/22 doxycycline hyclate 100 mg tablet 100 mg PO BID 7 days #14 tabs 08/27/22 Allergies Allergy/AdvReac Type Severity Reaction Status Date / Time seafood Allergy Anaphylaxis Verified 07/15/21 11:32 Review of Systems Review of Systems: Constitutional: No Fever, No Chills, No Fatigue, No Malaise ENT/Mouth: No Ear Pain, No Nasal Congestion, No sore throat, No Rhinorrhea, No Swallowing Difficulty Cardiovascular: No Chest Pain, No SOB, No Edema, No Palpitations Respiratory: No Cough, No Sputum, No Dyspnea Gastrointestinal: No Nausea, No Vomiting, No Diarrhea, No Constipation, No Abdominal pain Genitourinary: + Dysuria, No Urinary Frequency, No Hematuria, No Urinary Incontinence/retention, No Flank Pain, +penile discharge Musculoskeletal: No joint pain, No Myalgias, No Joint Swelling Skin: No Skin Lesions, No rash Yes all other systems are reviewed and are negative Constitutional: Constitutional: Reports as per [facility] Past Medical History Attestation statement: The following information was validated with the patient. Medical History Depression ETOH abuse HCV (hepatitis C virus) Hypertension Social History Social History Household Members: None Housing: House Do you presently have visiting nurse or other home services: No Alcohol intake: former Patient Tobacco Use Status: Former Tobacco user Tobacco use type: Cigarette Cigarette Packs Per Day: 1 Cigarettes Per Day: 20.0 Substance Use Type: Heroin and IV Drugs Advance Directives: No Advance Directives Information Provided: No service: No Current occupational status: unemployed Physical Exam ED Vital Signs: Vital Signs - 24 hr 08/27/22 22:25 Temperature 97.4 F Pulse Rate 69 Respiratory Rate 18 Blood Pressure 140/94 H Pulse Oximetry 97 Oxygen Delivery Method Room Air BMI result Body Mass Index 24.2 Const General: cooperative, healthy appearing and no acute distress Orientation/consciousness: patient oriented x3 Limitations: no limitations HENMT Head: Yes normal to inspection and Yes atraumatic Ears: hearing grossly normal bilaterally General nose exam: Normal external nose present Face and sinus: Yes normal facial exam Eyes General: appearance normal, both eyes and all related structures EOM: EOMs intact bilaterally Neck Neck: Yes normal visual inspection and Yes no meningeal signs Resp Effort & Inspection: normal respiratory effort and no respiratory distress Cardio Rate: regular rate GI Inspection: Yes normal to inspection Palpation (GI): Soft to palpation, nontender, no guarding and not rigid Other: Patient deferred exam Skin Rashes: no rashes Wounds: no wounds Neuro General: patient oriented x3, tone normal and no meningeal signs Gait exam (Neuro): Normal gait present Extrem General: Yes normal to inspection Course Course Course Narrative: - UA with > 50 WBCs and leuk esterase likely suspected STI rather than UTI. Will tx for gonorrhea and chlamydia and hold on UTI treatment until culture results. Results discussed with patient including worrisome signs and symptoms and strict return precautions, and when to return to the emergency department. They verbalized understanding and feel safe for discharge at this time. Medications Administered Discontinued Medications Generic Name Dose Route Start Last Admin Trade Name Trena PRN Reason Stop Dose Admin Ceftriaxone Sodium 500 mg/ 0 mg 08/27/22 22:46 08/27/22 22:55 Lidocaine HCl 1 ml IM 08/27/22 22:47 1 kit ONCE ONE Administration Doxycycline Monohydrate 100 mg 08/27/22 22:46 08/27/22 22:55 Doxycycline Monohydrate 100 Mg Capsule PO 08/27/22 22:47 100 mg ONCE ONE Administration Medical Decision Making Medical Decision Making MDM Narrative: 51-year-old male with a past medical history of depression, ETOH abuse, hepatitis-C, hypertension, presenting to the ED complaining dysuria and brownish penile discharge times 3-4 days. on exam vital signs stable, NAD, nontoxic appearing, abdomen soft/ nontender. Patient deferred exam. Concern for STI vs UTI. Lower suspicion for intra-abdominal pathology including appendicitis/diverticulitis, renal stone/pyelo plan: UA, CT/ NG, empiric IM Rocephin and p.o. doxycycline Please refer to course for remaining clinical decision making, interpretation of labs/imaging results, and discussions with consultants and/or family members. Differential Diagnosis Differential Diagnoses: The differential diagnosis associated with the presentation includes as above Lab Data [facility] Lab Attestation statement: I reviewed the patient's lab results. Labs: Lab Results 08/27/22 Range/Units 22:39 Urine Color Yellow Urine Appearance Cloudy Urine pH 6.5 (5.0-9.0) Ur Specific [place] <= 1.005 (1.005-1.025) Urine Protein 30 (1+) H (Neg-Trace) mg/dL Urine Glucose (UA) Negative (Negative) mg/dL Urine Ketones Negative (Negative) mg/dL Urine Blood Small (1+) H (Negative) Urine Nitrite Negative (Negative) Ur Leukocyte Esterase Large (3+) H (Negative) Urine RBC 0-2 (0-2) /HPF Urine WBC >50 H (0-5) /HPF Ur Squamous Epith Cells 0-2 (0-2) /HPF Urine Bacteria None Seen (None Seen) Hyaline Casts 0-2 (0-2) /LPF Prescription Management I considered prescription management with: Antiviral and Antibiotic Discharge Plan Discharge Clinical Impression: Sexually transmitted disease (STD) Patient Disposition: Home, Self-Care Instructions: Sexually Transmitted Diseases (ED) Additional Instructions: Your tested for gonorrhea and chlamydia in the emergency department. You were treated for gonorrhea with an injection, continue taking doxycycline as prescribed for chlamydia treatment please go to [facility] for further STI testing. Avoid any sexual contact until you know the results of her cultures. We will contact you with positive results only. If symptoms persist or worsen, he developed abdominal pain, back pain, or fever return to the emergency department Le hicieron pruebas de gonorrea y clamidia en el departamento de emergencias. Recibi? tratamiento para la gonorrea con ladan inyecci?n, contin?e tomando doxiciclina seg?n lo prescrito para el tratamiento de la clamidia. vaya a [facility] para m?s pruebas de ITS. Evite cualquier contacto sexual hasta que sepa los resultados de zari cultivos. Nos comunicaremos con usted solo con resultados positivos. Si los s?ntomas persisten o empeoran, desarroll? dolor abdominal, dolor de espalda o fiebre. Regrese al servicio de urgencias. Prescriptions: New doxycycline hyclate 100 mg tablet 100 mg PO BID 7 Days Qty: 14 0RF No Action metoprolol succinate 50 mg tablet extended release 24 hr 1 tab PO DAILY Qty: 30 0RF albuterol sulfate [ProAir HFA] 90 mcg/actuation HFA aerosol inhaler 2 puff inhalation Q6H PRN (Reason: shortness of breath or wheezing) Qty: 1 0RF amlodipine 2.5 mg tablet 1 tab PO DAILY losartan-hydrochlorothiazide 100-12.5 mg tablet 1 tab PO DAILY aspirin 81 mg tablet,delayed release (DR/EC) 81 mg PO DAILY Qty: 30 0RF atorvastatin [Lipitor] 40 mg tablet 40 mg PO BEDTIME Qty: 30 0RF cefpodoxime 200 mg tablet 200 mg PO Q12H Qty: 14 0RF Rx Instructions: must administer with a meal/food doxycycline hyclate 100 mg tablet 100 mg PO BID 7 Days Qty: 14 0RF buprenorphine-naloxone [Suboxone] 8-2 mg film 1 film sublingual BID Qty: 14 0RF Referrals: [facility] [Primary Care Provider] - Interventions: ED Discharge Assessment Last Done: 08/27/22 23:27 Discharge Date/Time: 08/27/22 23:27 Print Language: Colombian
[2022-08-27 22:48] LABS: Appearance Urine Cloudy; Color Urine Yellow; Glucose Urine UA Negative (Negative); Leukocyte Esterase Urine Large (3+) (Negative); Nitrite Urine Negative (Negative); PH 6.5 (5.0-9.0); Specific Gravity - Urine <= 1.005 (1.005-1.025); UMIC TRIGGER UACC YES; Urine Blood Small (1+) (Negative); Urine Ketones Negative (Negative); Urine Protein 30 (1+) mg/dL (Neg-Trace)
[2022-08-27] MEDS: Doxycycline Monohydrate 100 MG CAPSULE PO (22:55)
[2022-08-27] MEDS: cefTRIAXone sodium 500 MG, Lidocaine HCl 1 % MPF 1 ML IM (22:55)
[2022-08-27 23:00] LABS: Bacteria Urine None Seen (None Seen); Hyaline Casts Urine 0-2 /LPF (0-2); RBC Urine 0-2 /HPF (0-2); Squamous Epithelial Cell Urine 0-2 /HPF (0-2); UACC Culture Trigger YES; WBC Urine >50 /HPF (0-5)
[2022-08-28 06:06] LABS: CT PCR NOT DETECTED (Not Detect.); NG PCR DETECTED (Not Detect.)
== END 2022-08-27 23:27 | disposition home or self-care (01) ==
PROVIDERS: Emergency Provider Emergency Medicine
DX: A64 Unspecified sexually transmitted disease (principal); I10 Essential (primary) hypertension; F11.20 Opioid dependence, uncomplicated; F10.10 Alcohol abuse, uncomplicated; B19.20 Unspecified viral hepatitis C without hepatic coma; Z79.899 Other long term (current) drug therapy; Z79.82 Long term (current) use of aspirin; Z79.02 Long term (current) use of antithrombotics/antiplatelets; Z87.891 Personal history of nicotine dependence
CPT/HCPCS: 0353U; 81001; 87086; 96372; 99282; 99284; J0696

== ENCOUNTER 2023-03-03 06:24 | Emergency (ER) | payer MEDICAID, SELFPAY ==
[2023-03-03 06:30] VITALS: BP 152/96; PULSE 84; RESP 16; TEMP 36.1; O2SAT 98; BMI 22.4
[2023-03-03 06:50] LABS: Appearance Urine Turbid; Color Urine Yellow; Glucose Urine UA Negative (Negative); Leukocyte Esterase Urine Large (3+) (Negative); Nitrite Urine Negative (Negative); PH 8.5 (5.0-9.0); UMIC TRIGGER UACC YES; Urine Blood Negative (Negative); Urine Ketones Negative (Negative); Urine Protein 100 (2+) mg/dL (Neg-Trace)
[2023-03-03 07:01] LABS: Bacteria Urine None Seen (None Seen); Hyaline Casts Urine 0-2 /LPF (0-2); Squamous Epithelial Cell Urine 0-2 /HPF (0-2); UACC Culture Trigger YES; WBC Urine >50 /HPF (0-5)
--- NOTE | 2023-03-03 07:46 | ED_ITS ---
HPI - General Adult General Chief complaint: General Medical Stated complaint: Std check/Discharge and bad odor Time Seen by Provider: 03/03/23 07:46 Source: patient Mode of arrival: ambulatory Limitations: no limitations History of Present Illness HPI narrative: Patient is a 52-year-old male presenting with complaint of dysuria and brown penile discharge after unprotected intercourse one week prior. He denies any genital rashes or lesions. Denies any testicular pain or swelling. Denies fevers. Denies abdominal pain, nausea, vomiting, diarrhea or constipation. Denies back or flank pain. MD complaint: penile discharge Onset (ago): day(s) Location: genitals Radiation: non-radiation Quality: burning Relieving factors: none Exacerbating factors: none Associated symptoms: denies other symptoms Treatments prior to arrival: none Related Data Home Medications Medication Instructions Recorded Confirmed amlodipine 2.5 mg tablet 1 tab PO DAILY 10/18/21 12/16/21 losartan 100 1 tab PO DAILY 12/16/21 12/16/21 mg-hydrochlorothiazide 12.5 mg tablet Previous Rx's Medication Instructions Recorded buprenorphine 8 mg-naloxone 2 mg 1 film sublingual BID #14 ea 06/21/20 sublingual film (Suboxone) albuterol sulfate 90 mcg/actuation 2 puff inhalation Q6H PRN 10/10/20 aerosol inhaler (ProAir HFA) shortness of breath or wheezing #1 kit metoprolol succinate 50 mg 1 tab PO DAILY #30 tabs 10/10/20 tablet,extended release 24 hr aspirin 81 mg tablet,delayed 81 mg PO DAILY #30 tabs 12/19/21 release atorvastatin 40 mg tablet (Lipitor) 40 mg PO BEDTIME #30 tabs 12/19/21 cefpodoxime 200 mg tablet 200 mg PO Q12H #14 tabs 04/21/22 doxycycline hyclate 100 mg tablet 100 mg PO BID 7 days #14 tabs 04/21/22 doxycycline hyclate 100 mg tablet 100 mg PO BID 7 days #14 tabs 08/27/22 doxycycline hyclate 100 mg capsule 100 mg PO BID #13 caps 03/03/23 Allergies Allergy/AdvReac Type Severity Reaction Status Date / Time seafood Allergy Anaphylaxis Verified 07/15/21 11:32 Review of Systems Review of Systems: As per HPI. Yes all other systems are reviewed and are negative PMFSH Past Medical History Medical History Depression ETOH abuse HCV (hepatitis C virus) Hypertension Social History Social History Household Members: None Housing: House Do you presently have visiting nurse or other home services: No Alcohol intake: current Alcohol intake frequency: holidays/special occasions only Alcohol type: beer Patient Tobacco Use Status: Former Tobacco user Tobacco use type: Cigarette Cigarette Packs Per Day: 1 Cigarettes Per Day: 20.0 Smoked in Last 30 Days: Yes Use of substances other than those prescribed or required for medical reasons: Yes Substance Use Type: Crack/Cocaine and Heroin Substance Use Frequency: Chronic Longstanding Advance Directives: No Advance Directives Information Provided: No service: No Current occupational status: unemployed Physical Exam ED Vital Signs: Vital Signs - 24 hr 03/03/23 06:30 03/03/23 08:43 Temperature 97 F Pulse Rate 84 50 Respiratory Rate 16 14 Blood Pressure 152/96 H 143/86 H Pulse Oximetry 98 98 Oxygen Delivery Method Room Air Room Air BMI result Body Mass Index 22.4 VS have been reviewed and appear to be correct. Blood pressure normal. Heart rate normal. Respiratory rate normal. Temperature normal. Oxygen saturation normal. Vital signs have been reviewed and appear to be correct. Blood pressure elevated. Heart rate normal. Respiratory rate normal. Temperature normal. Oxygen saturation normal. Const General: no acute distress, alert and awake Orientation/consciousness: patient oriented x3 HENMT Head: Yes normocephalic and Yes atraumatic Mouth: oropharynx normal and moist mucous membranes Throat: Yes uvula midline Eyes Pupils: Equal, round and reactive pupils present EOM: EOMs intact bilaterally Neck Neck: Yes normal visual inspection, Yes full ROM, Yes no lymphadenopathy, Yes no meningeal signs and Yes supple Resp Effort & Inspection: normal respiratory effort Auscultation: clear to auscultation bilaterally Cardio Rate: regular rate Rhythm: regular rhythm Heart sounds: S1 normal heart sound present and S2 normal heart sound present Peripheral pulses: Peripheral pulses 2+ throughout GI Inspection: Yes normal to inspection and No distended Palpation (GI): Soft to palpation, nontender, no guarding, hepatosplenomegaly present and No Rebound tenderness present Auscultation: normoactive bowel sounds Other: Chaperoned by: RICCO Krueger General: Yes no CVA tenderness Penis: normal penis (no discharge noted) Meatus: meatus normal Scrotum: scrotum normal Testes: Testes normal Back/Spine/Pelvis Back: no CVA tenderness Skin General skin exam: elasticity normal and turgor normal Rashes: no rashes Neuro General: patient oriented x3, gait normal and no meningeal signs Cranial nerves: Yes Equal, round and reactive pupils present Motor exam (neuro): 5/5 motor strength present throughout and Normal motor muscle tone present throughout Sensory Exam: Normal double simultaneous stimulation for sensation Medical Decision Making Medical Decision Making [facility] Narrative: Patient is a 52-year-old male presenting with complaint of dysuria and brown penile discharge after unprotected intercourse one week prior. On exam patient is awake, A+Ox3, VS WNL, afebrile, normal neurological exam without focal deficits, abdomen soft and nontender, no CVA tenderness, normal exam. Given reported symptoms and physical exam findings, initial differential includes STI, UTI. Labs notable for 3+ leukocytes, >50 WBCs, negative nitrites, no bacteria. CT NG positive for gonorrhea. Ordered ceftriaxone IM, doxycycline. Will discharge home, instructed to follow up with PCP. Instructed patient to notify all sexual partners of diagnosis. Instructed patient to avoid sexual intercourse until full treatment in complete. DPH form completed. Patient verbalized understanding of and agreement with plan. Differential Diagnosis Differential Diagnoses: The differential diagnosis associated with the presentation includes Lab Data [facility] Lab Attestation statement: I reviewed the patient's lab results. positive gonorrhea Labs: Lab Results 03/03/23 03/03/23 Range/Units 06:44 08:01 Urine Color Yellow Urine Appearance Turbid Urine pH 8.5 (5.0-9.0) Ur Specific [place] 1.020 (1.005-1.025) Urine Protein 100 (2+) H (Neg-Trace) mg/dL Urine Glucose (UA) Negative (Negative) mg/dL Urine Ketones Negative (Negative) mg/dL Urine Blood Negative (Negative) Urine Nitrite Negative (Negative) Ur Leukocyte Esterase Large (3+) H (Negative) Urine RBC 3-5 H (0-2) /HPF Urine WBC >50 H (0-5) /HPF Ur Squamous Epith Cells 0-2 (0-2) /HPF Urine Bacteria None Seen (None Seen) Hyaline Casts 0-2 (0-2) /LPF Chlam trachomat DNA PCR NOT DETECTED (Not Detect.) N.gonorrhoeae DNA (PCR) DETECTED A (Not Detect.) External Record Review External record reviewed: Inpatient record, Office record and Outpatient record Prescription Management I considered prescription management with: Antibiotic (doycycline) Discharge Plan Discharge Clinical Impression: Gonorrhea Patient Disposition: Home, Self-Care Instructions: Sexually Transmitted Diseases (ED), Gonorrhea (ED) Additional Instructions: You are being prescribed a course of antibiotics for gonorrhea which is a sexually transmitted disease. DO NOT HAVE INTERCOURSE UNTIL TREATMENT IS COMPLETE AND YOU ARE SYMPTOM FREE. NOTIFY ALL SEXUAL PARTNERS OF YOUR POSITIVE GONORRHEA DIAGNOSIS. Return to the emergency department with worsening pain, increasing penile discharge, fever 100.4F or greater, abdominal pain, vomiting, or any other concerning symptoms. Prescriptions: New doxycycline hyclate 100 mg capsule 100 mg PO BID Qty: 13 0RF Rx Instructions: You were given the first dose today in the ED. No Action metoprolol succinate 50 mg tablet extended release 24 hr 1 tab PO DAILY Qty: 30 0RF albuterol sulfate [ProAir HFA] 90 mcg/actuation HFA aerosol inhaler 2 puff inhalation Q6H PRN (Reason: shortness of breath or wheezing) Qty: 1 0RF amlodipine 2.5 mg tablet 1 tab PO DAILY doxycycline hyclate 100 mg tablet 100 mg PO BID 7 Days Qty: 14 0RF losartan-hydrochlorothiazide 100-12.5 mg tablet 1 tab PO DAILY aspirin 81 mg tablet,delayed release (DR/EC) 81 mg PO DAILY Qty: 30 0RF atorvastatin [Lipitor] 40 mg tablet 40 mg PO BEDTIME Qty: 30 0RF cefpodoxime 200 mg tablet 200 mg PO Q12H Qty: 14 0RF Rx Instructions: must administer with a meal/food doxycycline hyclate 100 mg tablet 100 mg PO BID 7 Days Qty: 14 0RF buprenorphine-naloxone [Suboxone] 8-2 mg film 1 film sublingual BID Qty: 14 0RF
[2023-03-03 08:43] VITALS: BP 143/86; PULSE 50; RESP 14; O2SAT 98
[2023-03-03 11:52] LABS: CT PCR NOT DETECTED (Not Detect.); NG PCR DETECTED (Not Detect.)
[2023-03-03] MEDS: cefTRIAXone sodium 500 MG, Lidocaine HCl 1 % MPF 1 ML IM (12:40)
[2023-03-03] MEDS: Doxycycline Monohydrate 100 MG CAPSULE PO (12:40)
[2023-03-03 12:44] VITALS: BP 198/112; PULSE 50; RESP 18; TEMP 36.5; O2SAT 100
== END 2023-03-03 12:51 | disposition home or self-care (01) ==
PROVIDERS: Registered Nurse Emergency; Emergency Provider Emergency Medicine
DX: A54.09 Other gonococcal infection of lower genitourinary tract (principal); R30.0 Dysuria; R36.9 Urethral discharge, unspecified; B19.20 Unspecified viral hepatitis C without hepatic coma; I10 Essential (primary) hypertension; F17.210 Nicotine dependence, cigarettes, uncomplicated; Z79.899 Other long term (current) drug therapy
CPT/HCPCS: 0353U; 81001; 87086; 87147; 96372; 99284; J0696

== ENCOUNTER 2024-06-20 21:57 | Emergency (ER) | payer MEDICAID, SELFPAY ==
[2024-06-20 22:06] VITALS: BP 204/120; PULSE 84; O2SAT 100
[2024-06-20 22:22] VITALS: BP 153/79; PULSE 79; RESP 16; TEMP 37.4; O2SAT 94; BMI 30.9
--- NOTE | 2024-06-20 22:32 | ED.BACK ---
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 Since then he notes pain with moving and walking. He denies AC therapy, IVDA, b/b incontinence, saddle anesthesia. He states he has not tried anything for it. He has not had fevers MD elicited complaint: back pain and back injury Onset (ago): day(s) (3) Timing: constant Severity: moderate Similar Symptoms Previously: Yes Quality: dull, aching and spasming Location: lumbar spine Radiation: none Exacerbating factors: movement and walking Relieving factors: immobilization Context: while lifting Associated symptoms: denies other symptoms Work related injury: No Related Data Home Medications ?Medication ?Instructions ?Recorded ?Confirmed amlodipine 2.5 mg tablet 1 tab PO DAILY 10/18/21 12/16/21 losartan 100 1 tab PO DAILY 12/16/21 12/16/21 mg-hydrochlorothiazide 12.5 mg tablet Previous Rx's ?Medication ?Instructions ?Recorded buprenorphine 8 mg-naloxone 2 mg 1 film sublingual BID #14 ea 06/21/20 sublingual film (Suboxone) albuterol sulfate 90 mcg/actuation 2 puff inhalation Q6H PRN 10/10/20 aerosol inhaler (ProAir HFA) shortness of breath or wheezing #1 kit metoprolol succinate 50 mg 1 tab PO DAILY #30 tabs 10/10/20 tablet,extended release 24 hr aspirin 81 mg tablet,delayed 81 mg PO DAILY #30 tabs 12/19/21 release atorvastatin 40 mg tablet (Lipitor) 40 mg PO BEDTIME #30 tabs 12/19/21 cefpodoxime 200 mg tablet 200 mg PO Q12H #14 tabs 04/21/22 doxycycline hyclate 100 mg tablet 100 mg PO BID 7 days #14 tabs 04/21/22 doxycycline hyclate 100 mg tablet 100 mg PO BID 7 days #14 tabs 08/27/22 doxycycline hyclate 100 mg capsule 100 mg PO BID #13 caps 03/03/23 cyclobenzaprine 10 mg tablet 10 mg PO TID PRN muscle spasm #20 06/21/24 tabs lidocaine 5 % topical patch 1 patch topical DAILY #30 ea 06/21/24 Allergies Allergy/AdvReac Type Severity Reaction Status Date / Time seafood Allergy Anaphylaxis Verified 06/20/24 22:27 Review of Systems Review of Systems: Constitutional : No Weight loss, No Fever, No Chills, ENT/Mouth : No Hearing loss, No Ear Pain, No Nasal Congestion, No Sinus Pain, No Hoarseness, No sore throat, No Rhinorrhea, No Swallowing Difficulty Cardiovascular : No Chest Pain, No SOB Respiratory : No Cough, No Dyspnea Gastrointestinal : No Nausea, No Vomiting, No Diarrhea, No abdominal Pain, No Hematochezia, No Melena Genitourinary : No Dysuria, No Urinary Frequency, No Hematuria, No Urinary Incontinence, Musculoskeletal : positive back pain Skin : No Skin Lesions, No rash Neuro : No Weakness, No Numbness, No Paresthesias, no loss of bowel or bladder incontinence, no saddle anesthesia all other systems reviewed and are negative [facility] Past Medical History Attestation statement: The following information was validated with the patient. Source: old records reviewed Medical History HCV (hepatitis C virus) ETOH abuse Depression Hypertension Social History Social History Household Members: None Housing: House Do you presently have visiting nurse or other home services: No Alcohol intake: never Comment: sleeping Patient Tobacco Use Status: Former Tobacco user Tobacco use type: Cigarette Cigarette Packs Per Day: 1 Cigarettes Per Day: 20.0 Smoked in Last 30 Days: Yes Use of substances other than those prescribed or required for medical reasons: No Substance Use Type: Crack/Cocaine and Heroin Advance Directives: No Advance Directives Information Provided: No service: No Current occupational status: unemployed Physical Exam Vital Signs: Vital Signs: Last Vital Signs Temp 99.4 F 06/20/24 22:22 Pulse 79 06/20/24 22:22 Resp 16 06/20/24 22:22 BP 153/79 H 06/20/24 22:22 Pulse Ox 94 06/20/24 22:22 O2 Del Method Room Air 06/20/24 22:22 BMI result Body Mass Index 30.9 Appearance: Alert. Oriented X3. No acute distress. Eyes: Pupils equal, round and reactive to light. ENT: Pharynx normal. Neck: Normal inspection. Neck supple. CVS: Normal heart rate and rhythm. Pulses normal. Respiratory: No respiratory distress. Breath sounds normal. Abdomen: Soft and nontender. Back: ttp along both paraspinal areas Skin: Skin warm and dry. Normal skin color. Normal skin turgor. Extremities: No lower extremity edema. Neuro: Oriented X 3. No motor deficit. No sensory deficit. L5 5/5 bilaterally, SILT intact, no clonus 2+ DTR in patella Medications Administered Discontinued Medications Generic Name Dose Route Start Last Admin Trade Name Freq PRN Reason Stop Dose Admin Diazepam 5 mg 06/20/24 23:18 06/20/24 23:36 Diazepam 5 Mg Tablet PO 06/20/24 23:19 5 mg ONCE ONE Administration Medical Decision Making Medical Decision Making [facility] Narrative: 53 yo male with PMH of opiate use disorder, ETOH use disorder, HTN, NSTEMI here with c/o low back pain after lifting he adamantly denies IVDA or infectious symptoms he has no cauda equina symptoms he is intact on exam at this time basic labs and UA along with muscle relaxer. He is on methadone and doing well. Differential Diagnosis Differential Diagnoses: The differential diagnosis associated with the presentation includes back strain adamantly denies IVDA and fever - doubt epidural abscess, he has no cauda equina symptoms, disc ds Admission/Observation Consideration of admission/observation: Escalation of care including admission/observation considered feels better, urine and labs reassuring ESR negative Lab Data [facility] Lab Attestation statement: I reviewed the patient's lab results. 06/20/24 23:35 06/20/24 23:35 Labs: Lab Results 06/20/24 Range/Units 23:35 WBC 5.9 (4.8-10.8) X10*3/uL RBC 3.52 L (4.60-5.80) X10*6/uL Hgb 10.7 L (14.0-18.0) g/dl Hct 32.5 L (42.0-52.0) % MCV 92.3 (80.0-98.0) fL MCH 30.4 (27.0-33.0) pg MCHC 32.9 (31.0-36.0) g/dl RDW 15.9 (11.0-16.0) % Plt Count 168 (160-400) X10*3/uL MPV 9.5 (9.4-12.4) fL Immature Gran % (Auto) 0.2 (0.0-0.4) % Neut % (Auto) 49.1 (45-73) % Lymph % (Auto) 37.8 (20-40) % Towner % (Auto) 9.2 (2-11) % Eos % (Auto) 3.2 (0-4) % Baso % (Auto) 0.5 (0-2) % Lymph # (Auto) 2.2 (1.2-4.9) X10*3/uL [place] # (Auto) 0.5 (0.1-1.2) X10*3/uL Eos # (Auto) 0.2 (0.0-0.4) X10*3/uL Baso # (Auto) 0.0 (0.0-0.2) X10*3/uL Abs Immat Gran (auto) 0.01 (0.00-0.03) X10*3/uL Absolute Neuts (auto) 2.9 (2.0-8.3) x10*3/uL Absolute Nucleated RBC 0.000 (0.0-0.012) X10*3/uL Nucleated RBC % (auto) 0.0 (0.0-0.2) /100WBC ESR 11 (0-15) MM/HR Sodium 143 (135-145) mmol/L Potassium 3.6 (3.3-5.1) mmol/L Chloride 104 (96-108) mmol/L Carbon Dioxide 27 (22-29) mmol/L Anion Gap 16 (12-20) BUN 7 L (9-16) mg/dL Creatinine 0.61 (0.5-1.4) mg/dL Estim Creat Clear Calc 136.6 Estimated GFR > 60 Random Glucose 102 (60-115) mg/dL Calcium 9.5 (8.4-10.2) mg/dL Magnesium 1.6 (1.6-2.6) mg/dL Total Bilirubin 0.3 (0.0-1.0) mg/dL Direct Bilirubin 0.1 (0.0-0.5) mg/dL AST 33 (5-37) U/L ALT 21 (0-40) U/L Alkaline Phosphatase 69 (39-117) U/L Total Protein 6.9 (6.5-8.0) g/dL Albumin 4.1 (3.5-5.0) g/dL Urine Color Yellow Urine Appearance Clear Urine pH 6.5 (5.0-9.0) Ur Specific [place] 1.015 (1.005-1.025) Urine Protein 100 (2+) H (Neg-Trace) mg/dL Urine Glucose (UA) Negative (Negative) mg/dL Urine Ketones Trace (Negative) mg/dL Urine Blood Negative (Negative) Urine Nitrite Negative (Negative) Ur Leukocyte Esterase Negative (Negative) Urine RBC 0-2 (0-2) /HPF Urine WBC 0-5 (0-5) /HPF Ur Squamous Epith Cells 0-2 (0-2) /HPF Urine Bacteria None Seen (None Seen) Hyaline Casts 0-2 (0-2) /LPF Urine Opiates Screen Not Detected (Not Detect) Ur Buprenorphine Scrn Not Detected (Not Detect) ng/mL Ur Oxycodone Screen Not Detected (Not Detect) ng/mL Urine Methadone Screen Positive H (Not Detect) ng/mL Urine Fentanyl Screen Not Detected (Not Detect) Ur Barbiturates Screen Not Detected (Not Detect) Ur Phencyclidine Scrn Not Detected (Not Detect) Ur Amphetamines Screen Not Detected (Not Detect) U Benzodiazepines Scrn Not Detected (Not Detect) Urine Cocaine Screen Not Detected (Not Detect) U Marijuana (THC) Screen Not Detected (Not Detect) External Record Review External record reviewed: Inpatient record Prescription Management I considered prescription management with: Pain Medication and Other Discharge Plan Discharge Clinical Impression: Strain of lumbar region Qualifiers: Encounter type: initial encounter Qualified Code(s): S39.012A - Strain of muscle, fascia and tendon of lower back, initial encounter Patient Disposition: Home, Self-Care Instructions: Acute Low Back Pain (ED) Additional Instructions: labs reassuring, return for any worsening symptoms or concerns loss of control of bowel or bladder numbness, weakness or any other concerns Prescriptions: New cyclobenzaprine 10 mg tablet 10 mg PO TID PRN (Reason: muscle spasm) Qty: 20 0RF lidocaine 5 % adhesive patch,medicated 1 patch topical DAILY Qty: 30 0RF Rx Instructions: leave on most painful area for up to 12 hrs No Action metoprolol succinate 50 mg tablet extended release 24 hr 1 tab PO DAILY Qty: 30 0RF albuterol sulfate [ProAir HFA] 90 mcg/actuation HFA aerosol inhaler 2 puff inhalation Q6H PRN (Reason: shortness of breath or wheezing) Qty: 1 0RF amlodipine 2.5 mg tablet 1 tab PO DAILY doxycycline hyclate 100 mg tablet 100 mg PO BID 7 Days Qty: 14 0RF losartan-hydrochlorothiazide 100-12.5 mg tablet 1 tab PO DAILY aspirin 81 mg tablet,delayed release (DR/EC) 81 mg PO DAILY Qty: 30 0RF atorvastatin [Lipitor] 40 mg tablet 40 mg PO BEDTIME Qty: 30 0RF cefpodoxime 200 mg tablet 200 mg PO Q12H Qty: 14 0RF Rx Instructions: must administer with a meal/food doxycycline hyclate 100 mg tablet 100 mg PO BID 7 Days Qty: 14 0RF doxycycline hyclate 100 mg capsule 100 mg PO BID Qty: 13 0RF Rx Instructions: You were given the first dose today in the ED. buprenorphine-naloxone [Suboxone] 8-2 mg film 1 film sublingual BID Qty: 14 0RF Print Language: Cameroonian
[2024-06-20] MEDS: diazePAM 5 MG TABLET PO (23:36)
--- NOTE | 2024-06-20 23:38 | MHC.EDTECH ---
Patient ambulated to the bathroom with a slow steady gait,urine sample and labs obtained and sent to lab.
[2024-06-20 23:43] LABS: Basophils Percent Auto 0.5 % (0-2); Eosinophils Absolute Auto 0.2 X10*3/uL (0.0-0.4); Eosinophils Percent Auto 3.2 % (0-4); Hematocrit 32.5 % (42.0-52.0); Hemoglobin 10.7 g/dl (14.0-18.0); Imm Gran Abs Auto 0.01 X10*3/uL (0.00-0.03); Imm Gran Pct Auto 0.2 % (0.0-0.4); Lymphocytes Absolute Auto 2.2 X10*3/uL (1.2-4.9); Lymphocytes Percent Auto 37.8 % (20-40); MANUAL DIFF FLAG NO; Mean Corpuscular HGB Conc 32.9 g/dl (31.0-36.0); Mean Corpuscular Hemoglobin 30.4 pg (27.0-33.0); Mean Corpuscular Volume 92.3 fL (80.0-98.0); Mean Platelet Volume 9.5 fL (9.4-12.4); Monocytes Absolute Auto 0.5 X10*3/uL (0.1-1.2); Monocytes Percent Auto 9.2 % (2-11); Neutrophils Absolute Auto 2.9 x10*3/uL (2.0-8.3); Neutrophils Percent Auto 49.1 % (45-73); Platelet Count 168 X10*3/uL (160-400); Red Blood Count 3.52 X10*6/uL (4.60-5.80); Red Cell Distribution Width 15.9 % (11.0-16.0); White Blood Count 5.9 X10*3/uL (4.8-10.8)
[2024-06-20 23:45] LABS: Appearance Urine Clear; Color Urine Yellow; Glucose Urine UA Negative (Negative); Leukocyte Esterase Urine Negative (Negative); Nitrite Urine Negative (Negative); PH 6.5 (5.0-9.0); Specific Gravity - Urine 1.015 (1.005-1.025); UMIC TRIGGER UACC YES; Urine Blood Negative (Negative); Urine Ketones Trace mg/dL (Negative); Urine Protein 100 (2+) mg/dL (Neg-Trace)
[2024-06-20 23:48] LABS: Bacteria Urine None Seen (None Seen); Hyaline Casts Urine 0-2 /LPF (0-2); RBC Urine 0-2 /HPF (0-2); Squamous Epithelial Cell Urine 0-2 /HPF (0-2); WBC Urine 0-5 /HPF (0-5)
[2024-06-20 23:56] LABS: Amphetamine Screen Urine Not Detected (Not Detect); Barbiturates, Urine Not Detected (Not Detect); Benzodiazepines Screen Urine Not Detected (Not Detect); Buprenorphine Scr Not Detected (Not Detect); Cannabinoid Screen Urine Not Detected (Not Detect); Cocaine Screen Urine Not Detected (Not Detect); Fentanyl, urine Not Detected (Not Detect); Methadone Screen, Urine Positive (Not Detect); Opiate Screen Urine Not Detected (Not Detect); Oxycodone Screen Urine Not Detected (Not Detect); Phencyclidine Screen Urine Not Detected (Not Detect)
[2024-06-20 23:58] LABS: Alanine Aminotransferase 21 U/L (0-40); Albumin Level 4.1 g/dL (3.5-5.0); Alkaline Phosphatase 69 U/L (39-117); Anion Gap 16 (12-20); Aspartate Amino Transferase 33 U/L (5-37); Bilirubin Direct 0.1 mg/dL (0.0-0.5); Bilirubin Total 0.3 mg/dL (0.0-1.0); Blood Urea Nitrogen 7 mg/dL (9-16); Calcium 9.5 mg/dL (8.4-10.2); Carbon Dioxide 27 mmol/L (22-29); Chloride 104 mmol/L (96-108); Creatinine Clr Calc Pharmacy 136.6; Estimated Glomerular Filt Rate > 60; Glucose Random 102 mg/dL (60-115); Magnesium 1.6 mg/dL (1.6-2.6); Potassium 3.6 mmol/L (3.3-5.1); Sodium 143 mmol/L (135-145); Total Protein 6.9 g/dL (6.5-8.0)
[2024-06-21 00:16] LABS: Erythrocyte Sedimentation Rate 11 MM/HR (0-15)
[2024-06-21 00:57] VITALS: BP 146/90; PULSE 78; RESP 16; TEMP 36.7; O2SAT 93
== END 2024-06-21 00:58 | disposition home or self-care (01) ==
PROVIDERS: Emergency Provider Emergency Medicine
DX: S39.012A Strain of muscle, fascia and tendon of lower back, initial encounter (principal); X50.0XXA Overexertion from strenuous movement or load, initial encounter; Y93.89 Activity, other specified; Y92.89 Other specified places as the place of occurrence of the external cause; Y99.8 Other external cause status; Z51.81 Encounter for therapeutic drug level monitoring; Z87.891 Personal history of nicotine dependence; Z79.899 Other long term (current) drug therapy
CPT/HCPCS: 36415; 80048; 80076; 80307; 81001; 83735; 85025; 85652; 99284

== ENCOUNTER 2024-06-21 19:18 | Emergency (ER) | payer MEDICAID, SELFPAY ==
[2024-06-21] VITALS (13 sets, daily range): BP systolic 156–218; BP diastolic 82–118; PULSE 73–166; RESP 16–36; TEMP 36.4; O2SAT 99–100; BMI 31.3
--- NOTE | ~2024-06-21 | XR_ITS ---
EXAMINATION: XR CHEST CLINICAL INFORMATION: Post central line placement. COMPARISON: Chest radiograph 06/21/2024. TECHNIQUE: Frontal view of the chest was obtained. FINDINGS: The endotracheal tube terminates at 4 cm above the constance. Left IJ CVC tip projects over the expected location of the right brachiocephalic junction. EKG leads overlying the chest. Stable cardiomediastinal silhouette. Unchanged focal airspace opacities in the medial retrocardiac region. No pneumothorax. No pleural effusion. No acute osseous findings. XR/XR chest 1V IMPRESSION: 1. The endotracheal tube terminates at 4 cm above the constance. 2. Left IJ CVC tip projects over the expected location of the right brachiocephalic junction. 3. Unchanged focal airspace opacities in the retrocardiac region. 4. No pneumothorax. Electronically signed by: Antionette Michaels MD 06/21/2024 10:52 PM [facility]
--- NOTE | ~2024-06-21 | XR_ITS ---
EXAMINATION: XR CHEST CLINICAL INFORMATION: Endotracheal tube. COMPARISON: CT chest 05/03/2022. Chest radiograph 12/16/2021. TECHNIQUE: Frontal view of the chest was obtained. FINDINGS: Endotracheal tube terminates at 5.8 cm above the constance. EKG leads overlie the chest. Unchanged appearance of the cardiomediastinal silhouette. Stable central pulmonary vascular enlargement suspicious for pulmonary hypertension. Focal airspace densities in the medial retrocardiac space. No pleural effusion. No pneumothorax. No acute osseous findings. XR/XR chest 1V IMPRESSION: 1. Endotracheal tube terminates at 5.8 cm above the constance. Recommend advancement. 2. Focal airspace opacities in the medial retrocardiac space, which could represent aspiration, pneumonia or atelectasis. 3. Pulmonary hypertension. The report will be called to the ordering clinician by a [place] [facility] Physician Bottom Loader. Electronically signed by: Antionette Michaels MD 06/21/2024 08:45 PM [facility]
[2024-06-21] MEDS: EPINEPHrine 1 MG/ML VIAL 0.3 MG IM ×2 (19:21→19:27)
[2024-06-21] MEDS: Racepinephrine HCL 0.5 ML VIAL.NEB INHALE (19:30)
[2024-06-21] MEDS: propofoL 200 MG/20 ML VIAL IVPUSH (19:37)
[2024-06-21] MEDS: 0.9 % Sodium Chloride 1,000 ML 999 ML IV (19:37)
[2024-06-21] MEDS: Rocuronium Bromide 50 MG/5 ML VIAL 80 MG IVPUSH (19:38)
[2024-06-21] MEDS: EPINEPHrine 1 MG/ML VIAL IVPUSH (19:39)
[2024-06-21] MEDS: propofoL 1,000 MG/100 ML VIAL 15.35 MG IVCONT (19:51)
--- NOTE | 2024-06-21 19:51 | P.CONAN1_ITS ---
History of Present Illness Consult details Consult date: 06/21/24 [facility] Past Medical History Medical History HCV (hepatitis C virus) ETOH abuse Depression Hypertension Social History Social History Household Members: None Housing: House Do you presently have visiting nurse or other home services: No Alcohol intake: never Comment: sleeping Patient Tobacco Use Status: Former Tobacco user Tobacco use type: Cigarette Cigarette Packs Per Day: 1 Cigarettes Per Day: 20.0 Substance Use Type: Crack/Cocaine and Heroin service: No Current occupational status: unemployed Meds Allergies Allergy/AdvReac Type Severity Reaction Status Date / Time seafood Allergy Anaphylaxis Verified 06/20/24 22:27 Active Medications: Current Medications EPINEPHrine/NS (Epinephrine/Ns) 5 mg in 250 mls @ 0 mls/hr IVCONT .Q0M AMARI; Protocol Home Medications ?Medication ?Instructions ?Recorded ?Confirmed ?Last Taken ?Type amlodipine 2.5 mg tablet 1 tab PO DAILY 10/18/21 12/16/21 Unknown History losartan 100 1 tab PO DAILY 12/16/21 12/16/21 Unknown History mg-hydrochlorothiazide 12.5 mg tablet Results Labs Labs: All other labs normal. Procedures Date of Service Date of Service: 06/21/24 Intubation Intubation Comments: ED caleed to intubate emergently the pt in anaphylaxix. Epinephrine was used repeatedly, pt still was responsive, gave verbal consent witnessed by the ED team. Time out performed: No Sedative: propofol Mg given: 200 Paralytic: rocuronium Mg given: 80 Laryngoscope: other ET tube size: 7 ET tube uncuffed: No Tube secured depth (cm): 22 Tube secured location: lips Tube placement confirmation: visualized tube passing through cords, equal breath sounds bilaterally, no breath sounds over epigastrium and confirmation by capnometry Patient tolerated procedure: well and no complications Intubation complications: none Jaw Reduction Time out performed: No
--- NOTE | 2024-06-21 20:15 | ED_ITS ---
HPI - General Adult General Chief complaint: Allergic Reaction Stated complaint: anaphylaxis, swollen tongue, 2 epi doses given Time Seen by Provider: 06/21/24 19:35 History of Present Illness ED Provider: Dr. Ayala HPI narrative: 53 y/o M patient; PMH opiate use disorder, EtOH use disorder, HTN, NSTEMI; presents via EMS with report of concern for anaphylaxis secondary to eating seafood. All history is obtained from EMS as patient cannot phonate. EMS state on their arrival patient's tongue was swollen out of his mouth. They provided x2 IM epinephrine with improvement in swelling. However patient continues to drool and is unable to speak. EMS also provided Benadryl 50mg IM. The patient is able to communicate through head nods that he cannot breath. He denies nausea and has not had vomiting. Related Data Home Medications ?Medication ?Instructions ?Recorded ?Confirmed amlodipine 2.5 mg tablet 1 tab PO DAILY 10/18/21 12/16/21 losartan 100 1 tab PO DAILY 12/16/21 12/16/21 mg-hydrochlorothiazide 12.5 mg tablet Previous Rx's ?Medication ?Instructions ?Recorded buprenorphine 8 mg-naloxone 2 mg 1 film sublingual BID #14 ea 06/21/20 sublingual film (Suboxone) albuterol sulfate 90 mcg/actuation 2 puff inhalation Q6H PRN 10/10/20 aerosol inhaler (ProAir HFA) shortness of breath or wheezing #1 kit metoprolol succinate 50 mg 1 tab PO DAILY #30 tabs 10/10/20 tablet,extended release 24 hr aspirin 81 mg tablet,delayed 81 mg PO DAILY #30 tabs 12/19/21 release atorvastatin 40 mg tablet (Lipitor) 40 mg PO BEDTIME #30 tabs 12/19/21 cefpodoxime 200 mg tablet 200 mg PO Q12H #14 tabs 04/21/22 doxycycline hyclate 100 mg tablet 100 mg PO BID 7 days #14 tabs 04/21/22 doxycycline hyclate 100 mg tablet 100 mg PO BID 7 days #14 tabs 08/27/22 doxycycline hyclate 100 mg capsule 100 mg PO BID #13 caps 03/03/23 cyclobenzaprine 10 mg tablet 10 mg PO TID PRN muscle spasm #20 06/21/24 tabs lidocaine 5 % topical patch 1 patch topical DAILY #30 ea 06/21/24 Allergies Allergy/AdvReac Type Severity Reaction Status Date / Time seafood Allergy Anaphylaxis Verified 06/21/24 20:03 Review of Systems 2 Review of Systems: Yes Unobtainable due to mental condition [facility] Past Medical History Source: old records reviewed Medical History HCV (hepatitis C virus) ETOH abuse Depression Hypertension Social History Social History Household Members: None Housing: House Do you presently have visiting nurse or other home services: No Alcohol intake: never Comment: sleeping Patient Tobacco Use Status: Former Tobacco user Tobacco use type: Cigarette Cigarette Packs Per Day: 1 Cigarettes Per Day: 20.0 Substance Use Type: Crack/Cocaine and Heroin Advance Directives: No Advance Directives Information Provided: No service: No Current occupational status: unemployed Physical Exam ED Vital Signs: Vital Signs - 24 hr 06/21/24 19:20 06/21/24 19:21 06/21/24 19:27 Temperature 97.5 F Pulse Rate 107 H 90 94 Respiratory Rate 36 H Blood Pressure 178/112 H 178/112 H 178/112 H Pulse Oximetry 99 Oxygen Delivery Method Room Air Fraction of Inspired Oxygen 06/21/24 19:39 06/21/24 19:51 06/21/24 21:14 Temperature Pulse Rate 107 H 166 H 73 Respiratory Rate 16 Blood Pressure 178/112 H 218/118 H 190/100 H Pulse Oximetry 100 Oxygen Delivery Method Fraction of Inspired Oxygen 06/21/24 21:25 06/21/24 21:27 06/21/24 22:03 Temperature Pulse Rate 95 82 Respiratory Rate 16 18 Blood Pressure 172/95 H 160/92 H Pulse Oximetry 100 Oxygen Delivery Method Fraction of Inspired Oxygen 06/21/24 22:16 06/21/24 22:29 Temperature 97.5 F Pulse Rate 77 Respiratory Rate 19 Blood Pressure 160/86 H Pulse Oximetry Oxygen Delivery Method Fraction of Inspired Oxygen 40 BMI result Body Mass Index 31.3 Course Course Course Narrative: Patient is afebrile, hemodynamically stable. His SpO2 is 98% on RA. The patient is unable to phonate. His tongue is protruding out of his oral cavity. He has spit around his mouth and bubbling out of his mouth. He has very tight lung sounds bilaterally. Patient was seen immediately. He was promptly provided a third IM epinephrine. Respiratory therapy was paged STAT to bedside. Pharmacy was requested to prepare an epinephrine gtt. US IV access was obtained in bilateral forearms by myself. Patient was provided racemic epinephrine. He was provided a 4th IM epinephrine. He was placed on 2L NC oxygen for pre-oxygenation with concern that we would need to move quickly to intubation. Anesthesiology was requested to come to bedside to assist with intubation. Despite x4 IM epinephrine total, patient continued to report he could not breath. He was able to communicate with the nozzle cement sprayer helper that he could feel his throat and nose closing. We proceeded with intubation by anesthesiology. They intubated with propofol and rocuronium. ETT 7.0 placed without difficulty. During the intubation patient received a 5th IV 0.1mg epinephrine. He also received 1L IVF. Following the intubation, patient was placed on propofol drip and epinephrine drip. CXR was ordered to confirm ETT placement - this was confirmed as mildly shallow and was advanced to 24 at the lip. OGT placed. Patient provided Solu-Medrol 125mg IV, Famotidine 40mg IV, and FFP 1 unit. Contacted [facility] regarding need for transfer for ICU bed placement. [facility] is without availability. Contacted [facility] for possible ICU bed placement. [facility] blocker polishing requests central line and VBG prior to transport. Please see procedure note for central line placement in L IJ. Placement of ETT, OGT, and IJ was confirmed on CXR. Labs reviewed. Leukocytosis 20.6. Suspect reactive in the setting of significant epinephrine doses. Potassium 2.6 - this is due to epinephrine pushes and drip pushing potassium intra-cellular. Patient had normal potassium 3.6 yesterday. VBG is reassuring. Patient provided Fentanyl 50mcg and Versed 4mg for additional sedation. Required fentanyl gtt for additional sedation prior to transport. Plan: Transfer to [facility] via ALS Condition: Guarded Medications Administered Generic Name Dose Route Start Last Admin Trade Name Freq PRN Reason Stop Dose Admin EPINEPHrine/NS 5 mg in 250 mls @ 0 mls/hr 06/21/24 19:30 06/21/24 20:16 Epinephrine/Ns IVCONT 0.2 mcg/kg/min .Q0M AMARI 51.18 mls/hr Administration Protocol Per Protocol Propofol 1,000 mg in 100 mls @ 0 mls/hr 06/21/24 20:15 06/21/24 21:25 Diprivan IVCONT 50 mcg/kg/min .Q0M AMARI 25.59 mls/hr Titration Protocol Per Protocol Fentanyl 1,000 mcg in 100 mls @ 0 mls/hr 06/21/24 22:00 06/21/24 22:03 Sublimaze/Ns IVCONT 25 mcg/hr .Q0M AMARI 2.5 mls/hr Administration Protocol Per Protocol Discontinued Medications Generic Name Dose Route Start Last Admin Trade Name Freq PRN Reason Stop Dose Admin Epinephrine 0.5 ml 06/21/24 19:26 06/21/24 19:30 Racepinephrine Hcl 0.5 Ml Vial.Neb INHALE 06/21/24 19:27 0.5 ml ONCE ONE Administration Epinephrine 0.3 mg 06/21/24 19:58 06/21/24 19:21 Epinephrine 1 Mg/Ml Vial IM 06/21/24 19:59 0.3 mg STAT STA Administration Epinephrine 0.3 mg 06/21/24 19:59 06/21/24 19:27 Epinephrine 1 Mg/Ml Vial IM 06/21/24 20:00 0.3 mg STAT STA Administration Epinephrine 0.1 mg 06/21/24 19:59 06/21/24 19:39 Epinephrine 1 Mg/Ml Vial IVPUSH 06/21/24 20:00 0.1 mg STAT STA Administration Famotidine 40 mg 06/21/24 19:56 06/21/24 20:33 Famotidine/Pf 20 Mg/2 Ml Vial IVPUSH 06/21/24 19:57 40 mg ONCE ONE Administration Fentanyl 50 mcg 06/21/24 21:30 06/21/24 21:27 Fentanyl Citrate/Pf 100 Mcg/2 Ml Vial IVPUSH 06/21/24 21:31 50 mcg ONCE ONE Administration Protocol Sodium Chloride 1,000 mls @ 999 mls/hr 06/21/24 20:00 06/21/24 22:06 Ns IV 06/21/24 21:00 Infused .Q1H1M AMARI Infusion Methylprednisolone Sodium Succinate 125 mg 06/21/24 19:56 06/21/24 20:31 Methylprednisolone Sod Succ 125 Mg/2 Ml Vial IVPUSH 06/21/24 19:57 125 mg ONCE ONE Administration Midazolam HCl 4 mg 06/21/24 21:32 06/21/24 21:36 Midazolam Hcl/Pf 2 Mg/2 Ml Vial IVPUSH 06/21/24 21:33 4 mg ONCE ONE Administration Propofol 200 mg 06/21/24 20:34 06/21/24 19:37 Propofol 200 Mg/20 Ml Vial IVPUSH 06/21/24 20:35 200 mg ONCE ONE Administration Rocuronium Dahlgren 80 mg 06/21/24 20:00 06/21/24 19:38 Rocuronium Dahlgren 50 Mg/5 Ml Vial IVPUSH 06/21/24 20:01 80 mg ONCE ONE Administration Procedures EJ/Peripheral Line Arm R: Time Out Performed: Yes Skin Cleansed in Sterile Fashion: Yes Size (gauge): 20 IV Secured and Dressing Applied: Yes Patient Tolerated Procedure: well Arm L: Time Out Performed: Yes Skin Cleansed in Sterile Fashion: Yes Size (gauge): 20 IV Secured and Dressing Applied: Yes Patient Tolerated Procedure: well Neck L: Time Out Performed: Yes Skin Cleansed in Sterile Fashion: Yes Size (gauge): 16 IV Secured and Dressing Applied: Yes Patient Tolerated Procedure: well Medical Decision Making Lab Data 06/21/24 20:56 06/21/24 20:56 Labs: Lab Results 06/21/24 06/21/24 Range/Units 20:56 21:00 WBC 20.6 H (4.8-10.8) X10*3/uL RBC 4.25 L D (4.60-5.80) X10*6/uL Hgb 13.0 L D (14.0-18.0) g/dl Hct 40.0 L D (42.0-52.0) % MCV 94.1 (80.0-98.0) fL MCH 30.6 (27.0-33.0) pg MCHC 32.5 (31.0-36.0) g/dl RDW 15.8 (11.0-16.0) % Plt Count 200 (160-400) X10*3/uL MPV 10.2 (9.4-12.4) fL Immature Gran % (Auto) 0.5 H (0.0-0.4) % Neut % (Auto) 66.2 (45-73) % Lymph % (Auto) 23.9 (20-40) % [place] % (Auto) 8.4 (2-11) % Eos % (Auto) 0.9 (0-4) % Baso % (Auto) 0.1 (0-2) % Lymph # (Auto) 4.9 (1.2-4.9) X10*3/uL [place] # (Auto) 1.7 H (0.1-1.2) X10*3/uL Eos # (Auto) 0.2 (0.0-0.4) X10*3/uL Baso # (Auto) 0.0 (0.0-0.2) X10*3/uL Abs Immat Gran (auto) 0.10 H (0.00-0.03) X10*3/uL Absolute Neuts (auto) 13.6 H (2.0-8.3) x10*3/uL Absolute Nucleated RBC 0.000 (0.0-0.012) X10*3/uL Nucleated RBC % (auto) 0.0 (0.0-0.2) /100WBC Smear Tech's Comments VERIFIED VBG pH 7.43 (7.32-7.43) VBG pCO2 34 mmHg VBG pO2 226 mmHg VBG HCO3 22 (22-26) mmol/L VBG O2 Saturation 99.0 % VBG Base Excess -0.9 mmol/L Sodium 141 (135-145) mmol/L Potassium 2.6 L* D (3.3-5.1) mmol/L Chloride 105 (96-108) mmol/L Carbon Dioxide 21 L (22-29) mmol/L Anion Gap 18 (12-20) BUN 6 L (9-16) mg/dL Creatinine 0.63 (0.5-1.4) mg/dL Estim Creat Clear Calc 137.7 Estimated GFR > 60 Random Glucose 158 H (60-115) mg/dL Calcium 8.2 L D (8.4-10.2) mg/dL Magnesium 1.8 (1.6-2.6) mg/dL Blood Type A Positive Antibody Screen NEGATIVE Radiology Impression Discussion of test interpretation with radiology: I have reviewed the radiologist's reading. Radiologist Impression: EXAMINATION: XR CHEST CLINICAL INFORMATION: Endotracheal tube. COMPARISON: CT chest 05/03/2022. Chest radiograph 12/16/2021. TECHNIQUE: Frontal view of the chest was obtained. FINDINGS: Endotracheal tube terminates at 5.8 cm above the constance. EKG leads overlie the chest. Unchanged appearance of the cardiomediastinal silhouette. Stable central pulmonary vascular enlargement suspicious for pulmonary hypertension. Focal airspace densities in the medial retrocardiac space. No pleural effusion. No pneumothorax. No acute osseous findings. XR/XR chest 1V IMPRESSION: 1. Endotracheal tube terminates at 5.8 cm above the constance. Recommend advancement. 2. Focal airspace opacities in the medial retrocardiac space, which could represent aspiration, pneumonia or atelectasis. 3. Pulmonary hypertension. The report will be called to the ordering clinician by a [employer] [facility] Physician Union Laborer. Electronically signed by: Antionette Michaels MD 06/21/2024 08:45 PM [facility] Critical Care Time Critical Care Time Critical Care Time: Yes Total Critical Care Time: 140 Attestation: Total critical care time: Approximately?140?minutes Due to a high probability of clinically significant, life threatening deterioration, the patient required my highest level of preparedness to intervene emergently and I personally spent this critical care time directly and personally managing the patient. This critical care time included obtaining a history; examining the patient; pulse oximetry; ordering and review of studies; arranging urgent treatment with development of a management plan; evaluation of patient's response to treatment; frequent reassessment; and, discussions with other providers. This critical care time was performed to assess and manage the high probability of imminent, life-threatening deterioration that could result in multi-organ failure. It was exclusive of separately billable procedures and treating other patients Discharge Plan Discharge Clinical Impression: Anaphylaxis Patient Disposition: [facility] Transfer Details: [facility] Prescriptions: No Action metoprolol succinate 50 mg tablet extended release 24 hr 1 tab PO DAILY Qty: 30 0RF albuterol sulfate [ProAir HFA] 90 mcg/actuation HFA aerosol inhaler 2 puff inhalation Q6H PRN (Reason: shortness of breath or wheezing) Qty: 1 0RF amlodipine 2.5 mg tablet 1 tab PO DAILY doxycycline hyclate 100 mg tablet 100 mg PO BID 7 Days Qty: 14 0RF losartan-hydrochlorothiazide 100-12.5 mg tablet 1 tab PO DAILY aspirin 81 mg tablet,delayed release (DR/EC) 81 mg PO DAILY Qty: 30 0RF atorvastatin [Lipitor] 40 mg tablet 40 mg PO BEDTIME Qty: 30 0RF cefpodoxime 200 mg tablet 200 mg PO Q12H Qty: 14 0RF Rx Instructions: must administer with a meal/food doxycycline hyclate 100 mg tablet 100 mg PO BID 7 Days Qty: 14 0RF doxycycline hyclate 100 mg capsule 100 mg PO BID Qty: 13 0RF Rx Instructions: You were given the first dose today in the ED. cyclobenzaprine 10 mg tablet 10 mg PO TID PRN (Reason: muscle spasm) Qty: 20 0RF lidocaine 5 % adhesive patch,medicated 1 patch topical DAILY Qty: 30 0RF Rx Instructions: leave on most painful area for up to 12 hrs buprenorphine-naloxone [Suboxone] 8-2 mg film 1 film sublingual BID Qty: 14 0RF Print Language: Indonesian
[2024-06-21] MEDS: EPINEPHrine/NS 5 MG/250 ML PLAST..BAG 51.18 MG IVCONT (20:16)
--- NOTE | 2024-06-21 20:20 | ECG_ITS ---
Test Reason : ANAPHALAXIS Blood Pressure : / mmHG Vent. Rate : 058 BPM Atrial Rate : 000 BPM P-R Int : 000 ms QRS Dur : 110 ms QT Int : 422 ms P-R-T Axes : 000 079 048 degrees QTc Int : 414 ms Junctional rhythm Abnormal ECG When compared with ECG of 23-JAN-2022 13:10, Junctional rhythm has replaced Sinus rhythm Nonspecific T wave abnormality now evident in Anterolateral leads Referred By: Henrietta Ayala Electronically Signed By:Mauricio Wilson
[2024-06-21] MEDS: methylPREDNISolone Sod Succ 125 MG/2 ML VIAL IVPUSH (20:31)
[2024-06-21] MEDS: Famotidine/PF 20 MG/2 ML VIAL 40 MG IVPUSH (20:33)
[2024-06-21 21:06] LABS: VBG Base Excess -0.9 mmol/L; VBG HCO3 22 mmol/L (22-26); VBG pCO2 34 mmHg; VBG pH 7.43 (7.32-7.43); VBG pO2 226 mmHg
[2024-06-21 21:06] LABS: Basophils Percent Auto 0.1 % (0-2); Eosinophils Absolute Auto 0.2 X10*3/uL (0.0-0.4); Eosinophils Percent Auto 0.9 % (0-4); Imm Gran Pct Auto 0.5 % (0.0-0.4); Lymphocytes Absolute Auto 4.9 X10*3/uL (1.2-4.9); Lymphocytes Percent Auto 23.9 % (20-40); MANUAL DIFF FLAG SCAN; Mean Corpuscular HGB Conc 32.5 g/dl (31.0-36.0); Mean Corpuscular Hemoglobin 30.6 pg (27.0-33.0); Mean Corpuscular Volume 94.1 fL (80.0-98.0); Mean Platelet Volume 10.2 fL (9.4-12.4); Monocytes Absolute Auto 1.7 X10*3/uL (0.1-1.2); Monocytes Percent Auto 8.4 % (2-11); Neutrophils Absolute Auto 13.6 x10*3/uL (2.0-8.3); Neutrophils Percent Auto 66.2 % (45-73); Platelet Count 200 X10*3/uL (160-400); Red Blood Count 4.25 X10*6/uL (4.60-5.80); Red Cell Distribution Width 15.8 % (11.0-16.0); SCAN SMEAR FLAG 1; Venous Blood Gas Refer to POC result; White Blood Count 20.6 X10*3/uL (4.8-10.8)
[2024-06-21 21:24] LABS: Anion Gap 18 (12-20); Blood Urea Nitrogen 6 mg/dL (9-16); Calcium 8.2 mg/dL (8.4-10.2); Carbon Dioxide 21 mmol/L (22-29); Chloride 105 mmol/L (96-108); Creatinine Clr Calc Pharmacy 137.7; Estimated Glomerular Filt Rate > 60; Glucose Random 158 mg/dL (60-115); Potassium 2.6 mmol/L (3.3-5.1); Sodium 141 mmol/L (135-145)
[2024-06-21] MEDS: fentaNYL citrate/PF 100 MCG/2 ML VIAL 50 MCG IVPUSH (21:27)
[2024-06-21 21:31] LABS: SLIDE REVIEW VERIFIED
[2024-06-21] MEDS: Midazolam HCl/PF 2 MG/2 ML VIAL 4 MG IVPUSH (21:36)
[2024-06-21 21:43] LABS: Magnesium 1.8 mg/dL (1.6-2.6)
[2024-06-21] MEDS: fentaNYL citrate/NS 1,000 MCG/100 ML PLAST..BAG 2.5 MCG IVCONT (22:03)
[2024-06-21] MEDS: propofoL 1,000 MG/100 ML VIAL 25.59 MG IVCONT (22:39)
--- NOTE | 2024-06-21 22:51 | PC.NURSE ---
Late entry Pt arrived via EMS in anaphylactic shock secondary to eating seafood. MD and RT at bedside. Tongue swelling, unable to hold secretions, or make out words. Rash/hives noted on trunk and upper extremities. Pt able to communicate via yes and no head movements. Multiple failed attempts at obtaining IV access. Pt medicated IM per verbal order from Dr. Ayala. U/S guided IV established by MD. Pt medicated IV and prepped for intubation. Intubated with a size 7 tube at 22 at the lip that was then moved to 24 at the lip per MD order. Propofol drip started at 30mcg/kg to maintain sedation. Soft restraints applied. Propofol then increased to 50mcg/kg as pt making jerk movements and not completely sedated. Pt also medicated as per OCT with fentanyl and versed. Vent settings: 16RR, 400TV, 5peepm 40% O2 NG tube placed on the left nostril. Pt tolerated well. Very minimal dark yellow content removed. Central line placed by MD. Pt trasferred to [facility] with [facility]. Nurse to nurse report given to RICCO Marcial. Emergency contact, Merly Mantilla, notified.
== END 2024-06-21 23:58 | disposition short-term general hospital (02) ==
PROVIDERS: Emergency Provider Emergency Medicine
DX: T78.02XA Anaphylactic reaction due to shellfish (crustaceans), initial encounter (principal); Y93.89 Activity, other specified; Y92.9 Unspecified place or not applicable; Y99.9 Unspecified external cause status; I27.20 Pulmonary hypertension, unspecified; F32.A Depression, unspecified; Z86.19 Personal history of other infectious and parasitic diseases; Z79.899 Other long term (current) drug therapy; Z75.1 Person awaiting admission to adequate facility elsewhere
CPT/HCPCS: 36415; 36430; 71045; 80048; 82803; 83735; 85025; 86850; 86900; 86901; 93005; 94002; 96361; 96365; 96366; 96372; 96375; 99285; J0171; J2250; J2704; J2919; J3010; P9017

== ENCOUNTER → 2024-06-21 20:20 | Outpatient (BNV) | payer MEDICAID, SELFPAY | PROVIDERS: Emergency Provider Emergency Medicine; Visit Provider Internal Medicine Cardiovascular Disease | DX: R94.31 Abnormal electrocardiogram [ECG] [EKG] (principal) | CPT/HCPCS: 93010 ==

== ENCOUNTER 2024-07-14 09:22 | Outpatient (REF) | payer MEDICAID, SELFPAY ==
[2024-07-14 11:39] LABS: Hemoglobin 12.1 g/dl (14.0-18.0); Mean Corpuscular HGB Conc 31.8 g/dl (31.0-36.0); Mean Corpuscular Hemoglobin 29.2 pg (27.0-33.0); Mean Corpuscular Volume 91.6 fL (80.0-98.0); Mean Platelet Volume 10.4 fL (9.4-12.4); Platelet Count 338 X10*3/uL (160-400); Red Blood Count 4.15 X10*6/uL (4.60-5.80); Red Cell Distribution Width 13.6 % (11.0-16.0); White Blood Count 5.7 X10*3/uL (4.8-10.8)
[2024-07-14 12:02] LABS: Alanine Aminotransferase 14 U/L (0-40); Albumin Level 3.7 g/dL (3.5-5.0); Alkaline Phosphatase 70 U/L (39-117); Anion Gap 9 (12-20); Aspartate Amino Transferase 32 U/L (5-37); Bilirubin Total 0.3 mg/dL (0.0-1.0); Blood Urea Nitrogen 8 mg/dL (9-16); Calcium 9.1 mg/dL (8.4-10.2); Carbon Dioxide 31 mmol/L (22-29); Chloride 102 mmol/L (96-108); Estimated Glomerular Filt Rate > 60; Glucose Random 131 mg/dL (60-115); Potassium 4.4 mmol/L (3.3-5.1); Sodium 138 mmol/L (135-145); Total Protein 6.9 g/dL (6.5-8.0)
[2024-07-14 12:10] LABS: HBsAGNum1 0.47 S/CO (0.00-0.99); HIV AB/AG Nonreactive (Nonreactive); HIV Num 1 0.06 S/CO (0.00-0.99); Hepatitis B Surface Antigen Negative (Negative)
[2024-07-15 23:53] LABS: Hepatitis B Surface Ab Qnt 267 mIU/mL (> OR = 10)
[2024-07-19 16:33] LABS: Hepatitis C Genotype Not Detected
--- OUTSIDE RECORDS SUMMARY | 2024-07-20 00:52 | XMS_ITS ---
Author Name [facility] Organization Unknown Results Test Name/Text Value Interpretation Date Range Source Phosphate SerPl-mCnc 2.9mg/dL Normal [id number] 2.7 - 4.5 [facility] Globulin Ser Calc-mCnc 3.5g/dL Normal [id number] 1.5 - 3.9 [facility] ALT SerPl-cCnc 27U/L Normal [id number] 10 - 55 HH CCT AST SerPl-cCnc 36U/L Normal [id number] 10 - 55 HH CCT GFR/BSA.pred SerPlBld KPU-WKJ-RwYUaq 90 Normal [id number] 59 - [facility] Albumin SerPl-mCnc 3.7g/dL Normal [id number] 3.5 - 5 [facility] Albumin/Glob SerPl 1.1Ratio Normal [id number] 1 - 3 [facility] Creat SerPl-mCnc 0.5mg/dL Normal [id number] 0.5 - 1.3 [facility] Bilirub SerPl-mCnc 0.4mg/dL Normal [id number] 0.2 - 1 [facility] Anion Gap Bld-sCnc 9 Normal [id number] 7 - 17 [facility] Sodium SerPl-sCnc 134mmol/L Below low normal 040220718199 13 6 - 145 [facility] Potassium SerPl-sCnc 4.2mmol/L Normal [id number] 3.4 - 5.3 [facility] Chloride SerPl-sCnc 97mmol/L Below low normal [id number] 98 - 107 [facility] Glucose SerPl-mCnc 123mg/dL Above high normal [id number] 65 - 99 [facility] Prot SerPl-mCnc 7.2g/dL Normal [id number] 6.3 - 8.3 H [facility]CT BUN/Creat SerPl 32Ratio Above high normal [id number] 10 - 25 [facility] Calcium SerPl-mCnc 9.9mg/dL Normal [id number] 8.7 - 10 .5 [facility] CO2 SerPl-sCnc 28mmol/L Normal [id number] 22 - 33 HH CCT BUN SerPl-mCnc 16mg/dL Normal [id number] 8 - 21 HH CCT ALP SerPl-cCnc 66U/L Normal [id number] 45 - 128 HH CCT Magnesium SerPl-mCnc 1.7mg/dL Normal [id number] 1.6 - 2.7 [facility] Imm Granulocytes/leuk NFr Bld Auto 0.9% Normal [id number] H[facility]CT Lymphocytes/leuk NFr Bld Auto 28.7% Normal [id number] H[facility]CT PMV Bld Auto 10fL Normal [id number] 7.5 - 12.[address] Monocytes num Bld Auto 1.24Thou/uL Normal [id number] 0.2 - 1.5 [facility]CT Hct VFr Bld Auto 38.8% Below low normal 631247491126 39 - 54 [facility] Neutrophils num Bld Auto 4.49Thou/uL Normal [id number] 2 - 7.5 [facility]CT Neutrophils/leuk NFr Bld Auto 51.8% Normal [id number] H[facility]CT Basophils/leuk NFr Bld Auto 0.2% Normal [id number] H[facility]CT Basophils num Bld Auto 0.02Thou/uL Normal [id number] 0 - 0.2 [facility]CT Monocytes/leuk NFr Bld Auto 14.3% Normal [id number] HHCCT Eosinophil num Bld Auto 0.36Thou/uL Normal [id number] 0 - 0.7 H[facility]CT MCH RBC Qn Auto 30.4pg Normal [id number] 27 - 31 H [facility]CT Eosinophil/leuk NFr Bld Auto 4.1% Normal [id number] H[facility]CT Imm Granulocytes num Bld Auto 0.08Thou/uL Normal [id number] 0 - 0.1 H[facility]CT RDW RBC Auto-Rto 14.1% Normal [id number] 11.5 - 14. 5 [facility] Platelet num Bld Auto 264Thou/uL Normal [id number] 150 - 450 H[facility]CT MCHC RBC Auto-mCnc 32.7g/dL Normal [id number] 30 - 36 [facility]CT MCV RBC Auto 93fL Normal [id number] 80 - 100 HHCC T WBC num Bld Auto 8.7Thou/uL Normal [id number] 4 - 11 [facility]CT RBC num Bld Auto 4.18Mil/uL Below low normal [id number] 4. 5 - 6.2 [facility]CT Hgb Bld-mCnc 12.7g/dL Below low normal [id number] 13 - 17 .7 H[facility]CT Lymphocytes num Bld Auto 2.49Thou/uL Normal [id number] 1.5 - 4.5 H[facility]CT Phosphate SerPl-mCnc 2.3mg/dL Below low normal [id number] 2.7 - 4.5 HHCCT Magnesium SerPl-mCnc 1.9mg/dL Normal [id number] 1.6 - 2.7 HHCCT Globulin Ser Calc-mCnc 3.3g/dL Normal [id number] 1.5 - 3.9 HHCCT ALT SerPl-cCnc 18U/L Normal [id number] 10 - 55 HH CCT AST SerPl-cCnc 28U/L Normal [id number] 10 - 55 HH CCT GFR/BSA.pred SerPlBld BSX-VRX-QoROam 90 Normal [id number] 59 - HHCCT Albumin SerPl-mCnc 3.4g/dL Below low normal [id number] 3 .5 - 5 [facility]CT Albumin/Glob SerPl 1Ratio Normal [id number] 1 - 3 [facility]CT Creat SerPl-mCnc 0.6mg/dL Normal [id number] 0.5 - 1.3 HHCCT Bilirub SerPl-mCnc 0.5mg/dL Normal [id number] 0.2 - 1 [facility]CT Anion Gap Bld-sCnc 10 Normal [id number] 7 - 17 HHCCT Sodium SerPl-sCnc 139mmol/L Normal [id number] 136 - 145 H[facility]CT Potassium SerPl-sCnc 3.8mmol/L Normal [id number] 3.4 - 5.3 HHCCT Chloride SerPl-sCnc 100mmol/L Normal [id number] 98 - 10 7 HHCCT Glucose SerPl-mCnc 139mg/dL Above high normal [id number] 65 - 99 HHCCT Prot SerPl-mCnc 6.7g/dL Normal [id number] 6.3 - 8.3 H HCCT BUN/Creat SerPl 38Ratio Above high normal [id number] 10 - 25 HHCCT Calcium SerPl-mCnc 9.5mg/dL Normal [id number] 8.7 - 10 .5 HHCCT CO2 SerPl-sCnc 29mmol/L Normal [id number] 22 - 33 HH CCT BUN SerPl-mCnc 23mg/dL Above high normal [id number] 8 - 21 H[facility]CT ALP SerPl-cCnc 62U/L Normal [id number] 45 - 128 HH CCT Imm Granulocytes/leuk NFr Bld Auto 0.6% Normal [id number] HHCCT Lymphocytes/leuk NFr Bld Auto 15.4% Normal [id number] HHCCT PMV Bld Auto 10.3fL Normal [id number] 7.5 - 12.[address] Monocytes num Bld Auto 1.27Thou/uL Normal [id number] 0.2 - 1.5 HHCCT Hct VFr Bld Auto 37.6% Below low normal [id number] 39 - 54 [facility]CT Neutrophils num Bld Auto 6.25Thou/uL Normal [id number] 2 - 7.5 [facility]CT Neutrophils/leuk NFr Bld Auto 67.7% Normal [id number] HHCCT Basophils/leuk NFr Bld Auto 0.1% Normal [id number] HHCCT Basophils num Bld Auto 0.01Thou/uL Normal [id number] 0 - 0.2 H[facility]CT Monocytes/leuk NFr Bld Auto 13.7% Normal [id number] HHCCT Eosinophil num Bld Auto 0.23Thou/uL Normal [id number] 0 - 0.7 HHCCT MCH RBC Qn Auto 30.5pg Normal [id number] 27 - 31 H HCCT Eosinophil/leuk NFr Bld Auto 2.5% Normal [id number] HHCCT Imm Granulocytes num Bld Auto 0.06Thou/uL Normal [id number] 0 - 0.1 H[facility]CT RDW RBC Auto-Rto 14.2% Normal [id number] 11.5 - 14. 5 [facility]CT Platelet num Bld Auto 239Thou/uL Normal [id number] 150 - 450 [facility]CT MCHC RBC Auto-mCnc 32.4g/dL Normal [id number] 30 - 36 H[facility]CT MCV RBC Auto 94fL Normal [id number] 80 - 100 HHCC T WBC num Bld Auto 9.2Thou/uL Normal [id number] 4 - 11 HHCCT RBC num Bld Auto 4Mil/uL Below low normal [id number] 4.5 - 6.2 HHCCT Hgb Bld-mCnc 12.2g/dL Below low normal [id number] 13 - 17 .7 HHCCT Lymphocytes num Bld Auto 1.42Thou/uL Below low normal [id number] 1.5 - 4.5 HHCCT Phosphate SerPl-mCnc 3.5mg/dL Normal [id number] 2.7 - 4.5 HHCCT Magnesium SerPl-mCnc 1.8mg/dL Normal [id number] 1.6 - 2.7 H[facility]CT Globulin Ser Calc-mCnc 3.3g/dL Normal [id number] 1.5 - 3.9 HHCCT ALT SerPl-cCnc 20U/L Normal [id number] 10 - 55 HH CCT AST SerPl-cCnc 31U/L Normal [id number] 10 - 55 HH CCT GFR/BSA.pred SerPlBld JLO-TKD-AbYFvh 90 Normal [id number] 59 - HHCCT Albumin SerPl-mCnc 3.4g/dL Below low normal [id number] 3 .5 - 5 H[facility]CT Albumin/Glob SerPl 1Ratio Normal [id number] 1 - 3 [facility]CT Creat SerPl-mCnc 0.5mg/dL Normal [id number] 0.5 - 1.3 HHCCT Bilirub SerPl-mCnc 0.8mg/dL Normal [id number] 0.2 - 1 [facility]CT Anion Gap Bld-sCnc 11 Normal [id number] 7 - 17 H[facility]CT Sodium SerPl-sCnc 137mmol/L Normal [id number] 136 - 145 HHCCT Potassium SerPl-sCnc 3.2mmol/L Below low normal [id number] 3.4 - 5.3 HHCCT Chloride SerPl-sCnc 95mmol/L Below low normal [id number] 98 - 107 HHCCT Glucose SerPl-mCnc 94mg/dL Normal [id number] 65 - 99 HHCCT Prot SerPl-mCnc 6.7g/dL Normal [id number] 6.3 - 8.3 H HCCT BUN/Creat SerPl 34Ratio Above high normal [id number] 10 - 25 H[facility]CT Calcium SerPl-mCnc 9.1mg/dL Normal [id number] 8.7 - 10 .5 HHCCT CO2 SerPl-sCnc 31mmol/L Normal [id number] 22 - 33 HH CCT BUN SerPl-mCnc 17mg/dL Normal [id number] 8 - 21 HH CCT ALP SerPl-cCnc 63U/L Normal [id number] 45 - 128 HH CCT Imm Granulocytes/leuk NFr Bld Auto 0.7% Normal [id number] HHCCT Lymphocytes/leuk NFr Bld Auto 25% Normal [id number] HHCCT PMV Bld Auto 10fL Normal [id number] 7.5 - 12.[address] Monocytes num Bld Auto 1.59Thou/uL Above high normal [id number] 0.2 - 1.5 HHCCT Hct VFr Bld Auto 38.4% Below low normal [id number] 39 - 54 H[facility]CT Neutrophils num Bld Auto 4.84Thou/uL Normal [id number] 2 - 7.5 HHCCT Neutrophils/leuk NFr Bld Auto 55% Normal [id number] HHCCT Basophils/leuk NFr Bld Auto 0.1% Normal [id number] HHCCT Basophils num Bld Auto 0.01Thou/uL Normal [id number] 0 - 0.2 HHCCT Monocytes/leuk NFr Bld Auto 18.1% Normal [id number] HHCCT Eosinophil num Bld Auto 0.1Thou/uL Normal [id number] 0 - 0.7 HHCCT MCH RBC Qn Auto 30.1pg Normal [id number] 27 - 31 H HCCT Eosinophil/leuk NFr Bld Auto 1.1% Normal [id number] HHCCT Imm Granulocytes num Bld Auto 0.06Thou/uL Normal [id number] 0 - 0.1 HHCCT RDW RBC Auto-Rto 14.3% Normal [id number] 11.5 - 14. 5 H[facility]CT Platelet num Bld Auto 198Thou/uL Normal [id number] 150 - 450 HHCCT MCHC RBC Auto-mCnc 32.6g/dL Normal [id number] 30 - 36 HHCCT MCV RBC Auto 93fL Normal [id number] 80 - 100 HHCC T WBC num Bld Auto 8.8Thou/uL Normal [id number] 4 - 11 HHCCT RBC num Bld Auto 4.15Mil/uL Below low normal [id number] 4. 5 - 6.2 HHCCT Hgb Bld-mCnc 12.5g/dL Below low normal [id number] 13 - 17 .7 HHCCT Lymphocytes num Bld Auto 2.2Thou/uL Normal [id number] 1.5 - 4.5 HHCCT Imm Granulocytes/leuk NFr Bld Auto 0.3% Normal [id number] HHCCT Lymphocytes/leuk NFr Bld Auto 26.1% Normal [id number] HHCCT PMV Bld Auto 10.6fL Normal [id number] 7.5 - 12.[address] Monocytes num Bld Auto 0.98Thou/uL Normal [id number] 0.2 - 1.5 HHCCT Hct VFr Bld Auto 38.1% Below low normal [id number] 39 - 54 HHCCT Neutrophils num Bld Auto 4.25Thou/uL Normal [id number] 2 - 7.5 HHCCT Neutrophils/leuk NFr Bld Auto 59.5% Normal [id number] HHCCT Basophils/leuk NFr Bld Auto 0% Normal [id number] HHCCT Basophils num Bld Auto 0Thou/uL Normal [id number] 0 - 0.2 HHCCT Monocytes/leuk NFr Bld Auto 13.7% Normal [id number] HHCCT Eosinophil num Bld Auto 0.03Thou/uL Normal [id number] 0 - 0.7 HHCCT MCH RBC Qn Auto 29.9pg Normal [id number] 27 - 31 H HCCT Eosinophil/leuk NFr Bld Auto 0.4% Normal [id number] HHCCT Imm Granulocytes num Bld Auto 0.02Thou/uL Normal [id number] 0 - 0.1 HHCCT RDW RBC Auto-Rto 14.6% Above high normal [id number] 11 .5 - 14.5 HHCCT Platelet num Bld Auto 175Thou/uL Normal [id number] 150 - 450 HHCCT MCHC RBC Auto-mCnc 31.8g/dL Normal [id number] 30 - 36 HHCCT MCV RBC Auto 94fL Normal [id number] 80 - 100 HHCC T WBC num Bld Auto 7.1Thou/uL Normal [id number] 4 - 11 HHCCT RBC num Bld Auto 4.05Mil/uL Below low normal [id number] 4. 5 - 6.2 HHCCT Hgb Bld-mCnc 12.1g/dL Below low normal [id number] 13 - 17 .7 HHCCT Lymphocytes num Bld Auto 1.86Thou/uL Normal [id number] 1.5 - 4.5 HHCCT Trigl SerPl-mCnc 104mg/dL Normal [id number] - 150 HHCCT Globulin Ser Calc-mCnc 2.9g/dL Normal [id number] 1.5 - 3.9 HHCCT ALT SerPl-cCnc 11U/L Normal [id number] 10 - 55 HH CCT AST SerPl-cCnc 26U/L Normal [id number] 10 - 55 HH CCT GFR/BSA.pred SerPlBld DGJ-ARY-DpHNxp 90 Normal [id number] 59 - HHCCT Albumin SerPl-mCnc 3.7g/dL Normal [id number] 3.5 - 5 HHCCT Albumin/Glob SerPl 1.3Ratio Normal [id number] 1 - 3 HHCCT Creat SerPl-mCnc 0.4mg/dL Below low normal [id number] 0.5 - 1.3 HHCCT Bilirub SerPl-mCnc 0.6mg/dL Normal [id number] 0.2 - 1 HHCCT Anion Gap Bld-sCnc 11 Normal [id number] 7 - 17 HHCCT Sodium SerPl-sCnc 137mmol/L Normal [id number] 136 - 145 HHCCT Potassium SerPl-sCnc 3.5mmol/L Normal [id number] 3.4 - 5.3 HHCCT Chloride SerPl-sCnc 98mmol/L Normal [id number] 98 - 10 7 HHCCT Glucose SerPl-mCnc 108mg/dL Above high normal [id number] 65 - 99 HHCCT Prot SerPl-mCnc 6.6g/dL Normal [id number] 6.3 - 8.3 H HCCT BUN/Creat SerPl 38Ratio Above high normal [id number] 10 - 25 HHCCT Calcium SerPl-mCnc 9.5mg/dL Normal 8.7 - 10 .5 HHCCT CO2 SerPl-sCnc 28mmol/L Normal 22 - 33 HH CCT BUN SerPl-mCnc 15mg/dL Normal [id number] 8 - 21 HH CCT ALP SerPl-cCnc 58U/L Normal 45 - 128 HH CCT Magnesium SerPl-mCnc 1.9mg/dL Normal [id number] 1.6 - 2.7 HHCCT Phosphate SerPl-mCnc 3.7mg/dL Normal [id number] 2.7 - 4.5 HHCCT POC Glucose 95mg/dL Normal [id number] 65 - 99 HHCCT POC Glucose 111mg/dL Above high normal [id number] 65 - 99 HHCCT POC Glucose 130mg/dL Above high normal [id number] 65 - 99 HHCCT POC Glucose 160mg/dL Above high normal [id number] 65 - 99 HHCCT SaO2 % BldA 98.9% Normal 96 - 100 HHCCT pCO2, Arterial 50mmHG Above high normal [id number] 35 - 45 HHCCT P/F Ratio 178 Normal HHCCT pH, Arterial 7.45 Normal 7.35 - 7.45 HH CCT Base excess BldA Calc-sCnc 9.3mmol/L Normal [facility] O2 Hb Measured, Arterial 96.8 Normal 94 - 97 HHCCT MetHgb MFr Bld 0.1% Below low normal [id number] 0.4 - 1.5 HHCCT COHgb MFr Bld 2% Above high normal [id number] 0 - 1 .5 HHCCT HCO3 34.8mmol/L Above high normal [id number] 22 - 26 HHCCT Hgb Bld-mCnc 12.7g/dL Normal [id number] 12.6 - 17 HHCC T pO2, Arterial 89mmHG Normal [id number] 85 - [address] Globulin Ser Calc-mCnc 2.6g/dL Normal [id number] 1.5 - 3.9 HHCCT ALT SerPl-cCnc 6U/L Below low normal [id number] 10 - 55 HHCCT AST SerPl-cCnc 16U/L Normal [id number] 10 - 55 HH CCT GFR/BSA.pred SerPlBld JQK-RMW-MnWVbb 90 Normal [id number] 59 - HHCCT Albumin SerPl-mCnc 3.6g/dL Normal [id number] 3.5 - 5 HHCCT Albumin/Glob SerPl 1.4Ratio Normal [id number] 1 - 3 HHCCT Creat SerPl-mCnc 0.4mg/dL Below low normal [id number] 0.5 - 1.3 HHCCT Bilirub SerPl-mCnc 0.5mg/dL Normal [id number] 0.2 - 1 HHCCT Anion Gap Bld-sCnc 6 Below low normal [id number] 7 - 17 HHCCT Sodium SerPl-sCnc 137mmol/L Normal [id number] 136 - 145 HHCCT Potassium SerPl-sCnc 4.2mmol/L Normal [id number] 3.4 - 5.3 HHCCT Chloride SerPl-sCnc 99mmol/L Normal [id number] 98 - 10 7 HHCCT Glucose SerPl-mCnc 181mg/dL Above high normal [id number] 65 - 99 HHCCT Prot SerPl-mCnc 6.2g/dL Below low normal [id number] 6.3 - 8.3 HHCCT BUN/Creat SerPl 45Ratio Above high normal [id number] 10 - 25 HHCCT Calcium SerPl-mCnc 8.8mg/dL Normal [id number] 8.7 - 10 .5 HHCCT CO2 SerPl-sCnc 32mmol/L Normal [id number] 22 - 33 HH CCT BUN SerPl-mCnc 18mg/dL Normal [id number] 8 - 21 HH CCT ALP SerPl-cCnc 55U/L Normal [id number] 45 - 128 HH CCT Magnesium SerPl-mCnc 2.2mg/dL Normal [id number] 1.6 - 2.7 HHCCT Phosphate SerPl-mCnc 2.9mg/dL Normal 2.7 - 4.5 HHCCT Imm Granulocytes/leuk NFr Bld Auto 0.2% Normal [id number] HHCCT Lymphocytes/leuk NFr Bld Auto 12% Normal [id number] HHCCT PMV Bld Auto 10.6fL Normal [id number] 7.5 - 12.[address] Monocytes num Bld Auto 0.45Thou/uL Normal [id number] 0.2 - 1.5 HHCCT Hct VFr Bld Auto 33.8% Below low normal [id number] 39 - 54 HHCCT Neutrophils num Bld Auto 3.94Thou/uL Normal [id number] 2 - 7.5 HHCCT Neutrophils/leuk NFr Bld Auto 78.8% Normal [id number] HHCCT Basophils/leuk NFr Bld Auto 0% Normal [id number] HHCCT Basophils num Bld Auto 0Thou/uL Normal [id number] 0 - 0.2 HHCCT Monocytes/leuk NFr Bld Auto 9% Normal [id number] HHCCT Eosinophil num Bld Auto 0Thou/uL Normal [id number] 0 - 0.7 HHCCT MCH RBC Qn Auto 30.3pg Normal [id number] 27 - 31 H HCCT Eosinophil/leuk NFr Bld Auto 0% Normal [id number] HHCCT Imm Granulocytes num Bld Auto 0.01Thou/uL Normal [id number] 0 - 0.1 HHCCT RDW RBC Auto-Rto 15.5% Above high normal [id number] 11 .5 - 14.5 HHCCT Platelet num Bld Auto 143Thou/uL Below low normal [id number] 150 - 450 HHCCT MCHC RBC Auto-mCnc 32g/dL Normal 30 - 36 HHCCT MCV RBC Auto 95fL Normal 80 - 100 HHCC T WBC num Bld Auto 5Thou/uL Normal [id number] 4 - 11 HHCCT RBC num Bld Auto 3.57Mil/uL Below low normal [id number] 4. 5 - 6.2 HHCCT Hgb Bld-mCnc 10.8g/dL Below low normal 13 - 17 .7 HHCCT Lymphocytes num Bld Auto 0.6Thou/uL Below low normal 527521562478 1.5 - 4.5 HHCCT POC Glucose 187mg/dL Above high normal [id number] 65 - 99 HHCCT Respiratory Information VENT 50% Normal [id number] HHCCT POC Glucose 133mg/dL Above high normal [id number] 65 - 99 HHCCT POC Glucose 166mg/dL Above high normal 064504732714 65 - 99 HHCCT POC Glucose 133mg/dL Above high normal [id number] 65 - 99 HHCCT Phosphate SerPl-mCnc 3.9mg/dL Normal [id number] 2.7 - 4.5 HHCCT Chloride SerPl-sCnc 100mmol/L Normal 98 - 10 7 HHCCT Glucose SerPl-mCnc 124mg/dL Above high normal 471595306070 65 - 99 HHCCT GFR/BSA.pred SerPlBld HQB-OSR-UaEMnq 90 Normal 59 - HHCCT Creat SerPl-mCnc 0.5mg/dL Normal [id number] 0.5 - 1.3 HHCCT BUN/Creat SerPl 34Ratio Above high normal [id number] 10 - 25 HHCCT Anion Gap Bld-sCnc 8 Normal 7 - 17 HHCCT Calcium SerPl-mCnc 8.8mg/dL Normal 8.7 - 10 .5 HHCCT CO2 SerPl-sCnc 31mmol/L Normal 22 - 33 HH CCT BUN SerPl-mCnc 17mg/dL Normal [id number] 8 - 21 HH CCT Sodium SerPl-sCnc 139mmol/L Normal [id number] 136 - 145 HHCCT Potassium SerPl-sCnc 4.2mmol/L Normal [id number] 3.4 - 5.3 HHCCT Troponin T SerPl-mCnc 22ng/L Normal [id number] - 23 HHCCT Delta 1 Normal 900018276819 - 3 HHCCT POC Glucose 192mg/dL Above high normal [id number] 65 - 99 HHCCT pro BNP, N-terminal 1258pg/mL Above high normal [id number] - 125 HHCCT Troponin T SerPl-mCnc 23ng/L Above high normal 630312164774 - 23 HHCCT Delta Normal 331802359521 - 3 HHCCT Imm Granulocytes/leuk NFr Bld Auto 0.9% Normal [id number] HHCCT Lymphocytes/leuk NFr Bld Auto 8.9% Normal [id number] HHCCT Monocytes num Bld Auto 0.38Thou/uL Normal [id number] 0.2 - 1.5 HHCCT Neutrophils num Bld Auto 3.59Thou/uL Normal [id number] 2 - 7.5 HHCCT Neutrophils/leuk NFr Bld Auto 81.6% Normal [id number] HHCCT Basophils/leuk NFr Bld Auto 0% Normal [id number] HHCCT Basophils num Bld Auto 0Thou/uL Normal [id number] 0 - 0.2 HHCCT Monocytes/leuk NFr Bld Auto 8.6% Normal 552792917937 HHCCT Eosinophil num Bld Auto 0Thou/uL Normal [id number] 0 - 0.7 HHCCT Eosinophil/leuk NFr Bld Auto 0% Normal [id number] HHCCT Imm Granulocytes num Bld Auto 0.04Thou/uL Normal [id number] 0 - 0.1 HHCCT Lymphocytes num Bld Auto 0.39Thou/uL Below low normal [id number] 1.5 - 4.5 HHCCT PMV Bld Auto 10.9fL Normal [id number] 7.5 - 12.[address] Immature Platelet Fraction 5.8% Normal [id number] 1.2 - 8.6 HHCCT Hct VFr Bld Auto 36.7% Below low normal [id number] 39 - 54 HHCCT MCH RBC Qn Auto 30.1pg Normal [id number] 27 - 31 H HCCT RDW RBC Auto-Rto 16% Above high normal [id number] 11 .5 - 14.5 HHCCT Platelet num Bld Auto 144Thou/uL Below low normal [id number] 150 - 450 HHCCT MCHC RBC Auto-mCnc 31.1g/dL Normal [id number] 30 - 36 HHCCT MCV RBC Auto 97fL Normal [id number] 80 - 100 HHCC T WBC num Bld Auto 4.4Thou/uL Normal [id number] 4 - 11 HHCCT RBC num Bld Auto 3.79Mil/uL Below low normal [id number] 4. 5 - 6.2 HHCCT Hgb Bld-mCnc 11.4g/dL Below low normal 033220458042 13 - 17 .7 HHCCT POC Glucose 126mg/dL Above high normal [id number] 65 - 99 HHCCT Magnesium SerPl-mCnc 2.1mg/dL Normal [id number] 1.6 - 2.7 HHCCT Phosphate SerPl-mCnc 2.6mg/dL Below low normal [id number] 2.7 - 4.5 HHCCT Globulin Ser Calc-mCnc 2.8g/dL Normal [id number] 1.5 - 3.9 HHCCT ALT SerPl-cCnc 9U/L Below low normal [id number] 10 - 55 HHCCT AST SerPl-cCnc 25U/L Normal [id number] 10 - 55 HH CCT GFR/BSA.pred SerPlBld FSG-VSI-YbOUit 90 Normal [id number] 59 - HHCCT Albumin SerPl-mCnc 3.6g/dL Normal [id number] 3.5 - 5 HHCCT Albumin/Glob SerPl 1.3Ratio Normal [id number] 1 - 3 HHCCT Creat SerPl-mCnc 0.6mg/dL Normal [id number] 0.5 - 1.3 HHCCT Bilirub SerPl-mCnc 0.3mg/dL Normal [id number] 0.2 - 1 HHCCT Anion Gap Bld-sCnc 7 Normal [id number] 7 - 17 HHCCT Sodium SerPl-sCnc 137mmol/L Normal [id number] 136 - 145 HHCCT Potassium SerPl-sCnc 4.4mmol/L Normal [id number] 3.4 - 5.3 HHCCT Chloride SerPl-sCnc 102mmol/L Normal [id number] 98 - 10 7 HHCCT Glucose SerPl-mCnc 122mg/dL Above high normal [id number] 65 - 99 HHCCT Prot SerPl-mCnc 6.4g/dL Normal [id number] 6.3 - 8.3 H HCCT BUN/Creat SerPl 27Ratio Above high normal [id number] 10 - 25 HHCCT Calcium SerPl-mCnc 9mg/dL Normal [id number] 8.7 - 10 .5 HHCCT CO2 SerPl-sCnc 28mmol/L Normal [id number] 22 - 33 HH CCT BUN SerPl-mCnc 16mg/dL Normal [id number] 8 - 21 HH CCT ALP SerPl-cCnc 65U/L Normal [id number] 45 - 128 HH CCT POC Glucose 153mg/dL Above high normal 343406592843 65 - 99 HHCCT POC Glucose 144mg/dL Above high normal [id number] 65 - 99 HHCCT POC Glucose 154mg/dL Above high normal 521356292806 65 - 99 HHCCT HCoV 229E RNA Nph Ql Non-probe PCR Normal [id number] HHCCT C pneum DNA Nph Ql Non-probe PCR Normal [id number] HHCCT HPIV2 RNA Nph Ql Non-probe PCR Normal [id number] HHCCT FLUAV RNA Nph Ql Non-probe PCR Normal [id number] CCT HCoV NL63 RNA Nph Ql Non-probe PCR Normal [id number] [facility] HCoV OC43 RNA Nph Ql Non-probe PCR Normal [id number] CCT M pneumo DNA Nph Ql Non-probe PCR Normal [id number] [facility] HCoV HKU1 RNA Nph Ql Non-probe PCR Normal [id number] CCT 2019-nCOV RNA Normal [id number] [facility] CT RV+EV RNA Nph Ql Non-probe PCR Normal [id number] [facility] HPIV4 RNA Nph Ql Non-probe PCR Normal [id number] [facility] B pert tox prom reg Nph Ql Non-probe PCR Normal [id number] [facility] hMPV RNA Nph Ql Non-probe PCR Normal [id number] CCT HPIV3 RNA Nph Ql Non-probe PCR Normal [id number] CCT FLUBV RNA Nph Ql Non-probe PCR Normal [id number] CCT HPIV1 RNA Nph Ql Non-probe PCR Normal [id number] [facility] RSV RNA Nph Ql Non-probe PCR Normal [id number] [facility] HAdV DNA Nph Ql Non-probe PCR Normal [id number] [facility] Bordetella parapertussis Normal [id number] [facility] POC Glucose 162mg/dL Above high normal [id number] 65 - 99 [facility] POC Glucose 139mg/dL Above high normal [id number] 65 - 99 [facility] POC Glucose 162mg/dL Above high normal [id number] 65 - 99 [facility] SaO2 % BldA 95.9% Below low normal [id number] 96 - 100 [facility] pCO2, Arterial 46mmHG Above high normal [id number] 35 - 45 [facility] pH, Arterial 7.43 Normal [id number] 7.35 - 7.45 HH CCT Base excess BldA Calc-sCnc 5.4mmol/L Normal [id number] CCT O2 Hb Measured, Arterial 93.7 Below low normal [id number] 94 - 97 [facility] MetHgb MFr Bld 0.5% Normal [id number] 0.4 - 1.5 HH CCT COHgb MFr Bld 1.8% Above high normal [id number] 0 - 1 .5 [facility] HCO3 30.5mmol/L Above high normal [id number] 22 - 26 [facility] Hgb Bld-mCnc 10.8g/dL Below low normal [id number] 12.6 - 17 [facility] pO2, Arterial 69mmHG Below low normal [id number] 85 - 1 00 [facility] Respiratory Information VENT30% Normal [id number] [facility] Magnesium SerPl-mCnc 1.9mg/dL Normal [id number] 1.6 - 2.7 [facility] Globulin Ser Calc-mCnc 2.6g/dL Normal [id number] 1.5 - 3.9 [facility] ALT SerPl-cCnc 13U/L Normal [id number] 10 - 55 HH CCT AST SerPl-cCnc 26U/L Normal [id number] 10 - 55 HH CCT GFR/BSA.pred SerPlBld HVF-SLH-XjCBgv 90 Normal [id number] 59 - [facility] Albumin SerPl-mCnc 3.7g/dL Normal [id number] 3.5 - 5 [facility] Albumin/Glob SerPl 1.4Ratio Normal [id number] 1 - 3 [facility] Creat SerPl-mCnc 0.5mg/dL Normal [id number] 0.5 - 1.3 [facility] Bilirub SerPl-mCnc 0.3mg/dL Normal [id number] 0.2 - 1 [facility] Anion Gap Bld-sCnc 7 Normal [id number] 7 - 17 [facility] Sodium SerPl-sCnc 140mmol/L Normal [id number] 136 - 145 [facility] Potassium SerPl-sCnc 4.1mmol/L Normal [id number] 3.4 - 5.3 [facility] Chloride SerPl-sCnc 103mmol/L Normal [id number] 98 - 10 7 [facility] Glucose SerPl-mCnc 150mg/dL Above high normal [id number] 65 - 99 [facility] Prot SerPl-mCnc 6.3g/dL Normal [id number] 6.3 - 8.3 H [facility]CT BUN/Creat SerPl 24Ratio Normal [id number] 10 - 25 H [facility]CT Calcium SerPl-mCnc 8.4mg/dL Below low normal [id number] 8 .7 - 10.5 [facility] CO2 SerPl-sCnc 30mmol/L Normal [id number] 22 - 33 HH CCT BUN SerPl-mCnc 12mg/dL Normal [id number] 8 - 21 HH CCT ALP SerPl-cCnc 68U/L Normal [id number] 45 - 128 HH CCT Phosphate SerPl-mCnc 3mg/dL Normal [id number] 2.7 - 4.5 [facility] POC Glucose 150mg/dL Above high normal [id number] 65 - 99 [facility] Imm Granulocytes/leuk NFr Bld Auto 0.7% Normal [id number] [facility] Lymphocytes/leuk NFr Bld Auto 6.9% Normal [id number] [facility] PMV Bld Auto 10.5fL Normal [id number] 7.5 - 12.[address] Monocytes num Bld Auto 0.3Thou/uL Normal [id number] 0.2 - 1.5 [facility] Hct VFr Bld Auto 33.9% Below low normal [id number] 39 - 54 [facility] Neutrophils num Bld Auto 6.65Thou/uL Normal [id number] 2 - 7.5 [facility] Neutrophils/leuk NFr Bld Auto 88.4% Normal [id number] [facility] Basophils/leuk NFr Bld Auto 0% Normal [id number] [facility] Basophils num Bld Auto 0Thou/uL Normal [id number] 0 - 0.2 [facility] Monocytes/leuk NFr Bld Auto 4% Normal [id number] [facility] Eosinophil num Bld Auto 0Thou/uL Normal [id number] 0 - 0.7 [facility] MCH RBC Qn Auto 29.9pg Normal [id number] 27 - 31 H [facility] Eosinophil/leuk NFr Bld Auto 0% Normal [id number] CCT Imm Granulocytes num Bld Auto 0.05Thou/uL Normal [id number] 0 - 0.1 [facility] RDW RBC Auto-Rto 16.2% Above high normal [id number] 11 .5 - 14.5 [facility] Platelet num Bld Auto 175Thou/uL Normal [id number] 150 - 450 [facility] MCHC RBC Auto-mCnc 31.3g/dL Normal [id number] 30 - 36 [facility] MCV RBC Auto 96fL Normal [id number] 80 - 100 [facility] T WBC num Bld Auto 7.5Thou/uL Normal [id number] 4 - 11 [facility] RBC num Bld Auto 3.54Mil/uL Below low normal [id number] 4. 5 - 6.2 [facility] Hgb Bld-mCnc 10.6g/dL Below low normal [id number] 13 - 17 .7 [facility] Lymphocytes num Bld Auto 0.52Thou/uL Below low normal [id number] 1.5 - 4.5 [facility] POC Glucose 145mg/dL Above high normal [id number] - [facility] POC Glucose 160mg/dL Above high normal [id number] [facility] POC Glucose 115mg/dL Above high normal [id number] - [facility] POC Glucose 108mg/dL Above high normal [id number] - 99 [facility] Trigl SerPl-mCnc 59mg/dL Normal [id number] - 150 [facility] CK SerPl-cCnc 299U/L Above high normal [id number] - [facility] PCP Ur Ql Scn>25 ng/mL Normal [id number] - [facility] Ethanol Ur-mCnc 57<11mg/dL Abnormal [id number] - [facility] Buprenorphine Ur Ql Normal [id number] - [facility] Methadone Ur Ql Scn>300 ng/mL Abnormal [id number] - [facility] Tricyclics Ur Ql Scn Normal [id number] - [facility] Oxycodone Ur Ql Scn Normal [id number] - [facility] Est. average glucose Bld gHb Est-mCnc 105mg/dL Normal [id number] CCT Hgb A1c MFr Bld 5.3% Normal [id number] - 5.7 [facility] POC Glucose 112mg/dL Above high normal [id number] - 99 [facility] Lactate SerPl-sCnc 1.1mmol/L Normal [id number] 0.5 - 1. 9 [facility] Potassium SerPl-sCnc 4.6mmol/L Normal [id number] 3.4 - 5.3 [facility] SaO2 % BldA 99.7% Normal [id number] 96 - 100 [facility] pCO2, Arterial 50mmHG Above high normal [id number] 35 - 45 [facility] pH, Arterial 7.38 Normal [id number] 7.35 - 7.45 HH CCT Base excess BldA Calc-sCnc 3.7mmol/L Normal [id number] [facility] O2 Hb Measured, Arterial 97.3 Above high normal [id number] 94 - 97 [facility] MetHgb MFr Bld 0.4% Normal [id number] 0.4 - 1.5 HH [facility] COHgb MFr Bld 2% Above high normal [id number] 0 - 1 .5 [facility] HCO3 29.6mmol/L Above high normal [id number] 22 - 26 [facility] Hgb Bld-mCnc 10.8g/dL Below low normal [id number] 12.6 - 17 [facility] pO2, Arterial 121mmHG Above high normal [id number] 85 - 100 [facility] Respiratory Information VENT 40% Normal [id number] [facility] fentaNYL+Norfentanyl Ur Ql Scn Abnormal [id number] - [facility] Cannabinoids Ur Ql Scn>50 ng/mL Normal [id number] - [facility] Barbiturates Ur Ql Scn>200 ng/mL Normal [id number] - [facility] Opiates Ur Ql Scn>300 ng/mL Normal [id number] - [facility] Benzodiaz Ur Ql Scn>200 ng/mL Abnormal [id number] - [facility] BZE Ur Ql Normal [id number] - [facility] Amphetamines Ur Ql Normal [id number] - [facility] 2019-nCOV RNA Normal [id number] [facility] CT Sp Gr Ur Strip 1.03 Above high normal [id number] 1 .003 - 1.03 [facility] Ketones Ur Strip-mCnc Normal [id number] - [facility] pH Ur Strip 6 Normal [id number] 5 - 8 [facility] Prot Ur Strip-mCnc Abnormal [id number] - [facility] Glucose Ur Strip-mCnc Abnormal [id number] - [facility] Color Ur Normal [id number] [facility] Clarity Ur Normal [id number] [facility] Nitrite Ur Ql Strip Normal [id number] - [facility] Leukocyte esterase Ur Ql Strip Normal [id number] - [facility] Hgb Ur Ql Strip Normal [id number] - [facility] Bilirub Ur Strip-mCnc Normal [id number] - [facility] POC Glucose 151mg/dL Above high normal [id number] 65 - 99 [facility] Specimen source XXX Normal [id number] [facility] Lactate SerPl-sCnc 6.3mmol/L Critically high [id number] 0. 5 - 1.9 [facility] Globulin Ser Calc-mCnc 2.7g/dL Normal [id number] 1.5 - 3.9 [facility] ALT SerPl-cCnc 16U/L Normal [id number] 10 - 55 HH CCT AST SerPl-cCnc 36U/L Normal [id number] 10 - 55 HH CCT GFR/BSA.pred SerPlBld [id number] 90 Normal [id number] 59 - [facility] Albumin SerPl-mCnc 3.8g/dL Normal [id number] 3.5 - 5 [facility] Albumin/Glob SerPl 1.4Ratio Normal [id number] 1 - 3 [facility] Creat SerPl-mCnc 0.6mg/dL Normal [id number] 0.5 - 1.3 [facility] Bilirub SerPl-mCnc 0.3mg/dL Normal [id number] 0.2 - 1 [facility] Anion Gap Bld-sCnc 17 Normal [id number] 7 - 17 [facility] Sodium SerPl-sCnc 142mmol/L Normal [id number] 136 - 145 [facility] Potassium SerPl-sCnc 3.4mmol/L Normal [id number] 3.4 - 5.3 [facility] Chloride SerPl-sCnc 100mmol/L Normal [id number] 98 - 10 7 [facility] Glucose SerPl-mCnc 210mg/dL Above high normal [id number] 65 - 99 [facility] Prot SerPl-mCnc 6.5g/dL Normal [id number] 6.3 - 8.3 [facility] BUN/Creat SerPl 13Ratio Normal [id number] 10 - 25 [facility] Calcium SerPl-mCnc 8.4mg/dL Below low normal [id number] 8 .7 - 10.5 [facility] CO2 SerPl-sCnc 25mmol/L Normal [id number] 22 - 33 HH CCT BUN SerPl-mCnc 8mg/dL Normal [id number] 8 - 21 HH CCT ALP SerPl-cCnc 78U/L Normal [id number] 45 - 128 HH CCT Ethanol SerPl-mCnc 28mg/dL Above high normal [id number] - 11 [facility] INR PPP 1.2 Normal [id number] CCT Prothrombin time 13.5seconds Normal [id number] 10 - 13. 5 [facility] Imm Granulocytes/leuk NFr Bld Auto 0.4% Normal [id number] [facility] Lymphocytes/leuk NFr Bld Auto 6.1% Normal [id number] CCT PMV Bld Auto 9.9fL Normal [id number] 7.5 - 12.[address] Monocytes num Bld Auto 0.14Thou/uL Below low normal [id number] 0.2 - 1.5 [facility] Hct VFr Bld Auto 35.2% Below low normal [id number] 39 - 54 [facility] Neutrophils num Bld Auto 8.45Thou/uL Above high normal [id number] 2 - 7.5 [facility] Neutrophils/leuk NFr Bld Auto 91.8% Normal [id number] [facility] Basophils/leuk NFr Bld Auto 0.1% Normal [id number] [facility] Basophils num Bld Auto 0.01Thou/uL Normal [id number] 0 - 0.2 [facility] Monocytes/leuk NFr Bld Auto 1.5% Normal [id number] [facility] Eosinophil num Bld Auto 0.01Thou/uL Normal [id number] 0 - 0.7 [facility] MCH RBC Qn Auto 30.3pg Normal [id number] 27 - 31 [facility] Eosinophil/leuk NFr Bld Auto 0.1% Normal [id number] [facility] Imm Granulocytes num Bld Auto 0.04Thou/uL Normal [id number] 0 - 0.1 [facility] RDW RBC Auto-Rto 15.7% Above high normal [id number] 11 .5 - 14.5 [facility] Platelet num Bld Auto 190Thou/uL Normal [id number] 150 - 450 [facility] MCHC RBC Auto-mCnc 31.5g/dL Normal [id number] 30 - 36 [facility] MCV RBC Auto 96fL Normal [id number] 80 - 100 [facility] T WBC num Bld Auto 9.2Thou/uL Normal [id number] 4 - 11 [facility] RBC num Bld Auto 3.66Mil/uL Below low normal [id number] 4. 5 - 6.2 [facility] Hgb Bld-mCnc 11.1g/dL Below low normal [id number] 13 - 17 .7 [facility] Lymphocytes num Bld Auto 0.56Thou/uL Below low normal [id number] 1.5 - 4.5 [facility] Anticoagulant NO ANTI COAGULANT MEDS Normal [id number] [facility]
== END 2024-07-14 09:23 | disposition home or self-care (01) ==
LOC: HO.HHCL 09:22
PROVIDERS: Visit Provider Family Medicine
DX: F11.20 Opioid dependence, uncomplicated (principal)
CPT/HCPCS: 36415; 80053; 85027; 86317; 87340; 87389; 87902

== ENCOUNTER 2024-11-10 18:48 | Emergency (ER) | payer MEDICAID, SELFPAY ==
[2024-11-10 19:15] VITALS: BMI 33.3
[2024-11-10 19:25] VITALS: BP 97/63; PULSE 96; RESP 16; TEMP 36.3; O2SAT 95
[2024-11-10 20:13] LABS: MANUAL DIFF FLAG NO
[2024-11-10 20:15] LABS: Basophils Absolute Auto 0.1 X10*3/uL (0.0-0.2); Basophils Percent Auto 0.8 % (0-2); Eosinophils Absolute Auto 0.4 X10*3/uL (0.0-0.4); Eosinophils Percent Auto 5.9 % (0-4); Hematocrit 38.1 % (42.0-52.0); Hemoglobin 12.8 g/dl (14.0-18.0); Imm Gran Abs Auto 0.01 X10*3/uL (0.00-0.03); Imm Gran Pct Auto 0.2 % (0.0-0.4); Lymphocytes Absolute Auto 2.5 X10*3/uL (1.2-4.9); Lymphocytes Percent Auto 38.2 % (20-40); Mean Corpuscular HGB Conc 33.6 g/dl (31.0-36.0); Mean Corpuscular Volume 89.2 fL (80.0-98.0); Mean Platelet Volume 10.2 fL (9.4-12.4); Monocytes Absolute Auto 0.7 X10*3/uL (0.1-1.2); Neutrophils Percent Auto 44.9 % (45-73); Platelet Count 199 X10*3/uL (160-400); Red Blood Count 4.27 X10*6/uL (4.60-5.80); Red Cell Distribution Width 15.9 % (11.0-16.0); White Blood Count 6.6 X10*3/uL (4.8-10.8)
--- NOTE | 2024-11-10 20:15 | PC.NURSE ---
Addendum entered by Freddy Crowley RN 11/10/24 20:18: denies other substance use. pt states he can only remember drinking a few beers then the next thing he knows he is here in the ED. denies falls, head trauma, LOC after prompting numerously Original Note: pt appears intoxicated. speech sounds mumbled, slurred. hungarian interpeter agrees. denies pain, SI/HI. agreeable to blood draw. restless at times but redirectable, cooperative. eating sandwich, drinking water in stretcher. no dysphagia/ JOVANNA Leonardo saw patient
[2024-11-10 20:20] LABS: INTERNATIONAL NORM RATIO 0.9 (0.9-1.1)
[2024-11-10 20:24] VITALS: BP 99/56; PULSE 89; RESP 18; TEMP 36.9; O2SAT 95
[2024-11-10 20:28] LABS: Acetaminophen LAB < 3 mcg/mL (<30); Salicylate < 5.0 mg/dL (15-30)
[2024-11-10 20:30] LABS: Alanine Aminotransferase 30 U/L (0-40); Albumin Level 4.2 g/dL (3.5-5.0); Alkaline Phosphatase 68 U/L (39-117); Anion Gap 14 (12-20); Aspartate Amino Transferase 37 U/L (5-37); Bilirubin Total 0.3 mg/dL (0.0-1.0); Blood Urea Nitrogen 9 mg/dL (9-16); Calcium 9.1 mg/dL (8.4-10.2); Carbon Dioxide 27 mmol/L (22-29); Chloride 101 mmol/L (96-108); Creatinine Clr Calc Pharmacy 104.1; Estimated Glomerular Filt Rate > 60; Ethanol 343 mg/dL; Glucose Random 109 mg/dL (60-115); Potassium 3.8 mmol/L (3.3-5.1); Sodium 138 mmol/L (135-145)
--- NOTE | 2024-11-10 20:30 | MHC.EDTECH ---
Patient was fed ,vitals taken ,All safety measure in Place ,Patient very restless ,banging his hand on the wall .
--- NOTE | 2024-11-10 20:50 | PC.NURSE ---
pt pulled out IV. given new green olimpia, blanket. redirected back to bed. now lying in semi fowlers/side-lying position with eyes closed, calm. arouses spontaneously.
--- NOTE | 2024-11-10 20:55 | ED.GENADULT ---
HPI - General Adult General Chief complaint: ETOH/Substance Use Stated complaint: etoh very inoxicated, trying to mail empty bottles Time Seen by Provider: 11/10/24 19:16 Source: patient, RN notes reviewed, old records reviewed and business transformation analyst Mode of arrival: EMS Limitations: language barrier and altered mental status History of Present Illness ED Provider: Kostas HPI narrative: 53-year-old male presents for evaluation of acute alcohol intoxication. Apparently the patient was picked up by police after attempting to put ?empty beer bottles in to mail boxes. The patient offers no complaints and states that he wishes to leave He reports ?I had a lot to drink tonight. ? He refuses to elaborate on exactly how much she had to drink He denies any chest pain, abdominal pain, nausea, vomiting No other complaints or concerns at this time Related Data Home Medications ?Medication ?Instructions ?Recorded ?Confirmed amlodipine 2.5 mg tablet 1 tab PO DAILY 10/18/21 12/16/21 losartan 100 1 tab PO DAILY 12/16/21 12/16/21 mg-hydrochlorothiazide 12.5 mg tablet Previous Rx's ?Medication ?Instructions ?Recorded buprenorphine 8 mg-naloxone 2 mg 1 film sublingual BID #14 ea 06/21/20 sublingual film (Suboxone) albuterol sulfate 90 mcg/actuation 2 puff inhalation Q6H PRN 10/10/20 aerosol inhaler (ProAir HFA) shortness of breath or wheezing #1 kit metoprolol succinate 50 mg 1 tab PO DAILY #30 tabs 10/10/20 tablet,extended release 24 hr aspirin 81 mg tablet,delayed 81 mg PO DAILY #30 tabs 12/19/21 release atorvastatin 40 mg tablet (Lipitor) 40 mg PO BEDTIME #30 tabs 12/19/21 cefpodoxime 200 mg tablet 200 mg PO Q12H #14 tabs 04/21/22 doxycycline hyclate 100 mg tablet 100 mg PO BID 7 days #14 tabs 04/21/22 doxycycline hyclate 100 mg tablet 100 mg PO BID 7 days #14 tabs 08/27/22 doxycycline hyclate 100 mg capsule 100 mg PO BID #13 caps 03/03/23 cyclobenzaprine 10 mg tablet 10 mg PO TID PRN muscle spasm #20 06/21/24 tabs lidocaine 5 % topical patch 1 patch topical DAILY #30 ea 06/21/24 Allergies Allergy/AdvReac Type Severity Reaction Status Date / Time seafood Allergy Anaphylaxis Verified 11/10/24 19:20 Review of Systems Constitutional: Constitutional: Denies body ache(s), Denies chills, Denies fever(s) and Denies headache(s) ENT: Denies vertigo, Denies dizziness and Denies headache(s) Cardiovascular: Cardiovascular: Denies chest pain and Denies dyspnea Respiratory: Respiratory: Denies cough and Denies dyspnea Gastrointestinal: Gastrointestinal: Denies abdominal pain, Denies nausea and Denies vomiting Neurologic: Denies vertigo, Denies dizziness and Denies headache(s) Psychiatric: Psychiatric: Denies anxiety and Denies suicidal ideation PMF Past Medical History Medical History HCV (hepatitis C virus) ETOH abuse Depression Hypertension Social History Social History Household Members: None Housing: House Do you presently have visiting nurse or other home services: No Unable to assess alcohol history related to: Refusing to respond Alcohol intake: current Alcohol intake frequency: a few times a week Alcohol type: beer Comment: sleeping Patient Tobacco Use Status: Former Tobacco user Tobacco use type: Cigarette Cigarette Packs Per Day: 1 Cigarettes Per Day: 20.0 Smoked in Last 30 Days: No Use of substances other than those prescribed or required for medical reasons: Refusing to respond Substance Use Type: Crack/Cocaine and Heroin Advance Directives: No Advance Directives Information Provided: Yes Do you have a plan to hurt others: No Plan service: No Current occupational status: unemployed Physical Exam ED Vital Signs: Vital Signs - 24 hr 11/10/24 19:25 11/10/24 20:24 11/10/24 21:56 Temperature 97.4 F 98.5 F 97.9 F Pulse Rate 96 89 87 Respiratory Rate 16 18 16 Blood Pressure 97/63 99/56 L 108/63 Pulse Oximetry 95 95 95 Oxygen Delivery Method Room Air Room Air Room Air 11/11/24 00:47 11/11/24 05:29 Temperature 98.7 F 97.7 F Pulse Rate 77 89 Respiratory Rate 14 14 Blood Pressure 104/58 L 123/75 Pulse Oximetry 95 93 Oxygen Delivery Method Room Air Room Air BMI result Body Mass Index 33.3 Const General: healthy appearing, comfortable, no acute distress, alert and awake Nutritional Appearance: well nourished Orientation/consciousness: patient oriented x3 HENMT Head: Yes normocephalic and Yes atraumatic Eyes Eyelids: Yes eyelids normal Conjunctivae: conjunctivae normal Sclerae: sclerae normal Corneas: corneas normal Pupils: Equal, round and reactive pupils present EOM: EOMs intact bilaterally Neck Neck: Yes full ROM Resp Effort & Inspection: normal respiratory effort, able to speak in complete sentences and not labored Skin General skin exam: elasticity normal Neuro Other: Patient attempted to stand up and is unsteady on his feet. General: patient oriented x3 Cranial nerves: Yes Equal, round and reactive pupils present and Yes Bilaterally intact EOM present Cognition (Neuro): normal cognition Extrem Other: Moving all extremities well without any obvious deformities Course Reevaluation(s) Reevaluation #1: Patient has been up several times requesting to leave, but he has been redirected back to his stretcher. He was fed several times. He does not have a sober ride home, so we will remain in the ED overnight on observation pending safe disposition, sober re-evaluation. Time: 00:01 Medications Administered Discontinued Medications Generic Name Dose Route Start Last Admin Trade Name Freq PRN Reason Stop Dose Admin Nicotine 21 mg 11/10/24 23:25 11/10/24 23:33 Nicotine 21 Mg Patch.Td24 TRANSDERMA 11/10/24 23:26 21 mg ONCE ONE Administration Medical Decision Making Medical Decision Making MDM Narrative: 53-year-old male presents for evaluation of acute alcohol intoxication. The patient admits to drinking alcohol in excess today. His ethanol level resulted at 343. He appears clinically intoxicated as he is unable to stand without swimming in his a fall risk. He was requesting discharge, however he does not have a safe disposition to walk out of here as he was a fall risk. I explained to the patient that he can not leave on his own, but if he were to be able to find a sober ride home that could monitor him, he could be discharged into somebody else's care. The patient reports that his does not have a car to come get him and agreed to stay and be observed in the ER until clinical sobriety at this time, 05:45, patient is awake, alert and oriented x3, stable gait, coherent, clinically sober. Patient is ready for discharge, at this time, 545 am were ending physician observation Differential Diagnosis Differential Diagnoses: The differential diagnosis associated with the presentation includes Alcohol abuse Acute alcohol intoxication Substance abuse Altered mental status Lab Data MDM Lab Attestation statement: I reviewed the patient's lab results. No leukocytosis. The patient has a chronic normocytic anemia that is consistent with his baseline. His chemistries are without any abnormalities 11/10/24 20:09 11/10/24 20:10 Labs: Lab Results 11/10/24 11/10/24 Range/Units 20:09 20:10 WBC 6.6 (4.8-10.8) X10*3/uL RBC 4.27 L (4.60-5.80) X10*6/uL Hgb 12.8 L (14.0-18.0) g/dl Hct 38.1 L (42.0-52.0) % MCV 89.2 (80.0-98.0) fL MCH 30.0 (27.0-33.0) pg MCHC 33.6 (31.0-36.0) g/dl RDW 15.9 (11.0-16.0) % Plt Count 199 D (160-400) X10*3/uL MPV 10.2 (9.4-12.4) fL Immature Gran % (Auto) 0.2 (0.0-0.4) % Neut % (Auto) 44.9 L (45-73) % Lymph % (Auto) 38.2 (20-40) % [place] % (Auto) 10.0 (2-11) % Eos % (Auto) 5.9 H (0-4) % Baso % (Auto) 0.8 (0-2) % Lymph # (Auto) 2.5 (1.2-4.9) X10*3/uL [place] # (Auto) 0.7 (0.1-1.2) X10*3/uL Eos # (Auto) 0.4 (0.0-0.4) X10*3/uL Baso # (Auto) 0.1 (0.0-0.2) X10*3/uL Abs Immat Gran (auto) 0.01 (0.00-0.03) X10*3/uL Absolute Neuts (auto) 3.0 (2.0-8.3) x10*3/uL Absolute Nucleated RBC 0.000 (0.0-0.012) X10*3/uL Nucleated RBC % (auto) 0.0 (0.0-0.2) /100WBC PT 11.0 (10.9-12.4) SEC INR 0.9 (0.9-1.1) Sodium 138 (135-145) mmol/L Potassium 3.8 (3.3-5.1) mmol/L Chloride 101 (96-108) mmol/L Carbon Dioxide 27 (22-29) mmol/L Anion Gap 14 (12-20) BUN 9 (9-16) mg/dL Creatinine 0.83 (0.5-1.4) mg/dL Estim Creat Clear Calc 104.1 Estimated GFR > 60 Random Glucose 109 (60-115) mg/dL Calcium 9.1 (8.4-10.2) mg/dL Total Bilirubin 0.3 (0.0-1.0) mg/dL AST 37 (5-37) U/L ALT 30 (0-40) U/L Alkaline Phosphatase 68 (39-117) U/L Total Protein 7.0 (6.5-8.0) g/dL Albumin 4.2 (3.5-5.0) g/dL Salicylates < 5.0 L (15-30) mg/dL Acetaminophen < 3 (<30) mcg/mL Ethyl Alcohol 343 H* mg/dL Discharge Plan Discharge Clinical Impression: Alcohol use disorder, severe, dependence Patient Disposition: Home, Self-Care Instructions: Abuse of Alcohol (ED) Additional Instructions: Alcohol use disorder You were seen in the Emergency Department today for treatment of alcohol use disorder.? You may have been given medications to help with your withdrawal symptoms.? Please do not drink alcohol with them. This is very dangerous and can cause respiratory depression or other adverse reactions depending on the medication. If you would like to cut down or stop your alcohol use please consider calling our outpatient Addiction Treatment office:? [facility] (M-F 9a-5p) [address] [place] [address] ? You have also been given a list of treatment providers in the area that can assist as well.? If you experience seizures, vomiting blood, black stools, falls, severe headache, chest pain, fevers, trouble breathing, hallucinations or any other concerns you need to call 911 or seek immediate care. Please stay hydrated. Prescriptions: No Action metoprolol succinate 50 mg tablet extended release 24 hr 1 tab PO DAILY Qty: 30 0RF albuterol sulfate [ProAir HFA] 90 mcg/actuation HFA aerosol inhaler 2 puff inhalation Q6H PRN (Reason: shortness of breath or wheezing) Qty: 1 0RF amlodipine 2.5 mg tablet 1 tab PO DAILY doxycycline hyclate 100 mg tablet 100 mg PO BID 7 Days Qty: 14 0RF losartan-hydrochlorothiazide 100-12.5 mg tablet 1 tab PO DAILY aspirin 81 mg tablet,delayed release (DR/EC) 81 mg PO DAILY Qty: 30 0RF atorvastatin [Lipitor] 40 mg tablet 40 mg PO BEDTIME Qty: 30 0RF cefpodoxime 200 mg tablet 200 mg PO Q12H Qty: 14 0RF Rx Instructions: must administer with a meal/food doxycycline hyclate 100 mg tablet 100 mg PO BID 7 Days Qty: 14 0RF doxycycline hyclate 100 mg capsule 100 mg PO BID Qty: 13 0RF Rx Instructions: You were given the first dose today in the ED. cyclobenzaprine 10 mg tablet 10 mg PO TID PRN (Reason: muscle spasm) Qty: 20 0RF lidocaine 5 % adhesive patch,medicated 1 patch topical DAILY Qty: 30 0RF Rx Instructions: leave on most painful area for up to 12 hrs buprenorphine-naloxone [Suboxone] 8-2 mg film 1 film sublingual BID Qty: 14 0RF Print Language: Jamaican
[2024-11-10 21:56] VITALS: BP 108/63; PULSE 87; RESP 16; TEMP 36.6; O2SAT 95
--- NOTE | 2024-11-10 22:32 | PC.NURSE ---
pt again requiring redirection. nonaggressive but speaking loudly to PCT currently sitting. disturbing patients. this RN succesfully redirected patient willingly back to stretcher. now lying quietly mumbling to self. sitter remains in place
[2024-11-10] MEDS: Nicotine 21 MG PATCH.TD24 TRANSDERMA (23:33)
--- NOTE | 2024-11-10 23:35 | PC.NURSE ---
Took over care from Eloise Hayes, pt given a sandwich and drink, medicated.
[2024-11-11 00:47] VITALS: BP 104/58; PULSE 77; RESP 14; TEMP 37.1; O2SAT 95
--- NOTE | 2024-11-11 01:57 | PC.NURSE ---
Gave pt a drink to patient and food, pt resting in bed.
[2024-11-11 05:29] VITALS: BP 123/75; PULSE 89; RESP 14; TEMP 36.5; O2SAT 93
--- NOTE | 2024-11-11 05:47 | PC.NURSE ---
Pt a&o, reviewed discharge instructions with pt. pt verbalized understanding. pt ambulated with a steady gait.
[2024-11-11 05:56] VITALS: BP 123/75; PULSE 89; RESP 14; TEMP 36.5; O2SAT 93
== END 2024-11-11 05:57 | disposition home or self-care (01) ==
PROVIDERS: Emergency Provider Emergency Medicine Emergency Medical Services
DX: F10.229 Alcohol dependence with intoxication, unspecified (principal); Y90.8 Blood alcohol level of 240 mg/100 ml or more; Z79.899 Other long term (current) drug therapy; Z51.81 Encounter for therapeutic drug level monitoring
CPT/HCPCS: 36415; 80053; 80143; 80179; 80307; 85025; 85610; 99283; 99284

== ENCOUNTER 2025-01-04 14:37 | Outpatient (REF) | payer MEDICAID, SELFPAY ==
--- OUTSIDE RECORDS SUMMARY | 2025-01-04 15:28 | XMS_ITS | Encounter Summary ---
Author Organization [employer] Address [address] [facility] [address] [place] [address] Care Team Providers Care Test Driver Name Role Phone Ashwini Flor JANE Primary Care Provider [phone] Sheridan Coburn MD Primary Care Pro vider Sheridan Lopez MD Primary Care Provide r Kalin Mart DDS Unavailable [phone] Patricia Castillo MD Primary Care Provider [phone] Encounter Details Date Type Department Care Team (Late st Contact Info) Description 09/04/2022 Orders Only [facility] CHC MED & PEDS [address] [place], [place] [phone] Rosa Rosales LPN Social History Tobacco Use Types Packs/Day Years Used Date Smoking Tobacco: Never Assessed Sex and Gender Information Value Date Recorded Sex Assigned at Male 06/09/2022 10:18 AM EDT Legal Sex Male 10:18 AM EDT Gender Identity Male 06/09/2022 10:18 AM EDT Sexual Orientation Straight 06/09/2022 10 :18 AM EDT documented as of this encounter Plan of Treatment Upcoming Encounters Date Type Department Care Team (Late st Contact Info) Description 01/06/2025 2:30 PM EDT Office Visit [facility] ADULT DENTAL [address], [place] [phone] Kalin Mart DDS [address] [place] [address] 01/24/2025 10:15 AM EDT Office Visit [facility] MEDICINE [address], [place] [phone] Patricia Castillo MD [address] [place] [address] 06/12/2025 3:00 PM EST Office Visit [facility] ADULT DENTAL [address] [place] [address] Farzaneh Sanches [address] [place] [address] documented as of this encounter Visit Diagnoses Not on filedocumented in this encounter Care Teams Test Driver Relationship Specialty Start Date End Date Ashwini Flor FNP [address] [place] [id number] PCP - General Family Medicine 02/16/22 01/08/23 Sheridan Coburn MD [address] [place] [address] [id number] PCP - General Internal Medicine 01/09/23 04/05/24 Sheridan Lopez MD [address] [place] [address] [phone] PCP - General Internal Medicine 04/06/24 12/04/24 Patricia Castillo MD [address] [place] [address] [phone] PCP - General Family Medicine 12/05/24 Kalin Mart DDS [address] [place] [phone] Dentist Dental Manager Quality Compliance 11/22/24 documented as of this encounter
[2025-01-05 08:18] LABS: ~HepC Num1 10.68 S/CO (0.00-0.79); ~Hepatitis C Antibody Reactive (Nonreactive)
[2025-01-07 13:59] LABS: HCV Log PCR <1.18 NOT DETECTED Log IU/mL (NOT DETECTED); HepC Viral Load <15 NOT DETECTED IU/mL (NOT DETECTED)
== END 2025-01-04 14:38 | disposition home or self-care (01) ==
LOC: HO.HHCL 14:37
PROVIDERS: Visit Provider General Practice
DX: Z86.19 Personal history of other infectious and parasitic diseases (principal)
CPT/HCPCS: 36415; 86803; 87522

== ENCOUNTER 2025-01-06 12:33 | Outpatient (REF) | payer MEDICAID, SELFPAY ==
--- OUTSIDE RECORDS SUMMARY | 2025-01-06 12:57 | XMS_ITS | Encounter Summary ---
Author Organization [employer] Address [address] [facility] [address] [place] [address] Care Team Providers Care Thread Singer Name Role Phone Ashwini Flor JANE Primary Care Provider [phone] Sheridan Coburn MD Primary Care Pro vider Sheridan Lopez MD Primary Care Provide r Kalin Mart DDS Unavailable [phone] Patricia Castillo MD Primary Care Provider [phone] Encounter Details Date Type Department Care Team (Late st Contact Info) Description 09/04/2022 Orders Only [facility] CHC MED & PEDS [address] [place], [place] [phone] Rosa Rosales LPN Social History Tobacco Use [...] Description 01/06/2025 2:30 PM EDT Office Visit [facility] ADULT DENTAL [address] [place], [place] [phone] Kalin Mart DDS [address], [place] [phone] Arrived 01/24/2025 10:15 AM EDT Office Visit [facility] MEDICINE [address] [place] [address] Patricia Castillo MD [address] [place] [address] 04/05/2025 3:00 PM EDT Office Visit [facility] MEDICINE [address] [place] [phone] Patricia Castillo MD [address] [place] [address] 06/12/2025 3:00 PM EST Office Visit [facility] ADULT DENTAL [address] [place] [address] Verónica[address] [place] [address] documented as of this encounter Visit Diagnoses Not on filedocumented in this encounter Care Teams Thread Singer Relationship Specialty Start Date End Date Ashwini Flor FNP [address] [place] [phone] PCP - General Family Medicine 02/16/22 01/08/23 Sheridan Coburn MD [address] [place] [phone] PCP - General Internal Medicine 01/09/23 04/05/24 Sheridan Lopez MD [address] [place] [phone] PCP - General Internal Medicine 04/06/24 12/04/24 Patricia Castillo MD [address] [place] [id number] PCP - General Family Medicine 12/05/24 Kalin Mart DDS [address] [place] [address] Dentist Dental Cab Starter 11/22/24 documented as of this encounter
[2025-01-06 13:53] LABS: MANUAL DIFF FLAG NO
[2025-01-06 13:58] LABS: Basophils Absolute Auto 0.1 X10*3/uL (0.0-0.2); Basophils Percent Auto 0.8 % (0-2); Eosinophils Absolute Auto 0.3 X10*3/uL (0.0-0.4); Eosinophils Percent Auto 4.6 % (0-4); Hematocrit 37.4 % (42.0-52.0); Hemoglobin 12.8 g/dl (14.0-18.0); Imm Gran Abs Auto 0.01 X10*3/uL (0.00-0.03); Imm Gran Pct Auto 0.2 % (0.0-0.4); Lymphocytes Absolute Auto 2.8 X10*3/uL (1.2-4.9); Lymphocytes Percent Auto 45.1 % (20-40); Mean Corpuscular HGB Conc 34.2 g/dl (31.0-36.0); Mean Corpuscular Volume 87.6 fL (80.0-98.0); Mean Platelet Volume 10.8 fL (9.4-12.4); Monocytes Absolute Auto 0.7 X10*3/uL (0.1-1.2); Monocytes Percent Auto 10.6 % (2-11); Neutrophils Absolute Auto 2.4 x10*3/uL (2.0-8.3); Neutrophils Percent Auto 38.7 % (45-73); Platelet Count 179 X10*3/uL (160-400); Red Blood Count 4.27 X10*6/uL (4.60-5.80); Red Cell Distribution Width 13.2 % (11.0-16.0); White Blood Count 6.1 X10*3/uL (4.8-10.8)
[2025-01-06 14:11] LABS: Estimated Average Glucose 131 mg/dL; Hemoglobin A1C 151.5776 umol/L; Hemoglobin A1c % 6.2 % (<6.0); Total Hemoglobin (HGBA1C) 3387.9092 umol/L
[2025-01-06 14:35] LABS: Erythrocyte Sedimentation Rate 12 MM/HR (0-15)
[2025-01-06 14:42] LABS: Alanine Aminotransferase 28 U/L (0-40); Albumin Level 4.4 g/dL (3.5-5.0); Alkaline Phosphatase 51 U/L (39-117); Anion Gap 12 (12-20); Aspartate Amino Transferase 33 U/L (5-37); Bilirubin Total 0.6 mg/dL (0.0-1.0); Blood Urea Nitrogen 14 mg/dL (9-16); Calcium 10.2 mg/dL (8.4-10.2); Carbon Dioxide 31 mmol/L (22-29); Chloride 101 mmol/L (96-108); Cholesterol 156 mg/dL (<200); Estimated Glomerular Filt Rate > 60; Glucose Random 109 mg/dL (60-115); HDL Cholesterol 27 mg/dL (>40); LDL Cholesterol Calculated 95 mg/dL (<100); Lactate Dehydrogenase 222 U/L (118-273); Sodium 140 mmol/L (135-145); Total Protein 7.2 g/dL (6.5-8.0); Triglycerides 173 mg/dL (<150)
[2025-01-06 15:00] LABS: TSH reflex Free T4 1.79 uIU/mL (0.32-4.0)
[2025-01-06 15:06] LABS: Folate 13.2 ng/mL (> or = 4.0); Prostate Specific Antigen 0.62 ng/mL (<0.05-4.0); Vitamin B12 527 pg/mL (200-900)
[2025-01-08 17:28] LABS: RPR Rapid Plasma Reagin NON-REACTIVE (NON-REACTIVE)
== END 2025-01-06 12:34 | disposition home or self-care (01) ==
LOC: HO.HHCL 12:33
PROVIDERS: Visit Provider General Practice
DX: Z12.5 Encounter for screening for malignant neoplasm of prostate (principal); R52 Pain, unspecified; E66.3 Overweight; G62.9 Polyneuropathy, unspecified
CPT/HCPCS: 36415; 80053; 80061; 82607; 82746; 83036; 83615; 84153; 84443; 85025; 85652; 86592

== ENCOUNTER 2025-04-06 09:54 | Outpatient (REF) | payer MEDICAID, SELFPAY ==
--- OUTSIDE RECORDS SUMMARY | 2025-04-05 15:00 | XMS_ITS | Encounter Summary ---
Author Organization [employer] Address [address] [address] [place] [address] Care Team Providers Care Engineering Geologist Name Role Phone Kalin Mart DDS Unavailable [phone] Patricia Castillo MD Primary Care Provider [phone] Reason for Visit * Reason Comments Follow-up Swollen feet Encounter Details Date Type Department Care Team ([facility] st Contact Info) Description 04/05/2025 3:00 PM EDT Office Visit [facility] [address] [place] [address] Patricia Castillo MD [address], [place] [phone] Bilateral swelling of feet (Primary Dx); Epigastric pain Social History Tobacco Use Types Packs/Day Years Used Date Smoking Tobacco: Every Day Cigarettes Passive Smoke Exposure: Current Smokeless Tobacco: Never Alcohol Use Standard Drinks/Week Comments Not Currently 0 (1 standard drink = 0.6 oz pur e alcohol) Alcohol Answer Date Recorded How often do you have a drink containing alcohol ? 0 01/06/2025 How many drinks containing a lcohol do you have on a typical day when you are drinking? 0 01/06/2025 How often do you have six or more drinks on one occasion? 0 01/06/2025 Depression Answer Date Recorded Patient Health Questionnaire-9 Score 16 01/04/2025 Patient Health Questionnaire-9 Score 16 01/04/2025 Last PHQ-9: Questionnaire Data Not on file 0 01/04/2025 Depression Answer Date Recorded Patient Health Questionnaire-2 Score 4 01/04/2025 Sex and Gender Information Value Date Recorded Sex Assigned at Male 06/09/2022 10:18 AM EDT Legal Sex Male 10:18 AM EDT Gender Identity Male 06/09/2022 10:18 AM EDT Sexual Orientation Straight 06/09/2022 10 :18 AM EDT documented as of this encounter Last Filed Vital Signs Vital Sign Reading Time Taken Comments Blood Pressure 160/100 04/05/2025 2:51 PM EDT Pulse 80 04/05/2025 2:51 PM EDT Temperature 36.7 C (98 F) 04/05/2025 2:51 PM EDT Respiratory Rate 18 04/05/2025 2:51 PM EDT Oxygen Saturation - - Inhaled Oxygen Concentration - - Weight 94.5 kg (208 lb 6.4 oz) 04/05/2025 2:51 P M EDT Height 167.6 cm (5' 6 ) 04/05/2025 2:51 PM EDT Body Mass Index 33.64 04/05/2025 2:51 PM EDT documented in this encounter Plan of Treatment Upcoming Encounters Date Type Department Care Team (Late st Contact Info) Description 06/12/2025 3:00 PM EST Office Visit [facility] [address] [place] [address] Verónica, Farzaneh [address] [place] [address] Scheduled Orders Name Type Priority Associated Diagnoses Orde r Schedule Comprehensive Metabolic Panel Lab Routine Bilateral swelling of feet Expected: 04/05/2025 (Approximate), Expires: 04/05/2026 Urinalysis, Complete, with Reflex to Culture Lab Routine Bilateral swelling of feet Expected: 04/05/2025 (Approximate), Expires: 04/05/2026 B Type Natriuretic Peptide (BNP) Lab Routine Bilateral swelling of feet Expected: 04/05/2025, Expires: 04/05/2026 Lipase Lab Routine Epigastric pain Expected: 04/05/2025, Expires: 04/05/2026 CBC auto differential Lab Routine Epigastric pain Expected: 04/05/2025 (Approximate), Expires: 04/05/2026 documented as of this encounter Visit Diagnoses Diagnosis Bilateral swelling of feet- Primary Swelling of limb Epigastric pain Abdominal pain, epigastric documented in this encounter Additional Health Concerns Assessment Noted Time PHQ-9 Depression Total Score: 16 01/04/2 025 2:26 PM EDT documented as of this encounter Care Teams Engineering Geologist Relationship Specialty Start Date End Date Jonathan, Patricia, MD [address], [place] [phone] PCP - General Family Medicine 12/05/24 Kalin Mart DDS [address], [place] [phone] Dentist Dental Parts Specialist 11/22/24 documented as of this encounter
--- OUTSIDE RECORDS SUMMARY | 2025-04-06 11:01 | XMS_ITS ---
Author Name [facility] Organization Unknown Results Test Name/Text Value Interpretation Date Range Source Magnesium SerPl-mCnc 1.7 mg/dL Normal 06/29/2024 1.6 - 2.7 [facility] Phosphate SerPl-mCnc 2.9 mg/dL Normal 06/29/2024 2.7 - 4.5 [facility] ALT SerPl-cCnc 27.0 U/L Normal 06/29/2024 10 - 55 [facility] T Albumin/Glob SerPl 1.1 Ratio Normal 06/29/2024 1 - 3 [facility] Anion Gap Bld-sCnc 9.0 Normal 06/29/2024 7 - 17 [facility] Creat SerPl-mCnc 0.5 mg/dL Normal 06/29/2024 0.5 - 1.3 HH [facility] BUN/Creat SerPl 32.0 Ratio Above high normal 06/29/2024 10 - 25 [facility] ALP SerPl-cCnc 66.0 U/L Normal 06/29/2024 45 - 128 [facility] T Glucose SerPl-mCnc 123.0 mg/dL Above high normal 06/29/2024 65 - 99 [facility] Bilirub SerPl-mCnc 0.4 mg/dL Normal 06/29/2024 0.2 - 1 [facility] GFR/BSA.pred SerPlBld [id number] >90.0 Normal 06/29/2024 59 - [facility] CO2 SerPl-sCnc 28.0 mmol/L Normal 06/29/2024 22 - 33 HH CCT Prot SerPl-mCnc 7.2 g/dL Normal 06/29/2024 6.3 - 8.[address] AST SerPl-cCnc 36.0 U/L Normal 06/29/2024 10 - 55 [facility] T BUN SerPl-mCnc 16.0 mg/dL Normal 06/29/2024 8 - [address] Sodium SerPl-sCnc 134.0 mmol/L Below low normal 06/29/2024 1 36 - 145 [facility] Chloride SerPl-sCnc 97.0 mmol/L Below low normal 06/29/2024 98 - 107 [facility] Globulin Ser Calc-mCnc 3.5 g/dL Normal 06/29/2024 1.5 - 3.9 [facility] Potassium SerPl-sCnc 4.2 mmol/L Normal 06/29/2024 3.4 - 5.3 [facility] Calcium SerPl-mCnc 9.9 mg/dL Normal 06/29/2024 8.7 - 10.5 [facility] Albumin SerPl-mCnc 3.7 g/dL Normal 06/29/2024 3.5 - 5 [facility] Hgb Bld-mCnc 12.7 g/dL Below low normal 06/29/2024 13 - 17.7 [facility] RBC num Bld Auto 4.18 Mil/uL Below low normal 06/29/2024 4.5 - 6.2 [facility]CT MCHC RBC Auto-mCnc 32.7 g/dL Normal 06/29/2024 30 - 36 [facility] Basophils/leuk NFr Bld Auto 0.2 % Normal 06/29/2024 [facility] PMV Bld Auto 10.0 fL Normal 06/29/2024 7.5 - 12.5 [facility] Eosinophil/leuk NFr Bld Auto 4.1 % Normal 06/29/2024 [facility] RDW RBC Auto-Rto 14.1 % Normal 06/29/2024 11.5 - 14.5 [facility] MCH RBC Qn Auto 30.4 pg Normal 06/29/2024 27 - [address] Platelet num Bld Auto 264.0 Thou/uL Normal 06/29/2024 150 - 450 [facility] Lymphocytes/leuk NFr Bld Auto 28.7 % Normal 06/29/2024 [facility] Monocytes/leuk NFr Bld Auto 14.3 % Normal 06/29/2024 [facility] Lymphocytes num Bld Auto 2.49 Thou/uL Normal 06/29/2024 1.5 - 4.5 H[facility] Hct VFr Bld Auto 38.8 % Below low normal 06/29/2024 39 - 54 [facility]CT Basophils num Bld Auto 0.02 Thou/uL Normal 06/29/2024 0 - 0.2 [facility] Imm Granulocytes/leuk NFr Bld Auto 0.9 % Normal 06/29/2024 [facility] Imm Granulocytes num Bld Auto 0.08 Thou/uL Normal 06/29/2024 0 - 0.1 H[facility]CT Monocytes num Bld Auto 1.24 Thou/uL Normal 06/29/2024 0.2 - 1.5 H[facility]CT WBC num Bld Auto 8.7 Thou/uL Normal 06/29/2024 4 - 11 [facility]CT Neutrophils num Bld Auto 4.49 Thou/uL Normal 06/29/2024 2 - 7.5 H[facility]CT MCV RBC Auto 93.0 fL Normal 06/29/2024 80 - 100 [facility] Neutrophils/leuk NFr Bld Auto 51.8 % Normal 06/29/2024 [facility]CT Eosinophil num Bld Auto 0.36 Thou/uL Normal 06/29/2024 0 - 0.7 [facility]CT Magnesium SerPl-mCnc 1.9 mg/dL Normal 06/28/2024 1.6 - 2.7 [facility] Albumin/Glob SerPl 1.0 Ratio Normal 06/28/2024 1 - 3 [facility] BUN/Creat SerPl 38.0 Ratio Above high normal 06/28/2024 10 - 25 [facility]CT Bilirub SerPl-mCnc 0.5 mg/dL Normal 06/28/2024 0.2 - 1 [facility] Sodium SerPl-sCnc 139.0 mmol/L Normal 06/28/2024 136 - 14 5 [facility]CT CO2 SerPl-sCnc 29.0 mmol/L Normal 06/28/2024 22 - 33 HH CCT ALP SerPl-cCnc 62.0 U/L Normal 06/28/2024 45 - 128 [facility] T ALT SerPl-cCnc 18.0 U/L Normal 06/28/2024 10 - 55 [facility] T Chloride SerPl-sCnc 100.0 mmol/L Normal 06/28/2024 98 - 1 07 H[facility]CT BUN SerPl-mCnc 23.0 mg/dL Above high normal 06/28/2024 8 - 2 1 [facility]CT Glucose SerPl-mCnc 139.0 mg/dL Above high normal 06/28/2024 65 - 99 [facility]CT Albumin SerPl-mCnc 3.4 g/dL Below low normal 06/28/2024 3.5 - 5 H[facility]CT Potassium SerPl-sCnc 3.8 mmol/L Normal 06/28/2024 3.4 - 5.3 HHCCT GFR/BSA.pred SerPlBld [id number] >90.0 Normal 06/28/2024 59 - HHCCT AST SerPl-cCnc 28.0 U/L Normal 06/28/2024 10 - 55 [facility] T Globulin Ser Calc-mCnc 3.3 g/dL Normal 06/28/2024 1.5 - 3.9 H[facility]CT Prot SerPl-mCnc 6.7 g/dL Normal 06/28/2024 6.3 - 8.[address] Creat SerPl-mCnc 0.6 mg/dL Normal 06/28/2024 0.5 - 1.3 HH CCT Calcium SerPl-mCnc 9.5 mg/dL Normal 06/28/2024 8.7 - 10.5 [facility]CT Anion Gap Bld-sCnc 10.0 Normal 06/28/2024 7 - 17 [facility]CT Phosphate SerPl-mCnc 2.3 mg/dL Below low normal 06/28/2024 2.7 - 4.5 [facility]CT Hgb Bld-mCnc 12.2 g/dL Below low normal 06/28/2024 13 - 17.7 HHCCT MCHC RBC Auto-mCnc 32.4 g/dL Normal 06/28/2024 30 - 36 [facility]CT Monocytes num Bld Auto 1.27 Thou/uL Normal 06/28/2024 0.2 - 1.5 [facility]CT RDW RBC Auto-Rto 14.2 % Normal 06/28/2024 11.5 - 14.5 [facility] Imm Granulocytes/leuk NFr Bld Auto 0.6 % Normal 06/28/2024 [facility]CT Neutrophils/leuk NFr Bld Auto 67.7 % Normal 06/28/2024 [facility] Imm Granulocytes num Bld Auto 0.06 Thou/uL Normal 06/28/2024 0 - 0.1 HHCCT Hct VFr Bld Auto 37.6 % Below low normal 06/28/2024 39 - 54 [facility]CT Lymphocytes num Bld Auto 1.42 Thou/uL Below low normal 06/28/2024 1.5 - 4.5 [facility]CT WBC num Bld Auto 9.2 Thou/uL Normal 06/28/2024 4 - 11 [facility]CT Lymphocytes/leuk NFr Bld Auto 15.4 % Normal 06/28/2024 [facility]CT Neutrophils num Bld Auto 6.25 Thou/uL Normal 06/28/2024 2 - 7.5 H[facility]CT Eosinophil num Bld Auto 0.23 Thou/uL Normal 06/28/2024 0 - 0.7 [facility] Platelet num Bld Auto 239.0 Thou/uL Normal 06/28/2024 150 - 450 [facility]CT PMV Bld Auto 10.3 fL Normal 06/28/2024 7.5 - 12.5 [facility]CT Eosinophil/leuk NFr Bld Auto 2.5 % Normal 06/28/2024 [facility] MCV RBC Auto 94.0 fL Normal 06/28/2024 80 - 100 [facility]CT RBC num Bld Auto 4.0 Mil/uL Below low normal 06/28/2024 4.5 - 6.2 [facility]CT Basophils/leuk NFr Bld Auto 0.1 % Normal 06/28/2024 [facility]CT Monocytes/leuk NFr Bld Auto 13.7 % Normal 06/28/2024 [facility]CT Basophils num Bld Auto 0.01 Thou/uL Normal 06/28/2024 0 - 0.2 [facility]CT MCH RBC Qn Auto 30.5 pg Normal 06/28/2024 27 - [address] Magnesium SerPl-mCnc 1.8 mg/dL Normal 06/27/2024 1.6 - 2.7 [facility] Phosphate SerPl-mCnc 3.5 mg/dL Normal 06/27/2024 2.7 - 4.5 [facility]CT CO2 SerPl-sCnc 31.0 mmol/L Normal 06/27/2024 22 - 33 HH CCT ALT SerPl-cCnc 20.0 U/L Normal 06/27/2024 10 - 55 [facility] T Albumin SerPl-mCnc 3.4 g/dL Below low normal 06/27/2024 3.5 - 5 [facility] Glucose SerPl-mCnc 94.0 mg/dL Normal 06/27/2024 65 - 99 [facility]CT BUN SerPl-mCnc 17.0 mg/dL Normal 06/27/2024 8 - [address] Creat SerPl-mCnc 0.5 mg/dL Normal 06/27/2024 0.5 - 1.3 HH CCT Sodium SerPl-sCnc 137.0 mmol/L Normal 06/27/2024 136 - 14 5 [facility]CT Albumin/Glob SerPl 1.0 Ratio Normal 06/27/2024 1 - 3 [facility]CT BUN/Creat SerPl 34.0 Ratio Above high normal 06/27/2024 10 - 25 [facility]CT Potassium SerPl-sCnc 3.2 mmol/L Below low normal 06/27/2024 3.4 - 5.3 H[facility]CT Chloride SerPl-sCnc 95.0 mmol/L Below low normal 06/27/2024 98 - 107 [facility]CT Globulin Ser Calc-mCnc 3.3 g/dL Normal 06/27/2024 1.5 - 3.9 H[facility]CT AST SerPl-cCnc 31.0 U/L Normal 06/27/2024 10 - 55 [facility] T GFR/BSA.pred SerPlBld [id number] >90.0 Normal 06/27/2024 59 - HHCCT Anion Gap Bld-sCnc 11.0 Normal 06/27/2024 7 - 17 [facility]CT Calcium SerPl-mCnc 9.1 mg/dL Normal 06/27/2024 8.7 - 10.5 H[facility]CT Bilirub SerPl-mCnc 0.8 mg/dL Normal 06/27/2024 0.2 - 1 H[facility]CT Prot SerPl-mCnc 6.7 g/dL Normal 06/27/2024 6.3 - 8.[address] ALP SerPl-cCnc 63.0 U/L Normal 06/27/2024 45 - 128 [facility] T Lymphocytes num Bld Auto 2.2 Thou/uL Normal 06/27/2024 1.5 - 4.5 H[facility]CT Lymphocytes/leuk NFr Bld Auto 25.0 % Normal 06/27/2024 HHCCT WBC num Bld Auto 8.8 Thou/uL Normal 06/27/2024 4 - 11 H[facility]CT MCH RBC Qn Auto 30.1 pg Normal 06/27/2024 27 - [address] Eosinophil/leuk NFr Bld Auto 1.1 % Normal 06/27/2024 H[facility]CT Imm Granulocytes/leuk NFr Bld Auto 0.7 % Normal 06/27/2024 H[facility]CT Neutrophils/leuk NFr Bld Auto 55.0 % Normal 06/27/2024 [facility] RDW RBC Auto-Rto 14.3 % Normal 06/27/2024 11.5 - 14.5 HHCCT RBC num Bld Auto 4.15 Mil/uL Below low normal 06/27/2024 4.5 - 6.2 HHCCT Neutrophils num Bld Auto 4.84 Thou/uL Normal 06/27/2024 2 - 7.5 HHCCT Eosinophil num Bld Auto 0.1 Thou/uL Normal 06/27/2024 0 - 0.7 HHCCT Basophils/leuk NFr Bld Auto 0.1 % Normal 06/27/2024 HHCCT Monocytes num Bld Auto 1.59 Thou/uL Above high normal 06/27/2024 0.2 - 1.5 H[facility]CT MCHC RBC Auto-mCnc 32.6 g/dL Normal 06/27/2024 30 - 36 H[facility]CT Hgb Bld-mCnc 12.5 g/dL Below low normal 06/27/2024 13 - 17.7 H[facility]CT Platelet num Bld Auto 198.0 Thou/uL Normal 06/27/2024 150 - 450 H[facility]CT Monocytes/leuk NFr Bld Auto 18.1 % Normal 06/27/2024 [facility]CT Imm Granulocytes num Bld Auto 0.06 Thou/uL Normal 06/27/2024 0 - 0.1 HHCCT MCV RBC Auto 93.0 fL Normal 06/27/2024 80 - 100 H[facility]CT Hct VFr Bld Auto 38.4 % Below low normal 06/27/2024 39 - 54 H[facility]CT PMV Bld Auto 10.0 fL Normal 06/27/2024 7.5 - 12.5 HHCCT Basophils num Bld Auto 0.01 Thou/uL Normal 06/27/2024 0 - 0.2 HHCCT WBC num Bld Auto 7.1 Thou/uL Normal 06/26/2024 4 - 11 [facility]CT Basophils/leuk NFr Bld Auto 0.0 % Normal 06/26/2024 [facility] RDW RBC Auto-Rto 14.6 % Above high normal 06/26/2024 11.5 - 14.5 HHCCT RBC num Bld Auto 4.05 Mil/uL Below low normal 06/26/2024 4.5 - 6.2 HHCCT PMV Bld Auto 10.6 fL Normal 06/26/2024 7.5 - 12.5 HHCCT Neutrophils num Bld Auto 4.25 Thou/uL Normal 06/26/2024 2 - 7.5 HHCCT Lymphocytes num Bld Auto 1.86 Thou/uL Normal 06/26/2024 1.5 - 4.5 HHCCT Eosinophil/leuk NFr Bld Auto 0.4 % Normal 06/26/2024 H[facility]CT MCV RBC Auto 94.0 fL Normal 06/26/2024 80 - 100 H[facility]CT Imm Granulocytes num Bld Auto 0.02 Thou/uL Normal 06/26/2024 0 - 0.1 HHCCT Neutrophils/leuk NFr Bld Auto 59.5 % Normal 06/26/2024 H[facility]CT Monocytes/leuk NFr Bld Auto 13.7 % Normal 06/26/2024 H[facility]CT Hgb Bld-mCnc 12.1 g/dL Below low normal 06/26/2024 13 - 17.7 HHCCT Lymphocytes/leuk NFr Bld Auto 26.1 % Normal 06/26/2024 H[facility]CT Imm Granulocytes/leuk NFr Bld Auto 0.3 % Normal 06/26/2024 H[facility]CT MCH RBC Qn Auto 29.9 pg Normal 06/26/2024 27 - [address] Platelet num Bld Auto 175.0 Thou/uL Normal 06/26/2024 150 - 450 HHCCT Hct VFr Bld Auto 38.1 % Below low normal 06/26/2024 39 - 54 H[facility]CT Basophils num Bld Auto 0.0 Thou/uL Normal 06/26/2024 0 - 0.2 HHCCT Monocytes num Bld Auto 0.98 Thou/uL Normal 06/26/2024 0.2 - 1.5 HHCCT Eosinophil num Bld Auto 0.03 Thou/uL Normal 06/26/2024 0 - 0.7 HHCCT MCHC RBC Auto-mCnc 31.8 g/dL Normal 06/26/2024 30 - 36 H[facility]CT Trigl SerPl-mCnc 104.0 mg/dL Normal 06/26/2024 - 150 H[facility]CT Potassium SerPl-sCnc 3.5 mmol/L Normal 06/26/2024 3.4 - 5.3 HHCCT BUN/Creat SerPl 38.0 Ratio Above high normal 06/26/2024 10 - 25 H[facility]CT Anion Gap Bld-sCnc 11.0 Normal 06/26/2024 7 - 17 HHCCT Bilirub SerPl-mCnc 0.6 mg/dL Normal 06/26/2024 0.2 - 1 HHCCT Prot SerPl-mCnc 6.6 g/dL Normal 06/26/2024 6.3 - 8.[address] Albumin SerPl-mCnc 3.7 g/dL Normal 06/26/2024 3.5 - 5 H[facility]CT Albumin/Glob SerPl 1.3 Ratio Normal 06/26/2024 1 - 3 HHCCT CO2 SerPl-sCnc 28.0 mmol/L Normal 06/26/2024 22 - 33 HH CCT Sodium SerPl-sCnc 137.0 mmol/L Normal 06/26/2024 136 - 14 5 HHCCT Calcium SerPl-mCnc 9.5 mg/dL Normal 06/26/2024 8.7 - 10.5 HHCCT Creat SerPl-mCnc 0.4 mg/dL Below low normal 06/26/2024 0.5 - 1.3 HHCCT GFR/BSA.pred SerPlBld MHU-[id number]-GhUJni >90.0 Normal 06/26/2024 59 - HHCCT Glucose SerPl-mCnc 108.0 mg/dL Above high normal 06/26/2024 65 - 99 H[facility]CT Globulin Ser Calc-mCnc 2.9 g/dL Normal 06/26/2024 1.5 - 3.9 HHCCT ALP SerPl-cCnc 58.0 U/L Normal 06/26/2024 45 - 128 [facility] T AST SerPl-cCnc 26.0 U/L Normal 06/26/2024 10 - 55 [facility] T BUN SerPl-mCnc 15.0 mg/dL Normal 06/26/2024 8 - [address] ALT SerPl-cCnc 11.0 U/L Normal 06/26/2024 10 - 55 [facility] T Chloride SerPl-sCnc 98.0 mmol/L Normal 06/26/2024 98 - 10 7 HHCCT Magnesium SerPl-mCnc 1.9 mg/dL Normal 06/26/2024 1.6 - 2.7 HHCCT Phosphate SerPl-mCnc 3.7 mg/dL Normal 06/26/2024 2.7 - 4.5 HHCCT POC Glucose 95.0 mg/dL Normal 06/26/2024 65 - 99 H[facility]CT POC Glucose 111.0 mg/dL Above high normal 06/25/2024 65 - 99 H[facility]CT POC Glucose 130.0 mg/dL Above high normal 06/25/2024 65 - 99 H[facility]CT POC Glucose 160.0 mg/dL Above high normal 06/25/2024 65 - 99 HHCCT COHgb MFr Bld 2.0 % Above high normal 06/25/2024 0 - 1.5 HHCCT HCO3 34.8 mmol/L Above high normal 06/25/2024 22 - 26 HHCCT MetHgb MFr Bld 0.1 % Below low normal 06/25/2024 0.4 - 1 .5 HHCCT O2 Hb Measured, Arterial 96.8 Normal 06/25/2024 94 - 97 HHCCT pCO2, Arterial 50.0 mmHG Above high normal 06/25/2024 35 - 4 5 HHCCT Hgb Bld-mCnc 12.7 g/dL Normal 06/25/2024 12.6 - 17 HHCCT pH, Arterial 7.45 Normal 06/25/2024 7.35 - 7.45 [facility] T P/F Ratio 178.0 Normal 06/25/2024 HHCCT pO2, Arterial 89.0 mmHG Normal 06/25/2024 85 - 100 HHCCT SaO2 % BldA 98.9 % Normal 06/25/2024 96 - 100 H[facility]CT Base excess BldA Calc-sCnc 9.3 mmol/L Normal 06/25/2024 HHCCT Respiratory Information VENT 50% Normal 06/25/2024 HHCCT Magnesium SerPl-mCnc 2.2 mg/dL Normal 06/25/2024 1.6 - 2.7 HHCCT Phosphate SerPl-mCnc 2.9 mg/dL Normal 06/25/2024 2.7 - 4.5 HHCCT Potassium SerPl-sCnc 4.2 mmol/L Normal 06/25/2024 3.4 - 5.3 HHCCT ALT SerPl-cCnc 6.0 U/L Below low normal 06/25/2024 10 - 55 HHCCT ALP SerPl-cCnc 55.0 U/L Normal 06/25/2024 45 - 128 [facility] T Prot SerPl-mCnc 6.2 g/dL Below low normal 06/25/2024 6.3 - 8.3 HHCCT Creat SerPl-mCnc 0.4 mg/dL Below low normal 06/25/2024 0.5 - 1.3 HHCCT BUN/Creat SerPl 45.0 Ratio Above high normal 06/25/2024 10 - 25 HHCCT CO2 SerPl-sCnc 32.0 mmol/L Normal 06/25/2024 22 - 33 HH CCT Albumin SerPl-mCnc 3.6 g/dL Normal 06/25/2024 3.5 - 5 HHCCT GFR/BSA.pred SerPlBld NJU-VML-ZzOVts >90.0 Normal 06/25/2024 59 - HHCCT Globulin Ser Calc-mCnc 2.6 g/dL Normal 06/25/2024 1.5 - 3.9 HHCCT Chloride SerPl-sCnc 99.0 mmol/L Normal 06/25/2024 98 - 10 7 HHCCT Glucose SerPl-mCnc 181.0 mg/dL Above high normal 06/25/2024 65 - 99 HHCCT BUN SerPl-mCnc 18.0 mg/dL Normal 06/25/2024 8 - [address] Calcium SerPl-mCnc 8.8 mg/dL Normal 06/25/2024 8.7 - 10.5 HHCCT Albumin/Glob SerPl 1.4 Ratio Normal 06/25/2024 1 - 3 H[facility]CT Sodium SerPl-sCnc 137.0 mmol/L Normal 06/25/2024 136 - 14 5 HHCCT Bilirub SerPl-mCnc 0.5 mg/dL Normal 06/25/2024 0.2 - 1 HHCCT AST SerPl-cCnc 16.0 U/L Normal 06/25/2024 10 - 55 [facility] T Anion Gap Bld-sCnc 6.0 Below low normal 06/25/2024 7 - 17 H[facility]CT PMV Bld Auto 10.6 fL Normal 06/25/2024 7.5 - 12.5 H[facility]CT Platelet num Bld Auto 143.0 Thou/uL Below low normal 06/25/2024 150 - 450 H[facility]CT Basophils/leuk NFr Bld Auto 0.0 % Normal 06/25/2024 H[facility]CT Neutrophils/leuk NFr Bld Auto 78.8 % Normal 06/25/2024 [facility]CT MCV RBC Auto 95.0 fL Normal 06/25/2024 80 - 100 H[facility]CT Hgb Bld-mCnc 10.8 g/dL Below low normal 06/25/2024 13 - 17.7 HHCCT Imm Granulocytes num Bld Auto 0.01 Thou/uL Normal 06/25/2024 0 - 0.1 HHCCT RDW RBC Auto-Rto 15.5 % Above high normal 06/25/2024 11.5 - 14.5 HHCCT Eosinophil num Bld Auto 0.0 Thou/uL Normal 06/25/2024 0 - 0.7 HHCCT Basophils num Bld Auto 0.0 Thou/uL Normal 06/25/2024 0 - 0.2 HHCCT RBC num Bld Auto 3.57 Mil/uL Below low normal 06/25/2024 4.5 - 6.2 HHCCT Hct VFr Bld Auto 33.8 % Below low normal 06/25/2024 39 - 54 HHCCT MCHC RBC Auto-mCnc 32.0 g/dL Normal 06/25/2024 30 - 36 HHCCT Lymphocytes num Bld Auto 0.6 Thou/uL Below low normal 06/25/2024 1.5 - 4.5 HHCCT MCH RBC Qn Auto 30.3 pg Normal 06/25/2024 27 - [address] Lymphocytes/leuk NFr Bld Auto 12.0 % Normal 06/25/2024 H[facility]CT Imm Granulocytes/leuk NFr Bld Auto 0.2 % Normal 06/25/2024 HHCCT Neutrophils num Bld Auto 3.94 Thou/uL Normal 06/25/2024 2 - 7.5 HHCCT Monocytes/leuk NFr Bld Auto 9.0 % Normal 06/25/2024 HHCCT WBC num Bld Auto 5.0 Thou/uL Normal 06/25/2024 4 - 11 HHCCT Eosinophil/leuk NFr Bld Auto 0.0 % Normal 06/25/2024 HHCCT Monocytes num Bld Auto 0.45 Thou/uL Normal 06/25/2024 0.2 - 1.5 HHCCT POC Glucose 187.0 mg/dL Above high normal 06/25/2024 65 - 99 HHCCT POC Glucose 133.0 mg/dL Above high normal 06/25/2024 65 - 99 HHCCT POC Glucose 166.0 mg/dL Above high normal 06/25/2024 65 - 99 HHCCT POC Glucose 133.0 mg/dL Above high normal 06/24/2024 65 - 99 HHCCT Phosphate SerPl-mCnc 3.9 mg/dL Normal 06/24/2024 2.7 - 4.5 HHCCT BUN SerPl-mCnc 17.0 mg/dL Normal 06/24/2024 8 - [address] Creat SerPl-mCnc 0.5 mg/dL Normal 06/24/2024 0.5 - 1.3 HH CCT Potassium SerPl-sCnc 4.2 mmol/L Normal 06/24/2024 3.4 - 5.3 HHCCT Sodium SerPl-sCnc 139.0 mmol/L Normal 06/24/2024 136 - 14 5 HHCCT Glucose SerPl-mCnc 124.0 mg/dL Above high normal 06/24/2024 65 - 99 HHCCT GFR/BSA.pred SerPlBld [id number] >90.0 Normal 06/24/2024 59 - HHCCT BUN/Creat SerPl 34.0 Ratio Above high normal 06/24/2024 10 - 25 HHCCT Chloride SerPl-sCnc 100.0 mmol/L Normal 06/24/2024 98 - 1 07 HHCCT Anion Gap Bld-sCnc 8.0 Normal 06/24/2024 7 - 17 HHCCT CO2 SerPl-sCnc 31.0 mmol/L Normal 06/24/2024 22 - 33 HH CCT Calcium SerPl-mCnc 8.8 mg/dL Normal 06/24/2024 8.7 - 10.5 [facility]CT Delta 1.0 Normal 06/24/2024 - 3 [facility] Troponin T SerPl-mCnc 22.0 ng/L Normal 06/24/2024 - [facility] POC Glucose 192.0 mg/dL Above high normal 06/24/2024 65 - 99 [facility] POC Glucose 126.0 mg/dL Above high normal 06/24/2024 65 - 99 [facility] pro BNP, N-terminal 1258.0 pg/mL Above high normal 4 - 125 [facility] Troponin T SerPl-mCnc 23.0 ng/L Above high normal 06/24/2024 - [facility] Delta NO PREVIOUS RESULT Normal 06/24/2024 - 3 [facility] Neutrophils/leuk NFr Bld Auto 81.6 % Normal 06/24/2024 [facility] Lymphocytes/leuk NFr Bld Auto 8.9 % Normal 06/24/2024 [facility] Monocytes/leuk NFr Bld Auto 8.6 % Normal 06/24/2024 [facility] Imm Granulocytes num Bld Auto 0.04 Thou/uL Normal 06/24/2024 0 - 0.1 [facility] Eosinophil num Bld Auto 0.0 Thou/uL Normal 06/24/2024 0 - 0.7 [facility] Imm Granulocytes/leuk NFr Bld Auto 0.9 % Normal 06/24/2024 [facility] Monocytes num Bld Auto 0.38 Thou/uL Normal 06/24/2024 0.2 - 1.5 [facility] Basophils/leuk NFr Bld Auto 0.0 % Normal 06/24/2024 [facility] Basophils num Bld Auto 0.0 Thou/uL Normal 06/24/2024 0 - 0.2 CCT Lymphocytes num Bld Auto 0.39 Thou/uL Below low normal 06/24/2024 1.5 - 4.5 CCT Neutrophils num Bld Auto 3.59 Thou/uL Normal 06/24/2024 2 - 7.5 CCT Eosinophil/leuk NFr Bld Auto 0.0 % Normal 06/24/2024 [facility] Hgb Bld-mCnc 11.4 g/dL Below low normal 06/24/2024 13 - 17.7 HHCCT PMV Bld Auto 10.9 fL Normal 06/24/2024 7.5 - 12.5 HHCCT RBC num Bld Auto 3.79 Mil/uL Below low normal 06/24/2024 4.5 - 6.2 HHCCT RDW RBC Auto-Rto 16.0 % Above high normal 06/24/2024 11.5 - 14.5 HHCCT MCHC RBC Auto-mCnc 31.1 g/dL Normal 06/24/2024 30 - 36 HHCCT MCV RBC Auto 97.0 fL Normal 06/24/2024 80 - 100 HHCCT MCH RBC Qn Auto 30.1 pg Normal 06/24/2024 27 - [address] Platelet num Bld Auto 144.0 Thou/uL Below low normal 06/24/2024 150 - 450 HHCCT Hct VFr Bld Auto 36.7 % Below low normal 06/24/2024 39 - 54 HHCCT Immature Platelet Fraction 5.8 % Normal 06/24/2024 1.2 - 8.6 HHCCT WBC num Bld Auto 4.4 Thou/uL Normal 06/24/2024 4 - 11 HHCCT Phosphate SerPl-mCnc 2.6 mg/dL Below low normal 06/24/2024 2.7 - 4.5 HHCCT Calcium SerPl-mCnc 9.0 mg/dL Normal 06/24/2024 8.7 - 10.5 HHCCT ALT SerPl-cCnc 9.0 U/L Below low normal 06/24/2024 10 - 55 HHCCT AST SerPl-cCnc 25.0 U/L Normal 06/24/2024 10 - 55 [facility] T Prot SerPl-mCnc 6.4 g/dL Normal 06/24/2024 6.3 - 8.[address] Albumin/Glob SerPl 1.3 Ratio Normal 06/24/2024 1 - 3 [facility] GFR/BSA.pred SerPlBld WFA-NFA-FrPOve >90.0 Normal 06/24/2024 59 - H[facility]CT BUN SerPl-mCnc 16.0 mg/dL Normal 06/24/2024 8 - [address] BUN/Creat SerPl 27.0 Ratio Above high normal 06/24/2024 10 - 25 [facility] Bilirub SerPl-mCnc 0.3 mg/dL Normal 06/24/2024 0.2 - 1 [facility] Chloride SerPl-sCnc 102.0 mmol/L Normal 06/24/2024 98 - 1 07 [facility] Sodium SerPl-sCnc 137.0 mmol/L Normal 06/24/2024 136 - 14 5 [facility] CO2 SerPl-sCnc 28.0 mmol/L Normal 06/24/2024 22 - 33 HH CCT ALP SerPl-cCnc 65.0 U/L Normal 06/24/2024 45 - 128 [facility] T Globulin Ser Calc-mCnc 2.8 g/dL Normal 06/24/2024 1.5 - 3.9 [facility]CT Creat SerPl-mCnc 0.6 mg/dL Normal 06/24/2024 0.5 - 1.3 HH CCT Glucose SerPl-mCnc 122.0 mg/dL Above high normal 06/24/2024 65 - 99 [facility] Anion Gap Bld-sCnc 7.0 Normal 06/24/2024 7 - 17 [facility] Albumin SerPl-mCnc 3.6 g/dL Normal 06/24/2024 3.5 - 5 [facility] Potassium SerPl-sCnc 4.4 mmol/L Normal 06/24/2024 3.4 - 5.3 [facility] Magnesium SerPl-mCnc 2.1 mg/dL Normal 06/24/2024 1.6 - 2.7 [facility] POC Glucose 153.0 mg/dL Above high normal 06/24/2024 65 - 99 [facility] POC Glucose 144.0 mg/dL Above high normal 06/24/2024 65 - 99 [facility] POC Glucose 154.0 mg/dL Above high normal 06/24/2024 65 - 99 [facility] POC Glucose 162.0 mg/dL Above high normal 06/23/2024 65 - 99 [facility] POC Glucose 139.0 mg/dL Above high normal 06/23/2024 65 - 99 [facility] Bordetella parapertussis Not Detected Normal 06/24/2024 [facility] HCoV HKU1 RNA Nph Ql Non-probe PCR Not Detected Normal 06/24/2024 [facility] HPIV2 RNA Nph Ql Non-probe PCR Not Detected Normal 06/24/2024 [facility] HCoV NL63 RNA Nph Ql Non-probe PCR Not Detected Normal 06/24/2024 [facility] RSV RNA Nph Ql Non-probe PCR Not Detected Normal 06/24/2024 [facility] 2019-nCOV RNA Not Detected Normal 06/24/2024 [facility] FLUBV RNA Nph Ql Non-probe PCR Not Detected Normal 06/24/2024 [facility] HCoV 229E RNA Nph Ql Non-probe PCR Not Detected Normal 06/24/2024 [facility] FLUAV RNA Nph Ql Non-probe PCR Not Detected Normal 06/24/2024 [facility] HAdV DNA Nph Ql Non-probe PCR Not Detected Normal 06/24/2024 [facility] HCoV OC43 RNA Nph Ql Non-probe PCR Not Detected Normal 06/24/2024 [facility] HPIV3 RNA Nph Ql Non-probe PCR Not Detected Normal 06/24/2024 [facility] RV+EV RNA Nph Ql Non-probe PCR Not Detected Normal 06/24/2024 [facility] HPIV1 RNA Nph Ql Non-probe PCR Not Detected Normal 06/24/2024 [facility] B pert tox prom reg Nph Ql Non-probe PCR Not Detected Normal 06/24/2024 [facility] M pneumo DNA Nph Ql Non-probe PCR Not Detected Normal 06/24/2024 [facility] C pneum DNA Nph Ql Non-probe PCR Not Detected Normal 06/24/2024 [facility] HPIV4 RNA Nph Ql Non-probe PCR Not Detected Normal 06/24/2024 [facility] hMPV RNA Nph Ql Non-probe PCR Not Detected Normal 06/24/2024 [facility] POC Glucose 162.0 mg/dL Above high normal 06/23/2024 65 - 99 [facility] pH, Arterial 7.43 Normal 06/23/2024 7.35 - 7.45 [facility] T SaO2 % BldA 95.9 % Below low normal 06/23/2024 96 - 100 [facility] O2 Hb Measured, Arterial 93.7 Below low normal 06/23/2024 94 - 97 [facility] pCO2, Arterial 46.0 mmHG Above high normal 06/23/2024 35 - 4 5 [facility] Hgb Bld-mCnc 10.8 g/dL Below low normal 06/23/2024 12.6 - 17 [facility] Base excess BldA Calc-sCnc 5.4 mmol/L Normal 06/23/2024 [facility] HCO3 30.5 mmol/L Above high normal 06/23/2024 22 - 26 [facility] MetHgb MFr Bld 0.5 % Normal 06/23/2024 0.4 - 1.5 [facility] T pO2, Arterial 69.0 mmHG Below low normal 06/23/2024 85 - 100 [facility] COHgb MFr Bld 1.8 % Above high normal 06/23/2024 0 - 1.5 [facility] Respiratory Information VENT30% Normal 06/23/2024 [facility] POC Glucose 150.0 mg/dL Above high normal 06/23/2024 65 - 99 [facility] Magnesium SerPl-mCnc 1.9 mg/dL Normal 06/23/2024 1.6 - 2.7 [facility] Phosphate SerPl-mCnc 3.0 mg/dL Normal 06/23/2024 2.7 - 4.5 [facility] Anion Gap Bld-sCnc 7.0 Normal 06/23/2024 7 - 17 [facility] Creat SerPl-mCnc 0.5 mg/dL Normal 06/23/2024 0.5 - 1.3 [facility] CO2 SerPl-sCnc 30.0 mmol/L Normal 06/23/2024 22 - 33 HH CCT Potassium SerPl-sCnc 4.1 mmol/L Normal 06/23/2024 3.4 - 5.3 [facility] Bilirub SerPl-mCnc 0.3 mg/dL Normal 06/23/2024 0.2 - 1 [facility] GFR/BSA.pred SerPlBld [place]Q-[id number] >90.0 Normal 06/23/2024 59 - H[facility]CT Glucose SerPl-mCnc 150.0 mg/dL Above high normal 06/23/2024 65 - 99 [facility] Calcium SerPl-mCnc 8.4 mg/dL Below low normal 06/23/2024 8.7 - 10.5 [facility] Albumin/Glob SerPl 1.4 Ratio Normal 06/23/2024 1 - 3 [facility] Sodium SerPl-sCnc 140.0 mmol/L Normal 06/23/2024 136 - 14 5 [facility] Chloride SerPl-sCnc 103.0 mmol/L Normal 06/23/2024 98 - 1 07 [facility] ALP SerPl-cCnc 68.0 U/L Normal 06/23/2024 45 - 128 [facility] T AST SerPl-cCnc 26.0 U/L Normal 06/23/2024 10 - 55 [facility] T Prot SerPl-mCnc 6.3 g/dL Normal 06/23/2024 6.3 - 8.[address] BUN/Creat SerPl 24.0 Ratio Normal 06/23/2024 10 - 25 HH CCT BUN SerPl-mCnc 12.0 mg/dL Normal 06/23/2024 8 - [address] Globulin Ser Calc-mCnc 2.6 g/dL Normal 06/23/2024 1.5 - 3.9 [facility]CT Albumin SerPl-mCnc 3.7 g/dL Normal 06/23/2024 3.5 - 5 H[facility]CT ALT SerPl-cCnc 13.0 U/L Normal 06/23/2024 10 - 55 [facility] T Basophils num Bld Auto 0.0 Thou/uL Normal 06/23/2024 0 - 0.2 [facility] RDW RBC Auto-Rto 16.2 % Above high normal 06/23/2024 11.5 - 14.5 [facility] Neutrophils/leuk NFr Bld Auto 88.4 % Normal 06/23/2024 [facility] MCHC RBC Auto-mCnc 31.3 g/dL Normal 06/23/2024 30 - 36 [facility] WBC num Bld Auto 7.5 Thou/uL Normal 06/23/2024 4 - 11 [facility] MCH RBC Qn Auto 29.9 pg Normal 06/23/2024 27 - [address] Hgb Bld-mCnc 10.6 g/dL Below low normal 06/23/2024 13 - 17.7 [facility] Hct VFr Bld Auto 33.9 % Below low normal 06/23/2024 39 - 54 [facility] Basophils/leuk NFr Bld Auto 0.0 % Normal 06/23/2024 [facility] Lymphocytes num Bld Auto 0.52 Thou/uL Below low normal 06/23/2024 1.5 - 4.5 [facility] MCV RBC Auto 96.0 fL Normal 06/23/2024 80 - 100 [facility] Platelet num Bld Auto 175.0 Thou/uL Normal 06/23/2024 150 - 450 [facility] Eosinophil num Bld Auto 0.0 Thou/uL Normal 06/23/2024 0 - 0.7 [facility] Imm Granulocytes num Bld Auto 0.05 Thou/uL Normal 06/23/2024 0 - 0.1 [facility] Eosinophil/leuk NFr Bld Auto 0.0 % Normal 06/23/2024 [facility] Neutrophils num Bld Auto 6.65 Thou/uL Normal 06/23/2024 2 - 7.5 [facility] Monocytes num Bld Auto 0.3 Thou/uL Normal 06/23/2024 0.2 - 1.5 [facility] PMV Bld Auto 10.5 fL Normal 06/23/2024 7.5 - 12.5 [facility] RBC num Bld Auto 3.54 Mil/uL Below low normal 06/23/2024 4.5 - 6.2 [facility] Lymphocytes/leuk NFr Bld Auto 6.9 % Normal 06/23/2024 [facility] Imm Granulocytes/leuk NFr Bld Auto 0.7 % Normal 06/23/2024 [facility] Monocytes/leuk NFr Bld Auto 4.0 % Normal 06/23/2024 [facility] POC Glucose 145.0 mg/dL Above high normal 06/23/2024 65 - 99 CCT POC Glucose 160.0 mg/dL Above high normal 06/23/2024 65 - 99 CCT POC Glucose 115.0 mg/dL Above high normal 06/22/2024 65 - 99 CCT POC Glucose 108.0 mg/dL Above high normal 06/22/2024 65 - 99 CCT POC Glucose 112.0 mg/dL Above high normal 06/22/2024 65 - 99 [facility] Trigl SerPl-mCnc 59.0 mg/dL Normal 06/22/2024 - 150 H [facility] CK SerPl-cCnc 299.0 U/L Above high normal 06/22/2024 24 - 20 4 [facility] Hgb A1c MFr Bld 5.3 % Normal 06/22/2024 - 5.7 [facility] CT Est. average glucose Bld gHb Est-mCnc 105.0 mg/dL Normal 06/22/2024 CCT Lactate SerPl-sCnc 1.1 mmol/L Normal 06/22/2024 0.5 - 1.9 [facility] Potassium SerPl-sCnc 4.6 mmol/L Normal 06/22/2024 3.4 - 5.3 [facility] pCO2, Arterial 50.0 mmHG Above high normal 06/22/2024 35 - 4 5 [facility] Hgb Bld-mCnc 10.8 g/dL Below low normal 06/22/2024 12.6 - 17 [facility] SaO2 % BldA 99.7 % Normal 06/22/2024 96 - 100 CCT pO2, Arterial 121.0 mmHG Above high normal 06/22/2024 85 - 1 00 [facility] HCO3 29.6 mmol/L Above high normal 06/22/2024 22 - 26 [facility] MetHgb MFr Bld 0.4 % Normal 06/22/2024 0.4 - 1.5 [facility] T O2 Hb Measured, Arterial 97.3 Above high normal 06/22/2024 94 - 97 CCT pH, Arterial 7.38 Normal 06/22/2024 7.35 - 7.45 [facility] T COHgb MFr Bld 2.0 % Above high normal 06/22/2024 0 - 1.5 [facility] Base excess BldA Calc-sCnc 3.7 mmol/L Normal 06/22/2024 [facility] Respiratory Information VENT 40% Normal 06/22/2024 [facility] PCP Ur Ql Scn>25 ng/mL Negative Normal 06/22/2024 - [facility] Tricyclics Ur Ql Scn Negative Normal 06/22/2024 - [facility] Ethanol Ur-mCnc 57.0 <11 mg/dL Abnormal 06/22/2024 - [facility] Oxycodone Ur Ql Scn Negative Normal 06/22/2024 - [facility] Buprenorphine Ur Ql Negative Normal 06/22/2024 - [facility] Methadone Ur Ql Scn>300 ng/mL Positive Abnormal 06/22/2024 - [facility] fentaNYL+Norfentany l Ur Ql Scn Positive Abnormal 06/22/2024 - [facility] Barbiturates Ur Ql Scn>200 ng/mL Negative Normal 06/22/2024 - [facility] Amphetamines Ur Ql Negative Normal 06/22/2024 - [facility] BZE Ur Ql Negative Normal 06/22/2024 - [facility] Opiates Ur Ql Scn>300 ng/mL Negative Normal 06/22/2024 - [facility] Cannabinoids Ur Ql Scn>50 ng/mL Negative Normal 06/22/2024 - [facility] Benzodiaz Ur Ql Scn>200 ng/mL Positive Abnormal 06/22/2024 - [facility] pH Ur Strip 6.0 Normal 06/22/2024 5 - 8 [facility] Nitrite Ur Ql Strip Negative Normal 06/22/2024 - [facility] Ketones Ur Strip-mCnc Negative Normal 06/22/2024 - [facility] Clarity Ur Clear Normal 06/22/2024 [facility] Prot Ur Strip-mCnc Small (30 mg/dL) Abnormal 06/22/2024 - [facility] Leukocyte esterase Ur Ql Strip Negative Normal 06/22/2024 - [facility] Hgb Ur Ql Strip Negative Normal 06/22/2024 - [facility] CT Bilirub Ur Strip-mCnc Negative Normal 06/22/2024 - [facility] Sp Gr Ur Strip >1.03 Above high normal 06/22/2024 1.0 03 - 1.03 [facility] Color Ur Yellow Normal 06/22/2024 [facility] Glucose Ur Strip-mCnc Moderate Abnormal 06/22/2024 - [facility] POC Glucose 151.0 mg/dL Above high normal 06/22/2024 65 - 99 [facility] 2019-nCOV RNA Not Detected Normal 06/22/2024 [facility] Specimen source XXX Nasopharyngeal Normal 06/22/2024 [facility] Lactate SerPl-sCnc 6.3 mmol/L Critically high 06/22/2024 0.5 - 1.9 [facility] Albumin SerPl-mCnc 3.8 g/dL Normal 06/22/2024 3.5 - 5 [facility] AST SerPl-cCnc 36.0 U/L Normal 06/22/2024 10 - 55 [facility] GFR/BSA.pred SerPlBld [id number] >90.0 Normal 06/22/2024 59 - [facility] BUN/Creat SerPl 13.0 Ratio Normal 06/22/2024 10 - 25 CCT Creat SerPl-mCnc 0.6 mg/dL Normal 06/22/2024 0.5 - 1.3 HH CCT Glucose SerPl-mCnc 210.0 mg/dL Above high normal 06/22/2024 65 - 99 [facility] ALT SerPl-cCnc 16.0 U/L Normal 06/22/2024 10 - 55 [facility] T Bilirub SerPl-mCnc 0.3 mg/dL Normal 06/22/2024 0.2 - 1 [facility] BUN SerPl-mCnc 8.0 mg/dL Normal 06/22/2024 8 - 21 [facility] T Prot SerPl-mCnc 6.5 g/dL Normal 06/22/2024 6.3 - 8.[address] Chloride SerPl-sCnc 100.0 mmol/L Normal 06/22/2024 98 - 1 07 [facility] Sodium SerPl-sCnc 142.0 mmol/L Normal 06/22/2024 136 - 14 5 [facility] Globulin Ser Calc-mCnc 2.7 g/dL Normal 06/22/2024 1.5 - 3.9 [facility] ALP SerPl-cCnc 78.0 U/L Normal 06/22/2024 45 - 128 [facility] T Anion Gap Bld-sCnc 17.0 Normal 06/22/2024 7 - 17 [facility] Albumin/Glob SerPl 1.4 Ratio Normal 06/22/2024 1 - 3 [facility] Calcium SerPl-mCnc 8.4 mg/dL Below low normal 06/22/2024 8.7 - 10.5 [facility] Potassium SerPl-sCnc 3.4 mmol/L Normal 06/22/2024 3.4 - 5.3 [facility] CO2 SerPl-sCnc 25.0 mmol/L Normal 06/22/2024 22 - 33 HH [facility] Ethanol SerPl-mCnc 28.0 mg/dL Above high normal 06/22/2024 - 11 [facility] INR PPP 1.2 Normal 06/22/2024 [facility] Prothrombin time 13.5 seconds Normal 06/22/2024 10 - 13.5 [facility] Anticoagulant NO ANTI COAGULANT MEDS Normal 06/22/2024 [facility] Lymphocytes num Bld Auto 0.56 Thou/uL Below low normal 06/22/2024 1.5 - 4.5 [facility] Basophils num Bld Auto 0.01 Thou/uL Normal 06/22/2024 0 - 0.2 [facility] MCV RBC Auto 96.0 fL Normal 06/22/2024 80 - 100 [facility] Neutrophils num Bld Auto 8.45 Thou/uL Above high normal 06/22/2024 2 - 7.5 [facility] Basophils/leuk NFr Bld Auto 0.1 % Normal 06/22/2024 [facility] Monocytes num Bld Auto 0.14 Thou/uL Below low normal 06/22/2024 0.2 - 1.5 [facility] PMV Bld Auto 9.9 fL Normal 06/22/2024 7.5 - 12.5 [facility] WBC num Bld Auto 9.2 Thou/uL Normal 06/22/2024 4 - 11 [facility] Imm Granulocytes num Bld Auto 0.04 Thou/uL Normal 06/22/2024 0 - 0.1 [facility] Eosinophil num Bld Auto 0.01 Thou/uL Normal 06/22/2024 0 - 0.7 [facility] Lymphocytes/leuk NFr Bld Auto 6.1 % Normal 06/22/2024 [facility] MCHC RBC Auto-mCnc 31.5 g/dL Normal 06/22/2024 30 - 36 [facility] RDW RBC Auto-Rto 15.7 % Above high normal 06/22/2024 11.5 - 14.5 [facility] Hgb Bld-mCnc 11.1 g/dL Below low normal 06/22/2024 13 - 17.7 [facility] MCH RBC Qn Auto 30.3 pg Normal 06/22/2024 27 - [address] RBC num Bld Auto 3.66 Mil/uL Below low normal 06/22/2024 4.5 - 6.2 [facility] Neutrophils/leuk NFr Bld Auto 91.8 % Normal 06/22/2024 [facility] Imm Granulocytes/leuk NFr Bld Auto 0.4 % Normal 06/22/2024 [facility] Hct VFr Bld Auto 35.2 % Below low normal 06/22/2024 39 - 54 [facility] Eosinophil/leuk NFr Bld Auto 0.1 % Normal 06/22/2024 [facility] Monocytes/leuk NFr Bld Auto 1.5 % Normal 06/22/2024 [facility] Platelet num Bld Auto 190.0 Thou/uL Normal 06/22/2024 150 - 450 [facility] Encounters Encounter Type Encounter Reason Primary Diagnosis Location Date Inpatient Pneumonia due to Klebsiella pneumoniae Pneumonia due to Klebsiella pneumoniae [facility] 06/22/2024 Care Team Organization Name Specialty Phone Email Start Date End Da te [facility] 06/23/2024 10/26/2024 [facility] NO PCP Primary Care 06/23/2024 [facility] 06/22/2024
--- OUTSIDE RECORDS SUMMARY | 2025-04-06 11:01 | XMS_ITS | Encounter Summary ---
Author Organization [employer] Address [address] [facility] [address] [place] [address] Care Team Providers Care City Bus Driver Name Role Phone Ashwini Flor Primary Care Provider [phone] Sheridan Coburn MD Primary Care Pro vider Sheridan Lopez MD Primary Care Provide r Kalin Matr DDS Unavailable [phone] Patricia Castillo MD Primary Care Provider [phone] Encounter Details Date Type Department Care Team (Late st Contact Info) Description 10/17/2022 Orders Only [facility] CHC MED & PEDS [address] [place], [place] [phone] Rosa Rosales LPN Social History Tobacco Use [...] Description 06/12/2025 3:00 PM EST Office Visit [facility] ADULT DENTAL [address] [place], [place] [phone] Verónica, Farzaneh [address] [place] [address] documented as of this encounter Visit Diagnoses Not on filedocumented in this encounter Care Teams City Bus Driver Relationship Specialty Start Date End Date Ashwini Flor FNP [address] [place] [id number] PCP - General Family Medicine 02/16/22 01/08/23 Sheridan Coburn MD [address] [place] [phone] PCP - General Internal Medicine 01/09/23 04/05/24 Sheridan Lopez MD [address] [place] [address] PCP - General Internal Medicine 04/06/24 12/04/24 Patricia Castillo MD [address] [place] [id number] PCP - General Family Medicine 12/05/24 Kalin Mart DDS [address] [place] [phone] Dentist Dental Meat Cutter Apprentice 11/22/24 documented as of this encounter
--- OUTSIDE RECORDS SUMMARY | 2025-04-06 11:01 | XMS_ITS | Encounter Summary ---
Author Organization [employer] Address [address] [facility] [address] [place] [address] Care Team Providers Care Deputy Director Of Finance Name Role Phone Kalin Mart DDS Unavailable [phone] Patricia Castillo MD Primary Care Provider [phone] Encounter Details Date Type Department Care Team (Latest Contact Info) Description 04/05/2025 Travel Social History Tobacco Use Types Packs/Day Years [...] Upcoming Encounters Date Type Department Care Team ( st Contact Info) Description 06/12/2025 3:00 PM EST Office Visit [facility] ADULT DENTAL [address] [place] [address] Farzaneh Sanches [address] [place] [address] documented as of this encounter Visit Diagnoses Not on filedocumented in this encounter Additional Health Concerns Assessment Noted Time PHQ-9 Depression Total Score: 16 025 2:26 PM EDT documented as of this encounter Care Teams Deputy Director Of Finance Relationship Specialty Start Date End Date Patricia Castillo MD [address] [place] [address] PCP - General Family Medicine 12/05/24 Kalin Mart DDS [address] [place] [address] Dentist Dental Printer Apprentice 11/22/24 documented as of this encounter
--- OUTSIDE RECORDS SUMMARY | 2025-04-06 11:01 | XMS_ITS | Encounter Summary ---
Author Organization [employer] Address [address] [facility] [address] [place] [address] Care Team Providers Care Resident Care Technician Name Role Phone Kalin Mart DDS Unavailable [phone] Patricia Castillo MD Primary Care Provider [phone] Reason for Visit * Reason Onset Date Comments Chart Prep 04/04/2025 Encounter Details Date Type Department Care Team ([facility] st Contact Info) Description 04/04/2025 Telephone [facility] MEDICINE [address] [place] [address] Patricia Castillo MD [address] [place], [place] [phone] Chart Prep Social History Tobacco Use Types Packs/Day Years [...] AM EDT documented as of this encounter Miscellaneous Notes * Telephone Encounter - Hannah Guerrero [place] - 04/04/2025 1:44 PM EDT Chart Prep Labs: done Images: not applicable Referrals: not applicable Vaccines due: Covid, PCV20, Hep B, Hep A, and Zoster Screenings: colonoscopy Overdue care gaps: SDOH and Oral health screening documented in this encounter Plan of Treatment Upcoming Encounters Date Type Department Care Team (Late st Contact Info) Description 06/12/2025 3:00 PM EST Office Visit [facility] ADULT DENTAL [address] [place] [address] Farrukh Sanchesaris [address] [place] [address] documented as of this encounter Visit Diagnoses Not on filedocumented in this encounter Additional Health Concerns Assessment Noted Time PHQ-9 Depression Total Score: 16 025 2:26 PM EDT documented as of this encounter Care Teams Resident Care Technician Relationship Specialty Start Date End Date Patricia Castillo MD [address] [place] [phone] PCP - General Family Medicine 12/05/24 Kalin Mart DDS [address] [place] [address] Dentist Dental Furniture Fabricator 11/22/24 documented as of this encounter
--- OUTSIDE RECORDS SUMMARY | 2025-04-06 11:01 | XMS_ITS | Encounter Summary ---
Author Organization [employer] Address [address] [facility] [address] [place] [address] Care Team Providers Care Hydro Plant Technician Name Role Phone Ashwini Flor Primary Care Provider [phone] Sheridan Coburn MD Primary Care Pro vider Sheridan Lopez MD Primary Care Provide r Kalin Mart DDS Unavailable [phone] Patricia Castillo MD Primary Care Provider [phone] Encounter Details Date Type Department Care Team (Late st Contact Info) Description 09/04/2022 Orders Only [facility] CHC MED & PEDS [address] [place], [place] [phone] Rosa Rosales LPN Social History Tobacco Use [...] Description 06/12/2025 3:00 PM EST Office Visit [facility] ADULT DENTAL [address] [place], [place] [phone] Verónica, Farzaneh [address] [place] [address] documented as of this encounter Visit Diagnoses Not on filedocumented in this encounter Care Teams Hydro Plant Technician Relationship Specialty Start Date End Date Ashwini Flor FNP [address] [place] [phone] PCP - General Family Medicine 02/16/22 01/08/23 Sheridan Coburn MD [address] [place] [address] PCP - General Internal Medicine 01/09/23 04/05/24 Sheridan Lopez MD [address] [place] [address] PCP - General Internal Medicine 04/06/24 12/04/24 Patricia Castillo MD [address] [place] [address] PCP - General Family Medicine 12/05/24 Kalin Mart DDS [address] [place] [address] Dentist Dental Oil Producer 11/22/24 documented as of this encounter
--- OUTSIDE RECORDS SUMMARY | 2025-04-06 11:01 | XMS_ITS | Clinical Summary ---
Author Organization [facility] Address [address] [place] [address] Phone Care Team Providers Care Counselor Marriage And Family Name Role Phone Unavailable Primary Care Provider Unavailabl e Active Problems Problem Noted Date Diagnosed Date Essential hypertension 11/19/2021 Hyponatremia 11/19/2021 Social History Tobacco Use Types Packs/Day Years Used Date Smoking Tobacco: Never Alcohol Use Standard Drinks/Week Comments No 0 (1 standard drink = 0.6 oz pur e alcohol) Sex and Gender Information Value Date Recorded Sex Assigned at Not on file Legal Sex Male 4:35 PM EST Gender Identity Not on file Sexual Orientation Not on file Last Filed Vital Signs Vital Sign Reading Time Taken Comments Blood Pressure 130/78 10/05/2017 12:00 PM EST Pulse - - Temperature - - Respiratory Rate - - Oxygen Saturation - - Inhaled Oxygen Concentration - - Weight 81.6 kg (180 lb) 10/05/2017 12:00 PM EST Height 170.2 cm (5' 7 ) 10/05/2017 12:00 PM EST Body Mass Index 28.19 10/05/2017 12:00 PM EST Plan of Treatment Health Maintenance Due Date Last Done Comments Hepatitis B Vaccine (1 of 3 - 19+ 3-dose series) 11/11 Pneumococcal Vaccine: 50+ Years (1 of 2 - PCV) 991 Colorectal Cancer Screening: Annual FOBT 11/11/2020 Colorectal Cancer Screening: Colonoscopy 11/11/2020 Colorectal Cancer Screening: Sigmoidoscopy 11/11/2020 Influenza Vaccine (#1) 2025 [place]
--- OUTSIDE RECORDS SUMMARY | 2025-04-06 11:01 | XMS_ITS | Clinical Summary ---
Author Organization [employer] Address [address] [place] [address] Care Team Providers Care Harness Racing Handicapper Name Role Phone Kalin Mart DDS Unavailable [phone] Patricia Castillo MD Primary Care Provider [phone] Allergies Active Allergy Reactions Criticality Noted Date Comments Shellfish Allergy Anaphylaxis High 06/22/2024 Thiazide-Type Diuretics High 10/09/2017 Hyponatremia with hospitalization Medications EPINEPHrine (Epipen) 0.3 MG/0.3ML injection syringeIndication s:Anaphylaxis, initial encounter INJECT INTRAMUSCULARLY DIRECTED ON PACKAGE AND GO TO EMERGENCY ROOM 2 each 12/07/19 25 Active nicotine (Nicoderm, Step 1) 21 MG/24HR patch APPLY 1 PATCH TOPICALLY TO THE SKIN IN THE MORNING DO NOT SMOKE WHILE USING PATCH 12/23/19 25 Active amLODIPine (Norvasc) 2.5 MG tablet Take 1 tablet (2.5 mg) by mouth Once per day. 90 tablet 1 01/07/20 25 Active Aspirin Low Dose 81 MG EC tabletIndications :Hyperlipidemia, unspecified hyperlipidemia type TAKE 1 TABLET BY MOUTH EVERY DAY 90 tablet 1 01/07/20 25 Active atorvastatin (Lipitor) 40 MG tabletIndications :Hyperlipidemia, unspecified hyperlipidemia type TAKE 1 TABLET BY MOUTH EVERY DAY BEFORE BED 90 tablet 1 01/07/20 25 Active cloNIDine (Catapres) 0.1 MG tablet Take 1 tablet (0.1 mg) by mouth if needed at bedtime for high blood pressure. 90 tablet 1 01/07/20 25 Active folic acid (Folvite) 1 MG tabletIndications :Health care maintenance Take 1 tablet (1,000 mcg) by mouth Once per day. 90 tablet 3 01/07/20 25 Active losartan-hydroCHL OROthiazide (Hyzaar) 100-12.5 MG tabletIndications :Primary hypertension Take 1 tablet by mouth Once per day. 90 tablet 1 01/07/20 25 Active Multiple Vitamin (Multivitamin) tablet TAKE 1 TABLET BY MOUTH EVERY DAY 90 tablet 01/07/20 25 Active Narcan 4 MG/0.1ML nasal spray Administer 1 spray (4 mg) into affected nostril(s) if needed for opioid reversal. May repeat every 2-3 minutes if needed, alternating nostrils, until medical assistance becomes available. 2 each 2 01/07/20 25 Active polyethylene glycol, PEG, 3350 (Glycolax) 17 GM/SCOOP powder Take 17 g by mouth Once per day. 527 g 1 01/07/20 25 Active albuterol (Proventil HFA) 108 (90 Base) MCG/ACT inhalerIndication s:Mild intermittent asthma, unspecified whether complicated Inhale 2 puffs every 4 (four) hours if needed for shortness of breath or wheezing. 6.7 g 3 01/07/20 25 Active thiamine (Vitamin B-1) 100 MG tablet Take 1 tablet (100 mg) by mouth Once per day. 90 tablet 3 01/07/20 25 Active Active Problems Problem Noted Date Diagnosed Date Missing teeth, acquired 02/06/2025 Dental calculus 11/29/2024 Generalized gingival recession, moderate 025 Edentulous maxilla 11/29/2024 Assessment & Plan (02/28/2025 3:27 PM EDT): Assessment & Plan (02/28/2025 3:27 PM EDT): Pneumonia due to Haemophilus influenzae 06/27/20 24 Pneumonia due to Klebsiella pneumoniae HTN (hypertension) 06/27/2024 Depression 06/22/2024 Anxiety 06/22/2024 Alcohol use disorder 06/22/2024 Opioid dependence 06/22/2024 History of hepatitis C 06/22/2024 Essential hypertension 06/22/2024 Mild intermittent asthma 06/22/2024 Tobacco dependence 06/22/2024 Anemia 06/22/2024 History of COVID-19 06/22/2024 Chronic low back pain 06/22/2024 History of non-ST elevation myocardial infarctio n (NSTEMI) 06/22/2024 History of Helicobacter pylori infection 024 History of subarachnoid hemorrhage 06/22/2024 Osteoarthritis 06/22/2024 Benign essential hypertension 02/09/2014 Encounters Date Type Department Care Team Description 04/05/2025 3:00 PM EDT Office Visit [address] [address] Patricia Castillo MD Bilateral swelling of feet (Primary Dx); Epigastric pain 04/05/2025 Travel 04/04/[address] [address] Patricia Castillo MD Chart Prep 03/29/2025 Patient Outreach [address] [address] Patricia Castillo MD Pre-visit Planning (Pre-visit planning - LVM ) 02/28/2025 3:30 PM EDT Office Visit [facility] [address] [place] [phone] Kalin Mart DDS Partially edentulous mandible, unspecified edentulism class (Primary Dx); Edentulous maxilla 02/06/2025 3:30 PM EDT Office Visit [facility] [address] [place] [phone] Kalin Mart DDS Missing teeth, acquired (Primary Dx) 01/24/2025 Orders Only [address] [address] Patricia Castillo MD History of hepatitis C (Primary Dx) 01/24/[address] [address] Patricia Castillo MD No Show 01/23/[address] [address] Patricia Castillo MD chart prep 01/16/[address] [address] Patricia Castillo MD DTA Form (I called the patient, regarding release form. He signed and initialed the release, but he did not state the name of the person/facility, that would be receiving the information. He stated that it is to be released to the DTA. ) 01/06/2025 2:30 PM EDT Office Visit [facility] [address] [place] [phone] Kalin Mart DDS Partially edentulous mandible, unspecified edentulism class (Primary Dx); Edentulous maxilla 01/06/[address] [address] Patricia Castillo MD Lab Orders 01/05/[address] [address] Patricia Castillo MD Med Refill 01/04/2025 2:00 PM EDT Office Visit [address] [address] Patricia Castillo MD Neuropathy (Primary Dx); Opioid dependence with opioid-induced disorder (CMS/HCC); Mild intermittent asthma, unspecified whether complicated; Dietary counseling; Exercise counseling; Overweight; Pain; Screening for prostate cancer; Hyperlipidemia, unspecified hyperlipidemia type; Health care maintenance; Primary hypertension 01/04/2025 Orders Only [address] [address] Patricia Castillo MD 01/04/2025 Travel from Last 3 Months Immunizations Immunization Administration Dates Next Due Tdap 07/15/2021 Social History Tobacco Use Types Packs/Day Years Used Date Smoking Tobacco: Every Day Cigarettes Passive Smoke Exposure: Current Smokeless Tobacco: Never Tobacco Cessation:Ready to Q uit: Not Asked; Counseling Given: Not Answered Alcohol Use Standard Drinks/Week Comments Not Currently [...] Orientation Straight 06/09/2022 10 :18 AM EDT Last Filed Vital Signs Vital Sign Reading [...] Mass Index 33.64 04/05/2025 2:51 PM EDT Plan of Treatment Upcoming Encounters Date Type Department Care Team (Late st Contact Info) Description 06/12/2025 3:00 PM EST Office Visit [facility] [address] [place] [address] Verónica, Farzaneh [address] [place] [address] Health Maintenance Due Date Last Done Comments CT Colonography 1971 Colonoscopy 1971 Colorectal Cancer Screening 1971 FIT DNA/Cologuard 1971 FIT 1971 FOBT 1971 SDOH Screening 1971 Sigmoidoscopy 1971 Hepatitis A Vaccines (1 of 2 - Risk 2-dose series) 11/11/1990 Hepatitis B Vaccines (1 of 3 - 19+ 3-dose series) 11/11/1990 Pneumococcal Vaccine: 50+ Years (1 of 2 - PCV) 11/11/1990 Dental X-Ray: Bitewings 03/11/2018 03/10/2017 Zoster Vaccines (1 of 2) 11/11/2021 COVID-19 Vaccine (3 - season) 2024 05/03/2021, 04/12/2021 Influenza Vaccine (#1) 2025 Dental Oral Exam 06/01/2025 11/29/2024, 03/10/2017 Dental Prophylaxis 06/01/2025 11/29/2024, 09/10/2017 Depression Monitoring 07/07/2025 01/04/2025, 025 Disability Screening 01/04/2026 01/04/2025 Alcohol/Substance Use Screening 01/06/2026 01/06/2025 Diabetes: Hemoglobin A1C 01/06/2026 01/06/2025 Tobacco Screening 04/05/2026 04/05/2025 Dental X-Ray: Full Mouth 12/01/2027 11/29/2024, 08/2016 Lipid Panel 01/06/2030 01/06/2025 DTaP/Tdap/Td Vaccines (2 - Td or Tdap) 07/15/2031 07/15/2021 RSV Patients and Patients Aged 60 years or older (1 - 1-dose 75+ series) 11/11/2046 HIV Screening Completed 06/28/2021, 06/11, 12/07/2017, Additional history exists HIB Vaccines Aged Out No longer eligi ble based on patient's age to complete this topic HPV Vaccines Aged Out No longer eligi ble based on patient's age to complete this topic IPV Vaccines Aged Out No longer eligi ble based on patient's age to complete this topic Meningococcal B Vaccine Aged Out No l onger eligible based on patient's age to complete this topic Meningococcal Vaccine Aged Out No lorin mansoor eligible based on patient's age to complete this topic RSV under 20 months Aged Out No longe r eligible based on patient's age to complete this topic Rotavirus Vaccines Aged Out No longer eligible based on patient's age to complete this topic Procedures Procedure Name Priority Date/Time Associated Diagnosis Comments CASE PRESENTATION, DETAILED AND EXTENSIVE TREATMENT PLANNING Routine 02/28/2025 3:30 PM EDT 31,30,29,26,25,24,23,1 9,18 MANDIBULAR PARTIAL DENTURE - RESIN BASE (INCLUDING, RETENTIVE/CLASPING MATERIALS, RESTS, AND TEETH) Routine 02/28/2025 3:30 PM EDT Max COMPLETE DENTURE - MAXILLARY Routine 02/28/2025 3:30 PM EDT WAX TRY IN Routine 02/06/2025 3:30 PM EDT BITE REGISTRATION Routine 01/06/2025 2:3 0 PM EDT PSA, TOTAL Routine 01/06/2025 12:37 PM EDT Screening for prostate cancer LD Routine 01/06/2025 12:37 PM EDT Pain SED RATE BY MODIFIED WESTERGREN Routine 01/06/2025 12:37 PM EDT Pain LIPID PANEL, STANDARD Routine 01/06/2025 12:37 PM EDT Overweight TSH W/REFLEX TO FT4 Routine 01/06/2025 1 2:37 PM EDT Neuropathy RPR (MONITOR) W/REFL TITER Routine 01/06/2025 12:37 PM EDT Neuropathy VITAMIN B12/FOLATE, SERUM PANEL Routine 01/06/2025 12:37 PM EDT Neuropathy CBC WITH AUTO DIFFERENTIAL Routine 01/06/2025 12:37 PM EDT Neuropathy COMPREHENSIVE METABOLIC PANEL Routine 01/06/2025 12:37 PM EDT Overweight HEMOGLOBIN A1C Routine 01/06/2025 12:37 PM EDT Overweight HEPATITIS C VIRAL RNA, QUANTITATIVE, REAL-TIME PCR Routine 01/04/2025 2:39 PM EDT HEPATITIS C AB W/REFL TO HCV RNA, QN, PCR Routine 01/04/2025 2:39 PM EDT History of hepatitis C PROPHYLAXIS - ADULT Routine 11/29/2024 2 :00 PM EDT Dental calculus PANORAMIC RADIOGRAPHIC IMAGE Routine 11/29/2024 2:00 PM EDT Dental calculus Generalized gingival recession, moderate PERIODIC ORAL EVALUATION - ESTABLISHED PATIENT Routine 11/29/2024 2:00 PM EDT HIV 1/2 ANTIGEN/ANTIBODY, FOURTH GENERATION W/RFL Routine 06/28/2021 9:13 AM EST INTRAORAL - COMPLETE SERIES OF RADIOGRAPHIC IMAGES Routine 03/10/2017 12:00 AM EDT from Last 3 Months or Most Recently Relevant to Health Maintenance Results * Vitamin B12/Folate, Serum Panel (01/06/2025 12:37 PM EDT) Vitamin B12 527 200 - 900 pg/mL [facility] Comment:NORMAL 200-900 PG/ML INDETERMINATE 160-199 PG/ML DEFICIENT < 160 PG/ML Folate 13.2 > or = 4.0 ng/mL [facility] Comment:Reference Values:> o r = 4.0 ng/mL< 4.0 ng/mL suggests folate deficiency Methotrexate, aminopterin and folinic acid(leucovorin) are chemotherapeutic agents whose molecularstructures are similar to folate; therefore, the Architectfolate assay cannot be used for patients using these drugs. Blood Venous blood specimen / Unknown 01/06/2025 12:37 PM EDT 01/06/2025 1:51 PM EDT Patricia Castillo MD LAB BLOOD ORDERABLES Final Res ult Performing Organization Address [facility]/ZIP Co de Phone Number [facility] [address] [place] [address] [phone] * TSH W/Reflex to FT4 (01/06/2025 12:37 PM EDT) TSH reflex Free T4 1.79 0.32 - 4.0 uIU/mL [facility] Blood Venous blood specimen / Unknown 01/06/2025 12:37 PM EDT 01/06/2025 1:51 PM EDT Patricia Castillo MD LAB BLOOD ORDERABLES Final Res ult Performing Organization Address City/[facility]/ZIP Co de Phone Number [facility] [address] [place] [address] [phone] * (ABNORMAL) CBC auto differential (01/06/2025 12:37 PM EDT) White Blood Count 6.1 4.8 - 10.8 X10*3/uL [facility] Red Blood Count 4.27(L) 4.60 - 5.80 X10*6/uL [facility] Hemoglobin 12.8(L) 14.0 - 18.0 g/dl [facility] Hematocrit 37.4(L) 42.0 - 52.0 % [facility] Mean Corpuscular Volume 87.6 80.0 - 98.0 fL [facility] Mean Corpuscular Hemoglobin 30.0 27.0 - 33.0 pg [facility] Mean Corpuscular HGB Conc 34.2 31.0 - 36.0 g/dl [facility] Red Cell Distribution Width 13.2 11.0 - 16.0 % [facility] Platelet Count 179 160 - 400 X10*3/uL [facility] Mean Platelet Volume 10.8 9.4 - 12.4 fL [facility] Neutrophils Percent Auto 38.7(L) 45 - 73 % [facility] Imm Gran Pct Auto 0.2 0.0 - 0.4 % [facility] Lymphocytes Percent Auto 45.1(H) 20 - 40 % [facility] Monocytes Percent Auto 10.6 2 - 11 % [facility] Eosinophils Percent Auto 4.6(H) 0 - 4 % [facility] Basophils Percent Auto 0.8 0 - 2 % [facility] NRBC Pct Auto 0.0 0.0 - 0.2 /100WBC [facility] Neutrophils Absolute Auto 2.4 2.0 - 8.3 x10*3/uL [facility] Imm Gran Abs Auto 0.01 0.00 - 0.03 X10*3/uL [facility] Lymphocytes Absolute Auto 2.8 1.2 - 4.9 X10*3/uL [facility] Monocytes Absolute Auto 0.7 0.1 - 1.2 X10*3/uL [facility] Eosinophils Absolute Auto 0.3 0.0 - 0.4 X10*3/uL [facility] Basophils Absolute Auto 0.1 0.0 - 0.2 X10*3/uL [facility] NRBC Abs Auto 0.000 0.0 - 0.012 X10*3/uL [facility] Blood Venous blood specimen / Unknown 01/06/2025 12:37 PM EDT 01/06/2025 1:51 PM EDT Patricia Castillo MD LAB BLOOD ORDERABLES Final Res ult Performing Organization Address [facility] Co de Phone Number [facility] [address] [place] [phone] * RPR (Monitor) with Reflex to??Titer (01/06/2025 12:37 PM EDT) RPR (Monitor) w/Refl Titer NON-REACTI VE NON-REACT MELISSA [facility] Comment:THIS TEST WAS PERFOR MED AT:[employer] [place] [phone] CARIAS MD Rapid Plasma Reagin Ab Titer TNP [facility] Blood Venous blood specimen / Unknown 01/06/2025 12:37 PM EDT 01/06/2025 1:51 PM EDT Patricia Castillo MD LAB BLOOD ORDERABLES Final Res ult Performing Organization Address [facility] Co de Phone Number [facility] [address] [place] [phone] * Sed Rate by Modified [place] (01/06/2025 12:37 PM EDT) Erythrocyte Sedimentation Rate 12 0 - 15 MM/HR [facility] Comment:Patients with polycy themia and many hemoglobin abnormalitiesmay have depressed sed rates whereas patients with anemiamay have elevated sed rates. Blood Venous blood specimen / Unknown 01/06/2025 12:37 PM EDT 01/06/2025 1:51 PM EDT Patricia Castillo MD LAB BLOOD ORDERABLES Final Res ult Performing Organization Address [facility] de Phone Number [facility] [address] [place] [phone] * PSA,Total (01/06/2025 12:37 PM EDT) Prostate Specific Antigen 0.62 <0.05 - 4.0 ng/mL [facility] Comment:PSA methodology: Abb mildred Alilorrainety i ChemiluminescentMicroparticle Immunoassay (CMIA) Blood Venous blood specimen / Unknown 01/06/2025 12:37 PM EDT 01/06/2025 1:51 PM EDT Patricia Castillo MD LAB BLOOD ORDERABLES Final Res ult Performing Organization Address [facility] de Phone Number [facility] [address] [place] [phone] * Lactate Dehydrogenase (LD) (01/06/2025 12:37 PM EDT) Lactate Dehydrogenase 222 118 - 273 U/L [facility] Blood Venous blood specimen / Unknown 01/06/2025 12:37 PM EDT 01/06/2025 1:51 PM EDT Patricia Castillo MD LAB BLOOD ORDERABLES Final Res ult Performing Organization Address [facility] de Phone Number [facility] [address] [place] [phone] * (ABNORMAL) Hemoglobin A1c (01/06/2025 12:37 PM EDT) Hemoglobin A1c 6.2(H) <6.0 % [facility] Comment:Hemoglobin A1C Refer ence Range Adults: 4.8 - 6.0 % Non diabetic: < 6.0 % Goal: < 7.0 %Additional Action Suggested: > 8.0 %Note: Hemoglobin A1c results are invalid for patients with abnormal amounts of HbF. Blood transfusions may impact the HbA1c concentration in the patient sample. Estimated Average Glucose 131 mg/dL [facility] Comment:eAG = Estimated ave rage glucose which is %A1C expressed asaverage glucose, using the formula of the [id number] Glucose study (ADAG), Diabetes Care, Vol.31,#8,Mar. 2007 Blood Venous blood specimen / Unknown 01/06/2025 12:37 PM EDT 01/06/2025 1:51 PM EDT us Patricia Castillo MD LAB BLOOD ORDERABLES Final Res ult [facility] [address] [place] [phone] * (ABNORMAL) Lipid Panel, Standard (01/06/2025 12:37 PM EDT) Triglycerides 173(H) <150 mg/dL [facility] Comment:Desirable Triglyceri de: less than 150 mg/dLBorderline High Triglyceride 150-199 mg/dLHigh Triglyceride: 200-499 mg/dLVery High Triglyceride: greater than or equal to 5OO mg/dL Cholesterol 156 <200 mg/dL [facility] Comment:Desirable Cholestero l: less than 200 mg/dLBorderline High Cholesterol: 200-239 mg/dLHigh Cholesterol: greater than 239 mg/dL LDL Cholesterol Calculated 95 <100 mg/dL [facility] Comment:Desirable LDL: less than 100 mg/dLNear Optimal/Above Optimal LDL: 110- 129 mg/dLBorderline High LDL: 130-159 mg/dLHigh LDL: 160-189 mg/dLVery High LDL: greater than or equal to 190 mg/dL HDL Cholesterol 27(L) >40 mg/dL [facility] Comment:Desirable HDL: great er than 40 mg/dL Note: This HDL assay may give artificially low results in patients with liver disease. Blood Venous blood specimen / Unknown 01/06/2025 12:37 PM EDT 01/06/2025 1:51 PM EDT us Patricia Castillo MD LAB BLOOD ORDERABLES Final Res ult Performing Organization Address City/[facility]/ZIP Co de Phone Number [facility] [address] [place] [phone] * (ABNORMAL) Comprehensive Metabolic Panel (01/06/2025 12:37 PM EDT) Sodium 140 135 - 145 mmol/L [facility] Potassium 4.0 3.3 - 5.1 mmol/L [facility] Chloride 101 96 - 108 mmol/L [facility] Carbon Dioxide 31(H) 22 - 29 mmol/L [facility] Anion Gap 12 12 - 20 [facility] Urea Nitrogen (BUN) 14 9 - 16 mg/dL [facility] Creatinine, Serum 0.59 0.5 - 1.4 mg/dL [facility] Estimated Glomerular Filt Rate >60 [facility] Comment:Chronic Kidney Disea se: Estimated GFR < 60 mL/min/1.03g6Ktyuzr Kidney Disease: Estimated GFR < 15 mL/min/1.73m2 Glucose 109 60 - 115 mg/dL [facility] Calcium 10.2 8.4 - 10.2 mg/dL [facility] Bilirubin, Total 0.6 0.0 - 1.0 mg/dL [facility] Aspartate Amino Transferase 33 5 - 37 U/L [facility] Alanine Aminotransferase 28 0 - 40 U/L [facility] Total Protein 7.2 6.5 - 8.0 g/dL [facility] Albumin Level 4.4 3.5 - 5.0 g/dL [facility] Alkaline Phosphatase 51 39 - 117 U/L [facility] Blood Venous blood specimen / Unknown 01/06/2025 12:37 PM EDT 01/06/2025 1:51 PM EDT Patricia Castillo MD LAB BLOOD ORDERABLES Final Res ult Performing Organization Address City/[facility]/ZIP Co de Phone Number [facility] [address] [place] [phone] * Hepatitis C Viral RNA, Quantitative, Real-Time PCR (01/04/2025 2:39 PM EDT) [facility] Hepatitis C Viral Load <15 NOT DETECTED NOT DETECTED IU/mL [facility] HCV Log PCR <1.18 NOT DETECTED NOT DETECTED Log IU/mL [facility] Comment:For additional infor sweetie, please refer tohttp://education.[employer]/faq/DQR33z1(This link is being provided for informational/educational purposes only.)THIS TEST WAS PERFORMED AT:[employer] [place] [phone] CARIAS MD 01/04/2025 2:39 PM EDT 01/05/2025 12:01 PM EDT Patricia Castillo MD LAB BLOOD ORDERABLES Final Res ult Performing Organization Address City/[facility]/ZIP Co de Phone Number [facility] [address] [place] [phone] * (ABNORMAL) Hepatitis C Antibody with Reflex to HCV, RNA, Quantitative, Real- Time PCR (01/04/2025 2:39 PM EDT) [facility] Hepatitis C Antibody Reactive( A) Nonreactive [facility] Comment:Presumptive evidence of antibodies to HCV. Blood Venous blood specimen / Unknown 01/04/2025 2:39 PM EDT 01/04/2025 4:12 PM EDT Patricia Castillo MD LAB BLOOD ORDERABLES Final Res ult [facility] [address] [place] [phone] * HIV 1/2 ANTIGEN/ANTIBODY,FOURTH GENERATION W/RFL (06/28/2021 9:13 AM EST) HIV-1/2 ANTIGEN AND ANTIBODIES, 4TH GENERATION W/ REFLEX NON-REACT MELISSA NON-REACT MELISSA [facility] Comment: HIV-1 antigen and HIV-1/HIV-2 antibodies were not detected. There is no laboratory evidence of HIV infection. PLEASE NOTE: This information has been disclosed to you from records whose confidentiality may be protected by state law. If your state requires such protection, then the state law prohibits you from making any further disclosure of the information without the specific written consent of the person to whom it pertains, or as otherwise permitted by law. A general authorization for the release of medical or other information is NOT sufficient for this purpose. For additional information please refer to http://education.[employer]/faq/AVE732 (This link is being provided for informational/ educational purposes only.) The performance of this assay has not been clinically validated in patients less than 2 years old. 06/28/2021 9:13 AM EST us Seven Engle MD LAB BLOOD ORDERABLES Final Res ult [facility] [address] from Last 3 Months or Most Recently Relevant to Health Maintenance Insurance * Guarantor: Kalin Adair Account Type Relation to Patient Date of Phone Billing Address Personal/Family Self [address] [place] [address] [facility] * Guarantor: Kalin Adair Account Type Relation to Patient Date of Phone Billing Address Dental Self [address] [place] [address] [facility] ST[facility] AD[facility] * Guarantor: Kalin Adair Account Type Relation to Patient Date of Phone Billing Address Personal/Family Self [address] [place] [address] * Guarantor: Kalin Adair Account Type Relation to Patient Date of Phone Billing Address Personal/Family Self [address] [place] [address] * Guarantor: Kalin Adair Account Type Relation to Patient Date of Phone Billing Address Personal/Family Self [address] [place] [address] Care Teams Harness Racing Handicapper Relationship Specialty Start Date End Date Patricia Castillo MD [address] [place] [address] PCP - General Family Medicine 12/05/24 Kalin Mart DDS [address] [place] [address] Dentist Dental Director Of Culture 11/22/24
--- OUTSIDE RECORDS SUMMARY | 2025-04-06 11:01 | XMS_ITS | Encounter Summary ---
Author Organization [employer] Address [address] [facility] [address]t [place] [address] Care Team Providers Care Cancer Researcher Name Role Phone Kalin Mart DDS Unavailable [phone] Patricia Castillo MD Primary Care Provider [phone] Encounter Details Date Type Department Care Team ([facility] st Contact Info) Description 01/03/2025 Orders Only [facility] MEDIC[facility] [address], [place] [phone] Patricia Castillo MD [address] [place] [address] History of hepatitis C (Primary Dx) Social History Tobacco Use Types Packs/Day Years [...] AM EDT documented as of this encounter Functional Status * Over the past 2 weeks, how often have you been bothered by any of the following problems? Question Answer Date of Assessment Author Patient Health Questionnaire -2 Score 4 01/04/2025 2:26 PM EDT Ny Saldaña [place] * Little interest or pleasure in doing things Answer Date of Assessment Author Nearly every day 01/04/2025 2:26 PM EDT Ny Currie [place] * Feeling down, depressed, or hopeless Answer Date of Assessment Author Several days 01/04/2025 2:26 PM EDT Ny Saldaña [place] * Trouble falling or staying asleep, or sleeping too much Answer Date of Assessment Author Nearly every day 01/04/2025 2:26 PM EDT Ny Currie [place] * Feeling tired or having little energy Answer Date of Assessment Author Nearly every day 01/04/2025 2:26 PM EDT Ny Currie [place] * Poor appetite or overeating Answer Date of Assessment Author Nearly every day 01/04/2025 2:26 PM EDT Ny Currie [place] * Feeling bad about yourself - or that you are a failure or have let yourself or your family down Answer Date of Assessment Author Several days 01/04/2025 2:26 PM EDT Ny Saldaña [place] * Trouble concentrating on things, such as reading the newspaper or watching television Answer Date of Assessment Author Several days 01/04/2025 2:26 PM EDT Ny Saldaña [place] * Moving or speaking so slowly that other people could have noticed? Or the opposite - being so fidgety or restless that you have been moving around a lot more than usual. Answer Date of Assessment Author Several days 01/04/2025 2:26 PM ELLIST Ny Saldaña [place] * Thoughts that you would be better off or hurting yourself in some way Answer Date of Assessment Author Not at all 01/04/2025 2:26 PM EDT Ny Saldaña [place] * Patient Health Questionnaire-9 Score Answer Date of Assessment Author 16 01/04/2025 2:26 PM EDT Ny Saldaña [place] * How difficult have these problems made it for you to do your work, take care of things at home, or get along with other people? Answer Date of Assessment Author Not difficult at all 01/04/2025 2:26 PM EDT Ny Chowdary [place] * Over the last 2 weeks, how often have you been bothered by any of the following problems? Question Answer Date of Assessment Author Feeling nervous, anxious, or on edge 1 01/04/2025 2:26 PM EDT Ny Saldaña [place] Not being able to stop or co ntrol worrying 1 01/04/2025 2:26 PM EDT Ny Saldaña MA Worrying too much about diff erent things 3 01/04/2025 2:26 PM EDT Ny Saldaña MA Trouble relaxing 1 01/04/2025 2:26 PM EDT Ny Elise [place] Being so restless that it is hard to sit still 0 01/04/2025 2:26 PM EDT Ny Saldaña MA Becoming easily annoyed or irritable 1 01/04/2025 2:26 PM EDT Ny Saldaña [place] Feeling afraid as if somethi ng awful might happen 0 01/04/2025 2:26 PM EDT Ny Saldaña MA ELIEL-7 Total Score 7 01/04/2025 2:26 PM EDT Ny Saldaña [place] documented as of this encounter Plan of Treatment Upcoming Encounters Date Type Department Care Team (Late st Contact Info) Description 06/12/2025 3:00 PM EST Office Visit [facility] ADULT DENTAL [address] [place] [address] VerónicaFarrukhFarzaneh [address] [place] [address] documented as of this encounter Procedures Procedure Name Priority Date/Time Associated Diagnosis Comments HEPATITIS C AB W/REFL TO HCV RNA, QN, PCR Routine 01/04/2025 2:39 PM EDT History of hepatitis C documented in this encounter Results * (ABNORMAL) Hepatitis C Antibody with Reflex to HCV, RNA, Quantitative, Real- Time PCR (01/04/2025 2:39 PM EDT) Hepatitis C Antibody Reactive( A) Nonreactive [facility] Comment:Presumptive evidence of antibodies to HCV. Blood Venous blood specimen / Unknown 01/04/2025 2:39 PM EDT 01/04/2025 4:12 PM EDT us Patricia Castillo MD LAB BLOOD ORDERABLES Final Res ult [facility] [address] [place] [address] [phone] documented in this encounter Visit Diagnoses Diagnosis History of hepatitis C- Primary Personal history of other infectious and parasitic disease documented in this encounter Care Teams Cancer Researcher Relationship Specialty Start Date End Date Patricia Castillo MD [address] [place] [address] PCP - General Family Medicine 12/05/24 Kalin Mart DDS [address], [place] [phone] Dentist Dental Mutuel Teller 11/22/24 documented as of this encounter
--- OUTSIDE RECORDS SUMMARY | 2025-04-06 11:01 | XMS_ITS | Encounter Summary ---
Author Organization [employer] Address [address] [place] [address] 7[address] [place] [address] Care Team Providers Care Drafter Marine Name Role Phone Ashwini Flor JANE Primary Care Provider [phone] Sheridan Coburn MD Primary Care Pro vider Sheridan Lopez MD Primary Care Provide r Kailn Mart DDS Unavailable [phone] Patricia Castillo MD Primary Care Provider [phone] Reason for Visit * Reason Comments Med Refill Encounter Details Date Type Department Care Team (Late st Contact Info) Description 11/16/2022 Refill [facility] MEDICINE [address], [place] [phone] Seven Engle MD [address] [place], [place] [phone] Social History Tobacco Use Types Packs/Day Years [...] Description 06/12/2025 3:00 PM EST Office Visit [facility] ADULT DENTAL [address], [place] [phone] Farzaneh Sanches [address] [place] [address] documented as of this encounter Visit Diagnoses Not on filedocumented in this encounter Care Teams Drafter Marine Relationship Specialty Start Date End Date Ashwini Flor FNP [address] [place] [address] PCP - General Family Medicine 02/16/22 01/08/23 Sheridan Coburn MD [address] [place] [address] PCP - General Internal Medicine 01/09/23 04/05/24 Sheridan Lopez MD [address] [place] [address] [phone] PCP - General Internal Medicine 04/06/24 12/04/24 Patricia Castillo MD [address] [place] [address] [phone] PCP - General Family Medicine 12/05/24 Kalin Mart DDS [address] [place] [address] [phone] Dentist Dental Senior Linux Administrator 11/22/24 documented as of this encounter
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
--- OUTSIDE RECORDS SUMMARY | 2025-04-06 11:01 | XMS_ITS | Encounter Summary ---
Author Organization [employer] Address [address] [facility] 7t [place] [address] Care Team Providers Care Boxing Promoter Name Role Phone Kalin Mart DDS Unavailable [phone] Patricia Castillo MD Primary Care Provider [phone] Encounter Details Date Type Department Care Team ([facility] st Contact Info) Description 01/24/2025 Orders Only [facility] MED[facility]INE [address] [place], [place] [phone] Patricia Castillo MD [address] [place] [address] History of hepatitis C (Primary Dx) Social [...] 3:00 PM EST Office Visit [facility] ADULT DENTAL [address] [place] [address] Farzaneh Sanches [address] [place] [address] Scheduled Orders Name Type Priority Associated Diagnoses Orde r Schedule Hepatitis C Antibody with Reflex to HCV, RNA, Quantitative, Real-Time PCR Lab Routine History of hepatitis C Expected: 01/24/2025, Expires: 01/24/2026 documented as of this encounter Visit Diagnoses Diagnosis History of hepatitis C- Primary Personal history of other infectious and parasitic disease documented in this encounter Additional Health Concerns Assessment Noted Time PHQ-9 Depression Total Score: 16 025 2:26 PM EDT documented as of this encounter Care Teams Boxing Promoter Relationship Specialty Start Date End Date Patricia Castillo MD [address] [place] [phone] PCP - General Family Medicine 12/05/24 Kalin Mart DDS [address] [place] [address] [phone] Dentist Dental Police Officer 11/22/24 documented as of this encounter
[2025-04-06 11:27] LABS: MANUAL DIFF FLAG NO
[2025-04-06 11:42] LABS: Hematocrit 35.5 % (42.0-52.0); Hemoglobin 11.6 g/dl (14.0-18.0); Imm Gran Abs Auto 0.02 X10*3/uL (0.00-0.03); Imm Gran Pct Auto 0.3 % (0.0-0.4); Lymphocytes Absolute Auto 2.2 X10*3/uL (1.2-4.9); Mean Corpuscular HGB Conc 32.7 g/dl (31.0-36.0); Mean Corpuscular Hemoglobin 30.8 pg (27.0-33.0); Mean Corpuscular Volume 94.2 fL (80.0-98.0); NRBC Abs Auto 0.000 X10*3/uL (0.0-0.012); NRBC Pct Auto 0.0 /100WBC (0.0-0.2); Platelet Count 171 X10*3/uL (160-400); Red Blood Count 3.77 X10*6/uL (4.60-5.80); White Blood Count 5.9 X10*3/uL (4.8-10.8)
[2025-04-06 11:47] LABS: B Type Natriuretic Peptide 80 pg/mL (<100)
[2025-04-06 12:34] LABS: Alanine Aminotransferase 21 U/L (0-40); Albumin Level 4.4 g/dL (3.5-5.0); Alkaline Phosphatase 65 U/L (39-117); Anion Gap 10 (12-20); Aspartate Amino Transferase 24 U/L (5-37); Blood Urea Nitrogen 13 mg/dL (9-16); Calcium 9.7 mg/dL (8.4-10.2); Carbon Dioxide 33 mmol/L (22-29); Chloride 102 mmol/L (96-108); Estimated Glomerular Filt Rate > 60; Lipase 20 U/L (8-78); Potassium 4.1 mmol/L (3.3-5.1); Sodium 141 mmol/L (135-145); Total Protein 6.9 g/dL (6.5-8.0)
[2025-04-06 12:40] LABS: ~HepC Num1 9.59 S/CO (0.00-0.79); ~Hepatitis C Antibody Reactive (Nonreactive)
[2025-04-11 19:13] LABS: HCV Log PCR <1.18 NOT DETECTED Log IU/mL (NOT DETECTED); HepC Viral Load <15 NOT DETECTED IU/mL (NOT DETECTED)
== END 2025-04-06 09:55 | disposition home or self-care (01) ==
LOC: HO.HHCL 09:54
PROVIDERS: PCP General Practice; Visit Provider General Practice
DX: R10.13 Epigastric pain (principal); M79.89 Other specified soft tissue disorders; Z86.19 Personal history of other infectious and parasitic diseases; Z11.59 Encounter for screening for other viral diseases
CPT/HCPCS: 36415; 80053; 83690; 83880; 85025; 86803; 87522